=== PATIENT | female | born 1940 | race African-American/Black ===

== ENCOUNTER 2017-01-20 13:15 | Outpatient (CLI) | payer MEDICARE, OTHER, MEDICAID | END 2017-01-20 13:16 | disposition home or self-care (01) | DX: R63.0 Anorexia (principal); F03.91 Unspecified dementia, unspecified severity, with behavioral disturbance; F41.9 Anxiety disorder, unspecified; I25.10 Atherosclerotic heart disease of native coronary artery without angina pectoris; I73.9 Peripheral vascular disease, unspecified; Z89.512 Acquired absence of left leg below knee; Z89.511 Acquired absence of right leg below knee; F32.89 Other specified depressive episodes; D69.6 Thrombocytopenia, unspecified; Z99.3 Dependence on wheelchair; Z79.891 Long term (current) use of opiate analgesic; M40.209 Unspecified kyphosis, site unspecified; R32 Unspecified urinary incontinence; Z51.5 Encounter for palliative care; Z66 Do not resuscitate ==

== ENCOUNTER 2017-04-15 15:30 | Outpatient (CLI) | payer MEDICARE, OTHER, MEDICAID ==
[2017-04-15 17:51] LABS: BILIRUBIN,URINE NEGATIVE (NEGATIVE)
[2017-04-15 18:07] LABS: RAPID STREP SCREEN REAGENT QC YELLOW (YELLOW)
[2017-04-15 18:13] LABS: UA w/ MICROSCOPIC CHARGE YES
[2017-04-15 18:14] LABS: UR CULTURE IF IND NOT INDICATED; WBC,URINE 0-3 /HPF (0-5)
== END 2017-04-15 15:31 | disposition home or self-care (01) ==
LOC: LAB.R 15:30
DX: R30.9 Painful micturition, unspecified (principal); Z11.2 Encounter for screening for other bacterial diseases
CPT/HCPCS: 81001; 81003; 87070; 87086; 87430

== ENCOUNTER 2017-08-29 08:00 | Outpatient (CLI) | payer MEDICARE, OTHER, MEDICAID ==
[2017-08-29 20:16] LABS: ALBUMIN/GLOBULIN RATIO 0.6 (1.0-2.2); BILIRUBIN,TOTAL 0.5 mg/dL (0.2-1.0); BUN - BLOOD UREA NITROGEN 15 mg/dL (6-20); CALCIUM 9.4 mg/dL (8.5-10.3); CARBON DIOXIDE - CO2 22 mmol/L (21-32); CHLORIDE 109 mmol/L (101-111); CREATININE 0.9 mg/dL (0.4-1.0); GFR - MDRD 73 (>89); GLUCOSE 95 mg/dL (70-100); POTASSIUM 4.5 mmol/L (3.5-5.0); SODIUM 140 mmol/L (135-145); TOTAL PROTEIN 9.1 g/dL (6.7-8.2)
== END 2017-08-29 08:01 | disposition home or self-care (01) ==
LOC: LAB.R 08:00
DX: R79.89 Other specified abnormal findings of blood chemistry (principal); R94.6 Abnormal results of thyroid function studies; Z51.81 Encounter for therapeutic drug level monitoring
CPT/HCPCS: 80053; 80164; 84443

== ENCOUNTER 2017-09-01 16:15 | Outpatient (CLI) | payer MEDICARE, OTHER, MEDICAID ==
[2017-09-01 17:17] LABS: BASOPHILS # (AUTO) 0.1 10^3/uL (0.0-0.1); BASOPHILS % (AUTO) 1.2 %; EOSINOPHILS # (AUTO) 0.1 10^3/uL (0.0-0.7); EOSINOPHILS % (AUTO) 2.1 %; HCT - HEMATOCRIT 33.7 % (37.0-47.0); HGB - HEMOGLOBIN 10.2 g/dL (12.0-16.0); LYMPHOCYTES # (AUTO) 2.8 10^3/uL (1.5-3.5); LYMPHOCYTES % (AUTO) 48.1 %; MEAN CORPUSCULAR HEMOGLOBIN 23.6 pg (27.0-31.0); MEAN CORPUSCULAR HGB CONC 30.2 g/dL (32.0-36.0); MEAN CORPUSCULAR VOLUME 78.1 fL (81.0-99.0); MEAN PLATELET VOLUME 8.8 fL (7.9-10.8); MONOCYTES # (AUTO) 0.9 10^3/uL (0.0-1.0); MONOCYTES % (AUTO) 15.9 %; NEUTROPHILS # (AUTO) 1.9 10^3/uL (1.5-6.6); NEUTROPHILS % (AUTO) 32.7 %; NUCLEATED RED BLOOD CELLS AUTO 0.6 /100WBC; RED BLOOD COUNT 4.31 10^6/uL (4.20-5.40); RED CELL DISTRIBUTION WIDTH 19.5 % (12.0-15.0); UNCORRECTED WHITE BLOOD COUNT 5.8 x10^3/uL; WHITE BLOOD COUNT 5.8 x10^3/uL (4.8-10.8)
[2017-09-01 18:24] LABS: PLATELET ESTIMATE, MANUAL INCREASED (>450,000) (NORMAL); PLATELET MORPHOLOGY 1+ GIANT PLATELETS (NORMAL)
== END 2017-09-01 16:16 | disposition home or self-care (01) ==
LOC: LAB.R 16:15
DX: R68.89 Other general symptoms and signs (principal); R79.9 Abnormal finding of blood chemistry, unspecified
CPT/HCPCS: 85025

== ENCOUNTER 2017-09-27 06:00 | Outpatient (CLI) | payer MEDICARE, OTHER, MEDICAID ==
[2017-09-27 06:59] LABS: BILIRUBIN,URINE NEGATIVE (NEGATIVE)
[2017-09-27 07:00] LABS: UA CHARGE (STRIP ONLY) YES; UR CULTURE IF IND NOT INDICATED
== END 2017-09-27 06:01 | disposition home or self-care (01) ==
LOC: LAB.R 06:00
DX: Z13.89 Encounter for screening for other disorder (principal)
CPT/HCPCS: 81001; 81003; 87086

== ENCOUNTER 2017-10-05 11:35 | Outpatient (CLI) | payer MEDICARE, OTHER, MEDICAID ==
[2017-10-05 11:53] LABS: BASOPHILS % (AUTO) 0.5 %; EOSINOPHILS # (AUTO) 0.1 10^3/uL (0.0-0.7); HCT - HEMATOCRIT 31.2 % (37.0-47.0); HGB - HEMOGLOBIN 9.9 g/dL (12.0-16.0); LYMPHOCYTES # (AUTO) 2.9 10^3/uL (1.5-3.5); MEAN CORPUSCULAR HEMOGLOBIN 24.2 pg (27.0-31.0); MEAN CORPUSCULAR HGB CONC 31.7 g/dL (32.0-36.0); MEAN CORPUSCULAR VOLUME 76.2 fL (81.0-99.0); MONOCYTES # (AUTO) 0.7 10^3/uL (0.0-1.0); MONOCYTES % (AUTO) 11.5 %; NEUTROPHILS # (AUTO) 2.2 10^3/uL (1.5-6.6); NUCLEATED RED BLOOD CELLS AUTO 0.5 /100WBC; RED BLOOD COUNT 4.09 10^6/uL (4.20-5.40); RED CELL DISTRIBUTION WIDTH 20.3 % (12.0-15.0); UNCORRECTED WHITE BLOOD COUNT 5.9 x10^3/uL; WHITE BLOOD COUNT 5.9 x10^3/uL (4.8-10.8)
[2017-10-05 12:37] LABS: PLATELET MORPHOLOGY RARE GIANT PLATELETS (NORMAL)
== END 2017-10-05 11:36 | disposition home or self-care (01) ==
LOC: LAB.R 11:35
DX: Z79.899 Other long term (current) drug therapy (principal)
CPT/HCPCS: 85025

== ENCOUNTER 2017-10-15 14:33 | Outpatient (CLI) | payer MEDICARE, OTHER, MEDICAID ==
[2017-10-15 13:46] LABS: IRON 27 ug/dL (28-170); TOTAL IRON BINDING CAPACITY 396 ug/dL (250-450); TRANSFERRIN 283 mg/dL (192-382)
== END 2017-10-15 14:34 | disposition home or self-care (01) ==
LOC: LAB.R 14:33
DX: D50.0 Iron deficiency anemia secondary to blood loss (chronic) (principal)
CPT/HCPCS: 82728; 83540; 84466

== ENCOUNTER 2018-01-07 17:20 | Outpatient (CLI) | payer MEDICARE, OTHER, MEDICAID ==
[2018-01-08 00:06] LABS: ALBUMIN 3.1 g/dL (3.2-5.5); ALBUMIN/GLOBULIN RATIO 0.7 (1.0-2.2); ALKALINE PHOSPHATASE 100 IU/L (42-121); ALT ALANINE AMINOTRANSFERASE 17 IU/L (10-60); AST ASPARTATE AMINOTRANSFERASE 33 IU/L (10-42); BILIRUBIN,TOTAL 0.2 mg/dL (0.2-1.0); BUN - BLOOD UREA NITROGEN 14 mg/dL (6-20); CALCIUM 8.9 mg/dL (8.5-10.3); CARBON DIOXIDE - CO2 21 mmol/L (21-32); CHLORIDE 110 mmol/L (101-111); GFR - MDRD 65 (>89); GLUCOSE 93 mg/dL (70-100); SODIUM 138 mmol/L (135-145); TOTAL PROTEIN 7.7 g/dL (6.7-8.2); VALPROIC ACID (DEPAKOTE) 18.9 ug/mL
[2018-01-08 00:10] LABS: BASOPHILS # (AUTO) 0.1 10^3/uL (0.0-0.1); EOSINOPHILS # (AUTO) 0.1 10^3/uL (0.0-0.7); EOSINOPHILS % (AUTO) 1.3 %; HGB - HEMOGLOBIN 11.6 g/dL (12.0-16.0); LYMPHOCYTES % (AUTO) 58.1 %; MEAN CORPUSCULAR HEMOGLOBIN 26.8 pg (27.0-31.0); MEAN CORPUSCULAR VOLUME 83.7 fL (81.0-99.0); MEAN PLATELET VOLUME 9.5 fL (7.9-10.8); MONOCYTES # (AUTO) 0.7 10^3/uL (0.0-1.0); MONOCYTES % (AUTO) 14.2 %; NEUTROPHILS # (AUTO) 1.3 10^3/uL (1.5-6.6); NEUTROPHILS % (AUTO) 25.4 %; PLT - PLATELET COUNT 534 10^3/uL (130-450); RED BLOOD COUNT 4.31 10^6/uL (4.20-5.40); RED CELL DISTRIBUTION WIDTH 19.9 % (12.0-15.0); WHITE BLOOD COUNT 5.1 x10^3/uL (4.8-10.8)
== END 2018-01-07 17:21 | disposition home or self-care (01) ==
LOC: LAB.R 17:20
DX: I10 Essential (primary) hypertension (principal); R25.1 Tremor, unspecified; D64.9 Anemia, unspecified
CPT/HCPCS: 80053; 80164; 85025

== ENCOUNTER 2018-04-20 20:30 | Outpatient (CLI) | payer MEDICARE, OTHER, MEDICAID ==
[2018-04-20 22:11] LABS: BASOPHILS # (AUTO) 0.1 10^3/uL (0.0-0.1); BASOPHILS % (AUTO) 1.9 %; EOSINOPHILS % (AUTO) 0.7 %; HGB - HEMOGLOBIN 12.5 g/dL (12.0-16.0); LYMPHOCYTES # (AUTO) 1.7 10^3/uL (1.5-3.5); LYMPHOCYTES % (AUTO) 34.5 %; MEAN CORPUSCULAR HEMOGLOBIN 27.9 pg (27.0-31.0); MEAN PLATELET VOLUME 9.7 fL (7.9-10.8); MONOCYTES # (AUTO) 0.4 10^3/uL (0.0-1.0); MONOCYTES % (AUTO) 7.9 %; NEUTROPHILS # (AUTO) 2.7 10^3/uL (1.5-6.6); PLT - PLATELET COUNT 579 10^3/uL (130-450); RED CELL DISTRIBUTION WIDTH 17.5 % (12.0-15.0)
[2018-04-20 22:32] LABS: PLATELET ESTIMATE, MANUAL INCREASED (>450,000) (NORMAL)
== END 2018-04-20 20:31 | disposition home or self-care (01) ==
LOC: LAB.R 20:30
DX: D64.9 Anemia, unspecified (principal)
CPT/HCPCS: 82728; 85025

== ENCOUNTER 2018-05-06 16:30 | Outpatient (CLI) | payer MEDICARE, OTHER, MEDICAID ==
[2018-05-07 00:26] LABS: BILIRUBIN,URINE NEGATIVE (NEGATIVE); GLUCOSE, URINE (UA) NEGATIVE (NEGATIVE); KETONES,URINE (UA) NEGATIVE (NEGATIVE); LEUKOCYTE ESTERASE, URINE NEGATIVE (NEGATIVE); NITRITE,URINE NEGATIVE (NEGATIVE); OCCULT BLOOD,URINE NEGATIVE (NEGATIVE); PROTEIN,URINE NEGATIVE (NEGATIVE); UROBILINOGEN,URINE 0.2 (NORMAL) E.U./dL (NORMAL)
[2018-05-07 00:32] LABS: CLARITY,URINE CLEAR (CLEAR)
== END 2018-05-06 16:31 | disposition home or self-care (01) ==
LOC: LAB.R 16:30
DX: R30.0 Dysuria (principal)
CPT/HCPCS: 81001; 81003; 87086

== ENCOUNTER 2018-11-11 12:28 | Outpatient (CLI) | payer MEDICARE, OTHER, MEDICAID ==
[2018-11-11 19:33] LABS: BASOPHILS % (AUTO) 0.5 %; EOSINOPHILS # (AUTO) 0.1 10^3/uL (0.0-0.7); EOSINOPHILS % (AUTO) 0.9 %; HGB - HEMOGLOBIN 14.3 g/dL (12.0-16.0); LYMPHOCYTES # (AUTO) 3.8 10^3/uL (1.5-3.5); LYMPHOCYTES % (AUTO) 58.5 %; MEAN CORPUSCULAR HEMOGLOBIN 28.1 pg (27.0-31.0); MEAN CORPUSCULAR VOLUME 90.5 fL (81.0-99.0); MEAN PLATELET VOLUME 10.7 fL (7.9-10.8); MONOCYTES # (AUTO) 0.7 10^3/uL (0.0-1.0); MONOCYTES % (AUTO) 11.3 %; NEUTROPHILS # (AUTO) 1.8 10^3/uL (1.5-6.6); NEUTROPHILS % (AUTO) 28.8 %; PLT - PLATELET COUNT 503 10^3/uL (130-450); RED CELL DISTRIBUTION WIDTH 17.3 % (12.0-15.0); WHITE BLOOD COUNT 6.4 x10^3/uL (4.8-10.8)
[2018-11-11 19:58] LABS: ALKALINE PHOSPHATASE 110 IU/L (42-121); ALT ALANINE AMINOTRANSFERASE 11 IU/L (10-60); AST ASPARTATE AMINOTRANSFERASE 27 IU/L (10-42); BILIRUBIN,TOTAL 0.7 mg/dL (0.2-1.0); BUN - BLOOD UREA NITROGEN 9 mg/dL (6-20); CALCIUM 9.7 mg/dL (8.5-10.3); CARBON DIOXIDE - CO2 24 mmol/L (21-32); CHLORIDE 105 mmol/L (101-111); CHOL/HDL RATIO 4.1 (<4.4); CHOLESTEROL 144 mg/dL; CREATININE 0.9 mg/dL (0.4-1.0); GFR - MDRD 73 (>89); GLUCOSE 78 mg/dL (70-100); HDL CHOLESTEROL 35 mg/dL; LDL CHOLESTEROL,CALCULATED 90 mg/dL; LDL/HDL RATIO 2.6 (<4.4); PLATELET ESTIMATE, MANUAL INCREASED (>450,000) (NORMAL); PLATELET MORPHOLOGY 2+ GIANT PLATELETS (NORMAL); RBC MORPHOLOGY (MULTIPLE) 1+ ANISOCYTOSIS (NORMAL); SODIUM 138 mmol/L (135-145); TOTAL PROTEIN 8.8 g/dL (6.7-8.2); VLDL CHOLESTEROL 19 mg/dL
[2018-11-11 20:22] LABS: ALBUMIN 3.5 g/dL (3.2-5.5); ALBUMIN/GLOBULIN RATIO 0.7 (1.0-2.2)
== END 2018-11-11 23:59 | disposition home or self-care (01) ==
LOC: LAB.WCP 12:28
PROVIDERS: ATTEND Family Medicine
DX: G47.00 Insomnia, unspecified (principal); G89.4 Chronic pain syndrome; I73.9 Peripheral vascular disease, unspecified; I25.10 Atherosclerotic heart disease of native coronary artery without angina pectoris; Z79.899 Other long term (current) drug therapy
CPT/HCPCS: 36415; 80053; 80061; 83721; 84134; 84443; 85025; 87086

== ENCOUNTER 2019-04-15 08:00 | Outpatient (CLI) | payer MEDICARE, OTHER, MEDICAID ==
[2019-04-15 13:44] LABS: ALBUMIN 3.6 g/dL (3.2-5.5); ALBUMIN/GLOBULIN RATIO 0.7 (1.0-2.2); ALKALINE PHOSPHATASE 116 IU/L (42-121); ALT ALANINE AMINOTRANSFERASE 12 IU/L (10-60); AMYLASE 123 U/L (28-100); AST ASPARTATE AMINOTRANSFERASE 25 IU/L (10-42); BILIRUBIN,TOTAL 0.4 mg/dL (0.2-1.0); BUN - BLOOD UREA NITROGEN 15 mg/dL (6-20); CALCIUM 9.9 mg/dL (8.5-10.3); CARBON DIOXIDE - CO2 23 mmol/L (21-32); CHLORIDE 109 mmol/L (101-111); CHOL/HDL RATIO 4.1 (<4.4); CHOLESTEROL 135 mg/dL; CREATININE 0.9 mg/dL (0.4-1.0); GFR - MDRD 73 (>89); GLUCOSE 87 mg/dL (70-100); HDL CHOLESTEROL 33 mg/dL; LDL CHOLESTEROL,CALCULATED 68 mg/dL; LDL/HDL RATIO 2.1 (<4.4); LIPASE 31 U/L (22-51); SODIUM 141 mmol/L (135-145); TOTAL PROTEIN 8.9 g/dL (6.7-8.2); VLDL CHOLESTEROL 34 mg/dL
[2019-04-15 13:59] LABS: BASOPHILS % (AUTO) 2.3 %; HGB - HEMOGLOBIN 13.2 g/dL (12.0-16.0); LYMPHOCYTES % (AUTO) 45.5 %; MEAN CORPUSCULAR HEMOGLOBIN 27.3 pg (27.0-31.0); MEAN CORPUSCULAR HGB CONC 31.7 g/dL (32.0-36.0); MEAN CORPUSCULAR VOLUME 86.2 fL (81.0-99.0); MEAN PLATELET VOLUME 9.7 fL (7.9-10.8); MONOCYTES % (AUTO) 11.8 %; NEUTROPHILS % (AUTO) 39.4 %; PLT - PLATELET COUNT 574 10^3/uL (130-450); RED BLOOD COUNT 4.84 10^6/uL (4.20-5.40); RED CELL DISTRIBUTION WIDTH 16.8 % (12.0-15.0); WHITE BLOOD COUNT 8.1 x10^3/uL (4.8-10.8)
[2019-04-15 14:17] LABS: ABNORMAL LYMPHS % (MANUAL) 0 %; BAND NEUTROPHILS % (MANUAL) 0 %
[2019-04-15 14:45] LABS: EOSINOPHILS # (MANUAL) 0.2 10^3/uL (0-0.7); LYMPHOCYTES # (MANUAL) 3.7 10^3/uL (1.5-3.5); LYMPHOCYTES % (MANUAL) 46 %; MONOCYTES # (MANUAL) 0.2 10^3/uL (0.0-1.0); NEUTROPHILS % (MANUAL) 49 %
[2019-04-15 14:56] LABS: DIFFERENTIAL COMMENT MANUAL DIFFERENTIAL; PLATELET ESTIMATE, MANUAL INCREASED (>450,000) (NORMAL); PLATELET MORPHOLOGY NORMAL APPEARANCE (NORMAL)
== END 2019-04-15 23:59 | disposition home or self-care (01) ==
LOC: LAB 08:00
PROVIDERS: ATTEND Family Medicine
DX: R10.13 Epigastric pain (principal); I25.10 Atherosclerotic heart disease of native coronary artery without angina pectoris; R63.0 Anorexia; G89.4 Chronic pain syndrome; F32.9 Major depressive disorder, single episode, unspecified
CPT/HCPCS: 36415; 80053; 80061; 82150; 83690; 83721; 84443; 85025

== ENCOUNTER 2019-04-15 12:10 | Outpatient (CLI) | payer MEDICARE, OTHER, MEDICAID ==
--- NOTE | 2019-04-15 13:29 | XRAY Report ---
Reason: EPIGASTRIC PAIN Procedure Date: 04/15/2019 Accession Number: [id number] / [id number] Procedure: XR - Abdomen Acute CPT Code: FULL RESULT: EXAM: ABDOMINAL SERIES AND PA CHEST EXAM DATE: 04/15/2019 12:53 PM. CLINICAL HISTORY: EPIGASTRIC PAIN. COMPARISON: 12/17/2015 10:42 PM CHEST 1 VIEW 07/02/2015 2:37 AM. TECHNIQUE: 2 views abdomen and 1 view chest. FINDINGS: CHEST: Lungs/Pleura: No focal opacities. No effusion or pneumothorax. Mediastinum: Within exam limitations, cardiomediastinal contour is normal. ABDOMEN: Bowel Gas Pattern: Within normal limits. No dilated loops or abnormal fluid levels. Free Air: None. Other: Left iliac vascular stent. S-shaped thoracolumbar scoliosis IMPRESSION: Unremarkable abdominal series (including 1-view chest). [facility]
== END 2019-04-15 12:11 | disposition home or self-care (01) ==
LOC: DI 12:10
PROVIDERS: ATTEND Family Medicine
DX: R10.13 Epigastric pain (principal); I25.10 Atherosclerotic heart disease of native coronary artery without angina pectoris; R63.0 Anorexia; G89.4 Chronic pain syndrome; F32.9 Major depressive disorder, single episode, unspecified
CPT/HCPCS: 36415; 74022; 80053; 80061; 82150; 83690; 83721; 84443; 85025

== ENCOUNTER 2019-04-16 12:15 | Outpatient (CLI) | payer MEDICARE, OTHER, MEDICAID | END 2019-04-16 12:16 | disposition critical access hospital (66) | LOC: EMS 12:15 | PROVIDERS: ATTEND Surgery | DX: R10.9 Unspecified abdominal pain (principal) | CPT/HCPCS: A0425; A0429 ==

== ENCOUNTER 2019-04-16 12:35 | Emergency (ER) | payer MEDICARE, OTHER, MEDICAID ==
[2019-04-16 13:35] LABS: BASOPHILS # (AUTO) 0.2 10^3/uL (0.0-0.1); BASOPHILS % (AUTO) 2.6 %; EOSINOPHILS % (AUTO) 0.7 %; HGB - HEMOGLOBIN 13.2 g/dL (12.0-16.0); LYMPHOCYTES # (AUTO) 2.8 10^3/uL (1.5-3.5); LYMPHOCYTES % (AUTO) 46.2 %; MEAN CORPUSCULAR HEMOGLOBIN 27.4 pg (27.0-31.0); MEAN CORPUSCULAR HGB CONC 31.9 g/dL (32.0-36.0); MEAN CORPUSCULAR VOLUME 85.9 fL (81.0-99.0); MEAN PLATELET VOLUME 10.2 fL (7.9-10.8); MONOCYTES # (AUTO) 0.9 10^3/uL (0.0-1.0); MONOCYTES % (AUTO) 15.6 %; NEUTROPHILS # (AUTO) 2.1 10^3/uL (1.5-6.6); NEUTROPHILS % (AUTO) 34.9 %; PLT - PLATELET COUNT 608 10^3/uL (130-450); RED BLOOD COUNT 4.83 10^6/uL (4.20-5.40); RED CELL DISTRIBUTION WIDTH 16.4 % (12.0-15.0)
[2019-04-16] MEDS ORDERED: PANTOPRAZOLE 40 MG VIAL IVP STA (13:48)
[2019-04-16] MEDS ORDERED: MAG HYDROX/AL HYDROX/SIMETH 30 ML UDC PO STA (13:48)
[2019-04-16] MEDS ORDERED: LIDOCAINE VISCOUS 2% 15 ML UDC MM STA (13:48)
[2019-04-16] MEDS ORDERED: SODIUM CHLORIDE 0.9% 1,000 ML IV ONE ×2 (13:48)
[2019-04-16] MEDS ORDERED: SUCRALFATE 1 GM/10 ML UDC PO STA (13:48)
--- NOTE | 2019-04-16 13:51 | ED Physician Documentation ---
PD HPI ABD PAIN - Stated complaint Stated Complaint: ABD PX - Chief complaint Chief Complaint: Abd Pain - History obtained from History obtained from: Patient, Family - History of Present Illness Timing - onset: How many days ago (several) Timing - duration: Days (several) Timing - details: Abrupt onset Pain level max: 7 Pain level now: 6 Quality: Aching, Dull, Pain Location: Epigastric Radiation: No: Chest, , Lower back, Left flank, Left shoulder, Right flank, Right shoulder, Upper back Improved by: Other (nothing) Worsened by: Other (nothing) Associated symptoms: No: Fever, Nausea, Vomiting, Hematemesis, Diarrhea, Constipation, Melena, Hematochezia, Dysuria, Hematuria, Chest pain, Dizzy, Near syncope / syncope, Loss of appetite, Weight loss, Vaginal bleeding, Vaginal dc Recently seen: Clinic (seen in clinic yesterday for same, normal acute abdominal series) Review of Systems Unable to obtain: Dementia Constitutional: denies: Fever, Chills Throat: denies: Sore throat Cardiac: denies: Chest pain / pressure Respiratory: denies: Cough, Wheezing GI: denies: Vomiting, Diarrhea, Hematemesis, Bloody / black stool : denies: Dysuria Skin: denies: Rash Musculoskeletal: denies: Neck pain, Back pain Neurologic: denies: Headache PD PAST MEDICAL HISTORY - Past Medical History Cardiovascular: High cholesterol, Coronary artery disease, Peripheral Vascular Disease Respiratory: Asthma Endocrine/Autoimmune: None GI: GERD, Hiatal hernia 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 HEENT: Glaucoma Psych: Anxiety Musculoskeletal: Osteoporosis Derm: None - Past Surgical History Past Surgical History: Yes General: Appendectomy Ortho: Amputation, 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 TEACHER: Hysterectomy - Present Medications Home Medications: Ambulatory Orders Medication Instructions Recorded Confirmed Potassium Chloride 20 meq PO DAILY 07/02/15 03/18/16 Cholecalciferol (Vitamin D3) 1,000 unit PO DAILY 07/03/15 03/18/16 [Vitamin D3] Aspirin [Adult Low Dose Aspirin EC] 80 mg PO DAILY 12/18/15 03/18/16 Polyethylene Glycol 3350 [Miralax] 8.5 - 17 gm PO DAILY 12/18/15 03/18/16 ALPRAZolam [Alprazolam] 0.125 mg PO BID 03/18/16 03/18/16 Acetaminophen [Tylenol] 650 mg PO Q6H PRN 03/18/16 03/18/16 Alprazolam [Alprazolam Odt] 0.125 mg PO TID 03/18/16 03/18/16 Famotidine [Pepcid] 20 mg PO BID 03/18/16 03/18/16 Gabapentin 300 mg BID 03/18/16 03/18/16 Risperidone 1 mg BID 03/18/16 03/18/16 Simethicone [Anti-Gas] 60 mg PO PRN 03/18/16 Travoprost (Benzalkonium) 2.5 ml OP 03/18/16 [Travoprost 0.004% Eye Drop] oxyCODONE ER [OxyCONTIN] 10 mg PO Q12H 03/18/16 03/18/16 Azithromycin [Zithromax] 250 mg PO DAILY #6 tablet 08/10/16 dexAMETHasone [Decadron] 4 mg PO DAILY #5 tablet 08/10/16 Esomeprazole Magnesium [Nexium] 40 mg PO DAILY #30 capsule. 04/16/19 Sucralfate [Carafate] 1 gm PO ACHS #60 tablet 04/16/19 fentaNYL [Fentanyl 12mcg patch] 1 each TD 04/16/19 - Allergies Allergies/Adverse Reactions: Allergies Allergy/AdvReac Type Severity Reaction Status Date / Time gentamicin [Gentamicin] Allergy Unknown Verified 03/17/16 22:22 lisinopril Allergy Unknown Verified 03/17/16 22:22 - Social History Does the pt smoke?: No Smoking Status: Former smoker Does the pt drink ETOH?: No Does the pt have substance abuse?: No - Immunizations Immunizations are current?: Yes - POLST Patient has POLST: Yes PD ED PE NORMAL - Vitals Vital signs reviewed: Yes - General General: No acute distress, Well developed/nourished, Other (alert, oriented to ) - HEENT HEENT: Moist mucous membranes - Neck Neck: Supple, no meningeal sign - Cardiac Cardiac: RRR, Strong equal pulses - Respiratory Respiratory: No respiratory distress, Clear bilaterally - Abdomen Abdomen: Normal bowel sounds, Soft, Non tender, Non distended - Derm Derm: Warm and dry - Extremities Extremities: Other (B AKA, no infection on skin) - Neuro Neuro: Other (alert) - Psych Psych: Normal mood, Normal affect Results - Vitals Vitals: Vital Signs - 24 hr 04/16/19 04/16/19 04/16/19 12:40 13:00 14:30 Temperature 36.8 C Heart Rate 72 Respiratory 18 Rate Blood Pressure 121/93 H O2 Saturation 88 L 96 93 04/16/19 15:02 Temperature Heart Rate 66 Respiratory 18 Rate Blood Pressure 132/75 H O2 Saturation 93 Oxygen O2 Source [Without Activity] Room air O2 Source Room air - Labs Labs: Laboratory Tests 04/16/19 04/16/19 04/16/19 13:20 13:43 14:09 WBC 6.0 RBC 4.83 Hgb 13.2 Hct 41.5 MCV 85.9 MCH 27.4 MCHC 31.9 L RDW 16.4 H Plt Count 608 H MPV 10.2 Neut # (Auto) 2.1 Lymph # (Auto) 2.8 [place] # (Auto) 0.9 Eos # (Auto) 0.0 Baso # (Auto) 0.2 H Absolute Nucleated RBC 0.02 Nucleated RBC % 0.3 Manual Slide Review Indicated Platelet Morphology RARE GIANT PLATELETS Sodium 141 Potassium 4.0 Chloride 109 Carbon Dioxide 23 Anion Gap 9.0 BUN 14 Creatinine 1.0 Estimated GFR (MDRD) 65 L Glucose 103 H Calcium 9.5 Total Bilirubin 0.6 AST 28 ALT 11 Alkaline Phosphatase 109 Total Protein 8.6 H Albumin 3.4 Globulin 5.2 H Albumin/Globulin Ratio 0.7 L Lipase 32 Urine Color YELLOW Urine Clarity CLEAR Urine pH 5.5 Ur Specific [place] 1.020 Urine Protein NEGATIVE Urine Glucose (UA) NEGATIVE Urine Ketones NEGATIVE Urine Occult Blood NEGATIVE Urine Nitrite NEGATIVE Urine Bilirubin NEGATIVE Urine Urobilinogen 0.2 (NORMAL) Ur Leukocyte Esterase NEGATIVE Ur Microscopic Review NOT INDICATED Urine Culture Comments NOT INDICATED PD MEDICAL DECISION MAKING - ED course Complexity details: reviewed old records, reviewed results, re-evaluated patient, considered differential, d/w patient, d/w family ED course: Symptoms resolved with GI cocktail and IV Protonix. Likely that she has gastritis from her iron pills. Tolerating p.o. without difficulty here. Hypoxia resolved in the emergency department as well. She is very well- appearing, nontoxic. Afebrile. No evidence of bowel obstruction. No peritoneal signs. Patient and family counseled regarding signs and symptoms for which I believe and urgent re-evaluation would be necessary. Patient with good understanding of and agreement to plan and is comfortable going home at this time This document was made in part using voice recognition software. While efforts are made to proofread this document, sound alike and grammatical errors may occur. Departure - Departure Disposition: Home, Self Care Clinical Impression: Gastritis Qualifiers: Gastritis type: unspecified gastritis Chronicity: acute Gastritis bleeding: without bleeding Qualified Code(s): K29.00 - Acute gastritis without bleeding Condition: Good Instructions: ED PUD Vs Gastritis Follow-Up: Gurmeet Garduno MD [Primary Care Provider] - Within 1 week Prescriptions: Esomeprazole Magnesium [Nexium] 40 mg PO DAILY #30 capsule. Sucralfate [Carafate] 1 gm PO ACHS #60 tablet Comments: Use the medications as prescribed. Return if she worsens. Follow-up with your doctor for further care. Discharge Date/Time: 04/16/19 15:33
[2019-04-16 14:04] LABS: ALBUMIN 3.4 g/dL (3.2-5.5); ALBUMIN/GLOBULIN RATIO 0.7 (1.0-2.2); BILIRUBIN,TOTAL 0.6 mg/dL (0.2-1.0); CALCIUM 9.5 mg/dL (8.5-10.3); TOTAL PROTEIN 8.6 g/dL (6.7-8.2)
[2019-04-16 14:06] LABS: PLATELET MORPHOLOGY RARE GIANT PLATELETS (NORMAL)
[2019-04-16 14:28] LABS: BILIRUBIN,URINE NEGATIVE (NEGATIVE); GLUCOSE, URINE (UA) NEGATIVE (NEGATIVE); KETONES,URINE (UA) NEGATIVE (NEGATIVE); LEUKOCYTE ESTERASE, URINE NEGATIVE (NEGATIVE); NITRITE,URINE NEGATIVE (NEGATIVE); OCCULT BLOOD,URINE NEGATIVE (NEGATIVE); PH,URINE 5.5 PH (5.0-7.5); PROTEIN,URINE NEGATIVE (NEGATIVE); UROBILINOGEN,URINE 0.2 (NORMAL) E.U./dL (NORMAL)
[2019-04-16 14:31] LABS: CLARITY,URINE CLEAR (CLEAR)
[2019-04-16 15:03] VITALS: BP 132/75
== END 2019-04-16 15:33 | disposition home or self-care (01) ==
LOC: EDUNIT# → ED 12:35
DX: K29.00 Acute gastritis without bleeding (principal); F03.90 Unspecified dementia, unspecified severity, without behavioral disturbance, psychotic disturbance, mood disturbance, and anxiety; Z89.612 Acquired absence of left leg above knee; Z89.611 Acquired absence of right leg above knee; Z79.82 Long term (current) use of aspirin; Z87.891 Personal history of nicotine dependence
CPT/HCPCS: 36415; 80053; 81003; 83690; 85025; 96374; 99283; A9270; 81001; 87086

== ENCOUNTER 2019-06-23 15:47 | Outpatient (CLI) | payer MEDICARE, OTHER, MEDICAID | END 2019-06-23 23:59 | disposition home or self-care (01) | LOC: LAB.R 15:47 | PROVIDERS: ATTEND Family Medicine | DX: R31.9 Hematuria, unspecified (principal) | CPT/HCPCS: 87077; 87086; 87181 ==

== ENCOUNTER 2019-07-12 08:00 | Outpatient (CLI) | payer MEDICARE, OTHER, MEDICAID ==
[2019-07-12 18:42] LABS: BASOPHILS % (AUTO) 0.3 %; EOSINOPHILS # (AUTO) 0.1 10^3/uL (0.0-0.7); EOSINOPHILS % (AUTO) 1.5 %; HGB - HEMOGLOBIN 13.7 g/dL (12.0-16.0); LYMPHOCYTES # (AUTO) 3.7 10^3/uL (1.5-3.5); LYMPHOCYTES % (AUTO) 62.2 %; MEAN CORPUSCULAR HEMOGLOBIN 27.3 pg (27.0-31.0); MEAN CORPUSCULAR HGB CONC 29.6 g/dL (32.0-36.0); MEAN CORPUSCULAR VOLUME 92.4 fL (81.0-99.0); MONOCYTES # (AUTO) 0.7 10^3/uL (0.0-1.0); NEUTROPHILS # (AUTO) 1.5 10^3/uL (1.5-6.6); NEUTROPHILS % (AUTO) 24.7 %; PLT - PLATELET COUNT 443 10^3/uL (130-450); RED BLOOD COUNT 5.01 10^6/uL (4.20-5.40); RED CELL DISTRIBUTION WIDTH 20.5 % (12.0-15.0); WHITE BLOOD COUNT 5.9 x10^3/uL (4.8-10.8)
[2019-07-12 19:09] LABS: ALBUMIN 3.3 g/dL (3.2-5.5); ALBUMIN/GLOBULIN RATIO 0.6 (1.0-2.2); BILIRUBIN,TOTAL 0.4 mg/dL (0.2-1.0); CALCIUM 9.4 mg/dL (8.5-10.3); CREATININE 0.9 mg/dL (0.4-1.0); TOTAL PROTEIN 8.9 g/dL (6.7-8.2)
[2019-07-12 19:38] LABS: PLATELET ESTIMATE, MANUAL INCREASED (>450,000) (NORMAL)
== END 2019-07-12 23:59 | disposition home or self-care (01) ==
LOC: LAB.WCP 08:00
PROVIDERS: ATTEND Family Medicine
DX: R10.9 Unspecified abdominal pain (principal)
CPT/HCPCS: 36415; 80053; 82150; 83690; 85025

== ENCOUNTER 2019-07-20 13:38 | Outpatient (CLI) | payer MEDICARE, OTHER, MEDICAID ==
[2019-07-20] MEDS ORDERED: IOVERSOL 320 50 ML VIAL ONE (13:58)
[2019-07-20] MEDS ORDERED: IOVERSOL 320 100 ML VIAL IVP ONE ×2 (13:58→15:23)
--- NOTE | 2019-07-21 18:46 | CT Report ---
Reason: ABDOMINAL PAIN Procedure Date: 07/20/2019 Accession Number: [id number] / [id number] Procedure: CT - Abdomen/Pelvis W CPT Code: FULL RESULT: EXAM: CT ABDOMEN AND PELVIS EXAM DATE: 07/20/2019 03:15 PM. CLINICAL HISTORY: ABDOMINAL PAIN. COMPARISONS: ABDOMEN ACUTE 04/15/2019 12:39 PM CHEST 2 VIEW 04/15/2019 12:21 PM CHEST 2 VIEW PA/LAT 08/10/2016 6:59 PM. TECHNIQUE: Routine helical CT imaging was performed through the abdomen and pelvis. IV contrast: OPTI 320 80ML. Enteric contrast: No. Reconstructions: Coronal and sagittal. In accordance with CT protocol optimization, one or more of the following dose reduction techniques were utilized for this exam: automated exposure control, adjustment of mA and/or KV based on patient size, or use of iterative reconstructive technique. FINDINGS: Lung Bases: No pleural effusion Liver: Calcified granulomata. No masses. Gallbladder/Bile Ducts: Unremarkable. Spleen: Post splenectomy. 1.6 cm residual splenule 01/11. Pancreas: Atrophic appearance. Pancreatic duct 2.8 mm Adrenal Glands: Normal. Kidneys: Bilateral renal cysts, the largest 3.3 cm left kidney. 1.2 cm round calcification left renal hilus 01/19 , question relationship to left renal artery Peritoneal Cavity/Bowel: No free fluid, free air or adenopathy. No masses or acute inflammatory process. Pelvic Organs: Bladder is unremarkable. Uterus not seen. Vasculature: The distal descending thoracic aorta is dilated measuring 3.8 cm at the diaphragm with moderate mural thrombus. 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 Superior mesenteric artery patent. Distal 4.4 x 4.1 cm abdominal aortic aneurysm extending to the level of the bifurcation where bilateral common iliac artery grafts are in place. No evidence of periaortic stranding. Bones: Degenerative change in the spine Other: None. IMPRESSION: 1. 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 Celiac axis origin appears occluded. Suggest dedicated imaging of the thoracic and abdominal aorta for further assessment. 2. Bilateral common iliac artery stent/grafts. 3. Status post splenectomy. 4. Bilateral renal cysts. 5. 1.2 cm round calcification left renal hilus, question relationship to left renal artery. 6. Other incidental findings as above. [facility]
== END 2019-07-20 13:39 | disposition home or self-care (01) ==
LOC: DI 13:38
PROVIDERS: ATTEND Family Medicine
DX: I71.4 Abdominal aortic aneurysm, without rupture (principal); N28.1 Cyst of kidney, acquired
CPT/HCPCS: 74177; Q9967

== ENCOUNTER 2019-07-31 10:37 | Outpatient (CLI) | payer MEDICARE, OTHER, MEDICAID ==
[2019-07-31] MEDS ORDERED: IOVERSOL 320 100 ML VIAL IVP ONE ×2 (11:02→11:37)
--- NOTE | 2019-08-01 09:02 | CT Report ---
Reason: ABDOMINAL AORTIC ANEURYSM, THORACIC AORTIC ANEURYS Procedure Date: 07/31/2019 Accession Number: [id number] / [id number] Procedure: CT - ANGIO ABDOMEN W/WO CPT Code: FULL RESULT: EXAM: CTA ABDOMEN AND PELVIS INDICATION: Thoracic and abdominal aortic aneurysm. TECHNIQUE: Following intravenous administration of Optiray 320, 90 mL, axial sections were obtained through the abdomen and pelvis. Multiplanar 3D reconstructions are available for interpretation. In accordance with CT protocol optimization, one or more of the following dose reduction techniques were utilized for this exam: automated exposure control, adjustment of mA and/or KV based on patient size, or use of iterative reconstructive technique. COMPARISON: CHEST ANGIO 07/31/2019 11:19 AM. ABDOMEN ANGIO 07/31/2019 11:19 AM. ABDOMEN/PELVIS W/ 07/20/2019 2:55 PM. FINDINGS: MEASUREMENTS: At the level of the diaphragm, the aorta measures 32 x 35 mm. Previous 30 x 34 mm. Above the renal arteries, the aorta measures 25 x 28 mm. Previous 22 x 27 mm. Below the renal arteries, the aorta measures 39 x 43 mm. Previous 40 x 44 mm. Above the iliac bifurcation, the aorta measures 25 x 30 mm. Previous 24 x 27 mm. Lower thoracic aorta: 40 mm, stable. ABDOMINAL AORTA: Moderately heavy mural calcification without dissection, similar to previous. 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 More distal aspect filled by collaterals. The SMA appears patent. The renal arteries appear patent. The NA is not seen. CT ABDOMEN AND PELVIS: Visualized lung bases appear clear. No focal lesions detected in the visualized liver, pancreas, or adrenal glands. 1.6 cm splenule indicated left upper abdomen. The spleen is not otherwise seen. Stable appearance of bilateral renal cysts. The kidneys enhance symmetrically. No pathologically enlarged lymph nodes. IMPRESSION: Overall stable appearance of lower thoracic and abdominal aortic aneurysm. Heavy atheromatous changes. No dissection identified. 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 The NA takeoff is also not seen. [facility]
--- NOTE | 2019-08-01 09:13 | CT Report ---
Reason: ABDOMINAL AORTIC ANEURYSM, THORACIC AORTIC ANEURYS Procedure Date: 07/31/2019 Accession Number: [id number] / [id number] Procedure: CT - ANGIO PELVIS W/WO CPT Code: FULL RESULT: EXAM: CT PELVIS EXAM DATE: 07/31/2019 11:36 AM. CLINICAL HISTORY: Abdominal aortic aneurysm, thoracic aortic aneurysm. COMPARISONS: None. TECHNIQUE: Routine helical CT imaging was performed through the pelvis. IV contrast: OPTI 320 90 mL. Enteric contrast: No. Reconstructions: Coronal and sagittal. In accordance with CT protocol optimization, one or more of the following dose reduction techniques were utilized for this exam: automated exposure control, adjustment of mA and/or KV based on patient size, or use of iterative reconstructive technique. FINDINGS: Visualized Abdominal Organs: Normal. Peritoneal Cavity/Bowel: No bowel obstruction identified. [place] radiopaque densities at the cecum, possibly pills. The appendix is not well seen. Pelvic Organs: Uterus absent. No cystic or mass lesions in either adnexa. Normal-appearing urinary bladder.. Vasculature: Abdominal aorta findings reported separately. No aneurysm identified of the right common iliac artery. The left common iliac artery appears occluded. A vascular stent is seen. No aneurysm of the left common iliac artery identified. Bones: No significant abnormality. Other: None. IMPRESSION: The left common iliac artery appears occluded. [facility]
--- NOTE | 2019-08-01 09:13 | CT Report ---
Reason: ABDOMINAL AORTIC ANEURYSM, THORACIC AORTIC ANEURYS Procedure Date: 07/31/2019 Accession Number: [id number] / [id number] Procedure: CT - ANGIO CHEST W/WO CPT Code: FULL RESULT: EXAM: CT ANGIOGRAM CHEST EXAM DATE: 07/31/2019 11:36 AM. CLINICAL HISTORY: Abdominal aortic aneurysm, thoracic aortic aneurysm. COMPARISON: None. TECHNIQUE: Routine helical imaging was performed through the chest in the pulmonary arterial phase. IV Contrast: Optiray 320, 90 mL. Reconstructions: Coronal 3-D MIP reconstructions. Sagittal and coronal. In accordance with CT protocol optimization, one or more of the following dose reduction techniques were utilized for this exam: automated exposure control, adjustment of mA and/or KV based on patient size, or use of iterative reconstructive technique. FINDINGS: Pulmonary Arteries: Diagnostic quality: Adequate through the segmental arteries. No evidence for acute or chronic pulmonary emboli. RV/LV is within normal limits. There is no interventricular septal bowing. There is no reflux of contrast material in the IVC. Lungs/Pleura: Mild emphysematous changes with paraseptal and centrilobular cystic changes toward the lung apices. No lung consolidations identified. No bronchiectasis or pleural fluid collections. Mediastinum: No cardiac enlargement or adenopathy. Thoracic Aorta: Proximal abdominal aorta measured 35 x 33 mm, the aortic arch measured 31 x 32 mm, the mid descending thoracic aorta 28 x 29 mm, and the distal abdominal aorta 34 x 35 mm. Calcified mural plaques most conspicuous of the ascending aorta, aortic arch, and proximal descending aorta. Mural thickening most conspicuous of the mid to distal descending thoracic aorta. No aortic dissection identified. Upper Abdomen: Reported separately. Other: None. IMPRESSION: Thoracic aortic prominence, with significant mural thickening distally, as above. No dissection identified. [facility]
== END 2019-07-31 10:38 | disposition home or self-care (01) ==
LOC: DI 10:37
PROVIDERS: ATTEND Family Medicine
DX: I71.4 Abdominal aortic aneurysm, without rupture (principal); I71.2 Thoracic aortic aneurysm, without rupture
CPT/HCPCS: 71275; 72191; 74175; Q9967

== ENCOUNTER 2019-08-13 22:44 | Outpatient (CLI) | payer MEDICARE, OTHER, MEDICAID | END 2019-08-13 22:45 | disposition critical access hospital (66) | LOC: EMS 22:44 | PROVIDERS: ATTEND Surgery | DX: R53.1 Weakness (principal); R53.83 Other fatigue | CPT/HCPCS: A0425; A0429 ==

== ENCOUNTER 2019-08-13 23:04 | Inpatient (IN) | payer MEDICARE, OTHER, MEDICAID ==
[2019-08-13] MEDS ORDERED: SODIUM CHLORIDE 0.9% 1,000 ML IV ONE (23:35)
--- NOTE | 2019-08-14 00:11 | XRAY Report ---
Reason: weakness Procedure Date: 08/14/2019 Accession Number: [id number] / [id number] Procedure: XR - Chest 1 View X-Ray CPT Code: 63896 FULL RESULT: EXAM: CHEST RADIOGRAPHY EXAM DATE: 08/13/2019 11:45 PM. CLINICAL HISTORY: Weakness. COMPARISON: CHEST 2 VIEW 04/15/2019 12:21 PM CHEST 2 VIEW PA/LAT 08/10/2016 6:59 PM 12/17/2015 6:18 PM CHEST 1 VIEW 07/02/2015 2:37 AM CHEST ANGIO 07/31/2019 11:21 AM. TECHNIQUE: 1 view. FINDINGS: Lungs/Pleura: No significant consolidation, effusion, or definite pneumothorax. Mediastinum: Small calcified left hilar lymph node. Cardiac silhouette is within normal limits when accounting for lung volumes and technique. Other: None. IMPRESSION: Stable appearance of the chest without acute cardiopulmonary abnormality. [facility]
--- NOTE | 2019-08-14 00:30 | ED Physician Documentation ---
History of Present Illness - Stated complaint Stated Complaint: WEAKNESS - Chief complaint Chief Complaint: Neuro - History obtained from History obtained from: Patient, Family, EMS - History of Present Illness Timing: How many days ago (2) - Additonal information Additional information: 79-year-old female with history of severe peripheral vascular disease who is status post bilateral BKA and has a history of vascular dementia is being cared for by her at home. Over the past 2 weeks the patient has been placed on Diamox for elevated pressure in the right eye. She has become profoundly weak and the patient's is unable to care for her at home. She is normally able to sit up, put her prostheses on and transfer to the bedside commode. She is not able to sit up in bed today. Review of Systems Constitutional: denies: Fever Eyes: reports: Decreased vision Ears: denies: Ear pain Nose: denies: Congestion Throat: denies: Sore throat Cardiac: denies: Chest pain / pressure, Palpitations Respiratory: denies: Dyspnea, Cough GI: reports: Abdominal Pain. denies: Nausea, Vomiting : denies: Dysuria, Frequency Skin: denies: Rash Musculoskeletal: reports: Back pain. denies: Neck pain Neurologic: reports: Generalized weakness. denies: Focal weakness, Numbness PD PAST MEDICAL HISTORY - Past Medical History Past Medical History: Yes Cardiovascular: High cholesterol, Coronary artery disease, Peripheral Vascular Disease Respiratory: Asthma Endocrine/Autoimmune: None GI: GERD, Hiatal hernia LAW LIBRARIAN: None : None HEENT: Glaucoma Psych: Anxiety Musculoskeletal: Osteoporosis Derm: None - Past Surgical History Past Surgical History: Yes General: Appendectomy Ortho: Amputation, Other /LAW LIBRARIAN: Hysterectomy - Present Medications Home Medications: Ambulatory Orders Medication Instructions Recorded Confirmed Potassium Chloride 20 meq PO DAILY 07/02/15 03/18/16 Cholecalciferol (Vitamin D3) 1,000 unit PO DAILY 07/03/15 03/18/16 [Vitamin D3] Aspirin [Adult Low Dose Aspirin EC] 80 mg PO DAILY 12/18/15 03/18/16 Polyethylene Glycol 3350 [Miralax] 8.5 - 17 gm PO DAILY 12/18/15 03/18/16 ALPRAZolam [Alprazolam] 0.25 mg PO BID 03/18/16 03/18/16 Acetaminophen [Tylenol] 650 mg PO Q6H PRN 03/18/16 03/18/16 Alprazolam [Alprazolam Odt] 0.25 mg PO RTQ4H 03/18/16 03/18/16 Famotidine [Pepcid] 20 mg PO BID 03/18/16 03/18/16 Gabapentin 300 mg BID 03/18/16 03/18/16 Risperidone 1 mg BID 03/18/16 03/18/16 Simethicone [Anti-Gas] 60 mg PO PRN 03/18/16 Travoprost (Benzalkonium) 2.5 ml OP 03/18/16 [Travoprost 0.004% Eye Drop] oxyCODONE ER [OxyCONTIN] 10 mg PO Q12H 03/18/16 03/18/16 Esomeprazole Magnesium [Nexium] 40 mg PO DAILY #30 capsule. 04/16/19 Sucralfate [Carafate] 1 gm PO ACHS #60 tablet 04/16/19 Baclofen 10 mg PO TID PRN 08/13/19 Divalproex Sodium 125 mg PO BID 08/13/19 Esomeprazole Magnesium 40 mg PO DAILY 08/13/19 Lovastatin 80 mg PO DAILY 08/13/19 Mirtazapine 0.5 tab PO DAILY 08/13/19 Potassium Chloride 20 meq PO DAILY 08/13/19 - Allergies Allergies/Adverse Reactions: Allergies Allergy/AdvReac Type Severity Reaction Status Date / Time gentamicin [Gentamicin] Allergy Unknown Verified 03/17/16 22:22 lisinopril Allergy Unknown Verified 03/17/16 22:22 - Social History Does the pt smoke?: No Smoking Status: Never smoker Does the pt drink ETOH?: No Does the pt have substance abuse?: No - Immunizations Immunizations are current?: Yes - POLST Patient has POLST: Yes PD ED PE NORMAL - Vitals Vital signs reviewed: Yes (hypertensive mild ) - General General: No acute distress, Well developed/nourished, Other (oriented to person only ) - HEENT HEENT: Atraumatic - Neck Neck: Supple, no meningeal sign, No bony TTP - Cardiac Cardiac: RRR, No murmur - Respiratory Respiratory: No respiratory distress, Clear bilaterally - Abdomen Abdomen: Soft, Non tender - Back Back: No CVA TTP, No spinal TTP - Derm Derm: Normal color, Warm and dry, No rash - Extremities Extremities: Other (bilat BKA) - Neuro Neuro: groundwater monitoring technician 2-12 intact, No motor deficit, No sensory deficit, Normal speech Eye Opening: Spontaneous Motor: Obeys Commands Verbal: Confused GCS Score: 14 - Psych Psych: Other (mood is withdrawn and affect is flat) Results - Vitals Vitals: Vital Signs - 24 hr 08/13/19 08/14/19 08/14/19 23:05 01:12 02:33 Temperature 36.8 C Heart Rate 78 82 75 Respiratory 16 15 16 Rate Blood Pressure 124/81 H 108/62 127/72 O2 Saturation 99 94 97 08/14/19 08/14/19 08/14/19 04:00 05:12 06:45 Temperature 37.1 C Heart Rate 70 69 Respiratory 16 18 Rate Blood Pressure 148/82 H 143/83 H O2 Saturation 99 99 08/14/19 07:22 Temperature 37.2 C Heart Rate 66 Respiratory 14 Rate Blood Pressure 137/75 H O2 Saturation 99 Oxygen O2 Source [] Room air O2 Source Room air - Labs Labs: Laboratory Tests 08/14/19 08/14/19 08/14/19 00:55 01:13 02:20 WBC 7.0 RBC 4.35 Hgb 12.1 Hct 39.8 MCV 91.5 MCH 27.8 MCHC 30.4 L RDW 20.6 H Plt Count 240 MPV 12.0 H Neut # (Auto) 3.3 Lymph # (Auto) 3.0 [place] # (Auto) 0.7 Eos # (Auto) 0.0 Baso # (Auto) 0.0 Absolute Nucleated RBC 0.05 Nucleated RBC % 0.7 Manual Slide Review Indicated WBC Morphology NORMAL APPEARANCE Platelet Estimate NORMAL (130-450,000) Platelet Morphology PLATELET CLUMPING RBC Morph Micro Appear 2+ ANISOCYTOSIS Sodium 146 H Potassium 3.5 Chloride 122 H* Carbon Dioxide 16 L Anion Gap 8.0 BUN 13 Creatinine 1.0 Estimated GFR (MDRD) 65 L Glucose 82 Calcium 8.7 Total Bilirubin 0.7 AST 18 ALT < 10 L Alkaline Phosphatase 95 Total Protein 8.1 Albumin 2.8 L Globulin 5.3 H Albumin/Globulin Ratio 0.5 L Lipase 30 Urine Color YELLOW Urine Clarity CLEAR Urine pH 5.5 Ur Specific [place] 1.020 Urine Protein NEGATIVE Urine Glucose (UA) NEGATIVE Urine Ketones NEGATIVE Urine Occult Blood NEGATIVE Urine Nitrite NEGATIVE Urine Bilirubin NEGATIVE Urine Urobilinogen 1 (NORMAL) Ur Leukocyte Esterase SMALL H Urine RBC None Seen Urine WBC 4-5 Ur Squamous Epith Cells FEW Squamous Urine Bacteria Few Ur Microscopic Review INDICATED Urine Culture Comments INDICATED 08/14/19 06:20 WBC RBC Hgb Hct MCV MCH MCHC RDW Plt Count MPV Neut # (Auto) Lymph # (Auto) [place] # (Auto) Eos # (Auto) Baso # (Auto) Absolute Nucleated RBC Nucleated RBC % Manual Slide Review WBC Morphology Platelet Estimate Platelet Morphology RBC Morph Micro Appear Sodium 147 H Potassium 3.2 L Chloride 124 H* Carbon Dioxide 17 L Anion Gap 6.0 BUN 11 Creatinine 0.9 Estimated GFR (MDRD) 73 L Glucose 89 Calcium 8.4 L Total Bilirubin AST ALT Alkaline Phosphatase Total Protein Albumin Globulin Albumin/Globulin Ratio Lipase Urine Color Urine Clarity Urine pH Ur Specific [place] Urine Protein Urine Glucose (UA) Urine Ketones Urine Occult Blood Urine Nitrite Urine Bilirubin Urine Urobilinogen Ur Leukocyte Esterase Urine RBC Urine WBC Ur Squamous Epith Cells Urine Bacteria Ur Microscopic Review Urine Culture Comments - Rads (name of study) chest Radiology: Prelim report reviewed (Impression:Stable appearance of the chest without acute cardiopulmonary ), EMP read indepedently, See rad report Procedures - IVC sono (time) 2320 Bedside IVC sono: IVC measures (cm) (0.71), IVC collapsed c insp (cm) (complete), Profound dehydration (est 3 liter deficit) PD MEDICAL DECISION MAKING - ED course Complexity details: reviewed old records, reviewed results, re-evaluated patient, considered differential, d/w patient, d/w family ED course: 79-year-old female with severe peripheral vascular disease and vascular dementia has had a problem with pressure in her right eye and has been placed on some Diamox and she has become profoundly dehydrated. She has become weak enough that her is unable to care for her at home she is able to sit up in bed by herself and she is brought to the hospital for further evaluation. Here in the emergency department the patient is administered intravenous saline and she is given 2 L and despite this her strength does not return immediately. She is still too weak to sit up in bed. She will require more fluid over a longer period of time to compensate. She has advanced peripheral vascular disease and her recovery may be prolonged or worse. I did discuss with her the possibility that she would not recover and he indicates that there are advance directives indicating DNR. We attempted to admit this patient to the hospital and she will need further care in the ED. Her initial electrolytes were obtained after 2 liters of saline were administered and showed hypernatremia. Her fluid is changed to D5W at 200ml/hr and the social science research assistant is consulted. At shift change care is turned over to Dr. Pulido. Departure - Departure Clinical Impression: Dehydration, Altered mental status, Weakness Condition: Poor
[2019-08-14] MEDS ORDERED: SODIUM CHLORIDE 0.9% 1,000 ML IV ONE ×2 (00:59→05:09)
[2019-08-14 01:17] LABS: BILIRUBIN,URINE NEGATIVE (NEGATIVE); GLUCOSE, URINE (UA) NEGATIVE (NEGATIVE); KETONES,URINE (UA) NEGATIVE (NEGATIVE); LEUKOCYTE ESTERASE, URINE SMALL (NEGATIVE); NITRITE,URINE NEGATIVE (NEGATIVE); OCCULT BLOOD,URINE NEGATIVE (NEGATIVE); PH,URINE 5.5 PH (5.0-7.5); PROTEIN,URINE NEGATIVE (NEGATIVE); UROBILINOGEN,URINE 1 (NORMAL) E.U./dL (NORMAL)
[2019-08-14 01:19] LABS: CLARITY,URINE CLEAR (CLEAR)
[2019-08-14 01:24] LABS: RBC,URINE None Seen /HPF (0-5)
[2019-08-14 01:33] LABS: BACTERIA,URINE Few /HPF (None Seen); SQUAMOUS EPITHELIAL CELL,UR FEW Squamous (<= Few)
[2019-08-14 04:05] LABS: BASOPHILS % (AUTO) 0.4 %; EOSINOPHILS % (AUTO) 0.6 %; HGB - HEMOGLOBIN 12.1 g/dL (12.0-16.0); LYMPHOCYTES % (AUTO) 42.8 %; MEAN CORPUSCULAR HEMOGLOBIN 27.8 pg (27.0-31.0); MEAN CORPUSCULAR HGB CONC 30.4 g/dL (32.0-36.0); MEAN CORPUSCULAR VOLUME 91.5 fL (81.0-99.0); MONOCYTES # (AUTO) 0.7 10^3/uL (0.0-1.0); MONOCYTES % (AUTO) 9.2 %; NEUTROPHILS # (AUTO) 3.3 10^3/uL (1.5-6.6); NEUTROPHILS % (AUTO) 46.3 %; RED BLOOD COUNT 4.35 10^6/uL (4.20-5.40); RED CELL DISTRIBUTION WIDTH 20.6 % (12.0-15.0)
[2019-08-14 04:12] LABS: ALBUMIN 2.8 g/dL (3.2-5.5); ALBUMIN/GLOBULIN RATIO 0.5 (1.0-2.2); ALKALINE PHOSPHATASE 95 IU/L (42-121); ALT ALANINE AMINOTRANSFERASE < 10 IU/L (10-60); AST ASPARTATE AMINOTRANSFERASE 18 IU/L (10-42); BILIRUBIN,TOTAL 0.7 mg/dL (0.2-1.0); BUN - BLOOD UREA NITROGEN 13 mg/dL (6-20); CALCIUM 8.7 mg/dL (8.5-10.3); CARBON DIOXIDE - CO2 16 mmol/L (21-32); GFR - MDRD 65 (>89); GLUCOSE 82 mg/dL (70-100); LIPASE 30 U/L (22-51); SODIUM 146 mmol/L (135-145); TOTAL PROTEIN 8.1 g/dL (6.7-8.2)
[2019-08-14 04:17] LABS: CHLORIDE 122 mmol/L (101-111)
[2019-08-14 04:22] LABS: PLT - PLATELET COUNT 240 10^3/uL (130-450)
[2019-08-14 04:48] LABS: RBC MORPHOLOGY (MULTIPLE) 2+ ANISOCYTOSIS (NORMAL)
[2019-08-14 04:49] LABS: PLATELET MORPHOLOGY PLATELET CLUMPING (NORMAL)
[2019-08-14 04:51] LABS: PLATELET ESTIMATE, MANUAL NORMAL (130-450,000) (NORMAL)
[2019-08-14] MEDS ORDERED: ACETAMINOPHEN 325 MG TABLET PO STA (06:03)
[2019-08-14 06:44] LABS: CALCIUM 8.4 mg/dL (8.5-10.3); CREATININE 0.9 mg/dL (0.4-1.0)
[2019-08-14] MEDS ORDERED: KETOROLAC 30 MG/ML VIAL IVP STA (06:44)
[2019-08-14] MEDS ORDERED: SODIUM CHLORIDE FLUSH 0.9% 10 ML SYRINGE IVP PRN (07:17)
--- NOTE | 2019-08-14 07:43 | HISTORY & PHYSICAL EXAMINATION ---
Chief Complaint - Chief Complaint Chief Complaint: generalized weakness <Susan Porter - Last Filed: 08/14/19 19:52> History of Present Illness - Admitted From Admitted From:: [facility] ED - History Obtained From Records Reviewed: yes History obtained from: patient's <Susan Porter - Last Filed: 08/14/19 19:52> - History of Present Illness HPI Comment/Other: Patient seen on 08/14/19 at 07:00am Patient is an 79 y/o female with medical history significant PVD s/p bilateral BKA, Hyperlipidemia, asthma, mild dementia, GERD with hiatal hernia, glaucoma, anxiety, osteoporosis and iron deficiency anemia who presents to the ED with worsening weakness over the past couple days. Normally she is able to put on her prostheses and get to the bathroom using a walker. She has not been able to do so lately. Yesterday she was not able to transfer to a bedside commode even with the aid of her . She was too weak to turn. She was prescribed diamox for glaucoma 2 weeks ago. She has also been having a very poor appetite. As a result she presented to the ED. Preliminary labs drawn showed a sodium of 146 and a chloride of 122. She was given 2L of fluid and repeat labs showed slightly more elevated sodium and chloride and decreased potassium. As a result she was presented for admission for further correction of her electrolyte imbalance. At bedside, the patient appears very sleepy. Her points out that she has been sleeping longer. She was readily arousable to verbal stimuli and answered my questions. She denied chest pain, NARESH, abd pain, fever or chills. She was instructed to discontinue her fentanyl patch last week by her PCP. She is also on lyrica and xanax. (Ssuan Porter) History - Past Medical History Cardiovascular: reports: High cholesterol, Coronary artery disease, Peripheral Vascular Disease Respiratory: reports: Asthma Endocrine/Autoimmune: reports: None GI: reports: GERD, Hiatal hernia NUCLEAR POWERPLANT MECHANIC: reports: None : reports: None HEENT: reports: Glaucoma Psych: reports: Anxiety Musculoskeletal: reports: Osteoporosis Derm: reports: None MRSA Hx?: No - Past Surgical History General: reports: Appendectomy Ortho: reports: Amputation, Other /NUCLEAR POWERPLANT MECHANIC: reports: Hysterectomy - Family & Social History Family History: Father: CAD Social History Notes: She lives with her in [place]. They have been for 58 years. She had a 1ppd X 15 yrs now down to 1 or 2 cigarettes daily. The patient denies any alcohol or illicit drug use - POLST Patient has POLST: Yes <Susan Porter F - Last Filed: 08/14/19 19:52> Meds/Allgy <Jesika Pulido - Last Filed: 08/14/19 10:21> <Susan Porter F - Last Filed: 08/14/19 19:52> - Home Medications Home Medications: Ambulatory Orders Medication Instructions Recorded Confirmed ALPRAZolam [Alprazolam] 0.25 mg PO BID 03/18/16 08/14/19 Baclofen 10 mg PO TID PRN 08/13/19 08/14/19 Divalproex Sodium 125 mg PO BID 08/13/19 08/14/19 Esomeprazole Magnesium 40 mg PO QDAC 08/13/19 08/14/19 Lovastatin 80 mg PO QPM 08/13/19 08/14/19 Mirtazapine 7.5 mg PO QPM 08/13/19 08/14/19 Potassium Chloride 20 meq PO DAILY 08/13/19 08/14/19 ALPRAZolam [Alprazolam] 0.25 mg PO BID 08/14/19 08/14/19 Aspirin [Aspirin EC] 81 mg PO DAILY 08/14/19 08/14/19 Brimonidine 0.2% Ophth Drops 1 drops RIGHTEYE BID 08/14/19 08/14/19 [Alphagan P 0.2% Ophth Drops] Dorzolamide HCl/Timolol Maleat 1 drops RIGHTEYE BID 08/14/19 08/14/19 [Dorzolamide-Timolol Eye Drops] Latanoprost/Pf [Latanoprost 0.005% 1 drops EACHEYE QPM 08/14/19 08/14/19 Eye Drop] Lidocaine Patch 5% [Lidoderm Patch] 2 patch TOP QPM 08/14/19 08/14/19 Megestrol Acetate 10 ml PO DAILY 08/14/19 08/14/19 Pregabalin 50 mg PO BID PRN 10/13/19 10/13/19 - Allergies Allergies/Adverse Reactions: Allergies Allergy/AdvReac Type Severity Reaction Status Date / Time gentamicin [Gentamicin] Allergy Unknown Verified 03/17/16 22:22 lisinopril Allergy Unknown Verified 03/17/16 22:22 Review of Systems - Constitutional Constitutional: reports: Weakness, Poor appetite. denies: Fatigue, Fever - Eyes Eyes: reports: Other (glaucoma in the right eye). denies: Blurred vision, Dipolpia - Ears, Nose & Throat Ears, Nose & Throat: denies: Nasal pain, Sore throat, Hoarseness - Cardiovascular Cariovascular: denies: Chest pain, Edema, Exertional dyspnea, Decr. exercise tolerance - Respiratory Respiratory: denies: Cough, Wheezing, SOB at rest, SOB with exertion - Gastrointestinal Gastrointestinal: denies: Abdominal pain, Abdominal distention, Constipation, Nausea, Vomiting - Musculoskeletal Musculoskeletal: denies: Muscle pain, Stiffness - Integumentary Integumentary: denies: Rash, Dryness, Pigment changes, Nail changes - Neurological Neurological: reports: General weakness. denies: Focal weakness - Psychiatric Psychiatric: reports: Depression, Anxiety - Endocrine Endocrine: denies: Polyuria, Polydypsia - Hematologic/Lymphatic Hematologic/Lymphatic: denies: Anemia, Bruising <Susan Porter F - Last Filed: 08/14/19 19:52> <Susan Porter F - Last Filed: 08/14/19 19:52> Prior Level of Functionality: Patient lives with in their house. She is a double amputee. Usually she is able to ambulate using her prostheses and a walker. However she has been very weak lately. She also has poor appetite for which she was prescribed megestrol. She normally has a caregiver who comes in for 4-5 hours 5days a week. (ZekeGale mcghee F) Exam - Physical Exam General Appearance: positive: No acute distress, Other (Somnolent) Eyes Bilateral: positive: Normal inspection, PERRL, EOMI ENT: positive: ENT inspection nml, Pharynx nml Neck: positive: Nml inspection, No JVD, Trachea midline Respiratory: positive: Chest non-tender, No respiratory distress, Breath sounds nml. negative: Wheezes, Rales, Rhonchi Cardiovascular: positive: Regular rate & rhythm Abdomen: positive: Non-tender, No organomegaly, Nml bowel sounds, No distention. negative: Guarding, Rebound, Hepatomegaly Back: positive: Nml inspection Skin: positive: Color nml, No rash, Warm, Dry Extremities: positive: Other (bilateral BKA) Neurologic/Psychiatric: positive: Oriented x3 (but lethargic), Weakness <Nchotu,Niba F - Last Filed: 08/14/19 19:52> - Vital Signs Vital Signs: Vital Signs x48h Temp Pulse Resp BP Pulse Ox 08/14/19 09:20 130/103 H 95 08/14/19 09:06 64 18 118/65 96 08/14/19 08:30 64 18 123/73 98 08/14/19 07:34 66 14 128/73 99 08/14/19 07:22 37.2 C 66 14 137/75 H 99 08/14/19 06:45 69 18 143/83 H 99 08/14/19 05:12 37.1 C 08/14/19 04:00 70 16 148/82 H 99 08/14/19 02:33 75 16 127/72 97 Conclusion/Plan - Lab Results Fish Bones: 08/14/19 00:55 08/14/19 06:20 <Jesika Pulido - Last Filed: 08/14/19 10:21> - Problem List (1) Electrolyte imbalance Conclusion/Plan: Hypernatremia: Diamox discontinued D5+half NS ordered at 125ml/hr. Will recheck BMP Hyperchloremia D5+half NS ordered at 125ml/hr. Will recheck BMP Hypokalemia Will replace with 60mEq of potassium citrate (2) Weakness Conclusion/Plan: Possibly multifactorial ?2/2 Electrolyte imbalance, Medication, Poor oral intake Hydrating patient and replacing potassium Patient on megestrol for appetite. Will continue Will hold lyrica, baclofen and alprazolam Patient had fentanyl patch discontinued 4 days ago. Social work to see patient and assist with an appropriate disposition. The patient normally has caregivers for 4-5hr during weak days (3) Glaucoma Conclusion/Plan: On latanoprost, dorzolamide/ timolol. Will continue when verified (4) Hyperlipidemia Conclusion/Plan: On lovastatin (5) GERD (gastroesophageal reflux disease) Conclusion/Plan: Protonix ordered (6) Depression Conclusion/Plan: On remeron - Lab Results Fish Bones: 08/14/19 00:55 08/14/19 06:20 <Susan Porter F - Last Filed: 08/14/19 19:52> Core Measures - Anticipated LOS I expect patient to be DC'd or transferred within 96 hours.: Yes - DVT/VTE - Prophylaxis VTE/DVT Device ordered at admit?: Yes <Susan Porter F - Last Filed: 08/14/19 19:52>
[2019-08-14 07:44] LABS: MAGNESIUM 1.8 mg/dL (1.7-2.8); PHOSPHORUS 2.8 mg/dL (2.5-4.6)
[2019-08-14] MEDS ORDERED: DEXTROSE 5% 1,000 ML IV ONE (07:50)
[2019-08-14] MEDS ORDERED: D5.45NS W/20 MEQ KCL 1,000 ML IV SCH (08:00)
[2019-08-14] MEDS ORDERED: POTASS CIT/CITRIC ACID ORAL 1 EACH PACKET PO SCH (08:37)
[2019-08-14] MEDS: DEXTROSE 5%-0.45% NACL 1,000 ML IV SCH ×2 (08:52→16:44)
[2019-08-14] MEDS ORDERED: POTASSIUM CITRATE 5 MEQ TABLET PO SCH (09:00)
[2019-08-14] MEDS ORDERED: IPRATROPIUM/ALBUTEROL 3 ML NEB INH STA (09:55)
--- NOTE | 2019-08-14 11:07 | XRAY Report ---
Reason: chest pain Procedure Date: 08/14/2019 Accession Number: [id number] / [id number] Procedure: XR - Chest 1 View X-Ray CPT Code: 82965 FULL RESULT: EXAM: CHEST RADIOGRAPHY EXAM DATE: 08/14/2019 10:23 AM. CLINICAL HISTORY: Chest pain. COMPARISON: CHEST 1 VIEW 08/13/2019 11:45 PM CHEST ANGIO 07/31/2019 11:21 AM. TECHNIQUE: 1 view. FINDINGS: Lungs/Pleura: No focal opacities evident. No pleural effusion. No pneumothorax. Mediastinum: Tortuous partially calcified aorta is seen. 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 Other: None. IMPRESSION: No acute findings. RADIA
[2019-08-14] MEDS: SODIUM CHLORIDE FLUSH 0.9% 10 ML SYRINGE IVP SCH ×2 (14:28→16:45)
[2019-08-14] MEDS: POLYETHYLENE GLYCOL 3350 17 GM PACKET PO SCH (14:28)
[2019-08-14] MEDS: PANTOPRAZOLE 40 MG TABLET PO SCH (14:50)
[2019-08-14] MEDS: LATANOPROST 0.005% EACHEYE SCH (21:19)
[2019-08-14] MEDS: TIMOLOL 0.5% RIGHTEYE SCH (21:19)
[2019-08-14] MEDS: DORZOLAMIDE RIGHTEYE SCH (21:19)
[2019-08-14] MEDS: BRIMONIDINE 0.2% RIGHTEYE SCH (21:19)
[2019-08-14 21:43] LABS: CALCIUM 8.4 mg/dL (8.5-10.3); CREATININE 0.8 mg/dL (0.4-1.0)
[2019-08-15] MEDS: DEXTROSE 5%-0.45% NACL 1,000 ML IV SCH ×2 (00:35→09:03)
[2019-08-15] MEDS: SODIUM CHLORIDE FLUSH 0.9% 10 ML SYRINGE IVP SCH ×3 (05:11→16:26)
[2019-08-15 05:58] LABS: BASOPHILS % (AUTO) 0.4 %; EOSINOPHILS # (AUTO) 0.2 10^3/uL (0.0-0.7); EOSINOPHILS % (AUTO) 2.7 %; HGB - HEMOGLOBIN 13.4 g/dL (12.0-16.0); LYMPHOCYTES # (AUTO) 2.7 10^3/uL (1.5-3.5); LYMPHOCYTES % (AUTO) 36.9 %; MEAN CORPUSCULAR HEMOGLOBIN 27.3 pg (27.0-31.0); MEAN CORPUSCULAR HGB CONC 30.9 g/dL (32.0-36.0); MEAN CORPUSCULAR VOLUME 88.2 fL (81.0-99.0); MEAN PLATELET VOLUME 11.8 fL (7.9-10.8); MONOCYTES # (AUTO) 0.6 10^3/uL (0.0-1.0); MONOCYTES % (AUTO) 8.7 %; NEUTROPHILS # (AUTO) 3.7 10^3/uL (1.5-6.6); NEUTROPHILS % (AUTO) 50.4 %; PLT - PLATELET COUNT 316 10^3/uL (130-450); RED BLOOD COUNT 4.91 10^6/uL (4.20-5.40); RED CELL DISTRIBUTION WIDTH 20.6 % (12.0-15.0); WHITE BLOOD COUNT 7.4 x10^3/uL (4.8-10.8)
[2019-08-15 06:01] LABS: CALCIUM 9.2 mg/dL (8.5-10.3); CREATININE 0.8 mg/dL (0.4-1.0)
[2019-08-15] MEDS: PANTOPRAZOLE 40 MG TABLET PO SCH (06:09)
[2019-08-15] MEDS: POLYETHYLENE GLYCOL 3350 17 GM PACKET PO SCH (08:13)
[2019-08-15] MEDS: TIMOLOL 0.5% RIGHTEYE SCH ×2 (08:26→21:15)
[2019-08-15] MEDS: DORZOLAMIDE RIGHTEYE SCH ×2 (08:26→21:15)
[2019-08-15] MEDS: BRIMONIDINE 0.2% RIGHTEYE SCH ×2 (08:26→21:08)
[2019-08-15] MEDS ORDERED: LATANOPROST 0.005% EACHEYE SCH (09:00)
[2019-08-15] MEDS ORDERED: BACLOFEN 10 MG TABLET PO PRN (11:09)
[2019-08-15] MEDS ORDERED: IPRATROPIUM/ALBUTEROL 3 ML NEB INH PRN (11:22)
[2019-08-15] MEDS ORDERED: DIVALPROEX DR 125 MG TABLET PO SCH (12:00)
[2019-08-15] MEDS: ASPIRIN EC 81 MG TABLET PO SCH (13:45)
[2019-08-15] MEDS: MEGESTROL 400 MG/10 ML UDC PO SCH (13:45)
[2019-08-15] MEDS: DIVALPROEX DR 125 MG TABLET PO SCH ×2 (16:26→21:12)
[2019-08-15] MEDS ORDERED: LIDOCAINE PATCH 5% TOP SCH (21:00)
[2019-08-15] MEDS: LATANOPROST 0.005% EACHEYE SCH (21:20)
--- NOTE | 2019-08-15 21:55 | PROVIDER PROGRESS NOTE ---
Assessment/Plan - Problem List (1) UTI (urinary tract infection) Qualifiers: Urinary tract infection type: acute cystitis Hematuria presence: without hematuria Qualified Code(s): N30.00 - Acute cystitis without hematuria Assessment/Plan: The admission urinalysis was abnormal and culture was indicated. The preliminary urine culture is already growing gram-negative bacteria. A UTI may have been the reason for the progressive weakness over the past several days. Will change her from Observation to full Inpatient admission, she will need at least 2 days of IV antibiotics. (2) Wheezing Assessment/Plan: The patient's chart indicates that she has asthma, and the patient nods her head Yes when I asked her; the however did not know this diagnosis. We will start nebulizers. We will order BNP and stop her IV fluids (3) Dehydration Assessment/Plan: Improved, her oral mucosa is moist, labs have normalized (4) Weakness Assessment/Plan: The reports that she is still not at her baseline of being able to put on her prostheses herself, get out of bed herself and ambulate Start PT today SW to see regarding more hours of home assistance possibly (5) S/P BKA (below knee amputation) bilateral Assessment/Plan: Chronic and well tolerated (6) Dementia Assessment/Plan: The reports that her Dx is "Vascular Dementia" but that normally she is very functional, plays along with TV game shows even. (7) Hypokalemia Assessment/Plan: Related to saline and free water hydration without K. Replace K Follow BMP daily (8) Hypernatremia Assessment/Plan: Resolved - Current Meds Current Meds: Current Medications Generic Name Dose Route Start Last Admin Trade Name Freq PRN Reason Stop Dose Admin Albuterol/Ipratropium 3 ml 08/15/19 11:22 08/15/19 11:43 Duoneb INH 3 ml Q4HR PRN Administration Wheezing Aspirin 81 mg 08/15/19 12:00 08/15/19 13:45 Ecotrin PO 81 mg DAILY CURTIS Administration Megestrol Acetate 400 mg 08/15/19 12:00 08/15/19 13:45 Megace PO 400 mg DAILY CURTIS Administration Pantoprazole Sodium 40 mg 08/14/19 08:00 08/15/19 06:09 Protonix PO 40 mg QDAC CURTIS Administration Brimonidine 0.2% 1 each 08/14/19 21:00 08/15/19 21:08 Ophthalmic Drops RIGHTEYE 1 each BID CURTIS Administration Dorzolamide 2%/ 1 each 08/14/19 21:00 08/15/19 21:15 Timolol 0.5% RIGHTEYE 1 each Ophthalmic Drops BID CURTIS Administration Latanoprost 0.005% 1 each 08/14/19 21:00 08/15/19 21:20 Ophthalmic Drops EACHEYE 1 each QPM CURTIS Administration Divalproex Dr 125 Mg 1 each 08/15/19 13:00 08/15/19 21:12 Tablet PO 1 each BID CURTIS Administration Polyethylene Glycol 17 gm 08/14/19 09:00 08/15/19 08:13 Miralax PO Not Given DAILY CURTIS Sodium Chloride 10 ml 08/14/19 09:00 08/15/19 16:26 Normal Saline Flush 0.9% IVP 10 ml 0100,0900,1700 CURTIS Administration - Lab Result Fish Bone Diagrams: 08/16/19 07:26 08/16/19 07:26 - Additional Planning My Orders: My Active Orders 08/14/19 21:00 Patient Own Med [Patient Own Medication] 1 each EACHEYE QPM Patient Own Med [Patient Own Medication] 1 each RIGHTEYE BID Patient Own Med [Patient Own Medication] 1 each RIGHTEYE BID 08/15/19 Evaluate and Treat OT [OT] Routine Evaluate and Treat PT [PT] Routine 08/15/19 11:09 Baclofen [Lioresal] 10 mg PO TID PRN 08/15/19 11:22 Nebulizer/MDI Tx. [RC] .Q4 PRN Ipratropium/Albuterol [Duoneb] 3 ml INH Q4HR PRN 08/15/19 12:00 Aspirin EC [Ecotrin] 81 mg PO DAILY Megestrol [Megace] 400 mg PO DAILY 08/15/19 13:00 Patient Own Med [Patient Own Medication] 1 each PO BID Subjective - Subjective Patient Reports: Resting Comfortably Nursing Reports: Confused Objective Vital Signs: Vital Signs - 24 hr 08/14/19 08/15/19 08/15/19 23:30 03:20 07:28 Temperature 36.7 C 36.9 C 38.0 C H Heart Rate Heart Rate [ 66 68 107 H Brachial] Heart Rate [ Supine] Respiratory 16 16 20 Rate Respiratory Rate [Without Activity] Blood Pressure [Left Brachial artery] Blood Pressure 137/76 H 155/78 H [Right Brachial artery] Blood Pressure 174/144 H [Right Radial artery] O2 Saturation 93 98 84 L O2 Saturation [ Without Activity] 08/15/19 08/15/19 08/15/19 08:51 11:43 15:00 Temperature 37.4 C Heart Rate 89 Heart Rate [ 81 Brachial] Heart Rate [ Supine] Respiratory 20 11 L Rate Respiratory Rate [Without Activity] Blood Pressure 153/71 H [Left Brachial artery] Blood Pressure 144/103 H [Right Brachial artery] Blood Pressure [Right Radial artery] O2 Saturation 96 O2 Saturation [ Without Activity] 08/15/19 08/15/19 08/15/19 15:35 16:37 20:01 Temperature 37.4 C 37.3 C Heart Rate Heart Rate [ 79 79 Brachial] Heart Rate [ 76 Supine] Respiratory 16 16 Rate Respiratory 16 Rate [Without Activity] Blood Pressure [Left Brachial artery] Blood Pressure [Right Brachial artery] Blood Pressure 146/107 H 133/83 H [Right Radial artery] O2 Saturation 97 96 O2 Saturation [ 86 L Without Activity] Oxygen O2 Source [Without Activity] Room air O2 Source Room air I&O (Last 24 Hrs): Intake and Output Totals x24h 08/13/19 08/14/19 08/15/19 23:59 23:59 23:59 Intake Total 4280 3000 Output Total 750 3100 Balance 3530 -100 General: Alert HEENT: Mucous membr. moist/pink Neck: Supple, No JVD Neuro: Disoriented Cardiovascular: Regular rate, No murmurs Respiratory: No respiratory distress, Breath sounds nml Abdomen: Soft Extremities: Other (Bilat BKAs) - Results Results: Laboratory Results WBC 7.4 x10^3/uL (4.8-10.8) 08/15/19 05:29 RBC 4.91 10^6/uL (4.20-5.40) 08/15/19 05:29 Hgb 13.4 g/dL (12.0-16.0) 08/15/19 05:29 Hct 43.3 % (37.0-47.0) 08/15/19 05:29 MCV 88.2 fL (81.0-99.0) 08/15/19 05:29 MCH 27.3 pg (27.0-31.0) 08/15/19 05:29 MCHC 30.9 g/dL (32.0-36.0) L 08/15/19 05:29 RDW 20.6 % (12.0-15.0) H 08/15/19 05:29 Plt Count 316 10^3/uL (130-450) 08/15/19 05:29 MPV 11.8 fL (7.9-10.8) H 08/15/19 05:29 Neut # (Auto) 3.7 10^3/uL (1.5-6.6) 08/15/19 05:29 Lymph # (Auto) 2.7 10^3/uL (1.5-3.5) 08/15/19 05:29 [place] # (Auto) 0.6 10^3/uL (0.0-1.0) 08/15/19 05:29 Eos # (Auto) 0.2 10^3/uL (0.0-0.7) 08/15/19 05:29 Baso # (Auto) 0.0 10^3/uL (0.0-0.1) 08/15/19 05:29 Absolute Nucleated RBC 0.05 x10^3/uL 08/15/19 05:29 Nucleated RBC % 0.7 /100WBC 08/15/19 05:29 Manual Slide Review Indicated 08/14/19 00:55 WBC Morphology NORMAL APPEARANCE (NORMAL) 08/14/19 00:55 Platelet Estimate NORMAL (130-450,000) (NORMAL) 08/14/19 00:55 Platelet Morphology PLATELET CLUMPING (NORMAL) 08/14/19 00:55 RBC Morph Micro Appear 2+ ANISOCYTOSIS (NORMAL) 08/14/19 00:55 Sodium 143 mmol/L (135-145) 08/15/19 05:29 Potassium 4.0 mmol/L (3.5-5.0) 08/15/19 05:29 Chloride 116 mmol/L (101-111) H 08/15/19 05:29 Carbon Dioxide 18 mmol/L (21-32) L 08/15/19 05:29 Anion Gap 9.0 (6-13) 08/15/19 05:29 BUN 5 mg/dL (6-20) L 08/15/19 05:29 Creatinine 0.8 mg/dL (0.4-1.0) 08/15/19 05:29 Estimated GFR (MDRD) 84 (>89) L 08/15/19 05:29 Glucose 115 mg/dL (70-100) H 08/15/19 05:29 Calcium 9.2 mg/dL (8.5-10.3) 08/15/19 05:29 Phosphorus 2.8 mg/dL (2.5-4.6) 08/14/19 06:25 Magnesium 1.8 mg/dL (1.7-2.8) 08/14/19 06:25 Total Bilirubin 0.7 mg/dL (0.2-1.0) 08/14/19 02:20 AST 18 IU/L (10-42) 08/14/19 02:20 ALT < 10 IU/L (10-60) L 08/14/19 02:20 Alkaline Phosphatase 95 IU/L (42-121) 08/14/19 02:20 B-Natriuretic Peptide 258 pg/mL (5-100) H 08/15/19 06:00 Total Protein 8.1 g/dL (6.7-8.2) 08/14/19 02:20 Albumin 2.8 g/dL (3.2-5.5) L 08/14/19 02:20 Globulin 5.3 g/dL (2.1-4.2) H 08/14/19 02:20 Albumin/Globulin Ratio 0.5 (1.0-2.2) L 08/14/19 02:20 Lipase 30 U/L (22-51) 08/14/19 02:20 Urine Color YELLOW 08/14/19 01:13 Urine Clarity CLEAR (CLEAR) 08/14/19 01:13 Urine pH 5.5 PH (5.0-7.5) 08/14/19 01:13 Ur Specific [place] 1.020 (1.002-1.030) 08/14/19 01:13 Urine Protein NEGATIVE mg/dL (NEGATIVE) 08/14/19 01:13 Urine Glucose (UA) NEGATIVE mg/dL (NEGATIVE) 08/14/19 01:13 Urine Ketones NEGATIVE mg/dL (NEGATIVE) 08/14/19 01:13 Urine Occult Blood NEGATIVE (NEGATIVE) 08/14/19 01:13 Urine Nitrite NEGATIVE (NEGATIVE) 08/14/19 01:13 Urine Bilirubin NEGATIVE (NEGATIVE) 08/14/19 01:13 Urine Urobilinogen 1 (NORMAL) E.U./dL (NORMAL) 08/14/19 01:13 Ur Leukocyte Esterase SMALL (NEGATIVE) H 08/14/19 01:13 Urine RBC None Seen /HPF (0-5) 08/14/19 01:13 Urine WBC 4-5 /HPF (0-5) 08/14/19 01:13 Ur Squamous Epith Cells FEW Squamous (<= Few) 08/14/19 01:13 Urine Bacteria Few /HPF (None Seen) 08/14/19 01:13 Ur Microscopic Review INDICATED 08/14/19 01:13 Urine Culture Comments INDICATED 08/14/19 01:13 - Procedures Procedures: Procedures CENTRAL VENOUS CATHETER PLACEMENT WITH GUIDANCE (07/02/15) SPINAL TAP (07/02/15)
[2019-08-16] MEDS: SODIUM CHLORIDE FLUSH 0.9% 10 ML SYRINGE IVP SCH ×2 (00:08→10:05)
[2019-08-16] MEDS ORDERED: ACETAMINOPHEN 325 MG TABLET PO PRN (05:44)
[2019-08-16] MEDS: PANTOPRAZOLE 40 MG TABLET PO SCH (06:19)
[2019-08-16 07:37] LABS: BASOPHILS % (AUTO) 0.3 %; HGB - HEMOGLOBIN 12.6 g/dL (12.0-16.0); MEAN CORPUSCULAR HEMOGLOBIN 27.3 pg (27.0-31.0); MEAN CORPUSCULAR HGB CONC 32.2 g/dL (32.0-36.0); MEAN CORPUSCULAR VOLUME 84.8 fL (81.0-99.0); MEAN PLATELET VOLUME 12.1 fL (7.9-10.8); NEUTROPHILS % (AUTO) 48.1 %; PLT - PLATELET COUNT 446 10^3/uL (130-450); RED BLOOD COUNT 4.61 10^6/uL (4.20-5.40); RED CELL DISTRIBUTION WIDTH 19.8 % (12.0-15.0); WHITE BLOOD COUNT 7.1 x10^3/uL (4.8-10.8)
[2019-08-16 07:49] LABS: ABNORMAL LYMPHS % (MANUAL) 0 %; CALCIUM 9.3 mg/dL (8.5-10.3); CREATININE 0.8 mg/dL (0.4-1.0)
[2019-08-16 08:07] LABS: BAND NEUTROPHILS % (MANUAL) 1 %; EOSINOPHILS # (MANUAL) 0.1 10^3/uL (0-0.7); LYMPHOCYTES # (MANUAL) 2.8 10^3/uL (1.5-3.5); LYMPHOCYTES % (MANUAL) 39 %; MONOCYTES # (MANUAL) 0.8 10^3/uL (0.0-1.0)
[2019-08-16 08:09] LABS: DIFFERENTIAL COMMENT MANUAL DIFFERENTIAL; PLATELET ESTIMATE, MANUAL NORMAL (130-450,000) (NORMAL); PLATELET MORPHOLOGY 1+ LARGE PLATELETS (NORMAL)
[2019-08-16] MEDS ORDERED: POTASSIUM CHLORIDE 20 MEQ TABLET PO ONE ×2 (08:46→13:11)
[2019-08-16] MEDS ORDERED: cefTRIAXone 1 GM in SODIUM CHLORIDE 0.9% MINIBAG 100 ML IV SCH (09:00)
[2019-08-16] MEDS: ASPIRIN EC 81 MG TABLET PO SCH (09:57)
[2019-08-16] MEDS: DORZOLAMIDE RIGHTEYE SCH (09:58)
[2019-08-16] MEDS: BRIMONIDINE 0.2% RIGHTEYE SCH (09:58)
[2019-08-16] MEDS: MEGESTROL 400 MG/10 ML UDC PO SCH (09:58)
[2019-08-16] MEDS: TIMOLOL 0.5% RIGHTEYE SCH (09:58)
[2019-08-16] MEDS: DIVALPROEX DR 125 MG TABLET PO SCH (09:59)
[2019-08-16] MEDS: POLYETHYLENE GLYCOL 3350 17 GM PACKET PO SCH (09:59)
[2019-08-16] MEDS ORDERED: CIPROFLOXACIN 400 MG/200 ML 200 ML IV SCH (11:00)
[2019-08-16 12:02] VITALS: BP 134/81
--- NOTE | 2019-08-16 13:21 | Discharge Plan ---
Discharge Plan Problem Reviewed?: Yes Disposition: Home Health Service Condition: Stable Prescriptions: Ciprofloxacin HCl [Cipro] 500 mg PO BID #14 tablet Diet: Regular Activity Restrictions: Activity as Tolerated Shower Restrictions: No (fall precaution, caregiver closely monitor) Instruction Topics: Ciprofloxacin tablets, UTI Health Concerns: UTI, weakness Plan of Treatment: You were found to have UTI, antibiotics Cipro is prescribed for you to finish the treatment course. Home health PT and home theater specialist are arranged for you, social media marketer help you arrange for terminal computer operator nurse facility care. Care Goals: stabilization and improvement of your medical conditions Assessment: assessment as the above Additional Instructions or Follow Up instructions: you may followup your PCP in one week. Should your symptoms return or worsen, you may present ER or call 911 for help Follow-Up Care: Home Health - PT No Smoking: If you smoke, Please STOP! Call for help. Follow-up with: Fracisco Chavez MD [Primary Care Provider] -
--- NOTE | 2019-08-16 13:51 | DISCHARGE SUMMARY ---
Discharge Summary Admit Date: 08/14/19 Discharge Date: 08/16/19 Discharging Provider: SHEA Primary Care Provider: Dr. Chavez Condition at Discharge: Stable Discharge Disposition: Home Health Service Discharge Facility Name: home - DIAGNOSES Admission Diagnoses: (1) Electrolyte imbalance (2) Weakness (3) Glaucoma (4) Hyperlipidemia (5) GERD (gastroesophageal reflux disease) (6) Depression Discharge Diagnoses with Status of Each Condition: (1) UTI (urinary tract infection) UA culture reveal three bacterial pseudomonas aeruglnosa, (after d/c culture reveals)Ecoli, and staphylococcus Ssp. urealy. All bacterial are sensitive to Cipro, pt was prescribed Cipro (2) Wheezing resolved. lung sound clear, pt had 97% sats on room air (3) Dehydration resolved (4) Weakness pt was evaluated and treated by PT/OT, pt was arranged home health PT for continuing training. (5) S/P BKA (below knee amputation) bilateral stable. pt was arranged for home AIDS (6) Dementia stable (7) Hypokalemia placed (8) Hypernatremia resolved - HPI History of Present Illness: refer from Dr. Porter's HPI on 08/14/19 Patient seen on 08/14/19 at 07:00am Patient is an 79 y/o female with medical history significant PVD s/p bilateral BKA, Hyperlipidemia, asthma, mild dementia, GERD with hiatal hernia, glaucoma, anxiety, osteoporosis and iron deficiency anemia who presents to the ED with worsening weakness over the past couple days. Normally she is able to put on her prostheses and get to the bathroom using a walker. She has not been able to do so lately. Yesterday she was not able to transfer to a bedside commode even with the aid of her . She was too weak to turn. She was prescribed diamox for glaucoma 2 weeks ago. She has also been having a very poor appetite. As a result she presented to the ED. Preliminary labs drawn showed a sodium of 146 and a chloride of 122. She was given 2L of fluid and repeat labs showed slightly more elevated sodium and chloride and decreased potassium. As a result she was presented for admission for further correction of her electrolyte imbalance. At bedside, the patient appears very sleepy. Her points out that she has been sleeping longer. She was readily arousable to verbal stimuli and answered my questions. She denied chest pain, NARESH, abd pain, fever or chills. She was instructed to discontinue her fentanyl patch last week by her PCP. She is also on lyrica and xanax. - HOSPITAL COURSE Hospital Course: pt was admitted for generalized weakness. pt was found to have UTI. pt was treated with antibiotics. pt was evaluated and treated with PT/OT. after treatment, pt state she felt much better. pt was arranged for home health PT and director of operations home health. pt was prescribed antibiotics Cipro for d/c. pt was also arranged by social services assistant for nurse home lobsterman care. pt and her was happy to be d/c home. The detail hospital course is as the below 1) UTI (urinary tract infection) UA culture reveal three bacterial pseudomonas aeruglnosa, (after d/c culture reveals)Ecoli, and staphylococcus Ssp. urealy. All bacterial are sensitive to Cipro, pt was prescribed Cipro (2) Wheezing resolved. lung sound clear, pt had 97% sats on room air (3) Dehydration resolved (4) Weakness pt was evaluated and treated by PT/OT, pt was arranged home health PT for continuing training. (5) S/P BKA (below knee amputation) bilateral stable. pt was arranged for home AIDS (6) Dementia stable (7) Hypokalemia placed (8) Hypernatremia resolved - ALLERGIES Allergies/Adverse Reactions: Allergies Allergy/AdvReac Type Severity Reaction Status Date / Time gentamicin [Gentamicin] Allergy Unknown Verified 03/17/16 22:22 lisinopril Allergy Unknown Verified 03/17/16 22:22 - MEDICATIONS Home Medications: Ambulatory Orders Medication Instructions Recorded Confirmed ALPRAZolam [Alprazolam] 0.25 mg PO BID 03/18/16 08/14/19 Baclofen 10 mg PO TID PRN 08/13/19 08/14/19 Divalproex Sodium 125 mg PO BID 08/13/19 08/14/19 Esomeprazole Magnesium 40 mg PO QDAC 08/13/19 08/14/19 Lovastatin 80 mg PO QPM 08/13/19 08/14/19 Mirtazapine 7.5 mg PO QPM 08/13/19 08/14/19 Potassium Chloride 20 meq PO DAILY 08/13/19 08/14/19 ALPRAZolam [Alprazolam] 0.25 mg PO BID 08/14/19 08/14/19 Aspirin [Aspirin EC] 81 mg PO DAILY 08/14/19 08/14/19 Brimonidine 0.2% Ophth Drops 1 drops RIGHTEYE BID 08/14/19 08/14/19 [Alphagan P 0.2% Ophth Drops] Dorzolamide HCl/Timolol Maleat 1 drops RIGHTEYE BID 08/14/19 08/14/19 [Dorzolamide-Timolol Eye Drops] Latanoprost/Pf [Latanoprost 0.005% 1 drops EACHEYE QPM 08/14/19 08/14/19 Eye Drop] Lidocaine Patch 5% [Lidoderm Patch] 2 patch TOP QPM 08/14/19 08/14/19 Megestrol Acetate 400 mg PO DAILY 08/14/19 08/15/19 Pregabalin 50 mg PO BID PRN 08/14/19 08/14/19 Ciprofloxacin HCl [Cipro] 500 mg PO BID #14 tablet 08/16/19 - PHYSICAL EXAM AT DISCHARGE General Appearance: positive: No acute distress, Alert. negative: Lethargic Eyes Bilateral: positive: Normal inspection, PERRL, No lid inflammation, Conjunctivae nml ENT: positive: ENT inspection nml, Pharynx nml, No signs of dehydration. negative: Purulent nasal drainage, Pharyngeal erythema, Oral lesions Neck: positive: Nml inspection, Thyroid nml, No JVD, Trachea midline. negative: Thyromegaly, Lymphadenopathy (R), Lymphadenopathy (L), Stiff neck, Swelling /bruising, Tracheal deviation Respiratory: positive: Chest non-tender, No respiratory distress, Breath sounds nml. negative: Wheezes, Rales, Rhonchi Cardiovascular: positive: Regular rate & rhythm, No murmur, No gallop. negative: Irregularly irregular, Extrasystoles, Tachycardia, Bradycardia, PMI displaced laterally Peripheral Pulses: positive: 2+ Abdomen: positive: Non-tender, No organomegaly, Nml bowel sounds, No distention. negative: Tenderness, Guarding, Rebound Back: positive: Nml inspection Skin: positive: Color nml, No rash, Warm, Dry. negative: Cyanosis, Diaphoresis, Pallor Extremities: positive: Non-tender Neurologic/Psychiatric: positive: Oriented x3, Sensation nml. negative: Weakness, Sensory loss, Facial droop, Slurred/abnml speech, Depressed mood/affect - LABS Result Diagrams: 08/16/19 07:26 08/16/19 07:26 - FOLLOW UP Follow Up: You were found to have UTI, antibiotics Cipro is prescribed for you to finish the treatment course. Home health PT and director of operations home health are arranged for you, social services assistant help you arrange for senior living nurse facility care. you may followup your PCP in one week. Should your symptoms return or worsen, you may present ER or call 911 for help - TIME SPENT Time Spent in Discharge (Minutes): 55
[2019-08-16] MEDS ORDERED: MULTIVITAMIN W/MINERALS TABLET PO SCH (14:00)
[2019-08-16] MEDS ORDERED: LACTOBACILLUS RHAMNOSUS GG CAPSULE PO SCH (16:00)
== END 2019-08-16 15:20 | disposition home health service (06) | DRG 690 ==
LOC: EDUNIT# → ED 23:04 → MS2 08-14 07:17 → OBSVTOIN 08-15 11:31
PROVIDERS: ADMIT Internal Medicine; ATTEND Nurse Practitioner Gerontology
DX: N30.00 Acute cystitis without hematuria (principal); E87.0 Hyperosmolality and hypernatremia; E87.8 Other disorders of electrolyte and fluid balance, not elsewhere classified; E87.6 Hypokalemia; E86.0 Dehydration; T50.2X5A Adverse effect of carbonic-anhydrase inhibitors, benzothiadiazides and other diuretics, initial encounter; Y92.239 Unspecified place in hospital as the place of occurrence of the external cause; J45.909 Unspecified asthma, uncomplicated; H40.9 Unspecified glaucoma; K21.9 Gastro-esophageal reflux disease without esophagitis; F32.9 Major depressive disorder, single episode, unspecified; B96.20 Unspecified Escherichia coli [E. coli] as the cause of diseases classified elsewhere; B96.5 Pseudomonas (aeruginosa) (mallei) (pseudomallei) as the cause of diseases classified elsewhere; B95.7 Other staphylococcus as the cause of diseases classified elsewhere; E78.5 Hyperlipidemia, unspecified; F01.50 Vascular dementia, unspecified severity, without behavioral disturbance, psychotic disturbance, mood disturbance, and anxiety; I73.9 Peripheral vascular disease, unspecified; F41.9 Anxiety disorder, unspecified; I25.10 Atherosclerotic heart disease of native coronary artery without angina pectoris; R63.0 Anorexia; Z89.512 Acquired absence of left leg below knee; Z89.511 Acquired absence of right leg below knee; Z66 Do not resuscitate; Z86.2 Personal history of diseases of the blood and blood-forming organs and certain disorders involving the immune mechanism; Z79.899 Other long term (current) drug therapy; Z79.82 Long term (current) use of aspirin; Z72.0 Tobacco use
CPT/HCPCS: 36415; 71045; 80048; 80053; 81001; 81003; 83690; 83735; 83880; 84100; 85025; 87077; 87086; 87181; 93005; 94640; 96361; 96374; 99285

== ENCOUNTER 2019-08-16 15:33 | Outpatient (CLI) | payer MEDICARE, OTHER, MEDICAID | END 2019-08-16 15:34 | disposition home or self-care (01) | LOC: EMS 15:33 | PROVIDERS: ATTEND Surgery | DX: F03.90 Unspecified dementia, unspecified severity, without behavioral disturbance, psychotic disturbance, mood disturbance, and anxiety (principal); Z89.512 Acquired absence of left leg below knee; Z89.511 Acquired absence of right leg below knee; R53.1 Weakness; Z74.01 Bed confinement status | CPT/HCPCS: A0425; A0428 ==

== ENCOUNTER 2019-08-24 08:00 | Outpatient (CLI) | payer MEDICARE, OTHER, MEDICAID | END 2019-08-24 23:59 | disposition home or self-care (01) | LOC: LAB.R 08:00 | PROVIDERS: ATTEND Physician Assistant Medical | DX: N39.0 Urinary tract infection, site not specified (principal) | CPT/HCPCS: 87086 ==

== ENCOUNTER 2019-10-14 12:24 | Outpatient (CLI) | payer MEDICARE, OTHER, MEDICAID | END 2019-10-14 12:25 | disposition home or self-care (01) | LOC: EMS 12:24 | PROVIDERS: ATTEND Surgery | DX: R41.82 Altered mental status, unspecified (principal); R10.30 Lower abdominal pain, unspecified; Z89.612 Acquired absence of left leg above knee; Z89.611 Acquired absence of right leg above knee | CPT/HCPCS: A0425; A0429 ==

== ENCOUNTER 2019-10-14 12:44 | Emergency (ER) | payer MEDICARE, OTHER, MEDICAID ==
--- NOTE | 2019-10-14 13:05 | ED Physician Documentation ---
History of Present Illness - Stated complaint Stated Complaint: WEAKNESS - Chief complaint Chief Complaint: Neuro - History obtained from History obtained from: Patient, Family, EMS - History of Present Illness Timing: Today Pain level max: 0 Pain level now: 0 - Additonal information Additional information: EMS states that the patient was altered earlier today and more weak at home. She lives at home with her . She was found to have a blood sugar of 55 upon EMS arrival. This is now improved to the 70s. She is now more awake and alert. No focal neurological deficits. No abdominal pain. No vomiting. Review of Systems Ten Systems: 10 systems reviewed and negative Constitutional: denies: Fever, Chills Nose: denies: Rhinorrhea / runny nose, Congestion Throat: denies: Sore throat Cardiac: denies: Chest pain / pressure, Palpitations Respiratory: denies: Dyspnea, Cough GI: denies: Abdominal Pain, Nausea, Vomiting, Diarrhea Skin: denies: Rash Musculoskeletal: denies: Neck pain, Back pain Neurologic: reports: Generalized weakness. denies: Focal weakness, Numbness, Seizure, Headache PD PAST MEDICAL HISTORY - Past Medical History Past Medical History: Yes Cardiovascular: High cholesterol, Coronary artery disease, Peripheral Vascular Disease Respiratory: Asthma Neuro: Dementia Endocrine/Autoimmune: None GI: GERD, Hiatal hernia BOLOGNA LACER: None : None HEENT: Glaucoma Psych: Anxiety Musculoskeletal: Osteoporosis Derm: None - Past Surgical History Past Surgical History: Yes General: Appendectomy Ortho: Amputation, Other /BOLOGNA LACER: Hysterectomy - Present Medications Home Medications: Ambulatory Orders Medication Instructions Recorded Confirmed ALPRAZolam [Alprazolam] 0.25 mg PO BID 03/18/16 08/14/19 Baclofen 10 mg PO TID PRN 08/13/19 08/14/19 Divalproex Sodium 125 mg PO BID 08/13/19 08/14/19 Esomeprazole Magnesium 40 mg PO QDAC 08/13/19 08/14/19 Lovastatin 80 mg PO QPM 08/13/19 08/14/19 Mirtazapine 7.5 mg PO QPM 08/13/19 08/14/19 Potassium Chloride 20 meq PO DAILY 08/13/19 08/14/19 ALPRAZolam [Alprazolam] 0.25 mg PO BID 08/14/19 08/14/19 Aspirin [Aspirin EC] 81 mg PO DAILY 08/14/19 08/14/19 Brimonidine 0.2% Ophth Drops 1 drops RIGHTEYE BID 08/14/19 08/14/19 [Alphagan P 0.2% Ophth Drops] Dorzolamide HCl/Timolol Maleat 1 drops RIGHTEYE BID 08/14/19 08/14/19 [Dorzolamide-Timolol Eye Drops] Latanoprost/Pf [Latanoprost 0.005% 1 drops EACHEYE QPM 08/14/19 08/14/19 Eye Drop] Lidocaine Patch 5% [Lidoderm Patch] 2 patch TOP QPM 08/14/19 08/14/19 Megestrol Acetate 400 mg PO DAILY 08/14/19 08/15/19 Pregabalin 50 mg PO BID PRN 08/14/19 08/14/19 Ciprofloxacin HCl [Cipro] 500 mg PO BID #14 tablet 08/16/19 - Allergies Allergies/Adverse Reactions: Allergies Allergy/AdvReac Type Severity Reaction Status Date / Time gentamicin [Gentamicin] Allergy Unknown Verified 10/14/19 12:48 lisinopril Allergy Unknown Verified 10/14/19 12:48 - Social History Does the pt smoke?: No Smoking Status: Never smoker Does the pt drink ETOH?: No Does the pt have substance abuse?: No - Immunizations Immunizations are current?: Yes - POLST Patient has POLST: Yes PD ED PE NORMAL - Vitals Vital signs reviewed: Yes - General General: Alert and oriented X 3, No acute distress, Well developed/nourished - HEENT HEENT: Atraumatic, PERRL, Other (Dry lips) - Neck Neck: Supple, no meningeal sign, No bony TTP - Cardiac Cardiac: RRR, Strong equal pulses - Respiratory Respiratory: No respiratory distress, Clear bilaterally - Abdomen Abdomen: Soft, Non tender, Non distended - Derm Derm: Warm and dry, No rash - Extremities Extremities: Other (Bilateral AKA) - Neuro Neuro: Alert and oriented X 3, automatic car wash attendant 2-12 intact, No motor deficit, No sensory deficit, Normal speech - Psych Psych: Normal mood, Normal affect Results - Vitals Vitals: Vital Signs - 24 hr 10/14/19 10/14/19 10/14/19 12:48 14:19 14:56 Temperature 36.4 C L Heart Rate 74 68 64 Respiratory 12 16 16 Rate Blood Pressure 160/90 H 136/96 H 94/54 L O2 Saturation 94 91 L 98 10/14/19 10/14/19 15:05 16:14 Temperature 36.5 C Heart Rate 65 65 Respiratory 16 15 Rate Blood Pressure 131/85 H 147/89 H O2 Saturation 93 96 Oxygen O2 Source [] Room air O2 Source Room air - EKG (time done) 1304 Rate: Rate (enter#) (74) Rhythm: NSR [place]: Normal Intervals: Normal NV QRS: Normal Ischemia: Normal ST segments - Labs Labs: Laboratory Tests 10/14/19 10/14/19 10/14/19 13:35 15:22 15:22 WBC 6.3 RBC 3.99 L Hgb 11.1 L Hct 37.3 MCV 93.5 MCH 27.8 MCHC 29.8 L RDW 18.6 H Plt Count 476 H MPV 11.7 H Neut # (Auto) Not Reportable Lymph # (Auto) Not Reportable [place] # (Auto) Not Reportable Eos # (Auto) Not Reportable Baso # (Auto) Not Reportable Absolute Nucleated RBC Not Reportable Total Counted 100 Band Neuts % (Manual) 1 Abnorm Lymph % (Manual) 0 Nucleated RBC % Not Reportable Neutrophils # (Manual) 2.6 Lymphocytes # (Manual) 3.4 Monocytes # (Manual) 0.2 Eosinophils # (Manual) 0.1 Basophils # (Manual) 0.0 Differential Comment MANUAL DIFFERENTIAL Manual Slide Review Indicated WBC Morphology NORMAL APPEARANCE Platelet Estimate INCREASED (>450,000) Platelet Morphology RARE GIANT PLATELETS RBC Morph Micro Appear 1+ ANISOCYTOSIS Sodium 141 Potassium 3.1 L Chloride 109 Carbon Dioxide 26 Anion Gap 6.0 BUN 8 Creatinine 0.8 Estimated GFR (MDRD) 84 L Glucose 113 H Calcium 9.1 Total Bilirubin 0.4 AST 18 ALT < 10 L Alkaline Phosphatase 83 Total Protein 8.0 Albumin 2.8 L Globulin 5.2 H Albumin/Globulin Ratio 0.5 L Lipase 30 Urine Color YELLOW Urine Clarity CLEAR Urine pH 6.5 Ur Specific [place] 1.010 Urine Protein NEGATIVE Urine Glucose (UA) NEGATIVE Urine Ketones NEGATIVE Urine Occult Blood NEGATIVE Urine Nitrite NEGATIVE Urine Bilirubin NEGATIVE Urine Urobilinogen 0.2 (NORMAL) Ur Leukocyte Esterase NEGATIVE Ur Microscopic Review NOT INDICATED Urine Culture Comments NOT INDICATED Salicylates < 6.0 Acetaminophen < 10 L Ethyl Alcohol < 5.0 PD MEDICAL DECISION MAKING - ED course Complexity details: reviewed results, re-evaluated patient, considered differential, d/w patient, d/w family ED course: Patient's mental status and weakness improved with correction of her hypoglycemia. Also given IV fluids. No significant lab abnormalities. She has not been ill. No coughing. No vomiting. No head injury. No focal neurological deficits. No evidence of stroke. Patient would like to go home at this time. Patient and family counseled regarding signs and symptoms for which I believe and urgent re-evaluation would be necessary. Patient with good understanding of and agreement to plan and is comfortable going home at this time This document was made in part using voice recognition software. While efforts are made to proofread this document, sound alike and grammatical errors may occur. Departure - Departure Disposition: 01 Home, Self Care Clinical Impression: Hypoglycemia Condition: Good Instructions: ED Blood Sugar Low Non Diabetic Follow-Up: Fracisco Chavez MD [Primary Care Provider] - Within 1 week Comments: Make sure that she is eating and drinking regularly at home. Her testing does not reveal any acute abnormalities today other than a low blood sugar. Discharge Date/Time: 10/14/19 16:34
[2019-10-14] MEDS ORDERED: DEXTROSE 10% 250 ML IV STA (13:21)
[2019-10-14 13:46] LABS: BILIRUBIN,URINE NEGATIVE (NEGATIVE); GLUCOSE, URINE (UA) NEGATIVE (NEGATIVE); KETONES,URINE (UA) NEGATIVE (NEGATIVE); LEUKOCYTE ESTERASE, URINE NEGATIVE (NEGATIVE); NITRITE,URINE NEGATIVE (NEGATIVE); OCCULT BLOOD,URINE NEGATIVE (NEGATIVE); PH,URINE 6.5 PH (5.0-7.5); PROTEIN,URINE NEGATIVE (NEGATIVE); UROBILINOGEN,URINE 0.2 (NORMAL) E.U./dL (NORMAL)
[2019-10-14 13:59] LABS: CLARITY,URINE CLEAR (CLEAR)
[2019-10-14] MEDS ORDERED: SODIUM CHLORIDE 0.9% 1,000 ML IV ONE (14:57)
[2019-10-14 15:36] LABS: BASOPHILS % (AUTO) 0.5 %; EOSINOPHILS % (AUTO) 0.3 %; HGB - HEMOGLOBIN 11.1 g/dL (12.0-16.0); LYMPHOCYTES % (AUTO) 51.8 %; MEAN CORPUSCULAR HEMOGLOBIN 27.8 pg (27.0-31.0); MEAN CORPUSCULAR HGB CONC 29.8 g/dL (32.0-36.0); MEAN CORPUSCULAR VOLUME 93.5 fL (81.0-99.0); MEAN PLATELET VOLUME 11.7 fL (7.9-10.8); MONOCYTES % (AUTO) 5.1 %; PLT - PLATELET COUNT 476 10^3/uL (130-450); RED BLOOD COUNT 3.99 10^6/uL (4.20-5.40); RED CELL DISTRIBUTION WIDTH 18.6 % (12.0-15.0); WHITE BLOOD COUNT 6.3 x10^3/uL (4.8-10.8)
[2019-10-14 15:40] LABS: ABNORMAL LYMPHS % (MANUAL) 0 %
[2019-10-14 15:45] LABS: ACETAMINOPHEN < 10 ug/mL (10-30); ALBUMIN 2.8 g/dL (3.2-5.5); ALBUMIN/GLOBULIN RATIO 0.5 (1.0-2.2); ALKALINE PHOSPHATASE 83 IU/L (42-121); ALT ALANINE AMINOTRANSFERASE < 10 IU/L (10-60); AST ASPARTATE AMINOTRANSFERASE 18 IU/L (10-42); BILIRUBIN,TOTAL 0.4 mg/dL (0.2-1.0); BUN - BLOOD UREA NITROGEN 8 mg/dL (6-20); CALCIUM 9.1 mg/dL (8.5-10.3); CARBON DIOXIDE - CO2 26 mmol/L (21-32); CHLORIDE 109 mmol/L (101-111); CREATININE 0.8 mg/dL (0.4-1.0); GFR - MDRD 84 (>89); GLUCOSE 113 mg/dL (70-100); LIPASE 30 U/L (22-51); SALICYLATE < 6.0 mg/dL; SODIUM 141 mmol/L (135-145)
[2019-10-14 16:10] LABS: BAND NEUTROPHILS % (MANUAL) 1 %; DIFFERENTIAL COMMENT MANUAL DIFFERENTIAL; EOSINOPHILS # (MANUAL) 0.1 10^3/uL (0-0.7); LYMPHOCYTES # (MANUAL) 3.4 10^3/uL (1.5-3.5); LYMPHOCYTES % (MANUAL) 54 %; MONOCYTES # (MANUAL) 0.2 10^3/uL (0.0-1.0); PLATELET ESTIMATE, MANUAL INCREASED (>450,000) (NORMAL); PLATELET MORPHOLOGY RARE GIANT PLATELETS (NORMAL); RBC MORPHOLOGY (MULTIPLE) 1+ ANISOCYTOSIS (NORMAL)
[2019-10-14 16:15] VITALS: BP 147/89
== END 2019-10-14 16:34 | disposition home or self-care (01) ==
LOC: EDUNIT# → ED 12:44
DX: E16.2 Hypoglycemia, unspecified (principal); F03.90 Unspecified dementia, unspecified severity, without behavioral disturbance, psychotic disturbance, mood disturbance, and anxiety
CPT/HCPCS: 36415; 51701; 80053; 80307; 80320; 80329; 81001; 81003; 83690; 85025; 87086; 93005; 96360; 99284

== ENCOUNTER 2020-01-10 14:20 | Outpatient (CLI) | payer MEDICARE, OTHER, MEDICAID ==
[2020-01-10 18:56] LABS: BASOPHILS % (AUTO) 0.3 %; EOSINOPHILS % (AUTO) 0.7 %; HGB - HEMOGLOBIN 11.9 g/dL (12.0-16.0); LYMPHOCYTES # (AUTO) 3.2 10^3/uL (1.5-3.5); LYMPHOCYTES % (AUTO) 54.8 %; MEAN CORPUSCULAR HEMOGLOBIN 28.3 pg (27.0-31.0); MEAN CORPUSCULAR HGB CONC 29.8 g/dL (32.0-36.0); MEAN CORPUSCULAR VOLUME 94.8 fL (81.0-99.0); MEAN PLATELET VOLUME 12.6 fL (7.9-10.8); MONOCYTES # (AUTO) 0.6 10^3/uL (0.0-1.0); MONOCYTES % (AUTO) 10.1 %; NEUTROPHILS % (AUTO) 33.9 %; PLT - PLATELET COUNT 475 10^3/uL (130-450); RED BLOOD COUNT 4.21 10^6/uL (4.20-5.40); RED CELL DISTRIBUTION WIDTH 18.7 % (12.0-15.0); WHITE BLOOD COUNT 5.8 x10^3/uL (4.8-10.8)
[2020-01-10 19:30] LABS: ALBUMIN 3.3 g/dL (3.2-5.5); ALBUMIN/GLOBULIN RATIO 0.6 (1.0-2.2); BILIRUBIN,TOTAL 0.4 mg/dL (0.2-1.0); CALCIUM 9.2 mg/dL (8.5-10.3); CREATININE 0.8 mg/dL (0.4-1.0); TOTAL PROTEIN 8.5 g/dL (6.7-8.2)
[2020-01-10 19:38] LABS: CHOL/HDL RATIO 4.3 (<4.4); CHOLESTEROL 138 mg/dL; HDL CHOLESTEROL 32 mg/dL; LDL CHOLESTEROL,CALCULATED 76 mg/dL; LDL/HDL RATIO 2.4 (<4.4); VLDL CHOLESTEROL 30 mg/dL
== END 2020-01-10 23:59 | disposition home or self-care (01) ==
LOC: LAB.WCP 14:20
PROVIDERS: ATTEND Family Medicine
DX: H53.8 Other visual disturbances (principal); I25.10 Atherosclerotic heart disease of native coronary artery without angina pectoris; G89.4 Chronic pain syndrome; I73.9 Peripheral vascular disease, unspecified; R94.6 Abnormal results of thyroid function studies
CPT/HCPCS: 36415; 80053; 80061; 83721; 84443; 85025

== ENCOUNTER 2020-01-20 08:00 | Outpatient (CLI) | payer MEDICARE, OTHER, MEDICAID | END 2020-01-20 23:59 | disposition home or self-care (01) | LOC: LAB.R 08:00 | PROVIDERS: ATTEND Family Medicine | DX: N39.0 Urinary tract infection, site not specified (principal) | CPT/HCPCS: 81002; 87086; 87181 ==

== ENCOUNTER 2020-01-23 14:05 | Outpatient (CLI) | payer MEDICARE, OTHER, MEDICAID ==
--- NOTE | 2020-01-23 17:33 | CONSULTATION NOTE ---
Palliative Care Consultation - Referral Referring Provider: Dr. Fracisco Chavez Time of Visit: [id number] Referral setting: Home Referral Reason: Chronic Pain Syndrome/PVD/Vascular Dementia - Information Sources Records reviewed: Previous records reviewed History/Review of Systems obtained from: Patient, Family (spouse/cargihunter/JORDY Yost) Exam limitations: Clinical condition (short term memory impairment due to dementia) - History of Present Illness Brief History of Present Illness: This is an 80-year-old -[place] female who is seen in evaluation today in her home with her /D RUSSELL Yost presents at the bedside. The patient has a significant peripheral vascular disease history and is status post bilateral below the knee amputations as well as vascular dementia and major depressive disorder. The patient was previously seen by this palliative care service while she was residing at [facility]. She was admitted to [facility] in December 2015 due to increased difficulty with function and overall cognitive decline. It was her 's goal to have the patient return home and approximately 2 years ago he achieved that goal. The patient's reports that he did not feel that the patient received the care that she required within the facility and she lost a lot of weight while there. He visited her on a daily basis. He reports that he reported his concerns to upper management. The patient went down to 96 pounds and her usual weight for most of her adult life has ranged between 120 to 125 pounds. The patient's last recorded weight on 01/10/2020 was 121pounds. Presently, the patient has been doing well overall per her and her 's report since her return home. She has regained her weight that she lost during her stay at [facility]. She is cared for by her and 2 private paid caregivers. Her appetite is stable and she consumes approximately 75% of her meals. A request for palliative care services was initiated due to the difficulty of having the patient leave the home for medical appointments as well as concern for the 's vulnerability given that he is presently undergoing chemotherapy treatment. Both he and his expressed concern regarding the current potential implications that the santos virus could have for the. The patient has a longstanding history of phantom limb pain. She was previously on long-term opioid therapy but her primary care provider was able to taper her off of these medications much to the pleasure of both the patient and her spouse. She had been on MS Contin, OxyContin, and fentanyl. The patient's reports that typically about once a month she will have "excruciating pain" in her bilateral stumps where the below the knee amputations were performed and her spouse will administer Tylenol and baclofen with resolution of the pain. She is also maintained presently on Lyrica 50 mg twice daily and this appears to be effective. If needed she also has lidocaine patches to apply to both stumps. The patient is presently being treated for a urinary tract infection that was diagnosed on 01/20/2020 and is completing a course of Cipro. She is feeling much improved and no longer having dysuria. Her does have concerns as she appears to have been having more frequent urinary tract infections. He had to obtain a kit from his primary care office in order to collect a specimen for evaluation and treatment. 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 Fairchild 2000; right below knee amputation by Dr. Fairchild 2009.) /CONCRETE PUMP OPERATOR HELPER: reports: Hysterectomy Cardiovascular: reports: Angioplasty (LLE angioplasty and stenting 1997; [place] angioplasty right above knee popliteal artery 12/2008), Other (Right femral to dorsalis pedis artery bypass with spliced reversed vein graft and harvest of right cephalic and basilic veins 01/2003.) - Substance History Use: Uses substance without health or social issues: NONE (Former smoker until she was admitted to [facility] in 2016.) Social History - Living Situation Living arrangement: At home Living Situation: With spouse/s.o. Support System: The patient grew up in [place], [place]. She was a [employer]. The patient's spouse went to [employer] and managed different operations within the [employer]. Prior to relocating to [facility] they were in [place]. The patient and her spouse have been for 59 years. They have 2 children, 1 daughter and 1 son. They are estranged from their daughter who lives locally. Their son, Stephen resides in [place]. The patient's healthcare power of title attorney is her followed by her son Stephen. 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 She continues to offer suggestions to her regarding preparation of meals with flavor. Her also reports that she makes the best gumbo. The patient has 2 private caregivers through rest care that comes 5 days a week. The caregivers are there 4 to 5 hours/day. The patient's spouse is extremely appreciative of the experience caregiver who comes 3 days during the week. During the other times on weekends the patient sole caregiver is her . Family History - Family History Family History: Mother: , Father: Family History Comment/Other: Obtained from medical records: Father age 46 from alochol related complications and had a history of CAD. other from old age. Daughter has a history of bipolar disorder. Medications/Allergies - Medications Home Medications: Ambulatory Orders Medication Instructions Recorded Confirmed ALPRAZolam [Alprazolam] 0.25 mg PO Q4HR PRN MDD every4-6h 03/18/16 01/23/20 PRN Baclofen 10 mg PO TID PRN 08/13/19 01/23/20 Divalproex Sodium 125 mg PO BID 08/13/19 01/23/20 Esomeprazole Magnesium 40 mg PO QDAC 08/13/19 01/23/20 Lovastatin 80 mg PO QPM 08/13/19 01/23/20 Mirtazapine 7.5 mg PO QPM 08/13/19 01/23/20 Potassium Chloride 20 meq PO DAILY 08/13/19 01/23/20 ALPRAZolam [Alprazolam] 0.25 mg PO BID 08/14/19 01/23/20 Aspirin [Aspirin EC] 81 mg PO DAILY 08/14/19 01/23/20 Dorzolamide HCl/Timolol Maleat 1 drops EACHEYE BID 08/14/19 01/23/20 [Dorzolamide-Timolol Eye Drops] Latanoprost/Pf [Latanoprost 0.005% 1 drops EACHEYE QPM 08/14/19 01/23/20 Eye Drop] Pregabalin 50 mg PO BID 08/14/19 01/23/20 Brimonidine 0.2% Ophth Drops 1 drops RIGHTEYE BID 01/23/20 01/23/20 [Alphagan P 0.2% Ophth Drops] Cholecalciferol (Vitamin D3) 1,000 unit PO DAILY 01/23/20 01/23/20 [Vitamin D3] Famotidine [Pepcid] 20 mg PO DAILY 01/23/20 01/23/20 Ferrous Sulfate 325 mg PO DAILY 01/23/20 01/23/20 Lidocaine [Aspercreme Lidocaine] 2 patch TP DAILY PRN MDD to b/l BKA 01/23/20 01/23/20 Senna [Senokot] 8.6 mg PO QPM MDD Hold loose stools 01/23/20 01/23/20 polyethylene glycoL 3350 [Miralax] 17 gm PO DAILY PRN 01/23/20 01/23/20 - Allergies Allergies/Adverse Reactions: Allergies Allergy/AdvReac Type Severity Reaction Status Date / Time gentamicin [Gentamicin] Allergy Unknown Verified 10/14/19 12:48 lisinopril Allergy Unknown Verified 10/14/19 12:48 paroxetine [From Paxil] Allergy Unknown Verified 10/18/19 07:33 Review of Systems - Constitutional Constitutional: reports: Fatigue, Weight stable (weight 121lb 01/10/2020). denies: Fever, Chills - Eyes Eyes: reports: Vision loss (left eye blindness) - Ears, Nose & Throat Ears, Nose & Throat: denies: Hearing loss, Dry mouth - Cardiovascular Cardiovascular: denies: Palpitations, Chest pain, Edema - Respiratory Respiratory: denies: Cough, Wheezing - Gastrointestinal Gastrointestinal: reports: Constipation (intermittent with recent reports of discomfort when defecating), Reflux/heartburn (controlled), Good appetite. denies: Abdominal pain, Diarrhea, Vomiting - Genitourinary Genitourinary: reports: Incontinence (occasional incontience). denies: Dysuria, Urgency, Hematuria - Musculoskeletal Musculoskeletal: reports: Muscle weakness, Assistive devices (rollator with bilateral lower leg prosthesis) - Integumentary Integumentary: denies: Rash - Neurological Neurological: reports: General weakness, Memory problems - Psychiatric Psychiatric: reports: Depression, Anxiety - Endocrine Endocrine: denies: Diabetes type 2, Hypothyroidism - Hematologic/Lymphatic Hematologic/Lymphatic: reports: Recurrent infections (UTI January 2020 and October 2019), Other (Essential thrombocytosis with JAK2 mutation) - All Other Systems All Other Systems: reports: Reviewed and negative Physical Exam - Vital Signs Temperature: 36.5 C Pulse Rate: 88 O2 Saturation: 94 (on RA at rest) Blood Pressure: 112/63 (left wrist cuff) - Physical Exam General Appearance: positive: No acute distress, Alert, Other (resting in bed, well groomed with nightgown on) Eyes Bilateral: positive: Normal inspection ENT: positive: No signs of dehydration Neck: positive: No JVD, Trachea midline Cardiovascular: positive: Regular rate & rhythm, No murmur Respiratory: positive: No respiratory distress, Breath sounds nml. negative: Wheezes, Rales Abdomen: positive: Non-tender, Soft, Nml bowel sounds, Other (Bladder nondistended). negative: Distended Skin: positive: No symptoms, Other (Skin to sacrum intact) Extremities: positive: Other (Bilateral below the knee amputations with skin to stumps intact without evidence of breakdown) Neurologic/Psychiatric: positive: Mood/affect nml, Disoriented to time, Other (Able to recall life events but evidence of short term memory impairment. She was calm and relaxed during the entire visit and would brighten on certain memories. On certain specific questions such as consumption of meals or c/o dysuria she would differ the answer to her stating "I don't know.") Palliative Care - POLST Patient has POLST: Yes POLST Status: DNR, Selective Treatment Pain: Pain unchanged (located to bilateral stumps 2/2 below the knee amputation due to phantom pain syndrome that comes and goes. Is managed when acute pain occurs with baclofen and tylenol. Is on lyrica routinely.) Drowsiness/Sedation: Mild (1-3) Nausea: None Anorexia: None Dyspnea: None Depression: Mild (1-3) (history of depression, controlled) Anxiety: Mild (1-3) (history of anxiety, controlled with alprazolam) Feelings of wellbeing/Perceived Quality of Life: Fair Sleep: Sleeps well Constipation: Managed, Intermittent constipation (Spouse will administered miralax or senna as needed) Performance Status: Patient is essentially homebound. She has only gone out twice out of her home in recent months. She is dependent on her and private caregivers for her care.Patient has a Rollator, wheelchair, transport wheelchair and bedside commode available for her use. Her assist her with getting her bilateral lower leg prosthetics on. She requires assistance from transferring from the bed to the bedside commode. Her caregivers provide hygiene care. Overall she is dependent on her ADLs. No recent history of falls. PPS 40% - Palliative Care Discussion: The patient herself has remained quite stable since her discharge from [facility] and return home with her spouse is her primary caregiver. She was quite pleased to be able to leave [facility] and return home as that was both her and her spouse's wish. Her considers her to be a strong fighter. And despite her stability she does remain quite fragile. Her gains his strength from the patient. The patient herself when asked what her underlying fear is answered losing her in light of his present diagnosis of cancer and chemotherapy treatments. When exploring this fear further, her reports that if something were to happen to him the there is a plan in place that the couples son, Stephen, who resides in [place] would assume care of the patient. When discussing this topic of loss both became subdued. The spouse reports that he does not want the patient to suffer or "be a vegetable." Explored the POLST that was completed in 2014 with no changes to the previously selected selections. Patient to remain DN AR with limited interventions, antibiotic therapy with comfort as goal and no artifical nutrition by tube. Impression and Recommendations - Palliative Care Impression: This is an 80-year-old -[place] female who though is presently stable remains quite fragile with a past medical history significant for peripheral vascular disease status post bilateral below the knee amputations, vascular dementia, chronic pain and major depressive disorder. She presently is experiencing some symptoms of constipation and her is administering as needed laxatives. Palliative care to continue to provide support with symptom management, anticipatory guidance, and exploration of goals of care. Recommendations/Counseling Done: 1. Chronic pain. Multifactorial in origin with a history of long-term opioid therapy That is no longer in use. History of phantom pain due to bilateral below the knee amputation secondary to peripheral vascular disease. Symptoms of chronic pain and phantom pain are controlled with Lyrica as prescribed. In an acute episode symptoms are controlled with Tylenol and as needed baclofen. 2. constipation. Intermittent and multifactorial secondary to decreased mobility. Recommended initiation of senna 8.6 mg to begin as started in the evening for stimulation and to hold if loose stools. May continue to use MiraLAX 17 g daily as needed. 3. Urinary tract infection. No longer with complaints of dysuria and remains afebrile. Complete Cipro antibiotic course as prescribed by PCP. Due to history of recent urinary tract infections provided patient's spouse with sterile specimen cup and cleansing wipe with instructions to notify provider if develop signs and symptoms of urinary tract infections and may collect urine specimen within the home for evaluation at the lab. Spouse verbalized understanding to contact SOLE ROUNDING MACHINE OPERATOR prior to collection of sample. 4. major depressive disorder. Presently controlled. Continue Remeron 7.5 mg as needed in the evening. Weight remains stable. If needed may consider up titration if patient displays breakthrough depressive symptoms. 5. Vascular dementia with a history of peripheral vascular disease. Chronic. Progressive. Fall precautions. Continue secondary preventative measures with statin and ASA therapy as prescribed. Continue supportive care. Continue Depakote as ordered due to history of agitation and may consider trial dose reduction in the future. 6. Advance care planning. POLST from 2014 reviewed with patient and spouse. At this time, spouse and patient declined any changes. To continue DNA R status with limited interventions. Spouse wishes for patient to remain comfortable. SOLE ROUNDING MACHINE OPERATOR will continue to build rapport and explore goals of care moving forward. Time Spent: Total time spent 85 minutes with greater than 50% of this spent in counseling and coordination of care with patient and spouse/JORDY Yost; examination of patient; review of palliative philosophy; review of pain and symptom management and anticipatory guidance. Disclaimer: The chart note was formulated using voice recognition technology and unfortunately sound alike errors may occur.
== END 2020-01-23 14:06 | disposition home or self-care (01) ==
LOC: PC 14:05
PROVIDERS: ATTEND Nurse Practitioner Family
DX: Z51.5 Encounter for palliative care (principal); G89.4 Chronic pain syndrome; G54.6 Phantom limb syndrome with pain; I73.9 Peripheral vascular disease, unspecified; F01.50 Vascular dementia, unspecified severity, without behavioral disturbance, psychotic disturbance, mood disturbance, and anxiety; K59.00 Constipation, unspecified; F32.9 Major depressive disorder, single episode, unspecified; N39.0 Urinary tract infection, site not specified; Z79.899 Other long term (current) drug therapy; Z79.82 Long term (current) use of aspirin; Z89.512 Acquired absence of left leg below knee; Z89.511 Acquired absence of right leg below knee; Z87.891 Personal history of nicotine dependence; Z87.440 Personal history of urinary (tract) infections; Z66 Do not resuscitate
CPT/HCPCS: 99345

== ENCOUNTER 2020-03-12 21:46 | Outpatient (CLI) | payer MEDICARE, OTHER, MEDICAID | END 2020-03-12 21:47 | disposition critical access hospital (66) | LOC: EMS 21:46 | PROVIDERS: ATTEND Surgery | DX: R41.82 Altered mental status, unspecified (principal) | CPT/HCPCS: A0425; A0429 ==

== ENCOUNTER 2020-03-12 22:03 | Inpatient (IN) | payer MEDICARE, OTHER, MEDICAID ==
--- NOTE | 2020-03-12 22:14 | ED Physician Documentation ---
History of Present Illness - Stated complaint Stated Complaint: LETHARGIC, LOC - History obtained from History obtained from: EMS (EMS reports that this 80-year-old female who presents via ambulance was brought in from home after has been reports she is lethargic he reports that she is typically awake, alert and oriented but today all she is doing as answering yes or now said the symptoms started about 1 day ago denies any facial droop or unilateral weakness EMS reports she is a vasculopath and she is a bilateral below the knee amputee patient.The remainder the history is unknown as the patient is minimally responsive.) Review of Systems Unable to obtain: AMS PD PAST MEDICAL HISTORY - Past Medical History Cardiovascular: High cholesterol, Coronary artery disease, Peripheral Vascular Disease Respiratory: Asthma Neuro: Dementia (Vascular Dementia) Endocrine/Autoimmune: None GI: GERD, Hiatal hernia MAGAZINE REPAIRER: Fibroids : None HEENT: Chronic vision loss (Left eye blindness 2/ glaucoma), Glaucoma Psych: Depression, Anxiety Musculoskeletal: Osteoporosis Derm: None - Past Surgical History Past Surgical History: Yes General: Appendectomy, 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 Fairchild 2000; right below knee amputation by Dr. Fairchild 2009.) /MAGAZINE REPAIRER: Hysterectomy Cardiovascular: Angioplasty (LLE angioplasty and stenting 1997; [place] angioplasty right above knee popliteal artery 12/2008), Other (Right femral to dorsalis pedis artery bypass with spliced reversed vein graft and harvest of right cephalic and basilic veins 01/2003.) - Present Medications Home Medications: Ambulatory Orders Medication Instructions Recorded Confirmed ALPRAZolam [Alprazolam] 0.25 mg PO Q4HR PRN MDD every4-6h 03/18/16 01/23/20 PRN Baclofen 10 mg PO TID PRN 08/13/19 01/23/20 Divalproex Sodium 125 mg PO BID 08/13/19 01/23/20 Esomeprazole Magnesium 40 mg PO QDAC 08/13/19 01/23/20 Lovastatin 80 mg PO QPM 08/13/19 01/23/20 Mirtazapine 7.5 mg PO QPM 08/13/19 01/23/20 Potassium Chloride 20 meq PO DAILY 08/13/19 01/23/20 ALPRAZolam [Alprazolam] 0.25 mg PO BID 08/14/19 01/23/20 Aspirin [Aspirin EC] 81 mg PO DAILY 08/14/19 01/23/20 Dorzolamide HCl/Timolol Maleat 1 drops EACHEYE BID 08/14/19 01/23/20 [Dorzolamide-Timolol Eye Drops] Latanoprost/Pf [Latanoprost 0.005% 1 drops EACHEYE QPM 08/14/19 01/23/20 Eye Drop] Pregabalin 50 mg PO BID 08/14/19 01/23/20 Brimonidine 0.2% Ophth Drops 1 drops RIGHTEYE BID 01/23/20 01/23/20 [Alphagan P 0.2% Ophth Drops] Cholecalciferol (Vitamin D3) 1,000 unit PO DAILY 01/23/20 01/23/20 [Vitamin D3] Famotidine [Pepcid] 20 mg PO DAILY 01/23/20 01/23/20 Ferrous Sulfate 325 mg PO DAILY 01/23/20 01/23/20 Lidocaine [Aspercreme Lidocaine] 2 patch TP DAILY PRN MDD to b/l BKA 01/23/20 01/23/20 Senna [Senokot] 8.6 mg PO QPM MDD Hold loose stools 01/23/20 01/23/20 polyethylene glycoL 3350 [Miralax] 17 gm PO DAILY PRN 01/23/20 01/23/20 - Allergies Allergies/Adverse Reactions: Allergies Allergy/AdvReac Type Severity Reaction Status Date / Time gentamicin [Gentamicin] Allergy Unknown Verified 10/14/19 12:48 lisinopril Allergy Unknown Verified 10/14/19 12:48 paroxetine [From Paxil] Allergy Unknown Verified 10/18/19 07:33 - Social History Does the pt smoke?: No Smoking Status: Never smoker Does the pt drink ETOH?: No Does the pt have substance abuse?: No - Immunizations Immunizations are current?: Yes - POLST Patient has POLST: Yes PD ED PE NORMAL - Vitals Vital signs reviewed: Yes - General General: No acute distress, Other (Lethargic, obvious bilateral below the knee amputations) - HEENT HEENT: PERRL, Moist mucous membranes - Neck Neck: Supple, no meningeal sign, No adenopathy - Cardiac Cardiac: RRR, No murmur, Strong equal pulses - Respiratory Respiratory: No respiratory distress, Clear bilaterally - Abdomen Abdomen: Normal bowel sounds, Soft, Non tender, Non distended - Derm Derm: Warm and dry - Extremities Extremities: Other (bilateral below the knee amputations. stumps with no signs of infection. ) - Neuro Neuro: Other (patient will answer yes and no and moan otherwise she does not follow any commands. she deos respond to pain but does not follow commands. ) Results - Vitals Vitals: Vital Signs - 24 hr 03/12/20 03/12/20 03/13/20 22:10 23:48 00:00 Temperature 37.7 C H 37.1 C Heart Rate 74 82 84 Respiratory 16 16 14 Rate Blood Pressure 154/91 H 164/82 H 122/74 O2 Saturation 93 95 93 Oxygen O2 Source [Without Activity] Room air O2 Source Room air - EKG (time done) 22:16 Rate: Other (No STEMI) - Labs Labs: Laboratory Tests 03/12/20 03/12/20 03/12/20 22:00 22:00 22:26 WBC 8.2 RBC 4.06 L Hgb 11.3 L Hct 37.5 MCV 92.4 MCH 27.8 MCHC 30.1 L RDW 18.2 H Plt Count 556 H MPV 11.7 H Neut # (Auto) Not Reportable Lymph # (Auto) Not Reportable Baldwin # (Auto) Not Reportable Eos # (Auto) Not Reportable Baso # (Auto) Not Reportable Absolute Nucleated RBC Not Reportable Total Counted 100 Band Neuts % (Manual) 0 Abnorm Lymph % (Manual) 0 Nucleated RBC % Not Reportable Neutrophils # (Manual) 4.3 Lymphocytes # (Manual) 3.3 Monocytes # (Manual) 0.7 Eosinophils # (Manual) 0.0 Basophils # (Manual) 0.0 Differential Comment MANUAL DIFFERENTIAL WBC Morphology NORMAL APPEARANCE Platelet Estimate INCREASED (>450,000) Platelet Morphology 2+ LARGE PLATELETS RBC Morph Micro Appear 1+ POLYCHROMASIA PT INR APTT Sodium Potassium Chloride Carbon Dioxide Anion Gap BUN Creatinine Estimated GFR (MDRD) Glucose Lactic Acid Calcium Total Bilirubin AST ALT Alkaline Phosphatase Total Creatine Kinase Troponin I High Sens B-Natriuretic Peptide Total Protein Albumin Globulin Albumin/Globulin Ratio Lipase Urine Color YELLOW Urine Clarity CLEAR Urine pH 7.0 Ur Specific Magnolia 1.015 Urine Protein NEGATIVE Urine Glucose (UA) NEGATIVE Urine Ketones NEGATIVE Urine Occult Blood NEGATIVE Urine Nitrite NEGATIVE Urine Bilirubin NEGATIVE Urine Urobilinogen 0.2 (NORMAL) Ur Leukocyte Esterase NEGATIVE Ur Microscopic Review NOT INDICATED Urine Culture Comments NOT INDICATED Urine Opiates Screen NEGATIVE Ur Oxycodone Screen NEGATIVE Urine Methadone Screen NEGATIVE Ur Propoxyphene Screen NEGATIVE Ur Barbiturates Screen NEGATIVE Ur Tricyclics Screen NEGATIVE Ur Phencyclidine Scrn NEGATIVE Ur Amphetamine Screen NEGATIVE U Methamphetamines Scrn NEGATIVE U Benzodiazepines Scrn POSITIVE H Urine Cocaine Screen NEGATIVE U Cannabinoids Screen NEGATIVE Ethyl Alcohol Influenza A (Rapid) Influenza B (Rapid) 03/12/20 03/12/20 03/12/20 22:26 22:26 22:26 WBC RBC Hgb Hct MCV MCH MCHC RDW Plt Count MPV Neut # (Auto) Lymph # (Auto) Baldwin # (Auto) Eos # (Auto) Baso # (Auto) Absolute Nucleated RBC Total Counted Band Neuts % (Manual) Abnorm Lymph % (Manual) Nucleated RBC % Neutrophils # (Manual) Lymphocytes # (Manual) Monocytes # (Manual) Eosinophils # (Manual) Basophils # (Manual) Differential Comment WBC Morphology Platelet Estimate Platelet Morphology RBC Morph Micro Appear PT 13.2 H INR 1.2 APTT 32.8 Sodium 139 Potassium 4.2 Chloride 109 Carbon Dioxide 22 Anion Gap 8.0 BUN 10 Creatinine 0.9 Estimated GFR (MDRD) 73 L Glucose 83 Lactic Acid Calcium 9.3 Total Bilirubin 0.5 AST 16 ALT < 10 L Alkaline Phosphatase 90 Total Creatine Kinase 25 Troponin I High Sens B-Natriuretic Peptide 48 Total Protein 8.4 H Albumin 3.3 Globulin 5.1 H Albumin/Globulin Ratio 0.6 L Lipase 31 Urine Color Urine Clarity Urine pH Ur Specific Magnolia Urine Protein Urine Glucose (UA) Urine Ketones Urine Occult Blood Urine Nitrite Urine Bilirubin Urine Urobilinogen Ur Leukocyte Esterase Ur Microscopic Review Urine Culture Comments Urine Opiates Screen Ur Oxycodone Screen Urine Methadone Screen Ur Propoxyphene Screen Ur Barbiturates Screen Ur Tricyclics Screen Ur Phencyclidine Scrn Ur Amphetamine Screen U Methamphetamines Scrn U Benzodiazepines Scrn Urine Cocaine Screen U Cannabinoids Screen Ethyl Alcohol < 5.0 Influenza A (Rapid) Influenza B (Rapid) 03/12/20 03/12/20 03/12/20 22:26 22:26 23:09 WBC RBC Hgb Hct MCV MCH MCHC RDW Plt Count MPV Neut # (Auto) Lymph # (Auto) Baldwin # (Auto) Eos # (Auto) Baso # (Auto) Absolute Nucleated RBC Total Counted Band Neuts % (Manual) Abnorm Lymph % (Manual) Nucleated RBC % Neutrophils # (Manual) Lymphocytes # (Manual) Monocytes # (Manual) Eosinophils # (Manual) Basophils # (Manual) Differential Comment WBC Morphology Platelet Estimate Platelet Morphology RBC Morph Micro Appear PT INR APTT Sodium Potassium Chloride Carbon Dioxide Anion Gap BUN Creatinine Estimated GFR (MDRD) Glucose Lactic Acid 1.1 Calcium Total Bilirubin AST ALT Alkaline Phosphatase Total Creatine Kinase Troponin I High Sens 4.1 B-Natriuretic Peptide Total Protein Albumin Globulin Albumin/Globulin Ratio Lipase Urine Color Urine Clarity Urine pH Ur Specific Magnolia Urine Protein Urine Glucose (UA) Urine Ketones Urine Occult Blood Urine Nitrite Urine Bilirubin Urine Urobilinogen Ur Leukocyte Esterase Ur Microscopic Review Urine Culture Comments Urine Opiates Screen Ur Oxycodone Screen Urine Methadone Screen Ur Propoxyphene Screen Ur Barbiturates Screen Ur Tricyclics Screen Ur Phencyclidine Scrn Ur Amphetamine Screen U Methamphetamines Scrn U Benzodiazepines Scrn Urine Cocaine Screen U Cannabinoids Screen Ethyl Alcohol Influenza A (Rapid) Negative Influenza B (Rapid) Negative PD MEDICAL DECISION MAKING - ED course Complexity details: reviewed old records, reviewed results, re-evaluated patient, considered differential (Patient presented initially with a blood sugar of 70 she was given an amp of D50 her symptoms have not improved she also was given 1 mg of Narcan her symptoms have not improved she continues to answer yes or no and moans in response to pain but does not follow any commands there is no obvious unilateral weakness or facial droop her symptoms have been going on for approximately 36 hours according to EMS. The patient is unable to provide her history. CT scan of the head is unremarkable EKG is unremarkable urinalysis shows no signs of infection there is no leukocytosis urine drug screens negative alcohol is negative CT of the head is negative chest x-ray shows no obvious infiltrate. I am unsure of the etiology of this patient's sudden decline in mental status at this point the patient will be admitted for observation and fur ther monitoring.Given the fact that the patient had recently been diagnosed with a urinary tract infection I initially thought that she would have a urinary tract infection she was empirically given 1 g of IV Rocephin. She also was empirically given Narcan as well as glucose.However given the patient continues to have worsening mental status and I am Unsure of the etiology of this patient will benefit from being hospitalized and monitoring for further evaluation COVID testing was ordered as well and is pending.), d/w business systems consultant - Consults Consults: Discussed case with (00:16 dr. carrasco. will admit for observation.) Departure - Departure Disposition: ED Place in Observation Clinical Impression: Altered mental status Qualifiers: Altered mental status type: unspecified Qualified Code(s): R41.82 - Altered mental status, unspecified Condition: Stable
[2020-03-12 22:34] LABS: BASOPHILS % (AUTO) 0.2 %; EOSINOPHILS % (AUTO) 0.4 %; HGB - HEMOGLOBIN 11.3 g/dL (12.0-16.0); LYMPHOCYTES % (AUTO) 43.1 %; MEAN CORPUSCULAR HEMOGLOBIN 27.8 pg (27.0-31.0); MEAN CORPUSCULAR HGB CONC 30.1 g/dL (32.0-36.0); MEAN CORPUSCULAR VOLUME 92.4 fL (81.0-99.0); MEAN PLATELET VOLUME 11.7 fL (7.9-10.8); MONOCYTES % (AUTO) 9.7 %; NEUTROPHILS % (AUTO) 46.2 %; PLT - PLATELET COUNT 556 10^3/uL (130-450); RED BLOOD COUNT 4.06 10^6/uL (4.20-5.40); RED CELL DISTRIBUTION WIDTH 18.2 % (12.0-15.0); WHITE BLOOD COUNT 8.2 x10^3/uL (4.8-10.8)
[2020-03-12] MEDS ORDERED: cefTRIAXone 1 GM in SODIUM CHLORIDE 0.9% MINIBAG 100 ML IV STA (22:36)
[2020-03-12] MEDS ORDERED: DEXTROSE 50% ABBOJECT 25 GM/50 ML SYRINGE IVP STA (22:38)
[2020-03-12 22:39] LABS: INR 1.2 (0.8-1.2); PT - PROTHROMBIN TIME 13.2 secs (9.9-12.6)
[2020-03-12 22:40] LABS: ABNORMAL LYMPHS % (MANUAL) 0 %; BAND NEUTROPHILS % (MANUAL) 0 %
[2020-03-12 22:47] LABS: PARTIAL THROMBOPLASTIN TIME 32.8 secs (24.9-33.3)
[2020-03-12 22:54] LABS: ALBUMIN 3.3 g/dL (3.2-5.5); ALBUMIN/GLOBULIN RATIO 0.6 (1.0-2.2); ALKALINE PHOSPHATASE 90 IU/L (42-121); ALT ALANINE AMINOTRANSFERASE < 10 IU/L (10-60); AST ASPARTATE AMINOTRANSFERASE 16 IU/L (10-42); BILIRUBIN,TOTAL 0.5 mg/dL (0.2-1.0); BUN - BLOOD UREA NITROGEN 10 mg/dL (6-20); CALCIUM 9.3 mg/dL (8.5-10.3); CARBON DIOXIDE - CO2 22 mmol/L (21-32); CHLORIDE 109 mmol/L (101-111); CK- CREATINE KINASE 25 IU/L (22-269); CREATININE 0.9 mg/dL (0.4-1.0); GLUCOSE 83 mg/dL (70-100); LIPASE 31 U/L (22-51); SODIUM 139 mmol/L (135-145); TOTAL PROTEIN 8.4 g/dL (6.7-8.2)
[2020-03-12 22:55] LABS: DIFFERENTIAL COMMENT MANUAL DIFFERENTIAL; LYMPHOCYTES # (MANUAL) 3.3 10^3/uL (1.5-3.5); LYMPHOCYTES % (MANUAL) 40 %; MONOCYTES # (MANUAL) 0.7 10^3/uL (0.0-1.0); PLATELET ESTIMATE, MANUAL INCREASED (>450,000) (NORMAL); PLATELET MORPHOLOGY 2+ LARGE PLATELETS (NORMAL); RBC MORPHOLOGY (MULTIPLE) 1+ POLYCHROMASIA (NORMAL)
[2020-03-12 23:03] LABS: BILIRUBIN,URINE NEGATIVE (NEGATIVE); GLUCOSE, URINE (UA) NEGATIVE (NEGATIVE); KETONES,URINE (UA) NEGATIVE (NEGATIVE); LEUKOCYTE ESTERASE, URINE NEGATIVE (NEGATIVE); NITRITE,URINE NEGATIVE (NEGATIVE); OCCULT BLOOD,URINE NEGATIVE (NEGATIVE); PROTEIN,URINE NEGATIVE (NEGATIVE); UROBILINOGEN,URINE 0.2 (NORMAL) E.U./dL (NORMAL)
[2020-03-12 23:05] LABS: CLARITY,URINE CLEAR (CLEAR)
--- NOTE | 2020-03-12 23:19 | XRAY Report ---
Reason: ams Procedure Date: 03/12/2020 Accession Number: [id number] / [id number] Procedure: XR - Chest 1 View X-Ray CPT Code: 38640 Final Report FULL RESULT: EXAM: CHEST RADIOGRAPHY EXAM DATE: 03/12/2020 10:45 PM. CLINICAL HISTORY: Decreased mental status. COMPARISON: CHEST 1 VIEW 08/14/2019 10:06 AM. TECHNIQUE: 1 view. FINDINGS: Lungs/Pleura: No alveolar consolidation or pleural effusion seen. No pneumothorax. Mediastinum: Within exam limitations, heart size appears normal. Ectatic aorta, unchanged. Other: Surgical clips in the left upper quadrant. IMPRESSION: 1. No acute abnormality seen in the chest. RADIA
--- NOTE | 2020-03-12 23:22 | CT Report ---
Reason: ams Procedure Date: 03/12/2020 Accession Number: [id number] / [id number] Procedure: CT - HEAD WO CPT Code: Final Report FULL RESULT: EXAM: CT HEAD EXAM DATE: 03/12/2020 10:46 PM. CLINICAL HISTORY: Decreased mental status. COMPARISON: BRAIN 07/03/2015 7:04 PM. TECHNIQUE: Multiaxial CT images were obtained from the foramen magnum to the vertex. Reformats: Sagittal and coronal. IV contrast: None. In accordance with CT protocol optimization, one or more of the following dose reduction techniques were utilized for this exam: automated exposure control, adjustment of mA and/or KV based on patient size, or use of iterative reconstructive technique. FINDINGS: Parenchyma: No intraparenchymal hemorrhage. No evidence of mass, midline shift, or CT findings of acute infarction. Adler-white differentiation is distinct. Diffuse chronic microangiopathic white matter changes are evident. Extraaxial Spaces: Normal for age. No subdural or epidural collections identified. Ventricles: The ventricles and cortical sulci are enlarged, consistent with age-related tissue loss. Sinuses and orbits: Imaged paranasal sinuses, orbits, and mastoids show no significant abnormality. Bones: No evidence of fracture or calvarial defect. Other: None. IMPRESSION: Generalized age-related cortical atrophic changes without evidence of acute intracranial abnormality. RADIA
[2020-03-12 23:45] LABS: MUDS CUTOFF CONCENTRATIONS CUTOFF CONC BELOW:
[2020-03-12] MEDS ORDERED: NALOXONE 0.4 MG/ML VIAL IVP STA (23:49)
[2020-03-13 00:03] LABS: AMPHETAMINE SCREEN,URINE NEGATIVE (NEGATIVE); BENZODIAZEPINES SCREEN, URINE POSITIVE (NEGATIVE); COCAINE SCREEN URINE NEGATIVE (NEGATIVE); METHADONE SCREEN, URINE NEGATIVE (NEGATIVE); METHAMPHETAMINES SCREEN, URINE NEGATIVE (NEGATIVE); OPIATE SCREEN, URINE NEGATIVE (NEGATIVE); OXYCODONE SCREEN, URINE NEGATIVE (NEGATIVE); PROPOXYPHENE SCREEN, URINE NEGATIVE (NEGATIVE); TRICYCLIC ANTIDEPRESSANT,URINE NEGATIVE (NEGATIVE)
[2020-03-13] MEDS ORDERED: ONDANSETRON 4 MG/2 ML VIAL IVP STA (00:21)
[2020-03-13] MEDS ORDERED: ONDANSETRON 4 MG/2 ML VIAL ONE (00:27)
[2020-03-13] MEDS ORDERED: SODIUM CHLORIDE FLUSH 0.9% 10 ML SYRINGE IVP PRN (00:49)
[2020-03-13] MEDS ORDERED: ONDANSETRON 4 MG/2 ML VIAL IVP PRN (00:49)
--- NOTE | 2020-03-13 01:12 | HISTORY & PHYSICAL EXAMINATION ---
Chief Complaint - Chief Complaint Chief Complaint: Altered mental status History of Present Illness - Admitted From Admitted From:: [facility] - History Obtained From Records Reviewed: yes History obtained from: Exam Limitations: altered mental status - History of Present Illness HPI Comment/Other: Patient is an 80-year-old female who has had bilateral amputee due to peripheral vascular disease. Her other medical history to include hyperlipidemia, asthma, mild dementia, GERD, anxiety, glaucoma, iron deficiency anemia.She presented to the ED via EMS with altered mental status. As a result of her presentation this history is limited. The history was provided by her over the phone who explains that around midday the patient appeared to be drifting away and was incoherent. She went to the bathroom but then seemed to have forgotten what to do once she was done using the restroom. Prior to this she was functioning at her baseline. Normally she is able to feed herself. Yesterday she was conversing on the phone with the children in [place] and in [place] who had called to wish her happy Mother's Day. She has caregivers who come to the house on Mondays through Fridays for 4 hours daily from 8 AM to noon. They help her with showering. This was done today morning. After that the patient had toast and coffee. Work-up in the ED has been unremarkable. This included a CT of the brain without contrast, CBC, BMP and UA. The patient's toxicology wasPositive for benzodiazepine. The patient is on alprazolam, baclofen,Mirtazapine, Lyrica and Divalproex.She only takes the baclofen a few times a month. She took it yesterday. Currently the patient only cries out to a painful stimuli. She does not follow any commands. However her vitals are stable. As a result of her presentation she is being admitted for observation overnight. 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 Fairchild 2000; right below knee amputation by Dr. Fairchild 2009.) /SOLAR SALES ASSESSOR: reports: Hysterectomy Cardiovascular: reports: Angioplasty (LLE angioplasty and stenting 1997; [place] angioplasty right above knee popliteal artery 12/2008), Other (Right femral to dorsalis pedis artery bypass with spliced reversed vein graft and harvest of right cephalic and basilic veins 01/2003.) - Family & Social History Family History: Mother: , Father: , CAD Social History Notes: She lives with her in [place]. They have been for 58 years. She had a 1ppd X 15 yrs now down to 1 or 2 cigarettes daily. The patient denies any alcohol or illicit drug use - Substance History Use: Uses substance without health or social issues: NONE (Former smoker until she was admitted to [facility] in 2015.) - POLST Patient has POLST: Yes POLST Status: DNR Meds/Allgy - Home Medications Home Medications: Ambulatory Orders Medication Instructions Recorded Confirmed ALPRAZolam [Alprazolam] 0.25 mg PO Q4HR PRN MDD every4-6h 03/18/16 01/23/20 PRN Baclofen 10 mg PO TID PRN 08/13/19 01/23/20 Divalproex Sodium 125 mg PO BID 08/13/19 01/23/20 Esomeprazole Magnesium 40 mg PO QDAC 08/13/19 01/23/20 Lovastatin 80 mg PO QPM 08/13/19 01/23/20 Mirtazapine 7.5 mg PO QPM 08/13/19 01/23/20 Potassium Chloride 20 meq PO DAILY 08/13/19 01/23/20 ALPRAZolam [Alprazolam] 0.25 mg PO BID 08/14/19 01/23/20 Aspirin [Aspirin EC] 81 mg PO DAILY 08/14/19 01/23/20 Dorzolamide HCl/Timolol Maleat 1 drops EACHEYE BID 08/14/19 01/23/20 [Dorzolamide-Timolol Eye Drops] Latanoprost/Pf [Latanoprost 0.005% 1 drops EACHEYE QPM 08/14/19 01/23/20 Eye Drop] Pregabalin 50 mg PO BID 08/14/19 01/23/20 Brimonidine 0.2% Ophth Drops 1 drops RIGHTEYE BID 01/23/20 01/23/20 [Alphagan P 0.2% Ophth Drops] Cholecalciferol (Vitamin D3) 1,000 unit PO DAILY 01/23/20 01/23/20 [Vitamin D3] Famotidine [Pepcid] 20 mg PO DAILY 01/23/20 01/23/20 Ferrous Sulfate 325 mg PO DAILY 01/23/20 01/23/20 Lidocaine [Aspercreme Lidocaine] 2 patch TP DAILY PRN MDD to b/l BKA 01/23/20 01/23/20 Senna [Senokot] 8.6 mg PO QPM MDD Hold loose stools 01/23/20 01/23/20 polyethylene glycoL 3350 [Miralax] 17 gm PO DAILY PRN 01/23/20 01/23/20 - Allergies Allergies/Adverse Reactions: Allergies Allergy/AdvReac Type Severity Reaction Status Date / Time gentamicin [Gentamicin] Allergy Unknown Verified 10/14/19 12:48 lisinopril Allergy Unknown Verified 10/14/19 12:48 paroxetine [From Paxil] Allergy Unknown Verified 10/18/19 07:33 Review of Systems - Other Findings Other Findings: Review of system is limited due to patient's altered mental status Prior Level of Functionality: Patient is bilateral below the knee amputee due to peripheral vascular disease. She has prosthesis which she is usually able to put on during the day with some assistance and get around. She has home health care aides who come and Mondays through Fridays for 4 hours daily to assist with personal cares. Patient lives at home with her Exam - Vital Signs Vital Signs: Vital Signs x48h Temp Pulse Resp BP Pulse Ox 03/13/20 00:00 84 14 122/74 93 03/12/20 23:48 37.1 C 82 16 164/82 H 95 03/12/20 22:10 37.7 C H 74 16 154/91 H 93 - Physical Exam General Appearance: positive: No acute distress, Other (Patient not following commands) Eyes Bilateral: positive: Other (left pupil reactive to light appropriately Right pupil appears slightly cloudy and not very reactive) ENT: positive: ENT inspection nml Neck: positive: No JVD, Trachea midline Respiratory: positive: Chest non-tender, No respiratory distress, Breath sounds nml Cardiovascular: positive: Regular rate & rhythm Abdomen: positive: Non-tender, No organomegaly, Nml bowel sounds, No distention. negative: Guarding, Rebound Skin: positive: Color nml, No rash, Warm, Dry Extremities: positive: Other (bilateral BKA) Neurologic/Psychiatric: positive: Disoriented to person, Disoriented to place, Disoriented to time Conclusion/Plan - Problem List (1) Altered mental status Conclusion/Plan: Etiology undetermined. However patient has mild dementia Patient's toxicology was positive for benzodiazepine. Patient is also on Lyrica, baclofen, alprazolam, mirtazapine and divalproex. We will hold patient's medications and monitor the patient through the night anticipating a change in her mental status Work-up at this point had included a CT of the brain without contrast, BMP, CBC, UA and ABG which have been all unremarkable Qualifiers: Altered mental status type: unspecified Qualified Code(s): R41.82 - Altered mental status, unspecified (2) Hyperlipidemia Conclusion/Plan: On lovastatin (3) Glaucoma Conclusion/Plan: On latanoprost and dorzolamide/timolol (4) GERD (gastroesophageal reflux disease) Conclusion/Plan: Will order Protonix (5) Depression Conclusion/Plan: Patient is normally on mirtazapine. Currently held. Will resume when patient's mental status is improved - Lab Results Fish Bones: 03/12/20 22:26 03/12/20 22:26 Core Measures - Anticipated LOS I expect patient to be DC'd or transferred within 96 hours.: Yes - DVT/VTE - Prophylaxis VTE/DVT Device ordered at admit?: No VTE/DVT Prophylaxis med ordered at admit?: Yes
[2020-03-13] MEDS: SODIUM CHLORIDE FLUSH 0.9% 10 ML SYRINGE IVP SCH ×3 (02:06→17:29)
[2020-03-13] MEDS: SODIUM CHLORIDE 0.9% 1,000 ML IV SCH ×2 (02:06→11:36)
[2020-03-13 07:09] LABS: BASOPHILS % (AUTO) 0.3 %; EOSINOPHILS % (AUTO) 0.4 %; HGB - HEMOGLOBIN 11.5 g/dL (12.0-16.0); LYMPHOCYTES # (AUTO) 2.7 10^3/uL (1.5-3.5); LYMPHOCYTES % (AUTO) 36.3 %; MEAN CORPUSCULAR HEMOGLOBIN 28.5 pg (27.0-31.0); MEAN CORPUSCULAR HGB CONC 29.9 g/dL (32.0-36.0); MEAN CORPUSCULAR VOLUME 95.3 fL (81.0-99.0); MEAN PLATELET VOLUME 11.8 fL (7.9-10.8); MONOCYTES # (AUTO) 0.8 10^3/uL (0.0-1.0); MONOCYTES % (AUTO) 10.9 %; NEUTROPHILS # (AUTO) 3.8 10^3/uL (1.5-6.6); NEUTROPHILS % (AUTO) 51.4 %; PLT - PLATELET COUNT 499 10^3/uL (130-450); RED BLOOD COUNT 4.04 10^6/uL (4.20-5.40); RED CELL DISTRIBUTION WIDTH 18.5 % (12.0-15.0); WHITE BLOOD COUNT 7.4 x10^3/uL (4.8-10.8)
[2020-03-13 07:24] LABS: CALCIUM 9.1 mg/dL (8.5-10.3)
[2020-03-13 07:42] LABS: PLATELET MORPHOLOGY RARE GIANT PLATELETS (NORMAL)
[2020-03-13] MEDS: HEPARIN 5,000 UNIT/ML VIAL SUBQ SCH ×2 (09:49→20:38)
--- NOTE | 2020-03-13 11:42 | PHARMACY PROGRESS NOTE ---
- Best Possible Medication History Admit Date and Time: 03/13/20 0049 Processed by: Pharmacy Medication History completed: Yes Patient Interview: Pt unable to participate Secondary Source(s): Physician records, Pharmacy records, Insurance records As the person ultimately responsible for medication therapy, providers are able to order a medication from an existing home medication list in [facility] via the "Reconcile Routine" prior to Confirmation of that medication by it support specialist. Such practice is discouraged except when the physician, in their clinical judgment, deems that a medical need exists for a medication without regard to previous use.
[2020-03-13] MEDS ORDERED: SODIUM CHLORIDE 0.9% 1,000 ML IV SCH (15:58)
[2020-03-13] MEDS: D5.45NS W/20 MEQ KCL 1,000 ML IV SCH (17:29)
[2020-03-13] MEDS: DORZOLAMIDE/TIMOLOL OPHTH DROPS EACHEYE SCH (20:38)
[2020-03-13] MEDS: DIVALPROEX DR 125 MG TABLET PO SCH (20:38)
[2020-03-13] MEDS ORDERED: TIMOLOL 0.5% OPHTH DROPS EACHEYE SCH (21:00)
[2020-03-14] MEDS: SODIUM CHLORIDE FLUSH 0.9% 10 ML SYRINGE IVP SCH ×3 (01:06→16:43)
[2020-03-14] MEDS: D5.45NS W/20 MEQ KCL 1,000 ML IV SCH (05:06)
[2020-03-14 06:02] LABS: BASOPHILS % (AUTO) 0.5 %; EOSINOPHILS % (AUTO) 0.5 %; HGB - HEMOGLOBIN 11.2 g/dL (12.0-16.0); LYMPHOCYTES # (AUTO) 3.1 10^3/uL (1.5-3.5); LYMPHOCYTES % (AUTO) 46.5 %; MEAN CORPUSCULAR HEMOGLOBIN 26.2 pg (27.0-31.0); MEAN CORPUSCULAR HGB CONC 28.9 g/dL (32.0-36.0); MEAN CORPUSCULAR VOLUME 90.9 fL (81.0-99.0); MEAN PLATELET VOLUME 12.1 fL (7.9-10.8); MONOCYTES % (AUTO) 14.3 %; NEUTROPHILS # (AUTO) 2.5 10^3/uL (1.5-6.6); NEUTROPHILS % (AUTO) 37.9 %; PLT - PLATELET COUNT 577 10^3/uL (130-450); RED BLOOD COUNT 4.27 10^6/uL (4.20-5.40); RED CELL DISTRIBUTION WIDTH 18.2 % (12.0-15.0); WHITE BLOOD COUNT 6.7 x10^3/uL (4.8-10.8)
[2020-03-14 06:12] LABS: ALBUMIN 3.4 g/dL (3.2-5.5); ALBUMIN/GLOBULIN RATIO 0.7 (1.0-2.2); ALKALINE PHOSPHATASE 95 IU/L (42-121); ALT ALANINE AMINOTRANSFERASE < 10 IU/L (10-60); AST ASPARTATE AMINOTRANSFERASE 18 IU/L (10-42); BILIRUBIN,TOTAL 0.8 mg/dL (0.2-1.0); BUN - BLOOD UREA NITROGEN 7 mg/dL (6-20); CALCIUM 9.5 mg/dL (8.5-10.3); CARBON DIOXIDE - CO2 21 mmol/L (21-32); CHLORIDE 111 mmol/L (101-111); CREATININE 0.9 mg/dL (0.4-1.0); GLUCOSE 91 mg/dL (70-100); MAGNESIUM 1.7 mg/dL (1.7-2.8); PHOSPHORUS 2.8 mg/dL (2.5-4.6); SODIUM 142 mmol/L (135-145); TOTAL PROTEIN 8.5 g/dL (6.7-8.2)
[2020-03-14 06:14] LABS: VALPROIC ACID (DEPAKOTE) 13.9 ug/mL
[2020-03-14 06:26] LABS: THYROID STIMULATING HORMONE 2.35 uIU/mL (0.34-5.60)
[2020-03-14] MEDS: DIVALPROEX DR 125 MG TABLET PO SCH ×3 (11:39→21:39)
[2020-03-14] MEDS: FERROUS SULFATE 325 MG TABLET PO SCH (11:39)
[2020-03-14] MEDS: DORZOLAMIDE/TIMOLOL OPHTH DROPS EACHEYE SCH ×2 (11:39→21:39)
[2020-03-14] MEDS: HEPARIN 5,000 UNIT/ML VIAL SUBQ SCH ×2 (11:39→22:02)
[2020-03-14] MEDS: ASPIRIN EC 81 MG TABLET PO SCH (11:39)
[2020-03-14] MEDS ORDERED: HALOPERIDOL 10 MG/5 ML UDC PO PRN (14:44)
--- NOTE | 2020-03-14 16:31 | PROVIDER PROGRESS NOTE ---
Subjective - Prog Note Date Prog Note Date: 03/14/20 - Subjective Pt reports feeling: No change Subjective: pt refused to eat anything and take meds. pt pulled her own IV line and tele monitor. when tried to assess pt, she refused. when ask questions to her, all her answer were "no". I reported and update pt's medical conditions to pt's Priyank Elam at [phone], and pt's Covid 19 test was negative. He hope his can be d/c to home not nurse home on today. but When I discussed the care plan with Mr. Elam, pt's , he hope pt be d/c to nurse home on yesterday. He changed his mind. palliative care Nancy will discuss with pt's in detail Current Medications - Current Medications Current Medications: Active Medications Aspirin (Ecotrin) 81 mg PO DAILY [facility] Last Admin: 03/14/20 11:39 Dose: Not Given Divalproex Sodium (Depakote Dr) 125 mg PO BID [facility] Last Admin: 03/14/20 11:39 Dose: Not Given Dorzolamide/Timolol (Cosopt) 1 drops EACHEYE BID [facility] Last Admin: 03/14/20 11:39 Dose: Not Given Ferrous Sulfate (Feosol) 325 mg PO DAILY [facility] Last Admin: 03/14/20 11:39 Dose: Not Given Haloperidol (Haldol Oral Soln) 5 mg PO Q4HR PRN PRN Reason: Agitation Heparin Sodium (Porcine) () 5,000 unit SUBQ BID [facility] Last Admin: 03/14/20 11:39 Dose: Not Given Ondansetron HCl (Zofran Inj) 4 mg IVP Q6HR PRN PRN Reason: Nausea / Vomiting Sodium Chloride (Normal Saline Flush 0.9%) 10 ml IVP PRN PRN PRN Reason: NEEDED PER PROVIDER ORDERS Sodium Chloride (Normal Saline Flush 0.9%) 10 ml IVP 0100,0900,1700 [facility] Last Admin: 03/14/20 11:39 Dose: Not Given ALPRAZolam [Alprazolam] 0.25 mg PO Q4HR PRN MDD 4 DOSES OF 0.25MG 03/18/16 Divalproex Sodium 125 mg PO BID 08/13/19 Esomeprazole Magnesium 40 mg PO QDAC 08/13/19 Lovastatin 80 mg PO QPM 08/13/19 Mirtazapine 7.5 mg PO QPM 08/13/19 Aspirin [Aspirin EC] 81 mg PO DAILY 08/14/19 Pregabalin 50 mg PO BID 08/14/19 Cholecalciferol (Vitamin D3) [Vitamin D3] 1,000 unit PO DAILY 01/23/20 Ferrous Sulfate 325 mg PO DAILY 01/23/20 Dorzolamide HCl/Timolol Maleat [Dorzolamide-Timolol Eye Drops] 1 drops EACHEYE BID 03/13/20 Objective - Vital Signs/Intake & Output Vital Signs: Vital Signs x48h Temp Pulse Resp BP Pulse Ox 03/14/20 16:06 37.5 C 89 18 151/59 H 95 03/14/20 14:51 37.6 C H 89 16 172/93 H 99 Intake & Output: Intake & Output 03/11/20 03/12/20 03/13/20 03/14/20 23:59 23:59 23:59 23:59 Intake Total 100 1540 1026.389 Balance 100 1540 1026.389 - Objective General Appearance: positive: Alert, Mild distress. negative: Lethargic Eyes Bilateral: positive: Normal inspection, No lid inflammation ENT: positive: ENT inspection nml, No signs of dehydration. negative: Purulent nasal drainage Neck: positive: Nml inspection, Trachea midline. negative: Thyromegaly, Tracheal deviation Respiratory: positive: Other (pt refused to have assessment) Cardiovascular: positive: Other (pt refused to have assessment) Abdomen: positive: Other (pt refused to have assessment) Neurologic/Psychiatric: positive: Other (pt refused to have assessment) - Lab Results Fish Bones: 03/15/20 05:30 03/15/20 05:30 Other Labs: Lab Results x24hrs 03/14/20 03/14/20 03/14/20 Range/Units 05:15 05:15 05:15 WBC (4.8-10.8) x10^3/uL RBC (4.20-5.40) 10^6/uL Hgb (12.0-16.0) g/dL Hct (37.0-47.0) % MCV (81.0-99.0) fL MCH (27.0-31.0) pg MCHC (32.0-36.0) g/dL RDW (12.0-15.0) % Plt Count (130-450) 10^3/uL MPV (7.9-10.8) fL Neut # (Auto) (1.5-6.6) 10^3/uL Lymph # (Auto) (1.5-3.5) 10^3/uL [place] # (Auto) (0.0-1.0) 10^3/uL Eos # (Auto) (0.0-0.7) 10^3/uL Baso # (Auto) (0.0-0.1) 10^3/uL Absolute Nucleated RBC x10^3/uL Nucleated RBC % /100WBC Sodium 142 (135-145) mmol/L Potassium 3.7 (3.5-5.0) mmol/L Chloride 111 (101-111) mmol/L Carbon Dioxide 21 (21-32) mmol/L Anion Gap 10.0 (6-13) BUN 7 (6-20) mg/dL Creatinine 0.9 (0.4-1.0) mg/dL Estimated GFR (MDRD) 73 L (>89) Glucose 91 (70-100) mg/dL Calcium 9.5 (8.5-10.3) mg/dL Phosphorus 2.8 (2.5-4.6) mg/dL Magnesium 1.7 (1.7-2.8) mg/dL Total Bilirubin 0.8 (0.2-1.0) mg/dL AST 18 (10-42) IU/L ALT < 10 L (10-60) IU/L Alkaline Phosphatase 95 (42-121) IU/L Ammonia (7-35) umol/L Total Protein 8.5 H (6.7-8.2) g/dL Albumin 3.4 (3.2-5.5) g/dL Globulin 5.1 H (2.1-4.2) g/dL Albumin/Globulin Ratio 0.7 L (1.0-2.2) Vitamin B12 779 (180-914) pg/mL TSH 2.35 (0.34-5.60) uIU/mL Last Dose Date UNK Last Dose Time UNK Valproic Acid 13.9 ug/mL Coronavirus (PCR) 03/14/20 03/14/20 03/12/20 Range/Units 05:15 05:15 23:09 WBC 6.7 (4.8-10.8) x10^3/uL RBC 4.27 (4.20-5.40) 10^6/uL Hgb 11.2 L (12.0-16.0) g/dL Hct 38.8 (37.0-47.0) % MCV 90.9 (81.0-99.0) fL MCH 26.2 L (27.0-31.0) pg MCHC 28.9 L (32.0-36.0) g/dL RDW 18.2 H (12.0-15.0) % Plt Count 577 H (130-450) 10^3/uL MPV 12.1 H (7.9-10.8) fL Neut # (Auto) 2.5 (1.5-6.6) 10^3/uL Lymph # (Auto) 3.1 (1.5-3.5) 10^3/uL [place] # (Auto) 1.0 (0.0-1.0) 10^3/uL Eos # (Auto) 0.0 (0.0-0.7) 10^3/uL Baso # (Auto) 0.0 (0.0-0.1) 10^3/uL Absolute Nucleated RBC 0.05 x10^3/uL Nucleated RBC % 0.8 /100WBC Sodium (135-145) mmol/L Potassium (3.5-5.0) mmol/L Chloride (101-111) mmol/L Carbon Dioxide (21-32) mmol/L Anion Gap (6-13) BUN (6-20) mg/dL Creatinine (0.4-1.0) mg/dL Estimated GFR (MDRD) (>89) Glucose (70-100) mg/dL Calcium (8.5-10.3) mg/dL Phosphorus (2.5-4.6) mg/dL Magnesium (1.7-2.8) mg/dL Total Bilirubin (0.2-1.0) mg/dL AST (10-42) IU/L ALT (10-60) IU/L Alkaline Phosphatase (42-121) IU/L Ammonia 21.8 (7-35) umol/L Total Protein (6.7-8.2) g/dL Albumin (3.2-5.5) g/dL Globulin (2.1-4.2) g/dL Albumin/Globulin Ratio (1.0-2.2) Vitamin B12 (180-914) pg/mL TSH (0.34-5.60) uIU/mL Last Dose Date Last Dose Time Valproic Acid ug/mL Coronavirus (PCR) NEGATIVE ABX Reporting Has patient been on IV antibiotics over the past 48 hours?: No Assessment/Plan - Problem List (1) Agitated Impression: pt is very agitated. she pulled IV line and tele line, she refuse to eat, take meds. pt has hx of advanced dementia. discussed with pt's , and consult with palliative, likely pt will be d/c home with hospice care. will followup palliative care and continue to discuss with pt's family. continue nurse care and support. add Haldol PO solution PRN (2) Advanced dementia Impression: pt present advance dementia, refused to take any her meds, refused to eat, pulled out IV line and tele monitor. add Haldol oral solution PRN, resume home meds (3) Anorexia Impression: pt decline to eat and drink. discuss with pt and consult with palliative care, Plan is likely:will be DC on tomorrow with hospice care in the patient's home (4) Chronic anemia Impression: pt's HGB is 11.32, stable now, continue home ferrous (5) HLD (hyperlipidemia) Impression: stable, continue home meds (6) Glaucoma Impression: stable, continue home meds (7) GERD (gastroesophageal reflux disease) Impression: continue home PPI, pt has no complain of heart burning, and stable.
--- NOTE | 2020-03-14 16:42 | CONSULTATION NOTE ---
Palliative Care Follow Up - Referral Referring Provider: Demetrius KERNS Time of Visit: 11:30-12:05:12:45-13:00; [id number] Referral setting: Hospitalized patient Referral Reason: AMS/Peripheral Vascular Disease/Vascular dementia - Information Sources Records reviewed: RN notes reviewed, Previous records reviewed History/Review of Systems obtained from: Family ( Priyank), Nursing Exam limitations: Clinical condition (patient not engaging in conversation other than strident "no's") - History of Present Illness Update Brief HPI Update: This is a 80-year-old -Mal[place]ian woman who is Creole background, who has a history of coronary artery disease, peripheral vascular disease status post bilateral below-knee amputation, vascular dementia, major cognitive disorder as well as essential thrombocytopenia. Patient was previously seen by palliative care service when she was a resident at [facility], eventually was able to return home, and has been cared for by her for the last two years with caregiv ing assistance. They have been doing actually fairly well. She had regained some weight, her symptoms are well managed, her care needs were being met. She has had recurrent UTIs, and patient was admitted acutely to [facility] for altered mental status, and significant concern for change from her baseline. Patient on Mother's Day, had actually had a good day, had called family, they went for a ride, she did receive a dose of baclofen that night for her phantom pain. He reports this is not unusual for several times a month. Thursday morning, she was more difficult to rise, and continued to deteriorate through the day. He did call 911. She has been worked up with a CT of the brain without any acute findings, her labs were normal, and your UA was negative. Patient currently not cooperative with care. Laying in the bed, yelling no to any kind of suggestions. Will not let staff care for her. Refusing to eat and medications. Unfortunately she is on medications of concern for withdrawal, including her Lyrica and mirtazapine, and currently has not been taking her divalproex. On exam, patient is quite awake and alert, is looking at me quite suspiciously. When I asked if there was anything I could do to make things better, she said "I do not want to make things better". She denies any pain, trouble with breathing, will not let me physically examine or approach her. She does not present with any respiratory distress, she has difficulty focusing, but currently is moving all extremities. Palliative care is been asked to consult regarding goals of care, such received her is quite distressed, original conversations had focused on possible transition to SNF, patient to be evaluated for transition to hospice. Week past medical history includes high cholesterol, coronary artery disease, peripheral artery disease, asthma, vascular dementia, GERD, hiatal hernia, chronic vision loss left eye, glaucoma, osteoporosis, history of osteomyelitis right foot, history of angioplasty in 89, Social History - Living Situation Living arrangement: At home Living Situation: With spouse/s.o. Support System: Patient and have been for 59 years, he reports that they are very close, he is quite happy to have her home currently. He is quite frightened that if she were to continue to decline, that she not be in the hospital or in a [place] [facility] [place] facility. He continues to hope for the best, but recognizes and accepts if this is patient's time, he would want it to be part of this. He reports he is going to need more help, has call out to his [place] [employer] worker Britany Zelaya, he already has caregivers in place it, 5 days a week, he is hoping for more hours. Most likely would qualify if transition to hospice. They do have 2 children, 1 daughter and 1 son, estranged from the daughter who lives locally. He does feel he has other resources he can and is trying to put together a care plan. He himself is the middle of prostate cancer treatment, f eels like they have been managing fine. Medications/Allergies - Medications Active Medication List: Active Medications Aspirin (Ecotrin) 81 mg PO DAILY [facility] Last Admin: 03/14/20 11:39 Dose: Not Given Divalproex Sodium (Depakote Dr) 125 mg PO BID [facility] Last Admin: 03/14/20 11:39 Dose: Not Given Dorzolamide/Timolol (Cosopt) 1 drops EACHEYE BID [facility] Last Admin: 03/14/20 11:39 Dose: Not Given Ferrous Sulfate (Feosol) 325 mg PO DAILY [facility] Last Admin: 03/14/20 11:39 Dose: Not Given Haloperidol (Haldol Oral Soln) 5 mg PO Q4HR PRN PRN Reason: Agitation Heparin Sodium (Porcine) () 5,000 unit SUBQ BID [facility] Last Admin: 03/14/20 11:39 Dose: Not Given Ondansetron HCl (Zofran Inj) 4 mg IVP Q6HR PRN PRN Reason: Nausea / Vomiting Sodium Chloride (Normal Saline Flush 0.9%) 10 ml IVP PRN PRN PRN Reason: NEEDED PER PROVIDER ORDERS Sodium Chloride (Normal Saline Flush 0.9%) 10 ml IVP 0100,0900,1700 [facility] Last Admin: 03/14/20 11:39 Dose: Not Given ALPRAZolam [Alprazolam] 0.25 mg PO Q4HR PRN MDD 4 DOSES OF 0.25MG 03/18/16 Divalproex Sodium 125 mg PO BID 08/13/19 Esomeprazole Magnesium 40 mg PO QDAC 08/13/19 Lovastatin 80 mg PO QPM 08/13/19 Mirtazapine 7.5 mg PO QPM 08/13/19 Aspirin [Aspirin EC] 81 mg PO DAILY 08/14/19 Pregabalin 50 mg PO BID 08/14/19 Cholecalciferol (Vitamin D3) [Vitamin D3] 1,000 unit PO DAILY 01/23/20 Ferrous Sulfate 325 mg PO DAILY 01/23/20 Dorzolamide HCl/Timolol Maleat [Dorzolamide-Timolol Eye Drops] 1 drops EACHEYE BID 03/13/20 - Allergies Allergies/Adverse Reactions: Allergies Allergy/AdvReac Type Severity Reaction Status Date / Time gentamicin [Gentamicin] Allergy Unknown Verified 10/14/19 12:48 lisinopril Allergy Unknown Verified 10/14/19 12:48 paroxetine [From Paxil] Allergy Unknown Verified 10/18/19 07:33 Review of Systems - Constitutional Constitutional: reports: Fatigue, Other (refuring to eat;). denies: Fever, Chills - Eyes Eyes: reports: Vision loss - Ears, Nose & Throat Ears, Nose & Throat: reports: Dry mouth - Respiratory Respiratory: denies: SOB at rest - Gastrointestinal Gastrointestinal: reports: Other (refusing to eat) - Genitourinary Genitourinary: reports: Incontinence (usually continent) - Musculoskeletal Musculoskeletal: reports: Other (currently bedbound; ambulatory at home with legs/walker;) - Integumentary Integumentary: reports: Dryness - Neurological Neurological: reports: Memory problems - Psychiatric Psychiatric: reports: Aggitation - Hematologic/Lymphatic Hematologic/Lymphatic: reports: Recurrent infections (UTIs) - All Other Systems All Other Systems: reports: Other (limited ROS) Physical Exam - Vital Signs Vital Signs: Vital Signs x48h Temp Pulse Resp BP Pulse Ox 03/14/20 16:06 37.5 C 89 18 151/59 H 95 03/14/20 14:51 37.6 C H 89 16 172/93 H 99 - Physical Exam General Appearance: positive: Severe distress, Anxious Eyes Bilateral: positive: No scleral icterus ENT: positive: Dry mucous membranes Neck: positive: Trachea midline Respiratory: positive: No respiratory distress Abdomen: positive: Other (refused exam) Skin: positive: Dryness Neurologic/Psychiatric: positive: Disoriented to person, Disoriented to place, Disoriented to time, Weakness, Depressed mood/affect, Flat affect, Other (agitated) Palliative Care - POLST Patient has POLST: Yes POLST Status: DNR, Selective Treatment Pain: No pain (patient denies; off lyrica; will need to restart as soon as able) Performance Status: patient currently in bed; not allowing care. previous level of functioning able to get up/ambulate with walker / legs with standby and contact assist - Palliative Care Discussion: 1345 Discussed with unable to identify any underlying etiology for her altered mental status. Had ruled out all obvious things that were correctable, UTI, no change in her usual routine. But now presents as combative, unable to participate in care, only saying no no no, and laying in bed with eyes open staring at ceiling. Denies any pain or distress. Has been very much wants to bring her home, is excepting this may be her decline, he does understand he would need some more help, is working on trying to find some increased support. He worries about her, he is quite emotional and thinking about losing her is "more than I can take". But he does absolutely want to bring her home at this point in time. We discussed his goals for her, he is hoping for the best that if she comes home will stabilize out and participate in eating and taking medications. If she were to continue decline, he would want to be with her, he would not be able to be with her in a SNF or in the hospital for an end-of-life event. We discussed the role of hospice and providing support and direction, he would be accepting of this. He does understand she is quite fragile, and may continue to decline. We did agree to help with their communication, I would bring the phone to her. Did recommend he consider coming in, he is quite anxious to do this, given his own health, and not wanting to expose himself for her to COVID-19. My understanding that this point time she is COVID negative. 1430 Did facilitate communication with patient and . Light up, did recognize patient, was able to have conversation, they did talk [id number] about living each other, he begged her to eat, and to go along with medications. She was telling him yes, but when hung up said no. He very much wants to bring her home, and gave her this messaging. Did speak with him regarding continue to follow-up and try and get some increased help, hospice does not have an opening until Thursday afternoon, but would recommend discharge tomorrow. Results - Lab Results Lab results reviewed: Yes Fish Bones: 03/14/20 05:15 03/14/20 05:15 Lab and Imaging Results: Lab Results x24hrs 03/14/20 03/14/20 03/14/20 Range/Units 05:15 05:15 05:15 WBC (4.8-10.8) x10^3/uL RBC (4.20-5.40) 10^6/uL Hgb (12.0-16.0) g/dL Hct (37.0-47.0) % MCV (81.0-99.0) fL MCH (27.0-31.0) pg MCHC (32.0-36.0) g/dL RDW (12.0-15.0) % Plt Count (130-450) 10^3/uL MPV (7.9-10.8) fL Neut # (Auto) (1.5-6.6) 10^3/uL Lymph # (Auto) (1.5-3.5) 10^3/uL [place] # (Auto) (0.0-1.0) 10^3/uL Eos # (Auto) (0.0-0.7) 10^3/uL Baso # (Auto) (0.0-0.1) 10^3/uL Absolute Nucleated RBC x10^3/uL Nucleated RBC % /100WBC Sodium 142 (135-145) mmol/L Potassium 3.7 (3.5-5.0) mmol/L Chloride 111 (101-111) mmol/L Carbon Dioxide 21 (21-32) mmol/L Anion Gap 10.0 (6-13) BUN 7 (6-20) mg/dL Creatinine 0.9 (0.4-1.0) mg/dL Estimated GFR (MDRD) 73 L (>89) Glucose 91 (70-100) mg/dL Calcium 9.5 (8.5-10.3) mg/dL Phosphorus 2.8 (2.5-4.6) mg/dL Magnesium 1.7 (1.7-2.8) mg/dL Total Bilirubin 0.8 (0.2-1.0) mg/dL AST 18 (10-42) IU/L ALT < 10 L (10-60) IU/L Alkaline Phosphatase 95 (42-121) IU/L Ammonia (7-35) umol/L Total Protein 8.5 H (6.7-8.2) g/dL Albumin 3.4 (3.2-5.5) g/dL Globulin 5.1 H (2.1-4.2) g/dL Albumin/Globulin Ratio 0.7 L (1.0-2.2) Vitamin B12 779 (180-914) pg/mL TSH 2.35 (0.34-5.60) uIU/mL Last Dose Date UNK Last Dose Time UNK Valproic Acid 13.9 ug/mL Coronavirus (PCR) 03/14/20 03/14/20 03/12/20 Range/Units 05:15 05:15 23:09 WBC 6.7 (4.8-10.8) x10^3/uL RBC 4.27 (4.20-5.40) 10^6/uL Hgb 11.2 L (12.0-16.0) g/dL Hct 38.8 (37.0-47.0) % MCV 90.9 (81.0-99.0) fL MCH 26.2 L (27.0-31.0) pg MCHC 28.9 L (32.0-36.0) g/dL RDW 18.2 H (12.0-15.0) % Plt Count 577 H (130-450) 10^3/uL MPV 12.1 H (7.9-10.8) fL Neut # (Auto) 2.5 (1.5-6.6) 10^3/uL Lymph # (Auto) 3.1 (1.5-3.5) 10^3/uL [place] # (Auto) 1.0 (0.0-1.0) 10^3/uL Eos # (Auto) 0.0 (0.0-0.7) 10^3/uL Baso # (Auto) 0.0 (0.0-0.1) 10^3/uL Absolute Nucleated RBC 0.05 x10^3/uL Nucleated RBC % 0.8 /100WBC Sodium (135-145) mmol/L Potassium (3.5-5.0) mmol/L Chloride (101-111) mmol/L Carbon Dioxide (21-32) mmol/L Anion Gap (6-13) BUN (6-20) mg/dL Creatinine (0.4-1.0) mg/dL Estimated GFR (MDRD) (>89) Glucose (70-100) mg/dL Calcium (8.5-10.3) mg/dL Phosphorus (2.5-4.6) mg/dL Magnesium (1.7-2.8) mg/dL Total Bilirubin (0.2-1.0) mg/dL AST (10-42) IU/L ALT (10-60) IU/L Alkaline Phosphatase (42-121) IU/L Ammonia 21.8 (7-35) umol/L Total Protein (6.7-8.2) g/dL Albumin (3.2-5.5) g/dL Globulin (2.1-4.2) g/dL Albumin/Globulin Ratio (1.0-2.2) Vitamin B12 (180-914) pg/mL TSH (0.34-5.60) uIU/mL Last Dose Date Last Dose Time Valproic Acid ug/mL Coronavirus (PCR) NEGATIVE Impression and Recommendations - Palliative Care Impression: This is an 80-year-old -Maldivian female, who has presented acutely to [facility] with sudden change in status, now presenting with neuropsychiatric behaviors of agitation, anxiety, and not cooperating with care. She is at high risk for further decline, and refusing any intake, as well as wi thdrawal from her baseline medications. Family conference with regarding goals of care, would like to bring her home, recognizes her risk for imminent decline, will transition home with hospice. Recommendations/Counseling Done: 1. Dementia with behavioral disturbances. Patient is currently not receiving her Depakote, no her baseline Remeron, Lyrica, concern regarding patient experiencing eventual withdrawal symptoms. Recommend to at least initiate Haldol 5 mg every 2 until effect, Patient will need to be able to be transported home, may require BLS. 2. Altered mental status. Patient is significantly different from baseline, no identifiable underlying etiology. Patient most likely would benefit from being at home in her own routine, with familiar caregivers, and support. Recommending discharge as soon as patient able. Patient does respond to , report with nursing staff to consider calling has been and put on speaker phone to help her cooperate with caregiving tasks, medications, and eating. 3. Advanced care planning. Patient does have POLST, with DNA R. Reviewed with concern regarding patient's decline, he is hoping for the best that she will recover some, but would like to be prepared for the worst with patient at home for her end-of-life event. Discussed hospice support, he will be contacting for further increase caregiving support, is quite clear no SNF placement at this time given COVID-19 restrictions[address] Staff[address] Pulido medical director of collections, will accept patient. No opening though until Thursday, more important patient gets home and in familiar environment. Time Spent: 80 minutes with greater than 50% of this done in counseling, family conferencing regarding goals of care/anticipatory guidance, coordination of care with hospice and hospital team.
[2020-03-14] MEDS ORDERED: ALPRAZolam 0.25 MG TABLET PO PRN (16:50)
[2020-03-14] MEDS: PANTOPRAZOLE 40 MG TABLET PO SCH ×2 (17:53→21:20)
[2020-03-14] MEDS: MIRTAZAPINE 15 MG TABLET PO SCH ×2 (21:05→21:39)
[2020-03-14] MEDS: ATORVASTATIN 40 MG TABLET PO SCH ×2 (21:05→21:44)
[2020-03-14] MEDS: PREGABALIN 25 MG CAPSULE PO SCH ×2 (21:05→21:39)
[2020-03-15] MEDS: SODIUM CHLORIDE FLUSH 0.9% 10 ML SYRINGE IVP SCH ×2 (03:31→08:54)
[2020-03-15 05:55] LABS: BASOPHILS % (AUTO) 0.4 %; EOSINOPHILS % (AUTO) 0.4 %; HGB - HEMOGLOBIN 11.6 g/dL (12.0-16.0); LYMPHOCYTES # (AUTO) 3.5 10^3/uL (1.5-3.5); LYMPHOCYTES % (AUTO) 40.6 %; MEAN CORPUSCULAR HEMOGLOBIN 26.6 pg (27.0-31.0); MEAN CORPUSCULAR HGB CONC 29.4 g/dL (32.0-36.0); MEAN CORPUSCULAR VOLUME 90.6 fL (81.0-99.0); MEAN PLATELET VOLUME 12.5 fL (7.9-10.8); MONOCYTES % (AUTO) 11.4 %; NEUTROPHILS % (AUTO) 46.7 %; PLT - PLATELET COUNT 475 10^3/uL (130-450); RED BLOOD COUNT 4.36 10^6/uL (4.20-5.40); WHITE BLOOD COUNT 8.5 x10^3/uL (4.8-10.8)
[2020-03-15 06:04] LABS: ALBUMIN 3.7 g/dL (3.2-5.5); ALBUMIN/GLOBULIN RATIO 0.6 (1.0-2.2); ALKALINE PHOSPHATASE 100 IU/L (42-121); ALT ALANINE AMINOTRANSFERASE < 10 IU/L (10-60); AST ASPARTATE AMINOTRANSFERASE 21 IU/L (10-42); BILIRUBIN,TOTAL 0.8 mg/dL (0.2-1.0); BUN - BLOOD UREA NITROGEN 8 mg/dL (6-20); CALCIUM 9.7 mg/dL (8.5-10.3); CARBON DIOXIDE - CO2 21 mmol/L (21-32); CHLORIDE 103 mmol/L (101-111); GLUCOSE 85 mg/dL (70-100); SODIUM 139 mmol/L (135-145); TOTAL PROTEIN 9.4 g/dL (6.7-8.2)
[2020-03-15] MEDS: PANTOPRAZOLE 40 MG TABLET PO SCH (06:47)
[2020-03-15] MEDS ORDERED: PANTOPRAZOLE 40 MG TABLET PO SCH (07:00)
[2020-03-15] MEDS ORDERED: POTASSIUM CHLORIDE 20 MEQ TABLET PO ONE (08:03)
[2020-03-15] MEDS: FERROUS SULFATE 325 MG TABLET PO SCH (08:53)
[2020-03-15] MEDS: PREGABALIN 25 MG CAPSULE PO SCH (08:53)
[2020-03-15] MEDS: DIVALPROEX DR 125 MG TABLET PO SCH (08:53)
[2020-03-15] MEDS: ASPIRIN EC 81 MG TABLET PO SCH (08:53)
[2020-03-15] MEDS: HEPARIN 5,000 UNIT/ML VIAL SUBQ SCH (08:54)
[2020-03-15] MEDS ORDERED: CHOLECALCIFEROL 1,000 UNIT TABLET PO SCH (09:00)
[2020-03-15] MEDS: DORZOLAMIDE/TIMOLOL OPHTH DROPS EACHEYE SCH (09:16)
[2020-03-15 09:24] VITALS: BP 145/94
--- NOTE | 2020-03-15 11:07 | Discharge Plan ---
Discharge Plan Problem Reviewed?: Yes Disposition: 50 Hospice/Home DC/Xfer Condition: Serious Prescriptions: LORazepam [Ativan] 0.5 mg PO Q6H PRN #15 tablet PRN Reason: Anxiety Morphine Sulfate [Morphine Sulf Oral (Roxanol)] 5 mg PO Q4H PRN #30 ml PRN Reason: Pain/Dyspnea Diet: Soft Instruction Topics: Lorazepam tablets, Morphine oral solution Health Concerns: hospice care Plan of Treatment: pt may followup hospice care on Thursday03/16/2020. Care Goals: quality of life and advance care Assessment: discussed the care plan with pt's family, palliative care, referral to hospice care. Additional Instructions or Follow Up instructions: Pt may followup hospice care on 03/16/2020. No Smoking: If you smoke, Please STOP! Call for help. Follow-up with: Fracisco Chavez MD [Primary Care Provider] -
--- NOTE | 2020-03-15 11:15 | DISCHARGE SUMMARY ---
Discharge Summary Admit Date: 03/13/20 Discharge Date: 03/15/20 Discharging Provider: Demetrius Bhat Primary Care Provider: Dr. Chavez Condition at Discharge: Serious Discharge Disposition: 50 Hospice/Home DC/Xfer Discharge Facility Name: home - DIAGNOSES Admission Diagnoses: (1) Altered mental status (2) Hyperlipidemia (3) Glaucoma (4) GERD (gastroesophageal reflux disease) (5) Depression Discharge Diagnoses with Status of Each Condition: (1) Agitated when pt's was on the phone, she seems response and not agitated. But when her was not the phone, she refused anything, she said everything to "no, no." she pulled IV line, refuse to eat, take meds. pt has hx of advanced dementia. discussed with pt's for the care plan, and consult with palliative. Her chose hospice care for pt (2) Advanced dementia hx of advance dementia. followup hospice care (3) Anorexia pt refused to eat and drink. followup hospice care (4) Chronic anemia chronic (5) HLD (hyperlipidemia) Impression: chronic (6) Glaucoma Impression: chronic (7) GERD (gastroesophageal reflux disease) chronic (8)hospice care pt pulled IV line, refuse to eat, take meds, and refused care from hospital. pt has hx of advanced dementia. discussed with pt's for the care plan, and consult with palliative. Her chose hospice care for pt - HPI History of Present Illness: refer from Dr. Porter's HPI on 03.13.2020 Patient is an 80-year-old female who has had bilateral amputee due to peripheral vascular disease. Her other medical history to include hyperlipidemia, asthma, mild dementia, GERD, anxiety, glaucoma, iron deficiency anemia.She presented to the ED via EMS with altered mental status. As a result of her presentation this history is limited. The history was provided by her over the phone who explains that around midday the patient appeared to be drifting away and was incoherent. She went to the bathroom but then seemed to have forgotten what to do once she was done using the restroom. Prior to this she was functioning at her baseline. Normally she is able to feed herself. Yesterday she was conversing on the phone with the children in [place] and in [place] who had called to wish her happy Mother's Day. She has caregivers who come to the house on Mondays through Fridays for 4 hours daily from 8 AM to noon. They help her with showering. This was done today morning. After that the patient had toast and coffee. Work-up in the ED has been unremarkable. This included a CT of the brain without contrast, CBC, BMP and UA. The patient's toxicology wasPositive for benzodiazepine. The patient is on alprazolam, baclofen,Mirtazapine, Lyrica and Divalproex.She only takes the baclofen a few times a month. She took it yesterday. Currently the patient only cries out to a painful stimuli. She does not follow any commands. However her vitals are stable. As a result of her presentation she is being admitted for observation overnight. - CONSULTS | PROCEDURES Consultations: palliative and hospice care Procedures: d/c with hospice care in pt's home - HOSPITAL COURSE Hospital Course: pt was admitted for AMS altered mental status. In the hospital, pt pulled IV line, refuse to eat, take meds, and refused care from hospital.when pt's was on the phone, she seems response and not agitated. But when her was not the phone, she refused anything. palliative care was consulted. pt's chose hospice care for pt. detail hospital course is as the below (1) Agitated when pt's was on the phone, she seems response and not agitated. But when her was not the phone, she refused anything, she said everything to "no, no." she pulled IV line, refuse to eat, take meds. pt has hx of advanced dementia. discussed with pt's for the care plan, and consult with palliative. Her chose hospice care for pt (2) Advanced dementia hx of advance dementia. followup hospice care (3) Anorexia pt declined to eat and drink. followup hospice care (4) Chronic anemia chronic (5) HLD (hyperlipidemia) Impression: chronic (6) Glaucoma Impression: chronic (7) GERD (gastroesophageal reflux disease) chronic (8)hospice care pt pulled IV line, refuse to eat, take meds, and refused care from hospital. pt has hx of advanced dementia. discussed with pt's for the care plan, and consult with palliative. Her chose hospice care for pt - ALLERGIES Allergies/Adverse Reactions: Allergies Allergy/AdvReac Type Severity Reaction Status Date / Time gentamicin [Gentamicin] Allergy Unknown Verified 10/14/19 12:48 lisinopril Allergy Unknown Verified 10/14/19 12:48 paroxetine [From Paxil] Allergy Unknown Verified 10/18/19 07:33 - MEDICATIONS Home Medications: Ambulatory Orders Medication Instructions Recorded Confirmed ALPRAZolam [Alprazolam] 0.25 mg PO Q4HR PRN MDD 4 DOSES OF 03/18/16 03/13/20 0.25MG Divalproex Sodium 125 mg PO BID 08/13/19 03/13/20 Esomeprazole Magnesium 40 mg PO QDAC 08/13/19 03/13/20 Lovastatin 80 mg PO QPM 08/13/19 03/13/20 Mirtazapine 7.5 mg PO QPM 08/13/19 03/13/20 Aspirin [Aspirin EC] 81 mg PO DAILY 08/14/19 03/13/20 Pregabalin 50 mg PO BID 08/14/19 03/13/20 Cholecalciferol (Vitamin D3) 1,000 unit PO DAILY 01/23/20 03/13/20 [Vitamin D3] Ferrous Sulfate 325 mg PO DAILY 01/23/20 03/13/20 Dorzolamide HCl/Timolol Maleat 1 drops EACHEYE BID 03/13/20 03/13/20 [Dorzolamide-Timolol Eye Drops] LORazepam [Ativan] 0.5 mg PO Q6H PRN #15 tablet 03/15/20 Morphine Sulfate [Morphine Sulf 5 mg PO Q4H PRN #30 ml 03/15/20 Oral (Roxanol)] - PHYSICAL EXAM AT DISCHARGE General Appearance: positive: No acute distress, Alert. negative: Lethargic Eyes Bilateral: positive: Normal inspection, No lid inflammation ENT: positive: ENT inspection nml, No signs of dehydration. negative: Purulent nasal drainage Neck: positive: Nml inspection, Thyroid nml, Trachea midline. negative: Thyromegaly, Stiff neck, Tracheal deviation Respiratory: positive: No respiratory distress, Other (pt refused to have assessment) Cardiovascular: positive: Other (pt refused to have assessment) Abdomen: positive: Other (pt refused to have assessment) Back: positive: Other (pt refused to have assessment) Skin: positive: Color nml, Dry, Other (pt refused to have assessment) Extremities: positive: Other (BKA below knee amputation bilateral ) Neurologic/Psychiatric: negative: Weakness, Facial droop, Slurred/abnml speech - LABS Result Diagrams: 03/15/20 05:30 03/15/20 05:30 - FOLLOW UP Follow Up: followup hospice care in Thursday at her home - TIME SPENT Time Spent in Discharge (Minutes): 30
== END 2020-03-15 11:46 | disposition hospice, home (50) | DRG 884 ==
LOC: EDUNIT# → ED 22:03 → MS2 03-13 00:49 → OBSVTOIN 03-14 16:26
PROVIDERS: ADMIT Internal Medicine; ATTEND Nurse Practitioner Gerontology
DX: R41.82 Altered mental status, unspecified (principal); F01.51 Vascular dementia, unspecified severity, with behavioral disturbance; Z68.1 Body mass index [BMI] 19.9 or less, adult; J45.909 Unspecified asthma, uncomplicated; F01.50 Vascular dementia, unspecified severity, without behavioral disturbance, psychotic disturbance, mood disturbance, and anxiety; R45.1 Restlessness and agitation; F41.9 Anxiety disorder, unspecified; R63.0 Anorexia; Z53.20 Procedure and treatment not carried out because of patient's decision for unspecified reasons; E78.5 Hyperlipidemia, unspecified; D50.9 Iron deficiency anemia, unspecified; F32.9 Major depressive disorder, single episode, unspecified; I25.10 Atherosclerotic heart disease of native coronary artery without angina pectoris; I73.9 Peripheral vascular disease, unspecified; K44.9 Diaphragmatic hernia without obstruction or gangrene; K21.9 Gastro-esophageal reflux disease without esophagitis; Z11.59 Encounter for screening for other viral diseases; F17.210 Nicotine dependence, cigarettes, uncomplicated; H40.9 Unspecified glaucoma; M81.0 Age-related osteoporosis without current pathological fracture; Z66 Do not resuscitate; Z51.5 Encounter for palliative care; Z89.512 Acquired absence of left leg below knee; Z89.511 Acquired absence of right leg below knee; Z79.82 Long term (current) use of aspirin; Z79.899 Other long term (current) drug therapy; Z87.09 Personal history of other diseases of the respiratory system
CPT/HCPCS: 36415; 70450; 71045; 80048; 80053; 80164; 81003; 82140; 82550; 82607; 83605; 83690; 83735; 83880; 84100; 84443; 84484; 85025; 85610; 85730; 87040; 87275; 87276; 93005; 96361; 96365; 96366; 96367; 96372; 96375; 99285; A9270; G0378; U0004; 80306; 80320; 81001; 81599; 87086; 99233

== ENCOUNTER 2020-03-15 11:37 | Outpatient (CLI) | payer MEDICARE, OTHER, MEDICAID | END 2020-03-15 11:38 | disposition home or self-care (01) | LOC: EMS 11:37 | PROVIDERS: ATTEND Surgery | DX: F03.90 Unspecified dementia, unspecified severity, without behavioral disturbance, psychotic disturbance, mood disturbance, and anxiety (principal); Z89.512 Acquired absence of left leg below knee; Z89.511 Acquired absence of right leg below knee | CPT/HCPCS: A0425; A0428 ==

== ENCOUNTER 2020-03-19 07:00 | Outpatient (CLI) | payer MEDICARE, OTHER, MEDICAID ==
[2020-03-19 17:07] LABS: BILIRUBIN,URINE NEGATIVE (NEGATIVE); CLARITY,URINE HAZY (CLEAR); GLUCOSE, URINE (UA) NEGATIVE (NEGATIVE); KETONES,URINE (UA) NEGATIVE (NEGATIVE); LEUKOCYTE ESTERASE, URINE TRACE (NEGATIVE); NITRITE,URINE NEGATIVE (NEGATIVE); OCCULT BLOOD,URINE NEGATIVE (NEGATIVE); PH,URINE 5.5 PH (5.0-7.5); PROTEIN,URINE NEGATIVE (NEGATIVE); UROBILINOGEN,URINE 0.2 (NORMAL) E.U./dL (NORMAL)
[2020-03-19 17:17] LABS: BACTERIA,URINE Few /HPF (None Seen); RBC,URINE 0-5 /HPF (0-5); SQUAMOUS EPITHELIAL CELL,UR FEW Squamous (<= Few); YEAST,URINE PRESENT
== END 2020-03-19 23:59 | disposition home or self-care (01) ==
LOC: LAB.R 07:00
PROVIDERS: ATTEND Physician Assistant Medical
DX: N39.0 Urinary tract infection, site not specified (principal)
CPT/HCPCS: 81001

== ENCOUNTER 2020-03-22 13:27 | Outpatient (CLI) | payer MEDICARE, OTHER, MEDICAID ==
--- NOTE | 2020-03-22 15:31 | CONSULTATION NOTE ---
Palliative Care Follow Up - Referral Referring Provider: Dr. Fracisco Chavez Time of Visit: [id number] Referral setting: Home Referral Reason: Vascular Dementia/Advanced Care Planning - Information Sources Records reviewed: Previous records reviewed History/Review of Systems obtained from: Patient, Family (spouse, Priyank) Exam limitations: Clinical condition - History of Present Illness Update Brief HPI Update: This is an 80-year-old -[place] female who was seen and evaluated in her home today with her /D RUSSELL Yost present at the bedside. She has a significant history for peripheral vascular disease and is status post bilateral below the knee amputations as well as vascular dementia and major depressive disorder. The patient was recently hospitalized for altered mental status from March 12 to March 15. Her reports that the day prior on Mother's Day she had been doing quite well and they had called multiple family members and even went for a car ride. The following day he reports that she was more lethargic which persisted throughout the day causing him to ultimately contact 911. She had a work-up that included a CT scan of the brain without any acute findings, her labs were essentially normal, and her UA was negative for urinary tract infection. While hospitalized she was also tested for COVID-19 and influenza, both of which were negative. Her blood cultures after 5 days did not have any growth. Given the patient's decline it was recommended that the patient be di scharged back into the care of her spouse/D POA given she would likely benefit from her home environment and was discharged on hospice services. When hospice came to admit the patient she relayed that she did not want end of life care and therefore was not admitted on to hospice services and she wished to continue on palliative care services. Since the patient's discharge from the hospital she has been more fatigued during the day and it has been difficult for the /D BALDOMEROA to motivate the patient on doing tasks. She used to watch family feud and ruvalcaba is right but is now opting to sleep. She is consuming most of her meals at about 75% in consumption. Her last weight when she saw her PCP yesterday was 120 pounds. There has been no additional changes to the patient's baseline medications and her /D RUSSELL Yost has set aside her comfort medications of lorazepam and morphine sulfate that were ordered upon discharge from the hospital as they wish to avoid opioids. The patient has a longstanding history of phantom limb pain. She was previously on long-term opioid therapy but her primary care provider was able to taper her off of these medications much to the pleasure of both the patient and her spouse. She had been on MS Contin, OxyContin, and fentanyl. Her is leary of opiods given the patient's past history. She typically will have baclofen once or twice amonth for spams. She is also maintained presently on Lyrica 50 mg twice daily. She has developed some skin breakdown to her coccyx and her PCP has ordered home health nursing for management. The patient's spouse/D POA has been trying to encourage the patient to reposition in bed. 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 Social History - Living Situation Living arrangement: At home Living Situation: With spouse/s.o. Support System: The patient grew up in [place], [place]. Prior to relocating to [facility] they lived in [place]. The patient and her spouse have been for 59 years. They have 2 children, 1 daughter and 1 son. They are estranged from their daughter who lives locally. Their son, Stephen resides in [place]. The patient's healthcare power of attorney lawyer is her , Priyank [phone]. The patient has 2 private caregivers through [facility] that come 5 days a week. The remaining times of the day and week, the spouse is the patient's sole caregiver. Medications/Allergies - Medications Home Medications: Ambulatory Orders Medication Instructions Recorded Confirmed ALPRAZolam [Alprazolam] 0.25 mg PO Q4HR PRN MDD 4 DOSES OF 03/18/16 03/13/20 0.25MG Divalproex Sodium 125 mg PO BID 08/13/19 03/13/20 Esomeprazole Magnesium 40 mg PO QDAC 08/13/19 03/13/20 Lovastatin 80 mg PO QPM 08/13/19 03/13/20 Mirtazapine 7.5 mg PO QPM 08/13/19 03/13/20 Aspirin [Aspirin EC] 81 mg PO DAILY 08/14/19 03/13/20 Pregabalin 50 mg PO BID 08/14/19 03/13/20 Cholecalciferol (Vitamin D3) 1,000 unit PO DAILY 01/23/20 03/13/20 [Vitamin D3] Ferrous Sulfate 325 mg PO DAILY 01/23/20 03/13/20 Dorzolamide HCl/Timolol Maleat 1 drops EACHEYE BID 03/13/20 03/13/20 [Dorzolamide-Timolol Eye Drops] LORazepam [Ativan] 0.5 mg PO Q6H PRN #15 tablet 03/15/20 Morphine Sulfate [Morphine Sulf 5 mg PO Q4H PRN #30 ml 03/15/20 Oral (Roxanol)] - Allergies Allergies/Adverse Reactions: Allergies Allergy/AdvReac Type Severity Reaction Status Date / Time gentamicin [Gentamicin] Allergy Unknown Verified 10/14/19 12:48 lisinopril Allergy Unknown Verified 10/14/19 12:48 paroxetine [From Paxil] Allergy Unknown Verified 10/18/19 07:33 Review of Systems - Constitutional Constitutional: reports: Fatigue, Weight stable (weight 120lb). denies: Fever - Eyes Eyes: reports: Vision loss - Ears, Nose & Throat Ears, Nose & Throat: reports: Dental pain (left lower tooth pain--scheduled to see dentist 04/11/2020--has pain with mastication). denies: Hearing loss - Cardiovascular Cardiovascular: denies: Chest pain - Respiratory Respiratory: denies: Cough - Gastrointestinal Gastrointestinal: denies: Abdominal pain, Constipation, Diarrhea, Vomiting - Genitourinary Genitourinary: reports: Incontinence (intermittent incontinence). denies: Dysuria, Frequency - Musculoskeletal Musculoskeletal: reports: Muscle weakness, Assistive devices. denies: Joint pain - Integumentary Integumentary: reports: Other (skin breakdown to coccyx) - Neurological Neurological: reports: General weakness, Memory problems - Psychiatric Psychiatric: reports: Depression, Behavior disturbances - Endocrine Endocrine: reports: Diabetes type 2, Hypothyroidism - Hematologic/Lymphatic Hematologic/Lymphatic: reports: Recurrent infections (UTI last treated January 2020) - All Other Systems All Other Systems: reports: Reviewed and negative Physical Exam - Vital Signs Temperature: 36.5 C Pulse Rate: 80 O2 Saturation: 93 (on RA at rest) Blood Pressure: 101/80 (left wrist cuff) - Physical Exam General Appearance: positive: No acute distress, Alert, Other (resting in bed with nightgown on--dozing while MANAGER PIPELINE spoke to spouse and would awaken when questioned. Was more alert after toileting and partipated more thoroughly in conversation. Thin, elderly woman) Eyes Bilateral: positive: Normal inspection ENT: positive: No signs of dehydration, Other (+endentulous; broken teeth; tender to palpation along jaw line at bottom of tooth on mid-left jaw without erythema to left lower gum or evidence of abscess) Neck: positive: No JVD Cardiovascular: positive: Regular rate & rhythm, No murmur Respiratory: positive: No respiratory distress, Breath sounds nml. negative: Rales Abdomen: positive: Non-tender, Soft, Nml bowel sounds. negative: Distended Skin: positive: Pressure wound (dime size barely stage 2 pressure ulcer to coccyx without surrounding erythema or discharge (spouse had bandaid covering site that was removed)) Extremities: positive: Other (bilateral below the knee amputation with skin to stumps intact without breakdown) Neurologic/Psychiatric: positive: Mood/affect nml (calm and relaxed during visit), Disoriented to place, Disoriented to time, Other (Required assistance to have her leg prosthesis put on to stand and pivot to bedside commode) Palliative Care - POLST Patient has POLST: Yes POLST Status: DNR, Selective Treatment Pain: No pain Drowsiness/Sedation: Moderate (4-6) Depression: None Sleep: Sleeps well Constipation: No, Managed Performance Status: Patient is essentially homebound and leaves the home for car rides or doctor visits. She is dependent on her and private caregivers for her care.Patient has a Rollator, wheelchair, transport wheelchair and bedside commode available for her use. Her assists her with getting her bilateral lower leg prosthetics on. No recent history of falls. - Palliative Care Discussion: Discussed with the patient and spouse/Nikky WELLS that there was no underlying etiology for her altered mental status. Things that would be correctable such as a urinary tract infection was ruled out. Her is happy to have the patient back home but wishes that she was sleeping less during the day and would like to get up and participate more. During hospitalization the patient was not cooperative with care until she spoke to her over the phone and would refuse medications. It was also stressful for her spouse during hospitalization as he found it difficult to be updated regarding the patient's care over the phone as he could not be present due to coranvirus restrictions as well as understanding the information he was relayed. The patient herself denies any feelings of depressive symptoms. When asking the patient today what she believes is the cause for her daytime fatigue she replied "I do not know." Her feels that the patient is opting to stay more in bed due to a lack of confidence for fear of falling. However, the patient has never experienced a significant fall. The patient's /D POA is extremely attentive and supportive. Since she has returned home despite sleeping more during the day she is almost quite back to her baseline. When reviewing goals of care today moving forward, her became emotional and expressed that he is scared. He wishes to have the patient remain at home with him and does not want her to ever return to [facility]. The patient herself was quite vocal today in expressing that she would not wish to return to the hospital if her health were to decline. At the present time exploring this thread, if there were to be another acute status change in the patient's medical condition her spouse would opt to attempt correction of the underlying etiology at home and if no improvement then would consider a transition to hospice services. This approach would be done on a earo-li-pher basis. The patient herself wishes to "get better" but due to her cognitive impairment due to her vascular dementia is unable to have insight into the chronic nature her multiple medical conditions. Results - Lab Results Lab results reviewed: Yes Impression and Recommendations - Palliative Care Impression: This is an 80-year-old -[place] female who though is presently is quite fragile with a past medical history significant for peripheral vascular disease status post bilateral below the knee amputations, vascular dementia, chronic pain and major depressive disorder. She was recently hospitalized for altered mental status with unknown etiology but has essentially returned almost to her baseline since returning home. The patient and her spouse/DPOA wish to manage symptoms as they arise within the home with the avoidance of hospitalization so that they may remain together. Palliative care to continue to provide support with symptom management, anticipatory guidance, and exploration of goals of c are. Recommendations/Counseling Done: 1. Altered mental status. Resolved and patient is almost at her baseline since returning home outside of her being chronically fatigued. Work-up during hospitalization 03/12-03/15/2020 found no underlying etiology such as infection (blood cultures neg, UA neg, CT of head neg). Potentially patient has had a progression of her vascular dementia and the changes that the spouse has been atuned to could be that the patient has experienced another slight decline in her vascular dementia journey. Due to her history of chronic pain and her 's concerns regarding Opioid would avoid use. 2. Dental pain to left lower tooth. No evidence of abscess and patient is afrebile. Continue to cut up patient's food to decrease mastication due to discomfort and her endentulous state. Use of acetaminophen PRN for pain. Follow- up with dentist for further evaluation and management as scheduled. 3. Stage II Pressure Ulcer, coccyx. Encouraged patient to turn and reposition in bed every 2 hours. Recommended use of zinc oxide barrier cream to be applied BID until healed. Home Health nursing initiation pending and was referred by PCP. 4. Chronic pain. Multifactorial in origin with a history of long-term opioid therapy that is no longer in use. History of phantom pain due to bilateral below the knee amputation secondary to peripheral vascular disease. Symptoms of chronic pain and phantom pain are controlled with Lyrica as prescribed. In an acute episode symptoms are controlled with Tylenol and as needed baclofen. 5. Vascular dementia with a history of peripheral vascular disease. Chronic. Progressive. Fall precautions. Continue secondary preventative measures with statin and ASA therapy as prescribed. Continue supportive care. Continue Depakote as ordered due to history of agitation. Comfort medications MSIR and lorazepam in the home that may be available to for use in a future event when a transition to hospice services occurs reviewed with spouse and to refrain from use at this time with understanding verbalized. 6. Advance care planning. POLST in place DNAR with limited interventions. The patient and her spouse/DPOA are connected to each other and her spouse is fearful of losing her. At this present time, the patient and her would not wish for her to return to the hospital if an event occurs . Her is hoping for the best, but plans if a change were to occur in the patient's health he wishes for her to remain within the home with him with additional support from hospice to be explored at that time if interventions within the home were not effective in reversal of any underlying health state. Spouse wishes for patient to remain comfortable. Supportive listening provided to spouse. Time Spent: Total time spent 60 minutes with greater than 50% of this spent in counseling and coordination of care with patient and spouse, review of hospitalization, supportive listening, disease progression of dementia, review of symptom management and anticipatory guidance. Disclaimer: The chart note was formulated using voice recognition technology and unfortunately sound alike errors may occur.
== END 2020-03-22 13:28 | disposition home or self-care (01) ==
LOC: PC 13:27
PROVIDERS: ATTEND Nurse Practitioner Family
DX: Z51.5 Encounter for palliative care (principal); R41.82 Altered mental status, unspecified; G89.29 Other chronic pain; K08.89 Other specified disorders of teeth and supporting structures; L89.152 Pressure ulcer of sacral region, stage 2; F03.90 Unspecified dementia, unspecified severity, without behavioral disturbance, psychotic disturbance, mood disturbance, and anxiety; I25.10 Atherosclerotic heart disease of native coronary artery without angina pectoris; I73.9 Peripheral vascular disease, unspecified; Z79.899 Other long term (current) drug therapy; Z79.82 Long term (current) use of aspirin; Z89.512 Acquired absence of left leg below knee; Z89.511 Acquired absence of right leg below knee; Z99.3 Dependence on wheelchair; Z66 Do not resuscitate
CPT/HCPCS: 99350

== ENCOUNTER 2020-04-26 14:25 | Outpatient (CLI) | payer MEDICARE, OTHER, MEDICAID ==
--- NOTE | 2020-04-26 19:01 | CONSULTATION NOTE ---
Palliative Care Follow Up - Referral Referring Provider: Dr. Fracisco Chavez Time of Visit: 1126-7075 Referral setting: Home Referral Reason: Vascular Dementia/Skin breakdown - Information Sources Records reviewed: Previous records reviewed History/Review of Systems obtained from: Patient, Family (, Anthony present) Exam limitations: Clinical condition (Advanced dementia) - History of Present Illness Update Brief HPI Update: This is an 80-year-old -Y[place]i female who was seen and evaluated in her room today with her /D RUSSELL Yost present at the bedside. She has a significant history for peripheral vascular disease and is status post bilateral below the knee amputations as well as vascular dementia and major depressive disorder. Since last evaluation due to her development of skin breakdown to her coccyx her PCP had ordered home health nursing for management. The patient is being followed by home health nursing. The reports improvement. Presently receiving A&D ointment to the site and leaving open to air. There is no open area to the coccyx and sacral region. Last week the patient was seen by her oral surgeon and had 2 teeth pulled due to development of an abscess. She is presently on a course of amoxicillin with 1 pill remaining. Her has been providing soft foods. No reports of diarrhea or abdominal pain.The patient reports improvement to her dental discomfort. The dentist had made recommendations for follow-up in regards to potential partial bridges to be made but it is unclear given the patient's underlying jaw formation if this can be possible per the 's report. The patient was hospitalized March 12 to March 15 for altered mental status with no underlying cause found. Since returning home the patient is starting to make some improvements per the 's report. She is consuming most of her meals. At the present time the is providing soft foods due to her recent dental procedure. No coughing noted during meals. She is also doing a bit more for herself by sitting on the edge of the bed and even putting on her orthotics. Prior to more recently she was requiring increased assistance. She has not been outside recently and continues to remain in her bedroom. The patient has a longstanding history of phantom limb pain. She was previously on long-term opioid therapy but her primary care provider was able to taper off these medications which was to the pleasure both the patient and her spouse. She has been on MS Contin, OxyContin, and fentanyl. Her is leery of opioids given the patient's past history. She does have PRN baclofen to use for spasms but this is very sporadic. She is maintained with Lyrica 50 mg twice daily. The patient presently denies any joint or limb discomfort. 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 Support System: The patient grew up in [place], [place]. Prior to relocating to [facility] she and her lived in [place]. The patient and her spouse have been for 59 years. They have 2 children, 1 daughter and 1 son. They are estranged from their daughter who lives locally. Their son Stephen resides in [place]. The patient's healthcare power of admitted attorneys is her , Priyank [phone]. The patient has 2 private caregivers through [facility] that comes 5 days a week. On the weekends the patient's sole caregiver is her . 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 Medications/Allergies - Medications Home Medications: Ambulatory Orders Medication Instructions Recorded Confirmed ALPRAZolam [Alprazolam] 0.25 mg PO Q4HR PRN MDD 4 DOSES OF 03/18/16 03/13/20 0.25MG Divalproex Sodium 125 mg PO BID 08/13/19 03/13/20 Esomeprazole Magnesium 40 mg PO QDAC 08/13/19 03/13/20 Lovastatin 80 mg PO QPM 08/13/19 03/13/20 Mirtazapine 7.5 mg PO QPM 08/13/19 03/13/20 Aspirin [Aspirin EC] 81 mg PO DAILY 08/14/19 03/13/20 Pregabalin 50 mg PO BID 08/14/19 03/13/20 Cholecalciferol (Vitamin D3) 1,000 unit PO DAILY 01/23/20 03/13/20 [Vitamin D3] Ferrous Sulfate 325 mg PO DAILY 01/23/20 03/13/20 Dorzolamide HCl/Timolol Maleat 1 drops EACHEYE BID 03/13/20 03/13/20 [Dorzolamide-Timolol Eye Drops] LORazepam [Ativan] 0.5 mg PO Q6H PRN #15 tablet 03/15/20 Morphine Sulfate [Morphine Sulf 5 mg PO Q4H PRN #30 ml 03/15/20 Oral (Roxanol)] - Allergies Allergies/Adverse Reactions: Allergies Allergy/AdvReac Type Severity Reaction Status Date / Time gentamicin [Gentamicin] Allergy Unknown Verified 10/14/19 12:48 lisinopril Allergy Unknown Verified 10/14/19 12:48 paroxetine [From Paxil] Allergy Unknown Verified 10/18/19 07:33 Review of Systems - Constitutional Constitutional: reports: Fatigue, Weight stable. denies: Fever - Eyes Eyes: reports: Vision loss - Ears, Nose & Throat Ears, Nose & Throat: denies: Dental pain (see HPI), Dry mouth - Cardiovascular Cardiovascular: denies: Chest pain - Respiratory Respiratory: denies: Cough - Gastrointestinal Gastrointestinal: reports: Good appetite. denies: Abdominal pain, Constipation, Diarrhea, Vomiting - Genitourinary Genitourinary: denies: Dysuria - Musculoskeletal Musculoskeletal: reports: Muscle weakness, Assistive devices. denies: Joint pain - Integumentary Integumentary: reports: Other (resolving skin breakdown to coccyx see HPI) - Neurological Neurological: reports: General weakness, Memory problems - Psychiatric Psychiatric: reports: Depression - Hematologic/Lymphatic Hematologic/Lymphatic: reports: Recurrent infections (UTI last treated January 2020), Other - All Other Systems All Other Systems: reports: Reviewed and negative Physical Exam - Vital Signs Temperature: 36.3 C Pulse Rate: 70 O2 Saturation: 94 (on RA at rest) Blood Pressure: 100/69 (left wrist cuff lying down) - Physical Exam General Appearance: positive: No acute distress, Alert, Other (resting in bed with nightgown; more alert during evaluation today and did not intermittently doze as has on past evaluations; well groomed) Eyes Bilateral: positive: Normal inspection ENT: positive: No signs of dehydration Neck: positive: Trachea midline Cardiovascular: positive: Regular rate & rhythm, No murmur Respiratory: positive: No respiratory distress, Breath sounds nml Abdomen: positive: Non-tender, Soft, Nml bowel sounds Skin: positive: Other (Healed skin to coccyx without erythema or evidence of skin breakdown) Extremities: positive: No pedal edema, Other (bilateral below the knee amputation with skin to stumps intact without breakdown) Neurologic/Psychiatric: positive: Mood/affect nml (calm without behavioral disturbances noted), Disoriented to place, Disoriented to time Palliative Care - POLST Patient has POLST: Yes POLST Status: DNR, Selective Treatment Pain: No pain Sleep: Sleeps well Constipation: No, Managed Performance Status: Patient is essentially homebound and leaves her home for her doctors visits. She is dependent on her in private caregivers for her care for ADLs. She has a Rollator, wheelchair, transport wheelchair and bedside commode available for her use. No recent history of falls. Able to self feed. - Palliative Care Discussion: Per the 's report the patient has had steady improvement in her strength and engagement since returning home from the hospital and March 2020. She has had resolution of her dental pain after 2 teeth were removed due to a dental abscess and is almost done completing her antibiotic course. The skin breakdown noted to her C OCC YX has resolved and the patient's sees again steady improvement. The 's greatest fear at the present time is concerning himself. He has just completed chemotherapy and is scheduled to have a biopsy at [facility] in the next week. He expresses concern that if something were to happen to himself he is worried what will be available for the patient. He is quite adamant that he would never want the patient to return to [facility]. He would want her to return to a nursing facility in the area such as [facility] or [facility]. Or there is the availability of their son in [place] overseeing her care. The patient's son has previously reported that he would "take care of mom." The patient's spouse is optimistic regarding his response to his treatment and is quite dedicated to his . Impression and Recommendations - Palliative Care Impression: This is an 80-year-old -Y[place]i female who is quite fragile and at risk for Future complications due to her fragile state and multiple comorbidities more specifically peripheral vascular disease with status post bilateral below the knee amputations, vascular dementia, and chronic pain. The skin breakdown to her C8 OCC YX has resolved. She is returning to her baseline functional status. The patient and her spouse wish to remain together. Palliative care to continue provide support for symptom management, anticipatory guidance and exploration of goals of care. Recommendations/Counseling Done: 1. Dental abscess with pain. Resolved status post dental visit with 2 teeth extraction. Almost completed antibiotic course without reported GI side effects. Follow-up with dentist as needed. 2. Pressure ulcer, Coccyx. Followed by home health nursing. Resolved. Continue to encourage repositioning while in bed. 3. Vascular dementia with a history of peripheral vascular disease. Chronic. Progressive. Fall precautions. No reports of coughing with meals. Continue secondary preventive measures with statin and aspirin therapy as prescribed. Continue Depakote as ordered due to history of agitation. Patient does have comfort medications MSIR and lorazepam in the home that may be available for future symptom management as a situation arises. Given the patient's advanced age a chronic decline is expected. 4. Chronic pain. 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 Phantom leg pain due to bilateral below the knee amputation secondary to peripheral vascular disease. Presently symptoms are controlled with Lyrica. In an acute episode of symptoms her symptoms are managed with Tylenol and baclofen if needed. Time Spent: F/u phone call in 6-8 weeks for status update or evaluate sooner if new/worsening symptoms and spouse aware to contact Palliative Care for concerns. CPT 00595 POC reviewed with patient and spouse with understanding veberalized, questions addressed and agreement with POC. Disclaimer: The chart note was formulated using voice recognition technology and unfortunately sound alike errors may occur.
== END 2020-04-26 14:26 | disposition home or self-care (01) ==
LOC: PC 14:25
PROVIDERS: ATTEND Nurse Practitioner Family
DX: Z51.5 Encounter for palliative care (principal); L89.159 Pressure ulcer of sacral region, unspecified stage; K04.7 Periapical abscess without sinus; G54.6 Phantom limb syndrome with pain; R53.1 Weakness; F03.90 Unspecified dementia, unspecified severity, without behavioral disturbance, psychotic disturbance, mood disturbance, and anxiety; I73.9 Peripheral vascular disease, unspecified; Z79.899 Other long term (current) drug therapy; Z79.82 Long term (current) use of aspirin; Z89.512 Acquired absence of left leg below knee; Z89.511 Acquired absence of right leg below knee; Z87.440 Personal history of urinary (tract) infections; Z66 Do not resuscitate
CPT/HCPCS: 99349

== ENCOUNTER 2020-06-29 10:41 | Outpatient (CLI) | payer MEDICARE, OTHER, MEDICAID | END 2020-06-29 10:42 | disposition critical access hospital (66) | LOC: EMS 10:41 | PROVIDERS: ATTEND Surgery | DX: R53.83 Other fatigue (principal); R41.82 Altered mental status, unspecified | CPT/HCPCS: A0425; A0429 ==

== ENCOUNTER 2020-06-29 11:03 | Emergency (ER) | payer MEDICARE, OTHER, MEDICAID ==
[2020-06-29] MEDS ORDERED: SODIUM CHLORIDE 0.9% 1,000 ML IV STA (11:25)
[2020-06-29 11:46] LABS: BASOPHILS % (AUTO) 0.3 %
[2020-06-29 11:49] LABS: EOSINOPHILS % (AUTO) 0.6 %; HGB - HEMOGLOBIN 11.4 g/dL (12.0-16.0); MEAN CORPUSCULAR HEMOGLOBIN 28.1 pg (27.0-31.0); MEAN CORPUSCULAR HGB CONC 30.6 g/dL (32.0-36.0); MEAN CORPUSCULAR VOLUME 91.6 fL (81.0-99.0); MEAN PLATELET VOLUME 11.8 fL (7.9-10.8); NEUTROPHILS % (AUTO) 48.7 %; PLT - PLATELET COUNT 653 10^3/uL (130-450); RED BLOOD COUNT 4.06 10^6/uL (4.20-5.40); RED CELL DISTRIBUTION WIDTH 19.9 % (12.0-15.0)
[2020-06-29 11:53] LABS: INR 1.2 (0.8-1.2); PT - PROTHROMBIN TIME 13.2 secs (9.9-12.6)
--- NOTE | 2020-06-29 12:01 | CT Report ---
PROCEDURE: HEAD WO INDICATIONS: altered level of consciousness TECHNIQUE: Noncontrast 4.5 mm thick angled axial sections acquired from the foramen magnum to the vertex. For r adiation dose reduction, the following was used: automated exposure control, adjustment of mA and/or kV according to patient size. COMPARISON: FINDINGS: Image quality: Excellent. CSF spaces: Basal cisterns are patent. No extra-axial fluid collections. The ventricles are symmet michell in size and shape. Brain: No intracranial bleeds or masses. There is cerebral volume loss for age, with resultant vent ricular and sulcal prominence. There are periventricular and deep white matter chronic small vessel ischemic changes. There is intracranial internal carotid artery and vertebral artery 07/02/2015 ather osclerosis. Skull and face: Calvarium and visualized facial bones appear intact, without suspicious lesions. Sinuses: Visualized sinuses and mastoids are clear. IMPRESSION: No acute intracranial disease process. Reviewed by: Iveth Russo MD, PhD on 06/29/2020 12:00 PM PDT Approved by: Iveth Russo MD, PhD on 06/29/2020 12:00 PM PDT Station ID: [id number]
[2020-06-29 12:07] LABS: ALBUMIN 3.4 g/dL (3.2-5.5); ALBUMIN/GLOBULIN RATIO 0.7 (1.0-2.2); ALKALINE PHOSPHATASE 91 IU/L (42-121); ALT ALANINE AMINOTRANSFERASE < 10 IU/L (10-60); AST ASPARTATE AMINOTRANSFERASE 20 IU/L (10-42); BILIRUBIN,TOTAL 0.4 mg/dL (0.2-1.0); BUN - BLOOD UREA NITROGEN 10 mg/dL (6-20); CALCIUM 9.5 mg/dL (8.5-10.3); CARBON DIOXIDE - CO2 23 mmol/L (21-32); CHLORIDE 107 mmol/L (101-111); CREATININE 0.9 mg/dL (0.4-1.0); GLUCOSE 77 mg/dL (70-100); LIPASE 38 U/L (22-51); SODIUM 139 mmol/L (135-145); TOTAL PROTEIN 8.6 g/dL (6.7-8.2)
[2020-06-29 12:09] LABS: ABNORMAL LYMPHS % (MANUAL) 0 %; BAND NEUTROPHILS % (MANUAL) 0 %
[2020-06-29 12:15] LABS: EOSINOPHILS # (MANUAL) 0.1 10^3/uL (0-0.7); LYMPHOCYTES # (MANUAL) 2.7 10^3/uL (1.5-3.5); LYMPHOCYTES % (MANUAL) 38 %; MONOCYTES # (MANUAL) 0.5 10^3/uL (0.0-1.0)
[2020-06-29 12:18] LABS: PLATELET ESTIMATE, MANUAL INCREASED (>450,000) (NORMAL); PLATELET MORPHOLOGY 1+ GIANT PLATELETS (NORMAL)
[2020-06-29 12:19] LABS: DIFFERENTIAL COMMENT MANUAL DIFFERENTIAL
[2020-06-29 13:14] LABS: BILIRUBIN,URINE NEGATIVE (NEGATIVE); CLARITY,URINE CLEAR (CLEAR); GLUCOSE, URINE (UA) NEGATIVE (NEGATIVE); KETONES,URINE (UA) NEGATIVE (NEGATIVE); LEUKOCYTE ESTERASE, URINE NEGATIVE (NEGATIVE); NITRITE,URINE NEGATIVE (NEGATIVE); OCCULT BLOOD,URINE NEGATIVE (NEGATIVE); PROTEIN,URINE NEGATIVE (NEGATIVE); UROBILINOGEN,URINE 0.2 (NORMAL) E.U./dL (NORMAL)
--- NOTE | 2020-06-29 13:36 | ED Physician Documentation ---
History of Present Illness - Stated complaint Stated Complaint: WEAKNESS - Chief complaint Chief Complaint: General - History obtained from History obtained from: Patient, Family, EMS - Additonal information Additional information: Patient sent to the emergency department via EMS by and caregiver after being found to be more confused than usual at home. states that the patient does not know his name today and that she refused food, fluid, or medications. The patient states that nothing is bothering her right now. She denies any pain. No nausea. No dysuria. The patient is cared for at home by her and a counter sales person on weekdays, and by just her on the weekends. The has not noticed any signs of illness recently and states the patient seemed normal when she woke up this morning. He states his symptoms started around lunchtime, though the patient did refuse her medications in the morning. The patient is currently on palliative care and has a nurse practitioner who makes home visits on an as-needed basis; however, the nurse practitioner was not available to be reached today. No other complaints at this time. 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 : None HEENT: Chronic vision loss (Left eye blindness 2/2 glaucoma), Glaucoma Psych: Depression, Anxiety Musculoskeletal: Osteoporosis Derm: None - Past Surgical History Past Surgical History: Yes General: Appendectomy, Splenectomy Ortho: Amputation /TECHNICAL EDUCATION TEACHER: Hysterectomy Cardiovascular: Angioplasty, Other - Present Medications Home Medications: Ambulatory Orders Medication Instructions Recorded Confirmed ALPRAZolam [Alprazolam] 0.25 mg PO Q4HR PRN MDD 4 DOSES OF 03/18/16 03/13/20 0.25MG Divalproex Sodium 125 mg PO BID 08/13/19 03/13/20 Esomeprazole Magnesium 40 mg PO QDAC 08/13/19 03/13/20 Lovastatin 80 mg PO QPM 08/13/19 03/13/20 Mirtazapine 7.5 mg PO QPM 08/13/19 03/13/20 Aspirin [Aspirin EC] 81 mg PO DAILY 08/14/19 03/13/20 Pregabalin 50 mg PO BID 08/14/19 03/13/20 Cholecalciferol (Vitamin D3) 1,000 unit PO DAILY 01/23/20 03/13/20 [Vitamin D3] Ferrous Sulfate 325 mg PO DAILY 01/23/20 03/13/20 Dorzolamide HCl/Timolol Maleat 1 drops EACHEYE BID 03/13/20 03/13/20 [Dorzolamide-Timolol Eye Drops] LORazepam [Ativan] 0.5 mg PO Q6H PRN #15 tablet 03/15/20 Morphine Sulfate [Morphine Sulf 5 mg PO Q4H PRN #30 ml 03/15/20 Oral (Roxanol)] - Allergies Allergies/Adverse Reactions: Allergies Allergy/AdvReac Type Severity Reaction Status Date / Time gentamicin [Gentamicin] Allergy Unknown Verified 10/14/19 12:48 lisinopril Allergy Unknown Verified 10/14/19 12:48 paroxetine [From Paxil] Allergy Unknown Verified 10/18/19 07:33 - Social History Does the pt smoke?: No Smoking Status: Unknown if ever smoked Does the pt drink ETOH?: No Does the pt have substance abuse?: No - Immunizations Immunizations are current?: Yes - POLST Patient has POLST: Yes POLST Status: DNR PD ED PE NORMAL - Vitals Vital signs reviewed: Yes - General General: No acute distress, Well developed/nourished, Other (She is alert, and oriented to self. No distress) - HEENT HEENT: Atraumatic, PERRL, EOMI, Moist mucous membranes - Neck Neck: Supple, no meningeal sign - Cardiac Cardiac: RRR, No murmur, Strong equal pulses - Respiratory Respiratory: No respiratory distress, Clear bilaterally - Abdomen Abdomen: Soft, Non tender, Non distended - Back Back: No CVA TTP - Derm Derm: Normal color, Warm and dry, No rash - Extremities Extremities: No edema, No calf tenderness / cord, Other (Bilateral BKA's.) - Neuro Neuro: Other (Patient is alert and answers questions with slight delay. Oriented to self. Calls "servando", but does not know his name.No gross deficits otherwise.) - Psych Psych: Normal mood, Normal affect Results - Vitals Vitals: Oxygen O2 Source [Without Activity] Room air O2 Source Room air - EKG (time done) 1115 Rate: Rate (enter#) (74) Rhythm: NSR [place]: Normal Intervals: Normal IL QRS: Normal Ischemia: Normal ST segments, Non specific changes (borderline T abnormalities, inferior leads) Other comments: Other comments (No acute ischemia; Some baseline wander.) Compare to prior EKG: Old EKG unavailable Computer interpretation: Agree with computer - Labs Labs: Laboratory Tests 06/29/20 06/29/20 06/29/20 11:40 11:40 11:40 WBC 7.0 RBC 4.06 L Hgb 11.4 L Hct 37.2 MCV 91.6 MCH 28.1 MCHC 30.6 L RDW 19.9 H Plt Count 653 H MPV 11.8 H Neut # (Auto) Not Reportable Lymph # (Auto) Not Reportable [place] # (Auto) Not Reportable Eos # (Auto) Not Reportable Baso # (Auto) Not Reportable Absolute Nucleated RBC Not Reportable Total Counted 100 Band Neuts % (Manual) 0 Abnorm Lymph % (Manual) 0 Nucleated RBC % Not Reportable Neutrophils # (Manual) 3.8 Lymphocytes # (Manual) 2.7 Monocytes # (Manual) 0.5 Eosinophils # (Manual) 0.1 Basophils # (Manual) 0.0 Nucleated RBCs 1 Differential Comment MANUAL DIFFERENTIAL WBC Morphology 1+ TOXIC GRANULATION Platelet Estimate INCREASED (>450,000) Platelet Morphology 1+ GIANT PLATELETS RBC Morph Micro Appear 1+ HORN JOLLY BODY PT 13.2 H INR 1.2 Sodium 139 Potassium 3.6 Chloride 107 Carbon Dioxide 23 Anion Gap 9.0 BUN 10 Creatinine 0.9 Estimated GFR (MDRD) 73 L Glucose 77 Calcium 9.5 Total Bilirubin 0.4 AST 20 ALT < 10 L Alkaline Phosphatase 91 Total Protein 8.6 H Albumin 3.4 Globulin 5.2 H Albumin/Globulin Ratio 0.7 L Lipase 38 TSH Urine Color Urine Clarity Urine pH Ur Specific [place] Urine Protein Urine Glucose (UA) Urine Ketones Urine Occult Blood Urine Nitrite Urine Bilirubin Urine Urobilinogen Ur Leukocyte Esterase Ur Microscopic Review Urine Culture Comments 06/29/20 06/29/20 11:40 13:00 WBC RBC Hgb Hct MCV MCH MCHC RDW Plt Count MPV Neut # (Auto) Lymph # (Auto) [place] # (Auto) Eos # (Auto) Baso # (Auto) Absolute Nucleated RBC Total Counted Band Neuts % (Manual) Abnorm Lymph % (Manual) Nucleated RBC % Neutrophils # (Manual) Lymphocytes # (Manual) Monocytes # (Manual) Eosinophils # (Manual) Basophils # (Manual) Nucleated RBCs Differential Comment WBC Morphology Platelet Estimate Platelet Morphology RBC Morph Micro Appear PT INR Sodium Potassium Chloride Carbon Dioxide Anion Gap BUN Creatinine Estimated GFR (MDRD) Glucose Calcium Total Bilirubin AST ALT Alkaline Phosphatase Total Protein Albumin Globulin Albumin/Globulin Ratio Lipase TSH 0.93 Urine Color YELLOW Urine Clarity CLEAR Urine pH 6.0 Ur Specific [place] <=1.005 Urine Protein NEGATIVE Urine Glucose (UA) NEGATIVE Urine Ketones NEGATIVE Urine Occult Blood NEGATIVE Urine Nitrite NEGATIVE Urine Bilirubin NEGATIVE Urine Urobilinogen 0.2 (NORMAL) Ur Leukocyte Esterase NEGATIVE Ur Microscopic Review NOT INDICATED Urine Culture Comments NOT INDICATED - Rads (name of study) CT head Radiology: Final report received, EMP read indepedently, See rad report (NAD) PD MEDICAL DECISION MAKING - ED course Complexity details: reviewed old records, reviewed results, re-evaluated patient, considered differential, d/w patient, d/w family ED course: The patient was worked up extensively for her increased confusion as reported by the . Work-up, including labs, UA, and CT scan of the head were all unremarkable for acute findings. The patient initially was sent in via EMS and no family came to the emergency department for some hours, until it was decided that the patient would be discharged home. When came, he expressed that he was concerned because patient does not know his name and that is unusual for her. I had a long discussion with him regarding the patient's dementia and that some degree of fluctuation is to be expected, with an overall downward trajectory. I did explain to him that we had not found any emergent cause for the patient's confusion. Patient's was concerned that he would not be able to get the patient to take her medications at home and that he did not have a caregiver to assist him in the evening. I did have the patient drink in the emergency department and she was willing to take a sip of liquid here there, in the form of juice. I spoke with Dr. Barron, who is on-call for hospitalist service, and after reviewing patient's records, she stated that the patient has been through this a number of times and already admitted for the same thing back in March. The patient has had this kind of fluctuation in her course before, and Dr. Barron stated that she felt that this is simply a normal part of the patient's course and that there is no benefit to inpatient admission. I discussed this with the . We have hydrated the patient, after ultimately getting an IV, as the patient has very difficult peripheral access. The patient's mental status did not change one way or the other with hydration. She has remained stable here in the emergency department. I have discussed with the that he may need to talk to the patient's traffic rate computer about having increased coverage from Home Health and Palliative Care Services. We have also discussed respite care. At this point, the like to take the patient home, and she is stable for this. We have discussed the usual indications for return. Departure - Departure Disposition: 01 Home, Self Care Clinical Impression: Altered mental status Qualifiers: Altered mental status type: unspecified Qualified Code(s): R41.82 - Altered mental status, unspecified Condition: Stable Instructions: ED Weakness UKO Comments: The labs and urinalysis look good. There is no evidence of an emergent condition at this time. There is no evidence of a stroke on examination. Please be sure that Nathalia is getting plenty of water to drink and be sure she is staying hydrated, as dehydration is a common cause of weakness in elderly patients, especially those with dementia. Please have her follow-up with her primary care physician if she does not seem to be improving over the next week. Discharge Date/Time: 06/29/20 18:56
[2020-06-29 18:18] VITALS: BP 147/83
== END 2020-06-29 18:56 | disposition home or self-care (01) ==
LOC: EDUNIT# → ED 11:03
DX: R41.0 Disorientation, unspecified (principal); F03.90 Unspecified dementia, unspecified severity, without behavioral disturbance, psychotic disturbance, mood disturbance, and anxiety; Z89.512 Acquired absence of left leg below knee; Z89.511 Acquired absence of right leg below knee; Z79.82 Long term (current) use of aspirin
CPT/HCPCS: 36415; 70450; 80053; 81001; 81003; 83690; 84443; 85025; 85610; 87086; 93005; 99284

== ENCOUNTER 2020-06-29 19:03 | Outpatient (CLI) | payer MEDICARE, OTHER, MEDICAID | END 2020-06-29 19:04 | disposition home or self-care (01) | LOC: EMS 19:03 | PROVIDERS: ATTEND Surgery | DX: R53.1 Weakness (principal); R41.0 Disorientation, unspecified; Z74.01 Bed confinement status | CPT/HCPCS: A0425; A0428 ==

== ENCOUNTER 2020-09-11 15:20 | Outpatient (CLI) | payer MEDICARE, OTHER, MEDICAID ==
--- NOTE | 2020-09-11 17:22 | CONSULTATION NOTE ---
Palliative Care Follow Up - Referral Referring Provider: Dr. Fracisco Chavez Time of Visit: Initated 1520 Referral setting: Home Referral Reason: Vascular Dementia - Information Sources Records reviewed: Previous records reviewed History/Review of Systems obtained from: Patient, Family (, Priyank) Exam limitations: Clinical condition (Advanced Dementia) - History of Present Illness Update Brief HPI Update: This is an 80-year-old -Tajik female who was seen and evaluated within her home with her /JORDY, Priyank present for routine follow-up due to her history of vascular dementia, major depressive disorder, and peripheral vascular disease status post bilateral below the knee amputations. The patient continues to report some discomfort with her mouth and previously had teeth pulled. Per the 's report the dentist relayed that due to the patient's present state of her mouth she is not able to have partial bridges made. The patient's continues to provide soft foods for ease of mass dictation and the patient denies discomfort during meals. She consumes breakfast, lunch, and dinner. No visible weight loss reported by the patient's spouse. She does have some local dryness to her lower extremities and is not want to request application of lotion by her private caregivers. The patient is presently perseverating in regards to her right eye feeling like "sandpaper." She is presently being followed by ophthalmology and has been prescribed and topical antibiotic drops as well as Refresh Tears that are being administered 4 times daily. The patient's reports that her complaints regarding her right eye haveImproved. She has a repeat follow-up to have her right eye evaluated next week. The patient will have complaints of intermittent headaches and for this, the patient's will provide Tylenol administration with resolution of her complaints. The patient has not had any recent falls. The patient is seen sitting up in bed dressed in her own night robe with a hair covering. Well-groomed no evidence of acute distress. She will at times to for answers regarding questions to her . 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 Social History - Living Situation Living arrangement: At home Living Situation: With spouse/s.o. Support System: The patient and her have been for 59 years. Prior to relocating to [facility] she and her lived in [place], [place]. She grew up in [place], [place]. The patient and her have 2 children, 1 daughter and 1 son. The patient's healthcare power of insurance defense attorney is her , Priyank at [phone]. The patient has 2 private caregivers through [facility] that come 5 days/week. Her continues to be her primary caregiver. Medications/Allergies - Medications Home Medications: Ambulatory Orders Medication Instructions Recorded Confirmed ALPRAZolam [Alprazolam] 0.25 mg PO Q4HR PRN MDD 4 DOSES OF 03/18/16 03/13/20 0.25MG Divalproex Sodium 125 mg PO BID 08/13/19 03/13/20 Esomeprazole Magnesium 40 mg PO QDAC 08/13/19 03/13/20 Lovastatin 80 mg PO QPM 08/13/19 03/13/20 Mirtazapine 7.5 mg PO QPM 08/13/19 03/13/20 Aspirin [Aspirin EC] 81 mg PO DAILY 08/14/19 03/13/20 Pregabalin 50 mg PO BID 08/14/19 03/13/20 Cholecalciferol (Vitamin D3) 1,000 unit PO DAILY 01/23/20 03/13/20 [Vitamin D3] Ferrous Sulfate 325 mg PO DAILY 01/23/20 03/13/20 Dorzolamide HCl/Timolol Maleat 1 drops EACHEYE BID 03/13/20 03/13/20 [Dorzolamide-Timolol Eye Drops] LORazepam [Ativan] 0.5 mg PO Q6H PRN #15 tablet 03/15/20 Morphine Sulfate [Morphine Sulf 5 mg PO Q4H PRN #30 ml 03/15/20 Oral (Roxanol)] Neomycin/Poly/Dex Ophth Drops 1 RIGHTEYE MDD for 7 days 09/11/20 [Maxitrol Ophth Drops] prednisoLONE 1% OPHTH DROPS [Pred 1 drops RIGHTEYE BID 09/11/20 09/11/20 Forte 1% Ophth Drops] - Allergies Allergies/Adverse Reactions: Allergies Allergy/AdvReac Type Severity Reaction Status Date / Time gentamicin [Gentamicin] Allergy Unknown Verified 10/14/19 12:48 lisinopril Allergy Unknown Verified 10/14/19 12:48 paroxetine [From Paxil] Allergy Unknown Verified 10/18/19 07:33 Review of Systems - Constitutional Constitutional: denies: Fever, Weight loss - Eyes Eyes: reports: Irritation (right eye), Vision loss - Ears, Nose & Throat Ears, Nose & Throat: denies: Dry mouth - Cardiovascular Cardiovascular: denies: Chest pain - Respiratory Respiratory: denies: Cough - Gastrointestinal Gastrointestinal: reports: Good appetite. denies: Constipation, Vomiting - Genitourinary Genitourinary: denies: Dysuria - Musculoskeletal Musculoskeletal: reports: Muscle weakness, Assistive devices. denies: Joint pain - Integumentary Integumentary: reports: Dryness (LE) - Neurological Neurological: reports: General weakness, Memory problems - Psychiatric Psychiatric: reports: Depression (controlled) - Endocrine Endocrine: denies: Diabetes type 2 - Hematologic/Lymphatic Hematologic/Lymph: Other (history of frequent UTIs) - All Other Systems All Other Systems: reports: Reviewed and negative (Patient is a poor historian due to dementia and review of systems supplemented by the patient's /Priyank SPENCE.) Physical Exam - Vital Signs Temperature: 36.6 C Pulse Rate: 64 O2 Saturation: 95 (on RA) Blood Pressure: 115/65 (left wrist cuff) - Physical Exam General Appearance: positive: No acute distress, Alert, Other (resting in bed in robe with hair covering in place) Eyes Bilateral: positive: Normal inspection (no evidence of discharge to either eye). 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 negative: Guarding Skin: positive: Dryness (BLE) Extremities: positive: No pedal edema, Other (bilateral below the knee amputations with localized dry skin) Neurologic/Psychiatric: positive: Disoriented to place, Disoriented to time, Other (calm and engaged with baseline affect. No behavioral disturbances noted.) Palliative Care - POLST Patient has POLST: Yes POLST Status: DNR, Selective Treatment Pain: No pain (history of phantom limb pain and previous on opioids for management and was subsequently tappered off.) Depression: None Sleep: Sleeps well Constipation: No Performance Status: Patient is homebound only and released her home for doctor visits. She is dependent on her private caregivers and her husbandAble to self feed. Remains continent of bowel and bladder. For ADLs. She has a Rollator, wheelchair, transport wheelchair and bedside commode available for her use. - Palliative Care Discussion: The patient recently has been stable in regards to her cognitive and functional decline. The only recent concern has been with her right eye and her complaints of a feeling like "sandpaper." Her discomfort with her right eye has gradually improved with ophthalmic drops applications and evaluations by ophthalmology. The patient and her offer no acute concerns in regards to her health further for today. The patient's son, Stephen, was conferenced in on the phone in offers no additional concerns. Results - Lab Results Lab results reviewed: Yes Impression and Recommendations - Palliative Care Impression: This is an 80-year-old female who was quite fragile and at risk of future fracture locations due to her multiple comorbidities more specifically, peripheral vascular disease. Her chronic pain and phantom leg pain are presently well controlled. Palliative care to continue provide support for symptom management, anticipatory guidance, and advanced care planning. Recommendations/Counseling Done: 1. Chronic pain. Multifactorial in origin with long-term opioid therapy history which is no longer in use. Presently controlled phantom leg pain due to bilateral below the knee amputation secondary to peripheral vascular disease. Symptoms are presently controlled with Lyrica and local heating pad. And an acute episode of symptoms she is typically managed with Tylenol and baclofen if needed. Fall precautions. 2.Generalized dryness to bilateral lower extremities. Encouraged the patient and her spouse to apply lotion to affected areas on a daily basis and after bathing to lock in moisture. No evidence of skin breakdown. 3. Vascular dementia with a history of peripheral vascular disease. Chronic. Progressive. Fall precautions. No reports of dysphagia. Continue secondary preventative measures with statin and aspirin therapy as prescribed. Continue Depakote as ordered due to previous history of agitation. Last valporic acid level 13.9 on 03/14/2020. Behaviors appear to be presently controlled. The patient has comfort medications MSIR and lorazepam in the home that is available for future symptom management if the situation arises. Given the patient's advanced age and chronic comorbidities a gradual decline is expected. 4. Advanced care planning. LAST in ST in place as DN AR with limited interventions. The patient spouse is presently undergoing treatment for his MDS and has minimal symptom burden but her is her primary caregiver. The patient's has been expressing his desire is to his son that both the patient and himself desire to remain on [facility]. Continue to provide support for the patient's spouse and their family member guarding advance care planning in preparation for avoidance of a crisis. Supportive listening provided. Time Spent: CPT 67771 Plan of care reviewed with patient and spouse with understanding verbalized, questions answered and addressed and in agreement with plan of care. Request last office visit note from manager clinical research, Dr. Mk Black. Disclaimer: The chart note was formulated using voice recognition technology and unfortunately sound alike errors may occur.
== END 2020-09-11 15:21 | disposition home or self-care (01) ==
LOC: PC 15:20
PROVIDERS: ATTEND Nurse Practitioner Family
DX: Z51.5 Encounter for palliative care (principal); G89.29 Other chronic pain; L85.3 Xerosis cutis; F01.50 Vascular dementia, unspecified severity, without behavioral disturbance, psychotic disturbance, mood disturbance, and anxiety; I73.9 Peripheral vascular disease, unspecified; Z89.512 Acquired absence of left leg below knee; Z89.511 Acquired absence of right leg below knee; Z66 Do not resuscitate
CPT/HCPCS: 99348

== ENCOUNTER 2020-10-27 08:36 | Outpatient (CLI) | payer MEDICARE, OTHER, MEDICAID | END 2020-10-27 08:37 | disposition critical access hospital (66) | LOC: EMS 08:36 | PROVIDERS: ATTEND Surgery | DX: R46.4 Slowness and poor responsiveness (principal) | CPT/HCPCS: A0425; A0427 ==

== ENCOUNTER 2020-10-27 08:57 | Inpatient (IN) | payer MEDICARE, OTHER, MEDICAID ==
--- NOTE | 2020-10-27 09:09 | ED Physician Documentation ---
History of Present Illness - Stated complaint Stated Complaint: AMS - History obtained from History obtained from: Family (), EMS - Additonal information Additional information: 80-year-old woman with past medical history of dementia, DNR/DNI with limited interventions, bilateral below-knee amputation presents with altered mental status, first noted by at 3 AM this morning. She was acting normal yesterday, talking on the phone with family and friends. Upon his full awakening at 8 AM he noted that she was not speaking with her eyes closed and not moving her extremities. On arrival to the ED she would say ouch when te mperature was taken or she was moved but otherwise did not speak, eye-opening to verbal, and moving her upper extremities and lower extremities. She was hypoglycemic initially and dextrose was given. Further history limited by patient altered mental status. 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 : None HEENT: Chronic vision loss (Left eye blindness 2/2 glaucoma), Glaucoma Psych: Depression, Anxiety Musculoskeletal: Osteoporosis Derm: None - Past Surgical History Past Surgical History: Yes General: Appendectomy, Splenectomy Ortho: Amputation /DROPHAMMER OPERATOR: Hysterectomy Cardiovascular: Angioplasty, Other - Present Medications Home Medications: Ambulatory Orders Medication Instructions Recorded Confirmed ALPRAZolam [Alprazolam] 0.25 mg PO Q4HR PRN MDD 4 DOSES OF 03/18/16 03/13/20 0.25MG Divalproex Sodium 125 mg PO BID 08/13/19 03/13/20 Esomeprazole Magnesium 40 mg PO QDAC 08/13/19 03/13/20 Lovastatin 80 mg PO QPM 08/13/19 03/13/20 Mirtazapine 7.5 mg PO QPM 08/13/19 03/13/20 Aspirin [Aspirin EC] 81 mg PO DAILY 08/14/19 03/13/20 Cholecalciferol (Vitamin D3) 1,000 unit PO DAILY 01/23/20 03/13/20 [Vitamin D3] Ferrous Sulfate 325 mg PO DAILY 01/23/20 03/13/20 Dorzolamide HCl/Timolol Maleat 1 drops EACHEYE BID 05/12/20 05/12/20 [Dorzolamide-Timolol Eye Drops] prednisoLONE 1% OPHTH DROPS [Pred 1 drops RIGHTEYE BID 09/11/20 09/11/20 Forte 1% Ophth Drops] Pregabalin [Lyrica] 50 mg PO TID 10/27/20 - Allergies Allergies/Adverse Reactions: Allergies Allergy/AdvReac Type Severity Reaction Status Date / Time gentamicin [Gentamicin] Allergy Unknown Verified 10/27/20 09:07 lisinopril Allergy Unknown Verified 10/27/20 09:07 paroxetine [From Paxil] Allergy Unknown Verified 10/27/20 09:07 - Social History Does the pt smoke?: No Smoking Status: Unknown if ever smoked Does the pt drink ETOH?: No Does the pt have substance abuse?: No - Immunizations Immunizations are current?: Yes - POLST Patient has POLST: Yes POLST Status: DNR PD ED PE NORMAL - Vitals Vital signs reviewed: Yes - General General: Other (Altered, confused) - HEENT HEENT: Atraumatic, Other (Right eye cataract with unequal pupil. Left eye PE RR L) - Neck Neck: Supple, no meningeal sign - Cardiac Cardiac: RRR - Respiratory Respiratory: No respiratory distress, Clear bilaterally - Abdomen Abdomen: Non tender, Non distended - Female Female : Deferred - Rectal Rectal: Other (Wound stool) - Back Back: No spinal TTP - Derm Derm: Normal color, Warm and dry - Extremities Extremities: Other (Bilateral below-knee amputation. Bilateral upper extremity contractured) - Neuro Neuro: Other (Unresponsive) Eye Opening: To Voice Motor: Withdraws to Pain Verbal: Incomprehensible GCS Score: 9 - Psych Psych: Other (Altered mental status) Results - Vitals Vitals: Vital Signs - 24 hr 10/27/20 10/27/20 10/27/20 09:00 09:42 10:12 Temperature 36.5 C Heart Rate 79 78 74 Respiratory 12 18 19 Rate Blood Pressure 157/100 H 124/105 H 143/102 H O2 Saturation 92 99 98 10/27/20 10/27/20 10/27/20 10:14 10:30 11:00 Temperature 36.6 C Heart Rate 80 78 79 Respiratory 13 22 21 Rate Blood Pressure 143/102 H 132/108 H 130/99 H O2 Saturation 100 99 98 10/27/20 10/27/20 10/27/20 11:30 12:00 12:30 Temperature 37.2 C Heart Rate 80 79 87 Respiratory 20 18 19 Rate Blood Pressure 142/100 H 161/119 H 155/99 H O2 Saturation 99 94 96 10/27/20 10/27/20 13:00 13:30 Temperature Heart Rate 72 70 Respiratory 20 18 Rate Blood Pressure 156/92 H 151/79 H O2 Saturation 98 96 Oxygen O2 Source [Without Activity] Room air O2 Source Room air - Labs Labs: Laboratory Tests 10/27/20 10/27/20 10/27/20 12:22 12:22 12:47 WBC 8.5 RBC 4.61 Hgb 12.5 Hct 41.7 MCV 90.5 MCH 27.1 MCHC 30.0 L RDW 18.6 H Plt Count 543 H MPV 12.9 H Neut # (Auto) 4.6 Lymph # (Auto) 3.0 [place] # (Auto) 0.8 Eos # (Auto) 0.0 Baso # (Auto) 0.0 Absolute Nucleated RBC 0.09 Nucleated RBC % 1.1 Sodium 144 Potassium 3.6 Chloride 106 Carbon Dioxide 22 Anion Gap 16.0 H BUN 9 Creatinine 1.1 H Estimated GFR (MDRD) 58 L Glucose 86 Lactic Acid 1.8 Calcium 9.9 Total Bilirubin 0.6 AST 22 ALT < 10 L Alkaline Phosphatase 101 Total Protein 9.7 H Albumin 3.4 Globulin 6.3 H Albumin/Globulin Ratio 0.5 L Lipase 37 PD MEDICAL DECISION MAKING - ED course ED course: 9am- ems report That patient was last seen normal with GCS 15 a and O x3 last night prior to going to bed. Has been noticed at 2 AM that she was not speaking when he woke up to go to the restroom. Then at 8 AM she did not have improvement so he called 911. On arrival EMS found that her fingerstick was 70s so they gave D5 with some improvement in her mental status. On arrival to the ED she is opening her eyes to her name but not speaking. Moving extremities but not on command. Per EMS report she said ouch when her IV was started. Code stroke not called given she is outside the window however we will obtain a CT and CTA. I do note that she had similar ams a/w hypoglycemic episode in June of this year with return to baseline after sugar improved. On review of records and after d/w nursing who spoke with the en route it was noted she is dnr/dni with limited interventions and not a thrombectomy candidate. with this in mind we will cancel her cta for now pending discussion with . hypoglycemia most likely culprit of her ams. Departure - Departure Disposition: 66 [facility] DC/Xfer Clinical Impression: Altered mental status Qualifiers: Altered mental status type: unspecified Qualified Code(s): R41.82 - Altered mental status, unspecified Condition: Stable
[2020-10-27] MEDS ORDERED: DEXTROSE 50% ABBOJECT 25 GM/50 ML SYRINGE IVP STA (09:10)
--- NOTE | 2020-10-27 09:35 | XRAY Report ---
PROCEDURE: Chest 1 View X-Ray INDICATIONS: Chest Pain TECHNIQUE: One view of the chest was acquired. COMPARISON: 03/12/2020, 08/14/2019, 08/13/2019 FINDINGS: Surgical changes and devices: Left upper quadrant postoperative clips are seen. Left proximal arm sof t tissue clips are seen. Lungs and pleura: No pleural effusions or pneumothorax. Lungs are clear. Mediastinum: The aorta is prominent and tortuous. The cardiac contours are within normal limits. Bones and chest wall: Age-appropriate degenerative changes are seen. No suspicious bony lesions. O verlying soft tissues appear unremarkable. IMPRESSION: Clear lungs. Prominent, tortuous aorta. Postoperative and degenerative changes are seen. Reviewed by: Patrick Lynn MD on 10/27/2020 8:34 AM [facility] Approved by: Patrick Lynn MD on 10/27/2020 8:34 AM [facility] Station ID: [id number]
--- NOTE | 2020-10-27 11:19 | CT Report ---
PROCEDURE: HEAD WO INDICATIONS: ams TECHNIQUE: Noncontrast 4.5 mm thick angled axial sections acquired from the foramen magnum to the vertex. For r adiation dose reduction, the following was used: automated exposure control, adjustment of mA and/or kV according to patient size. COMPARISON: 06/29/2020, 03/13/2020, 07/02/2015. Correlation is also made with brain MRI, 07/03/2015 FINDINGS: Image quality: Excellent. CSF spaces: Basal cisterns are patent. No extra-axial fluid collections. Ventricles demonstrate st able prominence. Brain: No midline shift. No intracranial masses or hemorrhage. Brain parenchymal volume loss is see n. Chronic small vessel ischemic change can be seen. Adler-white matter interface is normal. Skull and face: Calvarium and visualized facial bones are intact, without suspicious lesions. 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 Sinuses: Visualized sinuses and mastoids are clear. IMPRESSION: Stable intracranial study demonstrating age-appropriate brain parenchymal volume loss and chronic sma ll vessel ischemic change. Reviewed by: Patrick Lynn MD on 10/27/2020 10:18 AM [facility] Approved by: Patrick Lynn MD on 10/27/2020 10:18 AM [facility] Station ID: [id number]
[2020-10-27 12:33] LABS: BASOPHILS % (AUTO) 0.2 %; EOSINOPHILS % (AUTO) 0.5 %; HGB - HEMOGLOBIN 12.5 g/dL (12.0-16.0); LYMPHOCYTES % (AUTO) 34.9 %; MEAN CORPUSCULAR HEMOGLOBIN 27.1 pg (27.0-31.0); MEAN CORPUSCULAR VOLUME 90.5 fL (81.0-99.0); MEAN PLATELET VOLUME 12.9 fL (7.9-10.8); MONOCYTES # (AUTO) 0.8 10^3/uL (0.0-1.0); MONOCYTES % (AUTO) 9.3 %; NEUTROPHILS # (AUTO) 4.6 10^3/uL (1.5-6.6); NEUTROPHILS % (AUTO) 54.6 %; PLT - PLATELET COUNT 543 10^3/uL (130-450); RED BLOOD COUNT 4.61 10^6/uL (4.20-5.40); RED CELL DISTRIBUTION WIDTH 18.6 % (12.0-15.0); WHITE BLOOD COUNT 8.5 x10^3/uL (4.8-10.8)
[2020-10-27 12:48] LABS: ALBUMIN 3.4 g/dL (3.2-5.5); ALBUMIN/GLOBULIN RATIO 0.5 (1.0-2.2); ALKALINE PHOSPHATASE 101 IU/L (42-121); ALT ALANINE AMINOTRANSFERASE < 10 IU/L (10-60); AST ASPARTATE AMINOTRANSFERASE 22 IU/L (10-42); BILIRUBIN,TOTAL 0.6 mg/dL (0.2-1.0); BUN - BLOOD UREA NITROGEN 9 mg/dL (6-20); CALCIUM 9.9 mg/dL (8.5-10.3); CARBON DIOXIDE - CO2 22 mmol/L (21-32); CHLORIDE 106 mmol/L (101-111); CREATININE 1.1 mg/dL (0.4-1.0); GLUCOSE 86 mg/dL (70-100); LIPASE 37 U/L (22-51); TOTAL PROTEIN 9.7 g/dL (6.7-8.2)
[2020-10-27] MEDS ORDERED: LACTATED RINGERS 1,000 ML IV STA (12:48)
[2020-10-27] MEDS ORDERED: SODIUM CHLORIDE FLUSH 0.9% 10 ML SYRINGE IVP PRN (13:32)
[2020-10-27] MEDS ORDERED: ACETAMINOPHEN 325 MG TABLET PO PRN (13:32)
[2020-10-27] MEDS ORDERED: ONDANSETRON ODT 4 MG TABLET TL PRN (13:32)
[2020-10-27] MEDS ORDERED: LACTATED RINGERS 1,000 ML IV SCH (14:00)
[2020-10-27 14:42] LABS: C. PNEUMONIAE- RESP PCR PANEL NOT DETECTED
--- NOTE | 2020-10-27 14:50 | HISTORY & PHYSICAL EXAMINATION ---
Chief Complaint - Chief Complaint Chief Complaint: Altered mental status History of Present Illness - Admitted From Admitted From:: Home - History Obtained From Records Reviewed: Yes History obtained from: ER Physician, Spouse, EMR Exam Limitations: Patient is altered and unable to provide a history. - History of Present Illness HPI Comment/Other: This is a 80-year-old female with a past medical history significant for dem entia, GERD, peripheral vascular disease, neuropathy who presents today after being found altered this morning by her . The history is obtained from the patient's spouse as she is altered and unable to provide a history. He states that she was in her usual state of health yesterday evening and went to sleep feeling fine. He states that at baseline she is oriented to self, location. She will occasionally know the year and month. She knew that yesterday was Cj. She recognizes all of her family members. He states that she is normally relatively independent and will use her prosthesis and a walker to get around. He administers all of her medications to her. He states that yesterday evening he gave her baclofen which she takes as needed for neuropathy given her history of bilateral below the knee amputations. He states that this morning he woke up and found her to be minimally responsive. He attempted to get her to the bedside commode but realized that would require more than 1 person and that she was not talking or verbalizing. He was concerned that she was having a stroke and so he called EMS. He states she has not been sick recently she is not been complaining of any fevers or chills or abdominal pain. He states she has vascular dementia. He reports no prior history of strokes. He states she never had seizures. She has not had a similar presentation in the past. In the emergency department, she was found to be minimally responsive but able to protect her airway. She was found to have contractures of her bilateral upper extremities. She underwent a CT of the head which did not show any acute abnormalities. Her labs were also unremarkable. Given her ongoing altered status, medicine was consulted for admission. I did discuss goals of care with the patient spouse and he confirms that she is a DNR. 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 Social History Notes: She lives with her in [place]. They have been for 58 years. She had a 1ppd X 15 yrs now down to 1 or 2 cigarettes daily. The patient denies any alcohol or illicit drug use - Substance History Use: Uses substance without health or social issues: NONE (Former smoker until she was admitted to [facility] in 2015.) - POLST Patient has POLST: Yes POLST Status: DNR Meds/Allgy - Home Medications Home Medications: Ambulatory Orders Medication Instructions Recorded Confirmed ALPRAZolam [Alprazolam] 0.25 mg PO Q4HR PRN MDD 4 DOSES OF 03/18/16 03/13/20 0.25MG Divalproex Sodium 125 mg PO BID 08/13/19 03/13/20 Esomeprazole Magnesium 40 mg PO QDAC 08/13/19 03/13/20 Lovastatin 80 mg PO QPM 08/13/19 03/13/20 Mirtazapine 7.5 mg PO QPM 08/13/19 03/13/20 Aspirin [Aspirin EC] 81 mg PO DAILY 08/14/19 03/13/20 Cholecalciferol (Vitamin D3) 1,000 unit PO DAILY 01/23/20 03/13/20 [Vitamin D3] Ferrous Sulfate 325 mg PO DAILY 01/23/20 03/13/20 Dorzolamide HCl/Timolol Maleat 1 drops EACHEYE BID 03/13/20 03/13/20 [Dorzolamide-Timolol Eye Drops] prednisoLONE 1% OPHTH DROPS [Pred 1 drops RIGHTEYE BID 09/11/20 09/11/20 Forte 1% Ophth Drops] Pregabalin [Lyrica] 50 mg PO TID 10/27/20 - Allergies Allergies/Adverse Reactions: Allergies Allergy/AdvReac Type Severity Reaction Status Date / Time gentamicin [Gentamicin] Allergy Unknown Verified 10/27/20 09:07 lisinopril Allergy Unknown Verified 10/27/20 09:07 paroxetine [From Paxil] Allergy Unknown Verified 10/27/20 09:07 Review of Systems - All Other Systems All Other Systems: reports: Other (Unable to obtain due to altered mental status.) Prior Level of Functionality: She lives at home with her . She has 2 prosthesis for her bilateral below-knee amputation. She ambulates with a walker at baseline. Her administers her medications. Exam - Vital Signs Reviewed Vital Signs: Yes Vital Signs: Vital Signs x48h Temp Pulse Resp BP Pulse Ox 10/27/20 14:00 88 19 127/103 H 98 10/27/20 13:30 70 18 151/79 H 96 10/27/20 13:00 72 20 156/92 H 98 10/27/20 12:30 37.2 C 87 19 155/99 H 96 10/27/20 12:00 79 18 161/119 H 94 10/27/20 11:30 80 20 142/100 H 99 10/27/20 11:00 79 21 130/99 H 98 10/27/20 10:30 78 22 132/108 H 99 10/27/20 10:14 36.6 C 80 13 143/102 H 100 10/27/20 10:12 74 19 143/102 H 98 10/27/20 09:42 78 18 124/105 H 99 10/27/20 09:00 36.5 C 79 12 157/100 H 92 - Physical Exam General Appearance: positive: Other (She is lying in bed and appears comfortable. She will respond to painful stimuli with grunting. Will not open her eyes to command.) Eyes Bilateral: positive: Other (Pupils are reactive to light. Dilated at 5 mm.) ENT: positive: ENT inspection nml Neck: positive: Nml inspection Respiratory: positive: No respiratory distress. negative: Wheezes, Rales Cardiovascular: positive: Regular rate & rhythm. negative: Tachycardia, Systolic murmur Abdomen: positive: Non-tender, No distention. negative: Tenderness Extremities: positive: Other (Bilateral below the knee amputations.) Neurologic/Psychiatric: positive: Other (She is quite rigid in her bilateral upper extremities. I can passively extend her right upper extremity at the elbow but she will not let me extend her left elbow. Unable to assess for reflexes.) Conclusion/Plan - Problem List (1) Encephalopathy Conclusion/Plan: The etiology of her encephalopathy is not clear. CT of the head did not reveal any acute abnormalities. She has no fever and her labs are unremarkable. Low suspicion for meningitis at this time. This could potentially be catatonia. Other differentials include stroke versus seizure. At this time, we will give her a one-time dose of lorazepam IV for possible catatonia. Will obtain MRI of the brain. Check ammonia. Will check CK level as well. Neurochecks. If no improvement then we will proceed with lumbar puncture. (2) Dementia Conclusion/Plan: She has a history of vascular dementia but at baseline, she is relatively independent. We will treat her acute encephalopathy as mentioned above. (3) History of below-knee amputation of both lower extremities Conclusion/Plan: Stable. We will resume her home neuropathy medications when she is able to take p.o. (4) Essential thrombocythemia Conclusion/Plan: Stable. Her platelet counts are at her baseline. - Lab Results Lab results reviewed: Yes Fish Bones: 10/27/20 12:22 10/27/20 12:22 - Diagnostic Imaging Results Diagnostic Imaging Results: positive: Final report reviewed Core Measures - Anticipated LOS I expect patient to be DC'd or transferred within 96 hours.: Yes - Issues Hospital Issues and Management Plan: 80-year-old female presents with acute onset of altered mental status. Concern is for possible stroke, catatonia, seizure. Will obtain MRI. Continue further work-up of altered mental status. - DVT/VTE - Prophylaxis VTE/DVT Device ordered at admit?: Yes VTE/DVT Prophylaxis med ordered at admit?: Yes
[2020-10-27] MEDS ORDERED: LORazepam 2 MG/ML VIAL IVP STA (15:35)
--- NOTE | 2020-10-27 16:18 | PHARMACY PROGRESS NOTE ---
- Best Possible Medication History Admit Date and Time: 10/27/20 1333 Processed by: Pharmacy Medication History completed: Yes Patient Interview: Completed Secondary Source(s): Physician records, Insurance records As the person ultimately responsible for medication therapy, providers are able to order a medication from an existing home medication list in [facility] via the "Reconcile Routine" prior to Confirmation of that medication by client support analyst. Such practice is discouraged except when the physician, in their clinical judgment, deems that a medical need exists for a medication without regard to previous use.
[2020-10-27] MEDS: DEXTROSE 5%-0.45% NACL 1,000 ML IV SCH (16:32)
[2020-10-27] MEDS: SODIUM CHLORIDE FLUSH 0.9% 10 ML SYRINGE IVP SCH (16:52)
[2020-10-27 20:00] LABS: VBG BASE EXCESS -4.6 mmol/L (-2 - +2); VBG PCO2 38.6 mmHg (41-51); VBG PH 7.346 (7.31-7.41); VBG PO2 22.3 mmHg (25-47); VBG TOTAL CO2 21.8 mmol/L (24-29)
[2020-10-27 22:01] LABS: MUDS CUTOFF CONCENTRATIONS CUTOFF CONC BELOW:
[2020-10-27 22:19] LABS: AMPHETAMINE SCREEN,URINE NEGATIVE (NEGATIVE); BENZODIAZEPINES SCREEN, URINE POSITIVE (NEGATIVE); COCAINE SCREEN URINE NEGATIVE (NEGATIVE); METHADONE SCREEN, URINE NEGATIVE (NEGATIVE); METHAMPHETAMINES SCREEN, URINE NEGATIVE (NEGATIVE); OPIATE SCREEN, URINE NEGATIVE (NEGATIVE); OXYCODONE SCREEN, URINE NEGATIVE (NEGATIVE); PROPOXYPHENE SCREEN, URINE NEGATIVE (NEGATIVE); TRICYCLIC ANTIDEPRESSANT,URINE NEGATIVE (NEGATIVE)
[2020-10-28] MEDS: DEXTROSE 5%-0.45% NACL 1,000 ML IV SCH ×2 (04:34→16:49)
[2020-10-28 05:33] LABS: BASOPHILS % (AUTO) 0.3 %; EOSINOPHILS # (AUTO) 0.2 10^3/uL (0.0-0.7); EOSINOPHILS % (AUTO) 2.4 %; HGB - HEMOGLOBIN 11.4 g/dL (12.0-16.0); LYMPHOCYTES # (AUTO) 2.6 10^3/uL (1.5-3.5); MEAN CORPUSCULAR HGB CONC 28.9 g/dL (32.0-36.0); MEAN CORPUSCULAR VOLUME 93.4 fL (81.0-99.0); MEAN PLATELET VOLUME 12.9 fL (7.9-10.8); MONOCYTES # (AUTO) 0.8 10^3/uL (0.0-1.0); MONOCYTES % (AUTO) 12.2 %; NEUTROPHILS # (AUTO) 2.7 10^3/uL (1.5-6.6); NEUTROPHILS % (AUTO) 43.5 %; PLT - PLATELET COUNT 558 10^3/uL (130-450); RED BLOOD COUNT 4.23 10^6/uL (4.20-5.40); RED CELL DISTRIBUTION WIDTH 17.9 % (12.0-15.0); WHITE BLOOD COUNT 6.2 x10^3/uL (4.8-10.8)
[2020-10-28 05:39] LABS: CALCIUM 9.5 mg/dL (8.5-10.3); CREATININE 0.8 mg/dL (0.4-1.0); MAGNESIUM 1.9 mg/dL (1.7-2.8)
[2020-10-28] MEDS ORDERED: POTASSIUM CHLORIDE 20 MEQ TABLET PO ONE (07:04)
[2020-10-28 07:34] LABS: BILIRUBIN,URINE NEGATIVE (NEGATIVE); GLUCOSE, URINE (UA) NEGATIVE (NEGATIVE); KETONES,URINE (UA) NEGATIVE (NEGATIVE); LEUKOCYTE ESTERASE, URINE NEGATIVE (NEGATIVE); NITRITE,URINE POSITIVE (NEGATIVE); OCCULT BLOOD,URINE NEGATIVE (NEGATIVE); PH,URINE 7.5 PH (5.0-7.5); PROTEIN,URINE NEGATIVE (NEGATIVE); UROBILINOGEN,URINE 0.2 (NORMAL) E.U./dL (NORMAL)
[2020-10-28 07:36] LABS: CLARITY,URINE CLEAR (CLEAR)
[2020-10-28 07:47] LABS: BACTERIA,URINE Many /HPF (None Seen); RBC,URINE None Seen /HPF (0-5); SQUAMOUS EPITHELIAL CELL,UR RARE Squamous (<= Few)
[2020-10-28] MEDS: SODIUM CHLORIDE FLUSH 0.9% 10 ML SYRINGE IVP SCH ×4 (08:56→23:42)
[2020-10-28] MEDS ORDERED: ENOXAPARIN 40 MG/0.4 ML SYRINGE SUBQ SCH (09:00)
--- NOTE | 2020-10-28 10:03 | PROVIDER PROGRESS NOTE ---
Subjective - Prog Note Date Prog Note Date: 10/28/20 - Subjective Subjective: He is more awake. Her eyes are open. She moving both of her upper extremities. She will only say yes or no to questions. Current Medications - Current Medications Current Medications: Active Medications Acetaminophen (Acetaminophen 325 Mg Tablet) 650 mg PO Q4HR PRN PRN Reason: Pain 1 to 4 Enoxaparin Sodium (Enoxaparin 30 Mg/0.3 Ml Syringe) 30 mg SUBQ DAILY [facility] Dextrose/Sodium Chloride (D5.45ns) 1,000 mls @ 83.333 mls/hr IV .Q12H [facility] Last Admin: 10/28/20 04:34 Dose: 83.333 mls/hr Documented by: Ondansetron HCl (Ondansetron Odt 4 Mg Tablet) 4 mg TL Q6HR PRN PRN Reason: Nausea / Vomiting Sodium Chloride (Sodium Chloride Flush 0.9% 10 Ml Syringe) 10 ml IVP PRN PRN PRN Reason: NEEDED PER PROVIDER ORDERS Sodium Chloride (Sodium Chloride Flush 0.9% 10 Ml Syringe) 10 ml IVP 0100,0900,1700 [facility] Last Admin: 10/28/20 08:56 Dose: 10 ml Documented by: ALPRAZolam [Alprazolam] 0.25 mg PO Q4HR PRN MDD 4 DOSES OF 0.25MG 03/18/16 Esomeprazole Magnesium 40 mg PO QDAC 08/13/19 Lovastatin 80 mg PO QPM 08/13/19 Mirtazapine 7.5 mg PO QPM 08/13/19 Aspirin [Aspirin EC] 81 mg PO DAILY 08/14/19 Cholecalciferol (Vitamin D3) [Vitamin D3] 1,000 unit PO DAILY 01/23/20 Ferrous Sulfate 325 mg PO DAILY 01/23/20 Dorzolamide HCl/Timolol Maleat [Dorzolamide-Timolol Eye Drops] 1 drops EACHEYE BID 03/13/20 prednisoLONE 1% OPHTH DROPS [Pred Forte 1% Ophth Drops] 1 drops RIGHTEYE BID 09/11/[address] [Depakote Dr] 125 mg PO BID 10/27/20 Pregabalin [Lyrica] 50 mg PO TID 10/27/20 Objective - Vital Signs/Intake & Output Reviewed Vital Signs: Yes Vital Signs: Vital Signs x48h Temp Pulse Resp BP Pulse Ox 10/28/20 04:23 36.4 C L 76 16 148/74 H 100 Intake & Output: Intake & Output 10/25/20 10/26/20 10/27/20 10/28/20 23:59 23:59 23:59 23:59 Intake Total 1000 2000 Output Total 1010 125 Balance -10 1875 - Objective General Appearance: positive: Alert Eyes Bilateral: positive: Normal inspection ENT: positive: ENT inspection nml Neck: positive: Nml inspection Respiratory: positive: No respiratory distress. negative: Wheezes, Rales Cardiovascular: positive: Regular rate & rhythm. negative: Tachycardia Skin: positive: Warm, Dry Extremities: positive: Other (Bilateral below the knee amputation.) Neurologic/Psychiatric: positive: Other (She moving both of her upper extremities. She will answer yes or no when spoken to. She does follow some commands when I asked her to move her arms.) - Lab Results Fish Bones: 10/28/20 05:02 10/28/20 05:02 Other Labs: Lab Results x24hrs 10/28/20 10/28/20 10/28/20 Range/Units 07:30 05:02 05:02 WBC 6.2 (4.8-10.8) x10^3/uL RBC 4.23 (4.20-5.40) 10^6/uL Hgb 11.4 L (12.0-16.0) g/dL Hct 39.5 (37.0-47.0) % MCV 93.4 (81.0-99.0) fL MCH 27.0 (27.0-31.0) pg MCHC 28.9 L (32.0-36.0) g/dL RDW 17.9 H (12.0-15.0) % Plt Count 558 H (130-450) 10^3/uL MPV 12.9 H (7.9-10.8) fL Neut # (Auto) 2.7 (1.5-6.6) 10^3/uL Lymph # (Auto) 2.6 (1.5-3.5) 10^3/uL [place] # (Auto) 0.8 (0.0-1.0) 10^3/uL Eos # (Auto) 0.2 (0.0-0.7) 10^3/uL Baso # (Auto) 0.0 (0.0-0.1) 10^3/uL Absolute Nucleated RBC 0.07 x10^3/uL Nucleated RBC % 1.1 /100WBC VBG pH (7.31-7.41) VBG pCO2 (41-51) mmHg VBG pO2 (25-47) mmHg VBG HCO3 (23-28) mmol/L VBG Total CO2 (24-29) mmol/L VBG O2 Saturation (60-80) % VBG Base Excess (-2 - +2) mmol/L Sodium 140 (135-145) mmol/L Potassium 3.2 L (3.5-5.0) mmol/L Chloride 109 (101-111) mmol/L Carbon Dioxide 23 (21-32) mmol/L Anion Gap 8.0 (6-13) BUN 6 (6-20) mg/dL Creatinine 0.8 (0.4-1.0) mg/dL Estimated GFR (MDRD) 83 L (>89) Glucose 116 H (70-100) mg/dL Lactic Acid (0.5-2.2) mmol/L Calcium 9.5 (8.5-10.3) mg/dL Magnesium 1.9 (1.7-2.8) mg/dL Total Bilirubin (0.2-1.0) mg/dL AST (10-42) IU/L ALT (10-60) IU/L Alkaline Phosphatase (42-121) IU/L Ammonia (7-35) umol/L Total Creatine Kinase (22-269) IU/L Total Protein (6.7-8.2) g/dL Albumin (3.2-5.5) g/dL Globulin (2.1-4.2) g/dL Albumin/Globulin Ratio (1.0-2.2) Lipase (22-51) U/L Urine Color YELLOW Urine Clarity CLEAR (CLEAR) Urine pH 7.5 (5.0-7.5) PH Ur Specific [place] 1.015 (1.002-1.030) Urine Protein NEGATIVE (NEGATIVE) mg/dL Urine Glucose (UA) NEGATIVE (NEGATIVE) mg/dL Urine Ketones NEGATIVE (NEGATIVE) mg/dL Urine Occult Blood NEGATIVE (NEGATIVE) Urine Nitrite POSITIVE H (NEGATIVE) Urine Bilirubin NEGATIVE (NEGATIVE) Urine Urobilinogen 0.2 (NORMAL) (NORMAL) E.U./dL Ur Leukocyte Esterase NEGATIVE (NEGATIVE) Urine RBC None Seen (0-5) /HPF Urine WBC 0-3 (0-5) /HPF Ur Squamous Epith Cells RARE Squamous (<= Few) Urine Bacteria Many H (None Seen) /HPF Ur Microscopic Review INDICATED Nasal Adenovirus (PCR) Nasal B. parapertussis DNA (PCR) Nasal Coronavir 229E PCR Nasal Coronavir HKU1 PCR Nasal Coronavir NL63 PCR Nasal Coronavir OC43 PCR Nasal Enterovir/Rhinovir PCR Nasal Influenza B PCR Nasal Influenza A PCR Nasal Parainfluen 1 PCR Nasal Parainfluen 2 PCR Nasal Parainfluen 3 PCR Nasal Parainfluen 4 PCR Nasal RSV (PCR) Nasal B.pertussis DNA PCR Nasal C.pneumoniae (PCR) Keagan Human Metapneumo PCR Nasal M.pneumoniae (PCR) Nasal SARS-CoV-2 (PCR) Urine Opiates Screen (NEGATIVE) Ur Oxycodone Screen (NEGATIVE) Urine Methadone Screen (NEGATIVE) Ur Propoxyphene Screen (NEGATIVE) Ur Barbiturates Screen (NEGATIVE) Ur Tricyclics Screen (NEGATIVE) Ur Phencyclidine Scrn (NEGATIVE) Ur Amphetamine Screen (NEGATIVE) U Methamphetamines Scrn (NEGATIVE) U Benzodiazepines Scrn (NEGATIVE) Urine Cocaine Screen (NEGATIVE) U Cannabinoids Screen (NEGATIVE) 10/27/20 10/27/20 10/27/20 Range/Units 22:00 19:46 15:20 WBC (4.8-10.8) x10^3/uL RBC (4.20-5.40) 10^6/uL Hgb (12.0-16.0) g/dL Hct (37.0-47.0) % MCV (81.0-99.0) fL MCH (27.0-31.0) pg MCHC (32.0-36.0) g/dL RDW (12.0-15.0) % Plt Count (130-450) 10^3/uL MPV (7.9-10.8) fL Neut # (Auto) (1.5-6.6) 10^3/uL Lymph # (Auto) (1.5-3.5) 10^3/uL [place] # (Auto) (0.0-1.0) 10^3/uL Eos # (Auto) (0.0-0.7) 10^3/uL Baso # (Auto) (0.0-0.1) 10^3/uL Absolute Nucleated RBC x10^3/uL Nucleated RBC % /100WBC VBG pH 7.346 (7.31-7.41) VBG pCO2 38.6 L (41-51) mmHg VBG pO2 22.3 L (25-47) mmHg VBG HCO3 20.6 L (23-28) mmol/L VBG Total CO2 21.8 L (24-29) mmol/L VBG O2 Saturation 33.8 L (60-80) % VBG Base Excess -4.6 L (-2 - +2) mmol/L Sodium (135-145) mmol/L Potassium (3.5-5.0) mmol/L Chloride (101-111) mmol/L Carbon Dioxide (21-32) mmol/L Anion Gap (6-13) BUN (6-20) mg/dL Creatinine (0.4-1.0) mg/dL Estimated GFR (MDRD) (>89) Glucose (70-100) mg/dL Lactic Acid (0.5-2.2) mmol/L Calcium (8.5-10.3) mg/dL Magnesium (1.7-2.8) mg/dL Total Bilirubin (0.2-1.0) mg/dL AST (10-42) IU/L ALT (10-60) IU/L Alkaline Phosphatase (42-121) IU/L Ammonia (7-35) umol/L Total Creatine Kinase 91 (22-269) IU/L Total Protein (6.7-8.2) g/dL Albumin (3.2-5.5) g/dL Globulin (2.1-4.2) g/dL Albumin/Globulin Ratio (1.0-2.2) Lipase (22-51) U/L Urine Color Urine Clarity (CLEAR) Urine pH (5.0-7.5) PH Ur Specific [place] (1.002-1.030) Urine Protein (NEGATIVE) mg/dL Urine Glucose (UA) (NEGATIVE) mg/dL Urine Ketones (NEGATIVE) mg/dL Urine Occult Blood (NEGATIVE) Urine Nitrite (NEGATIVE) Urine Bilirubin (NEGATIVE) Urine Urobilinogen (NORMAL) E.U./dL Ur Leukocyte Esterase (NEGATIVE) Urine RBC (0-5) /HPF Urine WBC (0-5) /HPF Ur Squamous Epith Cells (<= Few) Urine Bacteria (None Seen) /HPF Ur Microscopic Review Nasal Adenovirus (PCR) Nasal B. parapertussis DNA (PCR) Nasal Coronavir 229E PCR Nasal Coronavir HKU1 PCR Nasal Coronavir NL63 PCR Nasal Coronavir OC43 PCR Nasal Enterovir/Rhinovir PCR Nasal Influenza B PCR Nasal Influenza A PCR Nasal Parainfluen 1 PCR Nasal Parainfluen 2 PCR Nasal Parainfluen 3 PCR Nasal Parainfluen 4 PCR Nasal RSV (PCR) Nasal B.pertussis DNA PCR Nasal C.pneumoniae (PCR) Keagan Human Metapneumo PCR Nasal M.pneumoniae (PCR) Nasal SARS-CoV-2 (PCR) Urine Opiates Screen NEGATIVE (NEGATIVE) Ur Oxycodone Screen NEGATIVE (NEGATIVE) Urine Methadone Screen NEGATIVE (NEGATIVE) Ur Propoxyphene Screen NEGATIVE (NEGATIVE) Ur Barbiturates Screen NEGATIVE (NEGATIVE) Ur Tricyclics Screen NEGATIVE (NEGATIVE) Ur Phencyclidine Scrn NEGATIVE (NEGATIVE) Ur Amphetamine Screen NEGATIVE (NEGATIVE) U Methamphetamines Scrn NEGATIVE (NEGATIVE) U Benzodiazepines Scrn POSITIVE H (NEGATIVE) Urine Cocaine Screen NEGATIVE (NEGATIVE) U Cannabinoids Screen NEGATIVE (NEGATIVE) 10/27/20 10/27/20 10/27/20 Range/Units 15:19 13:42 12:47 WBC (4.8-10.8) x10^3/uL RBC (4.20-5.40) 10^6/uL Hgb (12.0-16.0) g/dL Hct (37.0-47.0) % MCV (81.0-99.0) fL MCH (27.0-31.0) pg MCHC (32.0-36.0) g/dL RDW (12.0-15.0) % Plt Count (130-450) 10^3/uL MPV (7.9-10.8) fL Neut # (Auto) (1.5-6.6) 10^3/uL Lymph # (Auto) (1.5-3.5) 10^3/uL [place] # (Auto) (0.0-1.0) 10^3/uL Eos # (Auto) (0.0-0.7) 10^3/uL Baso # (Auto) (0.0-0.1) 10^3/uL Absolute Nucleated RBC x10^3/uL Nucleated RBC % /100WBC VBG pH (7.31-7.41) VBG pCO2 (41-51) mmHg VBG pO2 (25-47) mmHg VBG HCO3 (23-28) mmol/L VBG Total CO2 (24-29) mmol/L VBG O2 Saturation (60-80) % VBG Base Excess (-2 - +2) mmol/L Sodium (135-145) mmol/L Potassium (3.5-5.0) mmol/L Chloride (101-111) mmol/L Carbon Dioxide (21-32) mmol/L Anion Gap (6-13) BUN (6-20) mg/dL Creatinine (0.4-1.0) mg/dL Estimated GFR (MDRD) (>89) Glucose (70-100) mg/dL Lactic Acid 1.8 (0.5-2.2) mmol/L Calcium (8.5-10.3) mg/dL Magnesium (1.7-2.8) mg/dL Total Bilirubin (0.2-1.0) mg/dL AST (10-42) IU/L ALT (10-60) IU/L Alkaline Phosphatase (42-121) IU/L Ammonia 23.1 (7-35) umol/L Total Creatine Kinase (22-269) IU/L Total Protein (6.7-8.2) g/dL Albumin (3.2-5.5) g/dL Globulin (2.1-4.2) g/dL Albumin/Globulin Ratio (1.0-2.2) Lipase (22-51) U/L Urine Color Urine Clarity (CLEAR) Urine pH (5.0-7.5) PH Ur Specific [place] (1.002-1.030) Urine Protein (NEGATIVE) mg/dL Urine Glucose (UA) (NEGATIVE) mg/dL Urine Ketones (NEGATIVE) mg/dL Urine Occult Blood (NEGATIVE) Urine Nitrite (NEGATIVE) Urine Bilirubin (NEGATIVE) Urine Urobilinogen (NORMAL) E.U./dL Ur Leukocyte Esterase (NEGATIVE) Urine RBC (0-5) /HPF Urine WBC (0-5) /HPF Ur Squamous Epith Cells (<= Few) Urine Bacteria (None Seen) /HPF Ur Microscopic Review Nasal Adenovirus (PCR) NOT DETECTED Nasal B. parapertussis DNA (PCR) NOT DETECTED Nasal Coronavir 229E PCR NOT DETECTED Nasal Coronavir HKU1 PCR NOT DETECTED Nasal Coronavir NL63 PCR NOT DETECTED Nasal Coronavir OC43 PCR NOT DETECTED Nasal Enterovir/Rhinovir PCR NOT DETECTED Nasal Influenza B PCR NOT DETECTED Nasal Influenza A PCR NOT DETECTED Nasal Parainfluen 1 PCR NOT DETECTED Nasal Parainfluen 2 PCR NOT DETECTED Nasal Parainfluen 3 PCR NOT DETECTED Nasal Parainfluen 4 PCR NOT DETECTED Nasal RSV (PCR) NOT DETECTED Nasal B.pertussis DNA PCR NOT DETECTED Nasal C.pneumoniae (PCR) NOT DETECTED [place] Human Metapneumo PCR NOT DETECTED Nasal M.pneumoniae (PCR) NOT DETECTED Nasal SARS-CoV-2 (PCR) NOT DETECTED Urine Opiates Screen (NEGATIVE) Ur Oxycodone Screen (NEGATIVE) Urine Methadone Screen (NEGATIVE) Ur Propoxyphene Screen (NEGATIVE) Ur Barbiturates Screen (NEGATIVE) Ur Tricyclics Screen (NEGATIVE) Ur Phencyclidine Scrn (NEGATIVE) Ur Amphetamine Screen (NEGATIVE) U Methamphetamines Scrn (NEGATIVE) U Benzodiazepines Scrn (NEGATIVE) Urine Cocaine Screen (NEGATIVE) U Cannabinoids Screen (NEGATIVE) 10/27/20 10/27/20 Range/Units 12:22 12:22 WBC 8.5 (4.8-10.8) x10^3/uL RBC 4.61 (4.20-5.40) 10^6/uL Hgb 12.5 (12.0-16.0) g/dL Hct 41.7 (37.0-47.0) % MCV 90.5 (81.0-99.0) fL MCH 27.1 (27.0-31.0) pg MCHC 30.0 L (32.0-36.0) g/dL RDW 18.6 H (12.0-15.0) % Plt Count 543 H (130-450) 10^3/uL MPV 12.9 H (7.9-10.8) fL Neut # (Auto) 4.6 (1.5-6.6) 10^3/uL Lymph # (Auto) 3.0 (1.5-3.5) 10^3/uL [place] # (Auto) 0.8 (0.0-1.0) 10^3/uL Eos # (Auto) 0.0 (0.0-0.7) 10^3/uL Baso # (Auto) 0.0 (0.0-0.1) 10^3/uL Absolute Nucleated RBC 0.09 x10^3/uL Nucleated RBC % 1.1 /100WBC VBG pH (7.31-7.41) VBG pCO2 (41-51) mmHg VBG pO2 (25-47) mmHg VBG HCO3 (23-28) mmol/L VBG Total CO2 (24-29) mmol/L VBG O2 Saturation (60-80) % VBG Base Excess (-2 - +2) mmol/L Sodium 144 (135-145) mmol/L Potassium 3.6 (3.5-5.0) mmol/L Chloride 106 (101-111) mmol/L Carbon Dioxide 22 (21-32) mmol/L Anion Gap 16.0 H (6-13) BUN 9 (6-20) mg/dL Creatinine 1.1 H (0.4-1.0) mg/dL Estimated GFR (MDRD) 58 L (>89) Glucose 86 (70-100) mg/dL Lactic Acid (0.5-2.2) mmol/L Calcium 9.9 (8.5-10.3) mg/dL Magnesium (1.7-2.8) mg/dL Total Bilirubin 0.6 (0.2-1.0) mg/dL AST 22 (10-42) IU/L ALT < 10 L (10-60) IU/L Alkaline Phosphatase 101 (42-121) IU/L Ammonia (7-35) umol/L Total Creatine Kinase (22-269) IU/L Total Protein 9.7 H (6.7-8.2) g/dL Albumin 3.4 (3.2-5.5) g/dL Globulin 6.3 H (2.1-4.2) g/dL Albumin/Globulin Ratio 0.5 L (1.0-2.2) Lipase 37 (22-51) U/L Urine Color Urine Clarity (CLEAR) Urine pH (5.0-7.5) PH Ur Specific [place] (1.002-1.030) Urine Protein (NEGATIVE) mg/dL Urine Glucose (UA) (NEGATIVE) mg/dL Urine Ketones (NEGATIVE) mg/dL Urine Occult Blood (NEGATIVE) Urine Nitrite (NEGATIVE) Urine Bilirubin (NEGATIVE) Urine Urobilinogen (NORMAL) E.U./dL Ur Leukocyte Esterase (NEGATIVE) Urine RBC (0-5) /HPF Urine WBC (0-5) /HPF Ur Squamous Epith Cells (<= Few) Urine Bacteria (None Seen) /HPF Ur Microscopic Review Nasal Adenovirus (PCR) Nasal B. parapertussis DNA (PCR) Nasal Coronavir 229E PCR Nasal Coronavir HKU1 PCR Nasal Coronavir NL63 PCR Nasal Coronavir OC43 PCR Nasal Enterovir/Rhinovir PCR Nasal Influenza B PCR Nasal Influenza A PCR Nasal Parainfluen 1 PCR Nasal Parainfluen 2 PCR Nasal Parainfluen 3 PCR Nasal Parainfluen 4 PCR Nasal RSV (PCR) Nasal B.pertussis DNA PCR Nasal C.pneumoniae (PCR) [place] Human Metapneumo PCR Nasal M.pneumoniae (PCR) Nasal SARS-CoV-2 (PCR) Urine Opiates Screen (NEGATIVE) Ur Oxycodone Screen (NEGATIVE) Urine Methadone Screen (NEGATIVE) Ur Propoxyphene Screen (NEGATIVE) Ur Barbiturates Screen (NEGATIVE) Ur Tricyclics Screen (NEGATIVE) Ur Phencyclidine Scrn (NEGATIVE) Ur Amphetamine Screen (NEGATIVE) U Methamphetamines Scrn (NEGATIVE) U Benzodiazepines Scrn (NEGATIVE) Urine Cocaine Screen (NEGATIVE) U Cannabinoids Screen (NEGATIVE) ABX Reporting Has patient been on IV antibiotics over the past 48 hours?: No Assessment/Plan - Problem List (1) Encephalopathy Impression: The etiology of this is not clear. She has shown improvement as she is now awake and less rigid. She is able to answer yes or no although this is all that she is saying. She does appear to follow some commands intermittently. MRI of the brain was negative for stroke and showed no acute abnormalities. Her labs are unremarkable. She was admitted earlier this year for similar presentation and appears she was discharged on hospice and it seems that since being home she has done quite well. I do wonder if there could be a component of medication reaction given she is on baclofen and Lyrica at home. We will continue to hold all sedatives at this time. We will continue with gentle IV hydration. We will hold off on lumbar puncture given her improvement. We will continue to monitor her neuro function overnight. I spoke with her and he is in agreement with this plan. (2) Dementia Impression: She has dementia but she is relatively functional at baseline. Her current ence phalopathy is an acute change. The plan is hopefully discharge back home to her prior living situation. Appreciate social work input. (3) Asymptomatic bacteriuria Impression: Her urinalysis does reveal nitrites and bacteria. Suspect this is likely asymptomatic bacteriuria. There is no pyuria. Her mentation is also improving without treatment. We will continue to hold off on antibiotics. (4) History of below-knee amputation of both lower extremities Impression: Stable. We will resume her aspirin if she is able to take p.o. We will hold off on Lyrica given her encephalopathy. (5) Essential thrombocythemia Impression: This is chronic and stable.
--- NOTE | 2020-10-28 12:12 | MRI Report ---
PROCEDURE: Brain W/O INDICATIONS: Altered mental status. Seizure suspected. TECHNIQUE: Noncontrast axial T1 spin echo, axial T2 fast spin echo, sagittal and axial FLAIR, coronal T2 fast sp in echo, axial gradient echo, axial diffusion and ADC through the brain. COMPARISON: None. FINDINGS: Image quality: Motion artifact limits evaluation. CSF Spaces: Basal cisterns are patent. No extra-axial fluid collections. Ventricles are normal in size and shape. Brain: No intracranial masses or hemorrhage. Adler/white matter interface is normal. Brainstem appe ars normal. No increased history to diffusion to suggest acute or subacute infarct. There is extensiv e volume loss, greater than expected for patient age and deep and periventricular white matter change s consistent with microvascular ischemia. Normal intravascular flow voids are present. Skull and face: Calvarium has normal marrow signal. Orbits appear normal. Sinuses: Sinuses and mastoids are clear. IMPRESSION: 1. Limited study given motion artifact. No acute intercranial findings. Specifically, no findings to suggest acute or subacute infarct. 2. Extensive volume loss and deep and periventricular white matter changes consistent with chronic mi crovascular ischemic changes. Reviewed by: Madelin Akers MD on 10/28/2020 11:11 AM [facility] Approved by: Madelin Akers MD on 10/28/2020 11:11 AM [facility] Station ID: [id number]
[2020-10-28] MEDS: ATORVASTATIN 10 MG TABLET PO SCH (20:38)
[2020-10-28] MEDS ORDERED: LOVASTATIN 40 MG PO SCH (21:00)
[2020-10-29] MEDS: DEXTROSE 5%-0.45% NACL 1,000 ML IV SCH ×2 (04:35→15:42)
[2020-10-29 05:00] LABS: BASOPHILS % (AUTO) 0.4 %; EOSINOPHILS % (AUTO) 0.4 %; HGB - HEMOGLOBIN 11.7 g/dL (12.0-16.0); LYMPHOCYTES % (AUTO) 26.1 %; MEAN CORPUSCULAR HEMOGLOBIN 27.3 pg (27.0-31.0); MEAN CORPUSCULAR HGB CONC 30.6 g/dL (32.0-36.0); MEAN PLATELET VOLUME 12.6 fL (7.9-10.8); MONOCYTES % (AUTO) 11.3 %; NEUTROPHILS % (AUTO) 61.1 %; PLT - PLATELET COUNT 560 10^3/uL (130-450); RED BLOOD COUNT 4.29 10^6/uL (4.20-5.40); RED CELL DISTRIBUTION WIDTH 17.6 % (12.0-15.0); WHITE BLOOD COUNT 8.5 x10^3/uL (4.8-10.8)
[2020-10-29 05:06] LABS: ABNORMAL LYMPHS % (MANUAL) 0 %; BAND NEUTROPHILS % (MANUAL) 0 %
[2020-10-29 05:15] LABS: BUN - BLOOD UREA NITROGEN < 5 mg/dL (6-20); CALCIUM 9.1 mg/dL (8.5-10.3); CARBON DIOXIDE - CO2 21 mmol/L (21-32); CHLORIDE 106 mmol/L (101-111); CREATININE 0.6 mg/dL (0.4-1.0); GLUCOSE 130 mg/dL (70-100); MAGNESIUM 1.7 mg/dL (1.7-2.8)
[2020-10-29 05:22] LABS: LYMPHOCYTES # (MANUAL) 2.7 10^3/uL (1.5-3.5); LYMPHOCYTES % (MANUAL) 32 %; MONOCYTES # (MANUAL) 1.3 10^3/uL (0.0-1.0); MYELOCYTES % (MANUAL) 1 %; PLATELET ESTIMATE, MANUAL INCREASED (>450,000) (NORMAL); PLATELET MORPHOLOGY 1+ LARGE PLATELETS (NORMAL); RBC MORPHOLOGY (MULTIPLE) NORMAL APPEARANCE (NORMAL)
[2020-10-29 05:23] LABS: DIFFERENTIAL COMMENT MANUAL DIFFERENTIAL
[2020-10-29] MEDS: POTASSIUM CHLOR 10 MEQ/100 ML 10 MEQ/100 ML BAG IV SCH ×4 (07:57→14:06)
[2020-10-29] MEDS: ASPIRIN EC 81 MG TABLET PO SCH (09:59)
[2020-10-29] MEDS: ENOXAPARIN 30 MG/0.3 ML SYRINGE SUBQ SCH (09:59)
[2020-10-29] MEDS: SODIUM CHLORIDE FLUSH 0.9% 10 ML SYRINGE IVP SCH ×2 (10:06→16:00)
--- NOTE | 2020-10-29 11:00 | XRAY Report ---
PROCEDURE: Abdomen 1 View X-Ray INDICATIONS: Vomiting. Constipation. TECHNIQUE: 2 AP views of the abdomen were acquired. COMPARISON: CT angiogram abdomen 07/31/2019 FINDINGS: Surgical changes and devices: There are bilateral common iliac artery stents. Bowel: The bowel gas pattern is within normal limits. There is a paucity of gas in the small and lar ge bowel. Bowel gas demonstrated in the region of the rectum. Soft tissues: There are scattered vascular calcifications. An ovoid calcification in the left upper q uadrant measuring up to 0.9 cm is demonstrated corresponding to a peripherally calcified splenic elvia ry aneurysm visualized on the prior CT. This appears similar in size given differences in technique. Bones: No suspicious bony abnormalities. IMPRESSION: 1. No definite evidence of bowel obstruction. 2. 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 Reviewed by: Bryant Prieto MD on 10/29/2020 10:59 AM PST Approved by: Bryant Prieto MD on 10/29/2020 10:59 AM PST Station ID: [id number]
--- NOTE | 2020-10-29 11:51 | PROVIDER PROGRESS NOTE ---
Subjective - Prog Note Date Prog Note Date: 10/29/20 - Subjective Subjective: She is more awake today and interactive. Still not back to her baseline. She is able to say yes or no to questions appropriately. She will occasionally say okay. She was able to tell me her 's name. She denies pain, difficulty breathing. Current Medications - Current Medications Current Medications: Active Medications Acetaminophen (Acetaminophen 325 Mg Tablet) 650 mg PO Q4HR PRN PRN Reason: Pain 1 to 4 Aspirin (Aspirin Ec 81 Mg Tablet) 81 mg PO DAILY [facility] Last Admin: 10/29/20 09:59 Dose: Not Given Documented by: Atorvastatin Calcium (Atorvastatin 10 Mg Tablet) 20 mg PO QPM [facility] Last Admin: 10/28/20 20:38 Dose: Not Given Documented by: Dorzolamide/Timolol (Dorzolamide/Timolol Ophth Drops) 1 drops EACHEYE BID [facility] Last Admin: 10/29/20 12:10 Dose: 1 drops Documented by: Enoxaparin Sodium (Enoxaparin 30 Mg/0.3 Ml Syringe) 30 mg SUBQ DAILY [facility] Last Admin: 10/29/20 09:59 Dose: Not Given Documented by: Dextrose/Sodium Chloride (D5.45ns) 1,000 mls @ 83.333 mls/hr IV .Q12H [facility] Last Admin: 10/29/20 04:35 Dose: 83.333 mls/hr Documented by: Mineral Oil (Min Oil/Dimethicon/Coconut Oil 92 Gm Tube) 1 applic TOP PRN PRN PRN Reason: Skin Care Ondansetron HCl (Ondansetron Odt 4 Mg Tablet) 4 mg TL Q6HR PRN PRN Reason: Nausea / Vomiting Polyethylene Glycol (Polyethylene Glycol 3350 17 Gm Packet) 17 gm PO DAILY [facility] Prednisolone (Prednisolone 1% Ophth Drops 75 Drops/5 Ml Bottle) 1 drops RIGHTEYE BID [facility] Last Admin: 10/29/20 12:11 Dose: 1 drops Documented by: Sodium Chloride (Sodium Chloride Flush 0.9% 10 Ml Syringe) 10 ml IVP PRN PRN PRN Reason: NEEDED PER PROVIDER ORDERS Sodium Chloride (Sodium Chloride Flush 0.9% 10 Ml Syringe) 10 ml IVP 0100,0900, 1700 [facility] Last Admin: 10/29/20 10:06 Dose: 10 ml Documented by: ALPRAZolam [Alprazolam] 0.25 mg PO Q4HR PRN MDD 4 DOSES OF 0.25MG 03/18/16 Esomeprazole Magnesium 40 mg PO QDAC 08/13/19 Lovastatin 80 mg PO QPM 08/13/19 Mirtazapine 7.5 mg PO QPM 08/13/19 Aspirin [Aspirin EC] 81 mg PO DAILY 08/14/19 Cholecalciferol (Vitamin D3) [Vitamin D3] 1,000 unit PO DAILY 01/23/20 Ferrous Sulfate 325 mg PO DAILY 01/23/20 Dorzolamide HCl/Timolol Maleat [Dorzolamide-Timolol Eye Drops] 1 drops EACHEYE BID 03/13/20 prednisoLONE 1% OPHTH DROPS [Pred Forte 1% Ophth Drops] 1 drops RIGHTEYE BID 09/11/[address] [Depakote Dr] 125 mg PO BID 10/27/20 Pregabalin [Lyrica] 50 mg PO TID 10/27/20 Objective - Vital Signs/Intake & Output Reviewed Vital Signs: Yes Vital Signs: Vital Signs x48h Temp Pulse Resp BP Pulse Ox 10/29/20 11:45 37.6 C 88 16 157/67 H 94 10/29/20 07:47 37.1 C 88 16 183/116 H 96 10/29/20 04:33 36.4 C L 85 17 164/71 H 96 Intake & Output: Intake & Output 10/26/20 10/27/20 10/28/20 10/29/20 23:59 23:59 23:59 23:59 Intake Total 1000 3000 1080.552 Output Total 1010 1275 225 Balance -10 1725 855.552 - Objective General Appearance: positive: No acute distress, Alert Eyes Bilateral: positive: Normal inspection ENT: positive: ENT inspection nml Neck: positive: Nml inspection Respiratory: positive: No respiratory distress. negative: Wheezes, Rales Cardiovascular: positive: Regular rate & rhythm. negative: Irregularly irregular, Tachycardia Abdomen: positive: Non-tender. negative: No distention, Tenderness Skin: positive: Warm, Dry Extremities: positive: Other (Bilateral below the knee amputations.) Neurologic/Psychiatric: positive: Other (She is able to follow commands and move her upper extremities when asked. She is oriented to self. She recognizes her is able to state his name.) - Lab Results Fish Bones: 10/29/20 04:39 10/29/20 04:39 Other Labs: Lab Results x24hrs 10/29/20 10/29/20 Range/Units 04:39 04:39 WBC 8.5 (4.8-10.8) x10^3/uL RBC 4.29 (4.20-5.40) 10^6/uL Hgb 11.7 L (12.0-16.0) g/dL Hct 38.2 (37.0-47.0) % MCV 89.0 (81.0-99.0) fL MCH 27.3 (27.0-31.0) pg MCHC 30.6 L (32.0-36.0) g/dL RDW 17.6 H (12.0-15.0) % Plt Count 560 H (130-450) 10^3/uL MPV 12.6 H (7.9-10.8) fL Neut # (Auto) Not Reportable Lymph # (Auto) Not Reportable [place] # (Auto) Not Reportable Eos # (Auto) Not Reportable Baso # (Auto) Not Reportable Absolute Nucleated RBC Not Reportable Total Counted 100 Band Neuts % (Manual) 0 (0 - 10) % Abnorm Lymph % (Manual) 0 % Myelocytes % 1 H ( - 0) % Nucleated RBC % Not Reportable Neutrophils # (Manual) 4.4 (1.5-6.6) 10^3/uL Lymphocytes # (Manual) 2.7 (1.5-3.5) 10^3/uL Monocytes # (Manual) 1.3 H (0.0-1.0) 10^3/uL Eosinophils # (Manual) 0.0 (0-0.7) 10^3/uL Basophils # (Manual) 0.0 (0-0.1) 10^3/uL Differential Comment MANUAL DIFFERENTIAL WBC Morphology NORMAL APPEARANCE (NORMAL) Platelet Estimate INCREASED (>450,000) (NORMAL) Platelet Morphology 1+ LARGE PLATELETS (NORMAL) RBC Morph Micro Appear NORMAL APPEARANCE (NORMAL) Sodium 136 (135-145) mmol/L Potassium 2.8 L (3.5-5.0) mmol/L Chloride 106 (101-111) mmol/L Carbon Dioxide 21 (21-32) mmol/L Anion Gap 9.0 (6-13) BUN < 5 L (6-20) mg/dL Creatinine 0.6 (0.4-1.0) mg/dL Estimated GFR (MDRD) 116 (>89) Glucose 130 H (70-100) mg/dL Calcium 9.1 (8.5-10.3) mg/dL Magnesium 1.7 (1.7-2.8) mg/dL ABX Reporting Has patient been on IV antibiotics over the past 48 hours?: No Assessment/Plan - Problem List (1) Encephalopathy Impression: Still did not have a clear explanation of what caused her presentation. She clearly has shown significant improvement although she still not back to her bas aftab. She is able to answer yes and no appropriately to questions. She was able to recognize her and say his name. MRI of the brain was negative for stroke. Ammonia and TSH were unremarkable. I doubt this was a medication reaction given she has been on baclofen and Lyrica for quite some time and I would have expected improvement quicker and she should be back to her baseline if this was just a medication reaction. I did speak with her regarding considering a lumbar puncture but given her improvement and lack of meningeal signs, I feel this would be low yield. We agreed to continue to observe her given her improvement. I am hopeful that she will continue to progress over the next 24 hours. (2) Dementia Impression: Does have dementia at baseline but she is relatively functional. She is normally oriented to self and people around her. She did recognize it was Cj the day of. states she normally does not know the year or month. We will continue to monitor her neurologic status as mentioned above. We are hopeful that she will be able to be discharged home when she returned to her neurologic status. I have asked PT to evaluate the patient today. (3) Asymptomatic bacteriuria Impression: Her urinalysis did reveal bacteria with nitrites. I suspect this is asymp tomatic bacteriuria. I do not believe this is contributing to her encephalopathy as she is improving without treatment. We will continue to hold antibiotics. (4) History of below-knee amputation of both lower extremities Impression: Stable. We will look to resume her home medications now that she is able to take p.o. (5) Essential thrombocythemia Impression: This is chronic and stable.
[2020-10-29] MEDS: DORZOLAMIDE/TIMOLOL OPHTH DROPS EACHEYE SCH ×2 (12:10→21:05)
[2020-10-29] MEDS: prednisoLONE 1% OPHTH DROPS 75 DROPS/5 ML BOTTLE RIGHTEYE SCH ×2 (12:11→21:05)
[2020-10-29] MEDS: MIN OIL/DIMETHICON/COCONUT OIL 92 GM TUBE TOP PRN (15:43)
[2020-10-29] MEDS: ATORVASTATIN 10 MG TABLET PO SCH (20:58)
[2020-10-30] MEDS: SODIUM CHLORIDE FLUSH 0.9% 10 ML SYRINGE IVP SCH ×4 (03:32→23:26)
[2020-10-30] MEDS: DEXTROSE 5%-0.45% NACL 1,000 ML IV SCH (03:32)
[2020-10-30] MEDS: DOCUSATE SODIUM 250 MG CAPSULE PO SCH (08:35)
[2020-10-30] MEDS: ENOXAPARIN 30 MG/0.3 ML SYRINGE SUBQ SCH (08:35)
[2020-10-30] MEDS: SENNA 8.6 MG TABLET PO SCH (08:35)
[2020-10-30] MEDS: FERROUS SULFATE 325 MG TABLET PO SCH (08:35)
[2020-10-30] MEDS: ASPIRIN EC 81 MG TABLET PO SCH (08:35)
[2020-10-30] MEDS: polyethylene glycoL 3350 17 GM PACKET PO SCH (08:36)
[2020-10-30] MEDS: DORZOLAMIDE/TIMOLOL OPHTH DROPS EACHEYE SCH ×2 (08:36→21:22)
[2020-10-30] MEDS: prednisoLONE 1% OPHTH DROPS 75 DROPS/5 ML BOTTLE RIGHTEYE SCH ×2 (08:36→21:23)
[2020-10-30] MEDS ORDERED: POTASSIUM CHLOR 10 MEQ/100 ML 10 MEQ/100 ML BAG IV SCH (09:00)
[2020-10-30] MEDS: D5NS W/20 MEQ KCL 1,000 ML IV SCH (09:13)
[2020-10-30 09:24] LABS: BASOPHILS % (AUTO) 0.2 %; EOSINOPHILS % (AUTO) 0.3 %; HGB - HEMOGLOBIN 12.4 g/dL (12.0-16.0); LYMPHOCYTES # (AUTO) 2.8 10^3/uL (1.5-3.5); LYMPHOCYTES % (AUTO) 22.9 %; MEAN CORPUSCULAR HEMOGLOBIN 26.6 pg (27.0-31.0); MEAN CORPUSCULAR HGB CONC 30.3 g/dL (32.0-36.0); MEAN CORPUSCULAR VOLUME 87.6 fL (81.0-99.0); MEAN PLATELET VOLUME 11.9 fL (7.9-10.8); MONOCYTES # (AUTO) 1.4 10^3/uL (0.0-1.0); PLT - PLATELET COUNT 369 10^3/uL (130-450); RED BLOOD COUNT 4.67 10^6/uL (4.20-5.40); RED CELL DISTRIBUTION WIDTH 17.7 % (12.0-15.0); WHITE BLOOD COUNT 12.3 x10^3/uL (4.8-10.8)
[2020-10-30 09:50] LABS: PLATELET MORPHOLOGY RARE GIANT PLATELETS (NORMAL)
[2020-10-30 09:57] LABS: BUN - BLOOD UREA NITROGEN < 5 mg/dL (6-20); CREATININE 0.7 mg/dL (0.4-1.0); MAGNESIUM 1.7 mg/dL (1.7-2.8)
[2020-10-30 09:58] LABS: CALCIUM 9.5 mg/dL (8.5-10.3); CARBON DIOXIDE - CO2 22 mmol/L (21-32); CHLORIDE 107 mmol/L (101-111); GLUCOSE 108 mg/dL (70-100)
--- NOTE | 2020-10-30 10:51 | PROVIDER PROGRESS NOTE ---
Assessment/Plan - Problem List (1) Encephalopathy Assessment/Plan: We still do not have a clear explanation of what caused her presentation. CT and MRI of the brain were negative for stroke. Ammonia and TSH were unremarkable. Doubt this was a medication reaction given she has been on baclofen and Lyrica for quite some time. This could have been a medication reaction, to unknown med however. The last Hospitalist did speak with her regarding considering a lumbar puncture but given her improvement and lack of meningeal signs, he feel this would be low yield. She clearly has shown improvement although she still not back to her baseline. She is able to answer yes and no appropriately to questions. She could sit at edge of bed and balance on her own, during physical therapy today. She was able to recognize her yesterday and say his name. Apparently, this similar presentation happened several months ago, and she improved with seeing her [id number]. Therefore, will request exception of the visitor policy during Covid restrictions and allow him to be at her bedside. (2) UTI (urinary tract infection) Assessment/Plan: Her admission urinalysis did reveal many bacteria with nitrites and was agood sample. Today the WBC went up from normal to 12.9. Her altered mental status may have been her symptom to a UTI. Therefore, I would not call this asymptomatic bacteriuria. Will obtain a U/A for culture. Will treat for UTI, starting empiric antibiotics. The last 2 time she had positive urine cultures here she grew E. coli which was pansensitive and a Pseudomonas which was nearly pansensitive. Will start IV Levaquin. (3) Dementia Assessment/Plan: She does have dementia at baseline but she is relatively functional. She is normally oriented to self and people around her. She did recognize it was Cj the day of. states she normally does not know the year or month. We will continue to monitor her neurologic status as mentioned above. We are hopeful that she will be able to be discharged home when she returned to her neurologic status. She is cooperating with PT. (4) History of below-knee amputation of both lower extremities Assessment/Plan: Stable. Her bilateral prosthetics were put on by [employer] and she could stand and pivot. (5) Hx of thrombocytosis Assessment/Plan: As per Hx and seen the past few days.. Today plts are high-normal. (6) Hypokalemia Assessment/Plan: Resolved with replacement. I will order potassium in her IV gentle hydration bag. - Current Meds Current Meds: Current Medications Generic Name Dose Route Start Last Admin Trade Name Evelina PRN Reason Stop Dose Admin Aspirin 81 mg 10/29/20 09:00 10/30/20 08:35 Aspirin Ec 81 Mg Tablet PO 81 mg DAILY [facility] Administration Atorvastatin Calcium 20 mg 10/28/20 21:00 10/29/20 20:58 Atorvastatin 10 Mg Tablet PO Not Given QPM [facility] Docusate Sodium 250 - 500 mg 10/30/20 09:00 10/30/20 08:35 Docusate Sodium 250 Mg Capsule PO Not Given DAILY [facility] Dorzolamide/Timolol 1 drops 10/29/20 12:00 10/30/20 08:36 Dorzolamide/Timolol Ophth Drops EACHEYE 1 drops BID [facility] Administration Enoxaparin Sodium 30 mg 10/29/20 09:00 10/30/20 08:35 Enoxaparin 30 Mg/0.3 Ml Syringe SUBQ 30 mg DAILY [facility] Administration Ferrous Sulfate 325 mg 10/30/20 09:00 10/30/20 08:35 Ferrous Sulfate 325 Mg Tablet PO 325 mg DAILY [facility] Administration Potassium Chloride/Dextrose/Sod Cl 1,000 mls @ 60 mls/hr 10/30/20 09:00 10/30/20 09:13 IV 60 mls/hr .[id number] [facility] Administration Mineral Oil 1 applic 10/29/20 07:22 10/29/20 15:43 Min Oil/Dimethicon/Coconut Oil 92 Gm Tube TOP 1 applic PRN PRN Administration Skin Care Polyethylene Glycol 17 gm 10/30/20 09:00 10/30/20 08:36 Polyethylene Glycol 3350 17 Gm Packet PO Not Given DAILY [facility] Prednisolone 1 drops 10/29/20 12:00 10/30/20 08:36 Prednisolone 1% Ophth Drops 75 Drops/5 Ml Bottle RIGHTEYE 1 drops BID [facility] Administration Senna 8.6 - 17.2 mg 10/30/20 09:00 10/30/20 08:35 Senna 8.6 Mg Tablet PO Not Given DAILY [facility] Sodium Chloride 10 ml 10/27/20 17:00 10/30/20 08:36 Sodium Chloride Flush 0.9% 10 Ml Syringe IVP Not Given 0100,0900,1700 [facility] - Lab Result Fish Bone Diagrams: 10/30/20 09:21 10/30/20 09:21 - Additional Planning My Orders: My Active Orders 10/30/20 08:39 Bowel Protocol [Bowel - Constipation Care] [RC] ONCE 10/30/20 09:00 D5ns W/20 Meq KCl 1,000 ml IV 60 mls/hr Potassium Chlor 10 Meq/100 ml [Potassium Chloride] 10 meq in 100 ml IV Q1H Subjective - Subjective Patient Reports: Resting Comfortably, No Complaints, Other (Speaks in 1 and 2 word sentences to me but is completely alert at midday) Objective Vital Signs: Vital Signs - 24 hr 10/29/20 10/29/20 10/29/20 11:45 12:30 14:21 Temperature 37.6 C Heart Rate [ 88 Activity] Heart Rate [ 88 88 Brachial] Respiratory 16 Rate Blood Pressure 181/88 H [Activity] Blood Pressure 157/67 H 171/88 H [Right Brachial artery] O2 Saturation 94 10/29/20 10/29/20 10/30/20 15:39 20:25 00:01 Temperature 36.8 C 36.9 C 37.3 C Heart Rate [ Activity] Heart Rate [ 86 80 74 Brachial] Respiratory 20 14 18 Rate Blood Pressure [Activity] Blood Pressure 158/93 H 155/93 H 137/76 H [Right Brachial artery] O2 Saturation 98 97 96 10/30/20 10/30/20 04:18 07:46 Temperature 37.2 C Heart Rate [ Activity] Heart Rate [ 83 Brachial] Respiratory 16 Rate Blood Pressure [Activity] Blood Pressure 155/93 H [Right Brachial artery] O2 Saturation 97 98 Oxygen O2 Source [Without Activity] Room air O2 Source Room air I&O (Last 24 Hrs): Intake and Output Totals x24h 10/28/20 10/29/20 10/30/20 23:59 23:59 23:59 Intake Total 3000 2996.935 859.11 Output Total 1275 1175 700 Balance 1725 1821.935 159.11 General: Alert HEENT: Mucous membr. moist/pink Neck: Supple, No JVD Neuro: Alert, Disoriented Cardiovascular: Regular rate, Other Respiratory: No respiratory distress, Breath sounds nml Abdomen: Soft Extremities: No edema, Other (Bilat BKAs) - Results Results: Laboratory Results WBC 12.3 x10^3/uL (4.8-10.8) H 10/30/20 09:21 RBC 4.67 10^6/uL (4.20-5.40) 10/30/20 09:21 Hgb 12.4 g/dL (12.0-16.0) 10/30/20 09:21 Hct 40.9 % (37.0-47.0) 10/30/20 09:21 MCV 87.6 fL (81.0-99.0) 10/30/20 09:21 MCH 26.6 pg (27.0-31.0) L 10/30/20 09:21 MCHC 30.3 g/dL (32.0-36.0) L 10/30/20 09:21 RDW 17.7 % (12.0-15.0) H 10/30/20 09:21 Plt Count 369 10^3/uL (130-450) 10/30/20 09:21 MPV 11.9 fL (7.9-10.8) H 10/30/20 09:21 Neut # (Auto) 8.0 10^3/uL (1.5-6.6) H 10/30/20 09:21 Lymph # (Auto) 2.8 10^3/uL (1.5-3.5) 10/30/20 09:21 [place] # (Auto) 1.4 10^3/uL (0.0-1.0) H 10/30/20 09:21 Eos # (Auto) 0.0 10^3/uL (0.0-0.7) 10/30/20 09:21 Baso # (Auto) 0.0 10^3/uL (0.0-0.1) 10/30/20 09:21 Absolute Nucleated RBC 0.08 x10^3/uL 10/30/20 09:21 Total Counted 100 10/29/20 04:39 Band Neuts % (Manual) 0 % (0-10) 10/29/20 04:39 Abnorm Lymph % (Manual) 0 % 10/29/20 04:39 Myelocytes % 1 % (-0) H 10/29/20 04:39 Nucleated RBC % 0.6 /100WBC 10/30/20 09:21 Neutrophils # (Manual) 4.4 10^3/uL (1.5-6.6) 10/29/20 04:39 Lymphocytes # (Manual) 2.7 10^3/uL (1.5-3.5) 10/29/20 04:39 Monocytes # (Manual) 1.3 10^3/uL (0.0-1.0) H 10/29/20 04:39 Eosinophils # (Manual) 0.0 10^3/uL (0-0.7) 10/29/20 04:39 Basophils # (Manual) 0.0 10^3/uL (0-0.1) 10/29/20 04:39 Differential Comment MANUAL DIFFERENTIAL 10/29/20 04:39 Manual Slide Review Indicated 10/30/20 09:21 WBC Morphology NORMAL APPEARANCE (NORMAL) 10/29/20 04:39 Platelet Estimate INCREASED (>450,000) (NORMAL) 10/29/20 04:39 Platelet Morphology RARE GIANT PLATELETS (NORMAL) 10/30/20 09:21 RBC Morph Micro Appear NORMAL APPEARANCE (NORMAL) 10/29/20 04:39 VBG pH 7.346 (7.31-7.41) 10/27/20 19:46 VBG pCO2 38.6 mmHg (41-51) L 10/27/20 19:46 VBG pO2 22.3 mmHg (25-47) L 10/27/20 19:46 VBG HCO3 20.6 mmol/L (23-28) L 10/27/20 19:46 VBG Total CO2 21.8 mmol/L (24-29) L 10/27/20 19:46 VBG O2 Saturation 33.8 % (60-80) L 10/27/20 19:46 VBG Base Excess -4.6 mmol/L (-2 - +2) L 10/27/20 19:46 Sodium 140 mmol/L (135-145) 10/30/20 09:21 Potassium 4.2 mmol/L (3.5-5.0) 10/30/20 09:21 Chloride 107 mmol/L (101-111) 10/30/20 09:21 Carbon Dioxide 22 mmol/L (21-32) 10/30/20 09:21 Anion Gap 11.0 (6-13) 10/30/20 09:21 BUN < 5 mg/dL (6-20) L 10/30/20 09:21 Creatinine 0.7 mg/dL (0.4-1.0) 10/30/20 09:21 Estimated GFR (MDRD) 97 (>89) 10/30/20 09:21 Glucose 108 mg/dL (70-100) H 10/30/20 09:21 Lactic Acid 1.8 mmol/L (0.5-2.2) 10/27/20 12:47 Calcium 9.5 mg/dL (8.5-10.3) 10/30/20 09:21 Magnesium 1.7 mg/dL (1.7-2.8) 10/30/20 09:21 Total Bilirubin 0.6 mg/dL (0.2-1.0) 10/27/20 12:22 AST 22 IU/L (10-42) 10/27/20 12:22 ALT < 10 IU/L (10-60) L 10/27/20 12:22 Alkaline Phosphatase 101 IU/L (42-121) 10/27/20 12:22 Ammonia 23.1 umol/L (7-35) 10/27/20 15:19 Total Creatine Kinase 91 IU/L (22-269) 10/27/20 15:20 Total Protein 9.7 g/dL (6.7-8.2) H 10/27/20 12:22 Albumin 3.4 g/dL (3.2-5.5) 10/27/20 12:22 Globulin 6.3 g/dL (2.1-4.2) H 10/27/20 12:22 Albumin/Globulin Ratio 0.5 (1.0-2.2) L 10/27/20 12:22 Lipase 37 U/L (22-51) 10/27/20 12:22 Urine Color YELLOW 10/28/20 07:30 Urine Clarity CLEAR (CLEAR) 10/28/20 07:30 Urine pH 7.5 PH (5.0-7.5) 10/28/20 07:30 Ur Specific [place] 1.015 (1.002-1.030) 10/28/20 07:30 Urine Protein NEGATIVE mg/dL (NEGATIVE) 10/28/20 07:30 Urine Glucose (UA) NEGATIVE mg/dL (NEGATIVE) 10/28/20 07:30 Urine Ketones NEGATIVE mg/dL (NEGATIVE) 10/28/20 07:30 Urine Occult Blood NEGATIVE (NEGATIVE) 10/28/20 07:30 Urine Nitrite POSITIVE (NEGATIVE) H 10/28/20 07:30 Urine Bilirubin NEGATIVE (NEGATIVE) 10/28/20 07:30 Urine Urobilinogen 0.2 (NORMAL) E.U./dL (NORMAL) 10/28/20 07:30 Ur Leukocyte Esterase NEGATIVE (NEGATIVE) 10/28/20 07:30 Urine RBC None Seen /HPF (0-5) 10/28/20 07:30 Urine WBC 0-3 /HPF (0-5) 10/28/20 07:30 Ur Squamous Epith Cells RARE Squamous (<= Few) 10/28/20 07:30 Urine Bacteria Many /HPF (None Seen) H 10/28/20 07:30 Ur Microscopic Review INDICATED 10/28/20 07:30 Nasal Adenovirus (PCR) NOT DETECTED 10/27/20 13:42 Nasal B. parapertussis DNA (PCR) NOT DETECTED 10/27/20 13:42 Nasal Coronavir 229E PCR NOT DETECTED 10/27/20 13:42 Nasal Coronavir HKU1 PCR NOT DETECTED 10/27/20 13:42 Nasal Coronavir NL63 PCR NOT DETECTED 10/27/20 13:42 Nasal Coronavir OC43 PCR NOT DETECTED 10/27/20 13:42 Nasal Enterovir/Rhinovir PCR NOT DETECTED 10/27/20 13:42 Nasal Influenza B PCR NOT DETECTED 10/27/20 13:42 Nasal Influenza A PCR NOT DETECTED 10/27/20 13:42 Nasal Parainfluen 1 PCR NOT DETECTED 10/27/20 13:42 Nasal Parainfluen 2 PCR NOT DETECTED 10/27/20 13:42 Nasal Parainfluen 3 PCR NOT DETECTED 10/27/20 13:42 Nasal Parainfluen 4 PCR NOT DETECTED 10/27/20 13:42 Nasal RSV (PCR) NOT DETECTED 10/27/20 13:42 Nasal B.pertussis DNA PCR NOT DETECTED 10/27/20 13:42 Nasal C.pneumoniae (PCR) NOT DETECTED 10/27/20 13:42 [place] Human Metapneumo PCR NOT DETECTED 10/27/20 13:42 Nasal M.pneumoniae (PCR) NOT DETECTED 10/27/20 13:42 Nasal SARS-CoV-2 (PCR) NOT DETECTED 10/27/20 13:42 Urine Opiates Screen NEGATIVE (NEGATIVE) 10/27/20 22:00 Ur Oxycodone Screen NEGATIVE (NEGATIVE) 10/27/20 22:00 Urine Methadone Screen NEGATIVE (NEGATIVE) 10/27/20 22:00 Ur Propoxyphene Screen NEGATIVE (NEGATIVE) 10/27/20 22:00 Ur Barbiturates Screen NEGATIVE (NEGATIVE) 10/27/20 22:00 Ur Tricyclics Screen NEGATIVE (NEGATIVE) 10/27/20 22:00 Ur Phencyclidine Scrn NEGATIVE (NEGATIVE) 10/27/20 22:00 Ur Amphetamine Screen NEGATIVE (NEGATIVE) 10/27/20 22:00 U Methamphetamines Scrn NEGATIVE (NEGATIVE) 10/27/20 22:00 U Benzodiazepines Scrn POSITIVE (NEGATIVE) H 10/27/20 22:00 Urine Cocaine Screen NEGATIVE (NEGATIVE) 10/27/20 22:00 U Cannabinoids Screen NEGATIVE (NEGATIVE) 10/27/20 22:00 - Procedures Procedures: Procedures CENTRAL VENOUS CATHETER PLACEMENT WITH GUIDANCE (07/02/15) SPINAL TAP (07/02/15)
[2020-10-30 12:08] LABS: BILIRUBIN,URINE NEGATIVE (NEGATIVE); GLUCOSE, URINE (UA) NEGATIVE (NEGATIVE); KETONES,URINE (UA) NEGATIVE (NEGATIVE); LEUKOCYTE ESTERASE, URINE MODERATE (NEGATIVE); NITRITE,URINE NEGATIVE (NEGATIVE); OCCULT BLOOD,URINE SMALL (NEGATIVE); PH,URINE 7.5 PH (5.0-7.5); PROTEIN,URINE NEGATIVE (NEGATIVE); UROBILINOGEN,URINE 0.2 (NORMAL) E.U./dL (NORMAL)
[2020-10-30 12:09] LABS: CLARITY,URINE CLEAR (CLEAR)
[2020-10-30 12:20] LABS: BACTERIA,URINE Moderate /HPF (None Seen); RBC,URINE 0-5 /HPF (0-5); SQUAMOUS EPITHELIAL CELL,UR RARE Squamous (<= Few)
[2020-10-30] MEDS ORDERED: BISACODYL 10 MG SUPP PR ONE (12:24)
[2020-10-30] MEDS: MIN OIL/DIMETHICON/COCONUT OIL 92 GM TUBE TOP PRN ×2 (12:35→21:23)
[2020-10-30] MEDS: levoFLOXacin 500 MG/100 ML 500 MG/100 ML BAG IV SCH (13:27)
[2020-10-30] MEDS: ATORVASTATIN 10 MG TABLET PO SCH (21:23)
[2020-10-31] MEDS: D5NS W/20 MEQ KCL 1,000 ML IV SCH ×2 (02:35→20:48)
[2020-10-31 07:33] LABS: BASOPHILS % (AUTO) 0.3 %; EOSINOPHILS % (AUTO) 0.5 %; HGB - HEMOGLOBIN 12.4 g/dL (12.0-16.0); LYMPHOCYTES # (AUTO) 2.9 10^3/uL (1.5-3.5); LYMPHOCYTES % (AUTO) 33.2 %; MEAN CORPUSCULAR HEMOGLOBIN 27.6 pg (27.0-31.0); MEAN CORPUSCULAR HGB CONC 31.7 g/dL (32.0-36.0); MEAN CORPUSCULAR VOLUME 86.9 fL (81.0-99.0); MEAN PLATELET VOLUME 12.7 fL (7.9-10.8); MONOCYTES # (AUTO) 1.2 10^3/uL (0.0-1.0); NEUTROPHILS # (AUTO) 4.5 10^3/uL (1.5-6.6); PLT - PLATELET COUNT 423 10^3/uL (130-450); RED CELL DISTRIBUTION WIDTH 17.7 % (12.0-15.0); WHITE BLOOD COUNT 8.8 x10^3/uL (4.8-10.8)
[2020-10-31 07:45] LABS: BUN - BLOOD UREA NITROGEN < 5 mg/dL (6-20); CALCIUM 9.3 mg/dL (8.5-10.3); CARBON DIOXIDE - CO2 22 mmol/L (21-32); CHLORIDE 108 mmol/L (101-111); CREATININE 0.8 mg/dL (0.4-1.0); GLUCOSE 100 mg/dL (70-100); MAGNESIUM 1.6 mg/dL (1.7-2.8)
[2020-10-31 07:54] LABS: DIFFERENTIAL COMMENT MANUAL=AUTO DIFF; PLATELET MORPHOLOGY PLATELET CLUMPING (NORMAL); RBC MORPHOLOGY (MULTIPLE) NORMAL APPEARANCE (NORMAL)
[2020-10-31 07:55] LABS: PLATELET ESTIMATE, MANUAL INCREASED (>450,000) (NORMAL)
[2020-10-31] MEDS: ASPIRIN EC 81 MG TABLET PO SCH (09:25)
[2020-10-31] MEDS: FERROUS SULFATE 325 MG TABLET PO SCH (09:25)
[2020-10-31] MEDS: SENNA 8.6 MG TABLET PO SCH (09:26)
[2020-10-31] MEDS: DORZOLAMIDE/TIMOLOL OPHTH DROPS EACHEYE SCH ×2 (09:26→20:37)
[2020-10-31] MEDS: ENOXAPARIN 30 MG/0.3 ML SYRINGE SUBQ SCH (09:27)
[2020-10-31] MEDS: prednisoLONE 1% OPHTH DROPS 75 DROPS/5 ML BOTTLE RIGHTEYE SCH ×2 (09:30→20:37)
[2020-10-31] MEDS: polyethylene glycoL 3350 17 GM PACKET PO SCH (09:33)
[2020-10-31] MEDS: DOCUSATE SODIUM 250 MG CAPSULE PO SCH (09:36)
[2020-10-31] MEDS: SODIUM CHLORIDE FLUSH 0.9% 10 ML SYRINGE IVP SCH ×2 (09:36→17:33)
--- NOTE | 2020-10-31 10:35 | PROVIDER PROGRESS NOTE ---
Assessment/Plan - Problem List (1) Encephalopathy Assessment/Plan: I now suspect that a UTI caused her presentation of altered mental status. CT and MRI of the brain were negative for stroke. Ammonia and TSH were unremarkable. Doubt this was a medication reaction given she has been on baclofen and Lyrica for quite some time. This could have been a medication reaction, to unknown med however. She continues to have slow improvement back to her baseline. She is able to speak and participate slightly with physical therapy. Apparently, this similar presentation happened several months ago, and she improved with seeing her [id number]. Therefore, requested exception of the visitor policy during Covid restrictions and allow him to be at her bedside. The tells me today that she is still not back at her baseline mental status. Continue treating the UTI (see below) and gentle IV hydration and working with PT. (2) E. coli UTI (urinary tract infection) Assessment/Plan: Yesterday the WBC went up from normal to 12.9. Another U/A was done yesterday and showed a UTI and culture was "indicated". Her admission urinalysis did reveal many bacteria with nitrites and was a good sample. Her altered mental status may have been her symptom of a UT, therefore, I would not have called that asymptomatic bacteriuria. The last 2 time she had positive urine cultures here she grew E. coli which was pansensitive and a Pseudomonas which was nearly pansensitive. Yesterday, iv Levaquin was started, since shw could not take po reliably (was taking only 10% of her tray), therefore Fosfomycin was not chosen. Continue empiric Levaquin. Await E. coli sensitivity results tomorrow (3) Dementia Assessment/Plan: She does have dementia at baseline but she is relatively functional. She is normally oriented to self and people around her. She did recognize it was [place] but her stated she normally does not know the year or month. She is cooperating with PT. Our Physical Therapist will likely recommend Home Health PT for after discharge. It is unclear why she is on Divalproex but this was resumed today in case there is a history of seizures (4) Malnutrition Assessment/Plan: She is taking 10% of her tray while here. The told the nurse this is how much he usually eats at home as well. We will request a Dietary consult for malnutrition screening and to give recommendations in management and to have the Dietitian speak to the when he is here (usually in the afternoon, after he gets his chemo at [facility]). (5) History of below-knee amputation of both lower extremities Assessment/Plan: Stable. Her bilateral prosthetics were put on by [employer] and she could stand and pivot. (6) Glaucoma Assessment/Plan: The wanted to be assured that her eyedrops have been resumed, which they have (7) Hx of thrombocytosis Assessment/Plan: As per Hx and seen the past few days. I now suspect this was reactive, from an infection. Today plts are high-normal. (8) Hypokalemia Assessment/Plan: Corrected with replacement, IV K riders. Follow BMP daily. - Current Meds Current Meds: Current Medications Generic Name Dose Route Start Last Admin Trade Name Freq PRN Reason Stop Dose Admin Aspirin 81 mg 10/29/20 09:00 10/31/20 09:25 Aspirin Ec 81 Mg Tablet PO 81 mg DAILY CURTIS Administration Atorvastatin Calcium 20 mg 10/28/20 21:00 10/30/20 21:23 Atorvastatin 10 Mg Tablet PO 20 mg QPM CURTIS Administration Docusate Sodium 250 - 500 mg 10/30/20 09:00 10/31/20 09:36 Docusate Sodium 250 Mg Capsule PO Not Given DAILY CURTIS Dorzolamide/Timolol 1 drops 10/29/20 12:00 10/31/20 09:26 Dorzolamide/Timolol Ophth Drops EACHEYE 1 drops BID CURTIS Administration Enoxaparin Sodium 30 mg 10/29/20 09:00 10/31/20 09:27 Enoxaparin 30 Mg/0.3 Ml Syringe SUBQ 30 mg DAILY CURTIS Administration Ferrous Sulfate 325 mg 10/30/20 09:00 10/31/20 09:25 Ferrous Sulfate 325 Mg Tablet PO 325 mg DAILY CURTIS Administration Potassium Chloride/Dextrose/Sod Cl 1,000 mls @ 60 mls/hr 10/30/20 09:00 10/31/20 02:35 IV 60 mls/hr .[id number] CURTIS Administration Levofloxacin 500 mg in 100 mls @ 66.667 mls/hr 10/30/20 14:00 10/30/20 15:00 Levaquin 500 Mg/100 Ml IV 11/01/20 15:29 Infused Q24H CURTIS Infusion Mineral Oil 1 applic 10/29/20 07:22 10/30/20 21:23 Min Oil/Dimethicon/Coconut Oil 92 Gm Tube TOP 1 applic PRN PRN Administration Skin Care Polyethylene Glycol 17 gm 10/30/20 09:00 10/31/20 09:33 Polyethylene Glycol 3350 17 Gm Packet PO 17 gm DAILY CURTIS Administration Prednisolone 1 drops 10/29/20 12:00 10/31/20 09:30 Prednisolone 1% Ophth Drops 75 Drops/5 Ml Bottle RIGHTEYE 1 drops BID CURTIS Administration Senna 8.6 - 17.2 mg 10/30/20 09:00 10/31/20 09:26 Senna 8.6 Mg Tablet PO 8.6 mg DAILY CURTIS Administration Sodium Chloride 10 ml 10/27/20 17:00 10/31/20 09:36 Sodium Chloride Flush 0.9% 10 Ml Syringe IVP Not Given 0100,0900,1700 CURTIS - Lab Result Fish Bone Diagrams: 10/31/20 07:24 10/31/20 07:24 - Additional Planning My Orders: My Active Orders 10/30/20 11:20 CUL, URINE [RM] Stat 10/30/20 14:00 levoFLOXacin 500 MG/100 ML [Levaquin 500 mg/100 ml] 500 mg in 100 ml IV Q24H 10/31/20 10:00 Dietary [Nutrition Consult] [CONS] Routine Subjective - Subjective Patient Reports: No Complaints, Other (She is sitting upright in her recliner chair, turns her head and is able to follow conversation between myself and her in the room, and has 1 or 2 word answers.) Nursing Reports: Other (Only takes a spoonful of her chocolate pudding and then refuses anything more for each meal, per her RN.) Objective Vital Signs: Vital Signs - 24 hr 10/30/20 10/30/20 10/30/20 11:18 15:47 19:47 Temperature 37.1 C 36.5 C 37.4 C Heart Rate [ 80 74 75 Brachial] Respiratory 16 20 18 Rate Blood Pressure 143/94 H 129/96 H 150/86 H [Right Brachial artery] O2 Saturation 95 97 100 10/30/20 10/31/20 10/31/20 23:33 05:07 08:21 Temperature 37.3 C 36.7 C 36.4 C L Heart Rate [ 74 83 73 Brachial] Respiratory 20 20 17 Rate Blood Pressure 113/86 H 155/81 H [Right Brachial artery] O2 Saturation 96 98 98 10/31/20 09:00 Temperature Heart Rate [ 79 Brachial] Respiratory Rate Blood Pressure 141/101 H [Right Brachial artery] O2 Saturation Oxygen O2 Source [Without Activity] Room air O2 Source Room air I&O (Last 24 Hrs): Intake and Output Totals x24h 10/29/20 10/30/20 10/31/20 23:59 23:59 23:59 Intake Total 2996.935 1323.11 760 Output Total 1175 950 50 Balance 1821.935 373.11 710 General: Alert HEENT: EOMI, Mucous membr. moist/pink Neck: Supple, No JVD Neuro: Alert, Disoriented, Non Focal Cardiovascular: Regular rate, No murmurs Respiratory: No respiratory distress Abdomen: Soft Extremities: No edema Skin: No rashes ((+) skin tenting of arms) - Results Results: Laboratory Results WBC 8.8 x10^3/uL (4.8-10.8) 10/31/20 07:24 RBC 4.50 10^6/uL (4.20-5.40) 10/31/20 07:24 Hgb 12.4 g/dL (12.0-16.0) 10/31/20 07:24 Hct 39.1 % (37.0-47.0) 10/31/20 07:24 MCV 86.9 fL (81.0-99.0) 10/31/20 07:24 MCH 27.6 pg (27.0-31.0) 10/31/20 07:24 MCHC 31.7 g/dL (32.0-36.0) L 10/31/20 07:24 RDW 17.7 % (12.0-15.0) H 10/31/20 07:24 Plt Count 423 10^3/uL (130-450) 10/31/20 07:24 MPV 12.7 fL (7.9-10.8) H 10/31/20 07:24 Neut # (Auto) 4.5 10^3/uL (1.5-6.6) 10/31/20 07:24 Lymph # (Auto) 2.9 10^3/uL (1.5-3.5) 10/31/20 07:24 [place] # (Auto) 1.2 10^3/uL (0.0-1.0) H 10/31/20 07:24 Eos # (Auto) 0.0 10^3/uL (0.0-0.7) 10/31/20 07:24 Baso # (Auto) 0.0 10^3/uL (0.0-0.1) 10/31/20 07:24 Absolute Nucleated RBC 0.05 x10^3/uL 10/31/20 07:24 Total Counted 100 10/29/20 04:39 Band Neuts % (Manual) Not Reportable 10/31/20 07:24 Abnorm Lymph % (Manual) Not Reportable 10/31/20 07:24 Myelocytes % 1 % (-0) H 10/29/20 04:39 Nucleated RBC % 0.6 /100WBC 10/31/20 07:24 Neutrophils # (Manual) Not Reportable 10/31/20 07:24 Lymphocytes # (Manual) Not Reportable 10/31/20 07:24 Monocytes # (Manual) Not Reportable 10/31/20 07:24 Eosinophils # (Manual) Not Reportable 10/31/20 07:24 Basophils # (Manual) Not Reportable 10/31/20 07:24 Differential Comment MANUAL=AUTO DIFF 10/31/20 07:24 Manual Slide Review Indicated 10/30/20 09:21 WBC Morphology NORMAL APPEARANCE (NORMAL) 10/29/20 04:39 Platelet Estimate INCREASED (>450,000) (NORMAL) 10/31/20 07:24 Platelet Morphology PLATELET CLUMPING (NORMAL) 10/31/20 07:24 RBC Morph Micro Appear NORMAL APPEARANCE (NORMAL) 10/31/20 07:24 VBG pH 7.346 (7.31-7.41) 10/27/20 19:46 VBG pCO2 38.6 mmHg (41-51) L 10/27/20 19:46 VBG pO2 22.3 mmHg (25-47) L 10/27/20 19:46 VBG HCO3 20.6 mmol/L (23-28) L 10/27/20 19:46 VBG Total CO2 21.8 mmol/L (24-29) L 10/27/20 19:46 VBG O2 Saturation 33.8 % (60-80) L 10/27/20 19:46 VBG Base Excess -4.6 mmol/L (-2 - +2) L 10/27/20 19:46 Sodium 137 mmol/L (135-145) 10/31/20 07:24 Potassium 3.6 mmol/L (3.5-5.0) 10/31/20 07:24 Chloride 108 mmol/L (101-111) 10/31/20 07:24 Carbon Dioxide 22 mmol/L (21-32) 10/31/20 07:24 Anion Gap 7.0 (6-13) 10/31/20 07:24 BUN < 5 mg/dL (6-20) L 10/31/20 07:24 Creatinine 0.8 mg/dL (0.4-1.0) 10/31/20 07:24 Estimated GFR (MDRD) 83 (>89) L 10/31/20 07:24 Glucose 100 mg/dL (70-100) 10/31/20 07:24 Lactic Acid 1.8 mmol/L (0.5-2.2) 10/27/20 12:47 Calcium 9.3 mg/dL (8.5-10.3) 10/31/20 07:24 Magnesium 1.6 mg/dL (1.7-2.8) L 10/31/20 07:24 Total Bilirubin 0.6 mg/dL (0.2-1.0) 10/27/20 12:22 AST 22 IU/L (10-42) 10/27/20 12:22 ALT < 10 IU/L (10-60) L 10/27/20 12:22 Alkaline Phosphatase 101 IU/L (42-121) 10/27/20 12:22 Ammonia 18.7 umol/L (7-35) 10/31/20 07:24 Total Creatine Kinase 91 IU/L (22-269) 10/27/20 15:20 Total Protein 9.7 g/dL (6.7-8.2) H 10/27/20 12:22 Albumin 3.4 g/dL (3.2-5.5) 10/27/20 12:22 Globulin 6.3 g/dL (2.1-4.2) H 10/27/20 12:22 Albumin/Globulin Ratio 0.5 (1.0-2.2) L 10/27/20 12:22 Lipase 37 U/L (22-51) 10/27/20 12:22 Urine Color YELLOW 10/30/20 11:20 Urine Clarity CLEAR (CLEAR) 10/30/20 11:20 Urine pH 7.5 PH (5.0-7.5) 10/30/20 11:20 Ur Specific [place] 1.015 (1.002-1.030) 10/30/20 11:20 Urine Protein NEGATIVE mg/dL (NEGATIVE) 10/30/20 11:20 Urine Glucose (UA) NEGATIVE mg/dL (NEGATIVE) 10/30/20 11:20 Urine Ketones NEGATIVE mg/dL (NEGATIVE) 10/30/20 11:20 Urine Occult Blood SMALL (NEGATIVE) H 10/30/20 11:20 Urine Nitrite NEGATIVE (NEGATIVE) 10/30/20 11:20 Urine Bilirubin NEGATIVE (NEGATIVE) 10/30/20 11:20 Urine Urobilinogen 0.2 (NORMAL) E.U./dL (NORMAL) 10/30/20 11:20 Ur Leukocyte Esterase MODERATE (NEGATIVE) H 10/30/20 11:20 Urine RBC 0-5 /HPF (0-5) 10/30/20 11:20 Urine WBC 11-25 /HPF (0-5) H 10/30/20 11:20 Ur Squamous Epith Cells RARE Squamous (<= Few) 10/30/20 11:20 Urine Bacteria Moderate /HPF (None Seen) H 10/30/20 11:20 Ur Microscopic Review INDICATED 10/28/20 07:30 Urine Culture Comments INDICATED 10/30/20 11:20 Nasal Adenovirus (PCR) NOT DETECTED 10/27/20 13:42 Nasal B. parapertussis DNA (PCR) NOT DETECTED 10/27/20 13:42 Nasal Coronavir 229E PCR NOT DETECTED 10/27/20 13:42 Nasal Coronavir HKU1 PCR NOT DETECTED 10/27/20 13:42 Nasal Coronavir NL63 PCR NOT DETECTED 10/27/20 13:42 Nasal Coronavir OC43 PCR NOT DETECTED 10/27/20 13:42 Nasal Enterovir/Rhinovir PCR NOT DETECTED 10/27/20 13:42 Nasal Influenza B PCR NOT DETECTED 10/27/20 13:42 Nasal Influenza A PCR NOT DETECTED 10/27/20 13:42 Nasal Parainfluen 1 PCR NOT DETECTED 10/27/20 13:42 Nasal Parainfluen 2 PCR NOT DETECTED 10/27/20 13:42 Nasal Parainfluen 3 PCR NOT DETECTED 10/27/20 13:42 Nasal Parainfluen 4 PCR NOT DETECTED 10/27/20 13:42 Nasal RSV (PCR) NOT DETECTED 10/27/20 13:42 Nasal B.pertussis DNA PCR NOT DETECTED 10/27/20 13:42 Nasal C.pneumoniae (PCR) NOT DETECTED 10/27/20 13:42 [place] Human Metapneumo PCR NOT DETECTED 10/27/20 13:42 Nasal M.pneumoniae (PCR) NOT DETECTED 10/27/20 13:42 Nasal SARS-CoV-2 (PCR) NOT DETECTED 10/27/20 13:42 Urine Opiates Screen NEGATIVE (NEGATIVE) 10/27/20 22:00 Ur Oxycodone Screen NEGATIVE (NEGATIVE) 10/27/20 22:00 Urine Methadone Screen NEGATIVE (NEGATIVE) 10/27/20 22:00 Ur Propoxyphene Screen NEGATIVE (NEGATIVE) 10/27/20 22:00 Ur Barbiturates Screen NEGATIVE (NEGATIVE) 10/27/20 22:00 Ur Tricyclics Screen NEGATIVE (NEGATIVE) 10/27/20 22:00 Ur Phencyclidine Scrn NEGATIVE (NEGATIVE) 10/27/20 22:00 Ur Amphetamine Screen NEGATIVE (NEGATIVE) 10/27/20 22:00 U Methamphetamines Scrn NEGATIVE (NEGATIVE) 10/27/20 22:00 U Benzodiazepines Scrn POSITIVE (NEGATIVE) H 10/27/20 22:00 Urine Cocaine Screen NEGATIVE (NEGATIVE) 10/27/20 22:00 U Cannabinoids Screen NEGATIVE (NEGATIVE) 10/27/20 22:00 - Procedures Procedures: Procedures CENTRAL VENOUS CATHETER PLACEMENT WITH GUIDANCE (07/02/15) SPINAL TAP (07/02/15)
[2020-10-31] MEDS: levoFLOXacin 500 MG/100 ML 500 MG/100 ML BAG IV SCH (14:14)
[2020-10-31] MEDS: ATORVASTATIN 10 MG TABLET PO SCH (20:36)
[2020-10-31] MEDS: DIVALPROEX DR 125 MG TABLET PO SCH (20:36)
[2020-11-01 05:37] LABS: BASOPHILS % (AUTO) 0.3 %; EOSINOPHILS % (AUTO) 0.6 %; HGB - HEMOGLOBIN 11.2 g/dL (12.0-16.0); LYMPHOCYTES # (AUTO) 2.5 10^3/uL (1.5-3.5); LYMPHOCYTES % (AUTO) 35.9 %; MEAN CORPUSCULAR HEMOGLOBIN 27.2 pg (27.0-31.0); MEAN CORPUSCULAR HGB CONC 30.4 g/dL (32.0-36.0); MEAN CORPUSCULAR VOLUME 89.6 fL (81.0-99.0); MEAN PLATELET VOLUME 12.2 fL (7.9-10.8); MONOCYTES # (AUTO) 1.1 10^3/uL (0.0-1.0); MONOCYTES % (AUTO) 16.1 %; NEUTROPHILS # (AUTO) 3.3 10^3/uL (1.5-6.6); NEUTROPHILS % (AUTO) 46.7 %; PLT - PLATELET COUNT 545 10^3/uL (130-450); RED BLOOD COUNT 4.12 10^6/uL (4.20-5.40); RED CELL DISTRIBUTION WIDTH 17.8 % (12.0-15.0)
[2020-11-01 05:44] LABS: CALCIUM 9.2 mg/dL (8.5-10.3); CREATININE 0.7 mg/dL (0.4-1.0); MAGNESIUM 1.6 mg/dL (1.7-2.8)
[2020-11-01 05:56] LABS: PLATELET ESTIMATE, MANUAL INCREASED (>450,000) (NORMAL); PLATELET MORPHOLOGY 1+ GIANT PLATELETS (NORMAL); RBC MORPHOLOGY (MULTIPLE) NORMAL APPEARANCE (NORMAL)
[2020-11-01] MEDS ORDERED: D5NS W/20 MEQ KCL 1,000 ML IV SCH (07:31)
[2020-11-01] MEDS: SODIUM CHLORIDE FLUSH 0.9% 10 ML SYRINGE IVP SCH ×4 (08:24→23:58)
[2020-11-01] MEDS: LACTOBACILLUS RHAMNOSUS GG CAPSULE PO SCH (09:02)
[2020-11-01] MEDS: DOCUSATE SODIUM 250 MG CAPSULE PO SCH (09:02)
[2020-11-01] MEDS: ASPIRIN EC 81 MG TABLET PO SCH (09:02)
[2020-11-01] MEDS: CHOLECALCIFEROL 25 MCG TABLET PO SCH (09:02)
[2020-11-01] MEDS: DIVALPROEX DR 125 MG TABLET PO SCH (09:02)
[2020-11-01] MEDS: FERROUS SULFATE 325 MG TABLET PO SCH (09:02)
[2020-11-01] MEDS: polyethylene glycoL 3350 17 GM PACKET PO SCH (09:03)
[2020-11-01] MEDS: DORZOLAMIDE/TIMOLOL OPHTH DROPS EACHEYE SCH ×2 (09:03→20:44)
[2020-11-01] MEDS: SENNA 8.6 MG TABLET PO SCH (09:03)
[2020-11-01] MEDS: ENOXAPARIN 30 MG/0.3 ML SYRINGE SUBQ SCH (09:03)
[2020-11-01] MEDS: prednisoLONE 1% OPHTH DROPS 75 DROPS/5 ML BOTTLE RIGHTEYE SCH ×2 (09:03→20:45)
--- NOTE | 2020-11-01 11:02 | PROVIDER PROGRESS NOTE ---
Assessment/Plan - Problem List (1) FTT (failure to thrive) in adult Assessment/Plan: She took less than 1 bite of her breakfast tray this morning, which was ordered to be a soft diet ever since yesterday, ever since her reported she liked "chicken salad every day at 3 PM". I spoke to the patient that if she wants to go home she must be able to take in nutrition. She agreed. I then asked her to show me how she eats. The patient was offered food (the CONFIGURATION ANALYST brought a spoon with food to her mouth) and she refused everything, and would not even swallow 1 bite, repeating "No, no no" and pushing the spoon away with her hands. She also refused to swallow several of her meds yesterday and only got intermittent medications on her schedule. Will stop the unnecessary p.o. meds like her statin. I will discuss her FTT with the , as to whether he wants a PEG tube placed or to transition her into Hospice care, since she has been awake for >3 days enough to eat but is taking in inadequate nutrition or fluids. Continue gentle IV hydration. (2) Encephalopathy Assessment/Plan: I now suspect that a UTI caused her presentation of altered mental status. CT and MRI of the brain were negative for stroke. Ammonia and TSH were unremarkable. Doubt this was a medication reaction given she has been on baclofen and Lyrica for quite some time. She continues to have slow improvement back to her baseline. She is able to answer (but only says Yes and No today) and can participate slightly with physical therapy. Apparently, this similar presentation happened several months ago, and she improved with seeing her [id number]. Therefore, reques chance exception of the visitor policy during Covid restrictions and allow him to be at her bedside. The agrees that she is still not back at her baseline mental status. Today, I suspect she is also weak from FTT. Continue treating the UTI, gentle IV hydration and will discuss her FTT with . (3) E. coli UTI (urinary tract infection) Assessment/Plan: When the WBC went up from normal to 12.9, another U/A was done and showed a UTI and culture was "indicated". It is growing E coli. Today sens are back and it is desouza-sensitive. Her admission urinalysis did reveal many bacteria with nitrites and was a good sample. Her altered mental status may have been her symptom of a UTI, therefore, I would not have called that asymptomatic bacteriuria. IV Levaquin was started, since she could not take po reliably (was taking only 10% of her tray), therefore oral Fosfomycin 1 dose was not chosen. Continue Levaquin, the course will be finished tomorrow. (4) Dementia Assessment/Plan: She does have dementia at baseline but she was relatively functional. She was normally oriented to self and people around her. She did recognize it was Cj but her stated she normally does not know the year or month. She is cooperating with PT. Our Physical Therapist may recommend Home Health PT for after discharge. It is unclear why she is on Divalproex but this was resumed today in case there is a history of seizures (5) Malnutrition Assessment/Plan: She is taking less than 10% of her tray now. The told the nurse this is how much she usually eats at home as well, thereforte a Dietary consult for malnutrition screening and to give recommendations was requested and done yesterday. (6) History of below-knee amputation of both lower extremities Assessment/Plan: Stable. Before this hospitalization, she could put her prosthetics on by herself. Her bilateral prosthetics were put on by our staff and she could stand and pivot. (7) Glaucoma Assessment/Plan: The wanted to be assured that her eyedrops have been resumed, which they have (8) Hx of thrombocytosis Assessment/Plan: As per Hx and seen initially or was from an infection. (9) Hypomagnesemia Assessment/Plan: Leading to malnutrition and failure to thrive. We will replace (10) Hypokalemia Assessment/Plan: Resolved with K rider IV replacement. - Current Meds Current Meds: Current Medications Generic Name Dose Route Start Last Admin Trade Name Freq PRN Reason Stop Dose Admin Aspirin 81 mg 10/29/20 09:00 11/01/20 09:02 Aspirin Ec 81 Mg Tablet PO 81 mg DAILY CURTIS Administration Cholecalciferol 25 mcg 11/01/20 09:00 11/01/20 09:02 Cholecalciferol 25 Mcg Tablet PO 25 mcg DAILY CURTIS Administration Divalproex Sodium 125 mg 10/31/20 21:00 11/01/20 09:[address] 125 Mg Tablet PO 125 mg BID CURTIS Administration Docusate Sodium 250 - 500 mg 10/30/20 09:00 11/01/20 09:02 Docusate Sodium 250 Mg Capsule PO 250 mg DAILY CURTIS Administration Dorzolamide/Timolol 1 drops 10/29/20 12:00 11/01/20 09:03 Dorzolamide/Timolol Ophth Drops EACHEYE 1 drops BID CURTIS Administration Enoxaparin Sodium 30 mg 10/29/20 09:00 11/01/20 09:03 Enoxaparin 30 Mg/0.3 Ml Syringe SUBQ 30 mg DAILY CURTIS Administration Ferrous Sulfate 325 mg 10/30/20 09:00 11/01/20 09:02 Ferrous Sulfate 325 Mg Tablet PO 325 mg DAILY CURTIS Administration Levofloxacin 500 mg in 100 mls @ 66.667 mls/hr 10/30/20 14:00 10/31/20 15:44 Levaquin 500 Mg/100 Ml IV 11/01/20 15:29 Infused Q24H CURTIS Infusion Potassium Chloride/Dextrose/Sod Cl 1,000 mls @ 40 mls/hr 11/01/20 07:31 11/01/20 08:24 IV 40 mls/hr .Q25H CURTIS Administration Lactobacillus Rhamnosus 1 cap 11/01/20 09:00 11/01/20 09:02 Lactobacillus Rhamnosus Gg Capsule PO 1 cap DAILY CURTIS Administration Mineral Oil 1 applic 10/29/20 07:22 10/30/20 21:23 Min Oil/Dimethicon/Coconut Oil 92 Gm Tube TOP 1 applic PRN PRN Administration Skin Care Polyethylene Glycol 17 gm 10/30/20 09:00 11/01/20 09:03 Polyethylene Glycol 3350 17 Gm Packet PO Not Given DAILY CURTIS Prednisolone 1 drops 10/29/20 12:00 11/01/20 09:03 Prednisolone 1% Ophth Drops 75 Drops/5 Ml Bottle RIGHTEYE 1 drops BID CURTIS Administration Senna 8.6 - 17.2 mg 10/30/20 09:00 11/01/20 09:03 Senna 8.6 Mg Tablet PO Not Given DAILY CURTIS Sodium Chloride 10 ml 10/27/20 17:00 11/01/20 09:04 Sodium Chloride Flush 0.9% 10 Ml Syringe IVP Not Given 0100,0900,1700 CURTIS - Lab Result Fish Bone Diagrams: 11/01/20 05:32 11/01/20 05:32 - Additional Planning My Orders: My Active Orders 10/31/20 10:00 Dietary [Nutrition Consult] [CONS] Routine 10/31/20 Lunch DIET [Soft Mechanical Diet] [DIET] 10/31/20 21:[address] [Depakote Dr] 125 mg PO BID 11/01/20 07:31 D5ns W/20 Meq KCl 1,000 ml IV 40 mls/hr 11/01/20 09:00 Cholecalciferol [Vitamin D3] 25 mcg PO DAILY Lactobacillus Rhamnosus GG [Culturelle] 1 cap PO DAILY 11/02/20 05:00 BMP - BASIC METABOLIC PANEL [CHEM] DAILYLAB CBC W/O DIFF (HEMOGRAM) [HEME] DAILYLAB 11/03/20 05:00 BMP - BASIC METABOLIC PANEL [CHEM] DAILYLAB Subjective - Subjective Patient Reports: No Complaints, Other (Grunts and says yes and no only) Objective Vital Signs: Vital Signs - 24 hr 10/31/20 10/31/20 10/31/20 13:00 15:28 15:49 Temperature 37.1 C 36.9 C Heart Rate [ 68 78 Brachial] Respiratory 19 16 Rate Blood Pressure 114/89 H 133/97 H [Right Brachial artery] Blood Pressure [Right Radial artery] O2 Saturation 97 97 10/31/20 10/31/20 11/01/20 20:49 23:55 05:40 Temperature 36.8 C 36.9 C Heart Rate [ 77 77 Brachial] Respiratory 20 17 Rate Blood Pressure 149/77 H 163/83 H [Right Brachial artery] Blood Pressure [Right Radial artery] O2 Saturation 96 96 11/01/20 08:34 Temperature 36.4 C L Heart Rate [ 76 Brachial] Respiratory 20 Rate Blood Pressure [Right Brachial artery] Blood Pressure 145/88 H [Right Radial artery] O2 Saturation 96 Oxygen O2 Source [Without Activity] Room air O2 Source Room air I&O (Last 24 Hrs): Intake and Output Totals x24h 10/30/20 10/31/20 11/01/20 23:59 23:59 23:59 Intake Total 1323.11 2191 15 Output Total 950 750 200 Balance 373.11 1441 -185 General: Alert HEENT: Mucous membr. moist/pink, Other (R eye has a dense white cataract) Neck: Supple Neuro: Alert, Disoriented, Other (speech is only Yeah and No and grunts) Cardiovascular: Regular rate, No murmurs Respiratory: No respiratory distress, Breath sounds nml Abdomen: Soft, No tenderness Extremities: No edema - Results Results: Laboratory Results WBC 7.0 x10^3/uL (4.8-10.8) 11/01/20 05:32 RBC 4.12 10^6/uL (4.20-5.40) L 11/01/20 05:32 Hgb 11.2 g/dL (12.0-16.0) L 11/01/20 05:32 Hct 36.9 % (37.0-47.0) L 11/01/20 05:32 MCV 89.6 fL (81.0-99.0) 11/01/20 05:32 MCH 27.2 pg (27.0-31.0) 11/01/20 05:32 MCHC 30.4 g/dL (32.0-36.0) L 11/01/20 05:32 RDW 17.8 % (12.0-15.0) H 11/01/20 05:32 Plt Count 545 10^3/uL (130-450) H 11/01/20 05:32 MPV 12.2 fL (7.9-10.8) H 11/01/20 05:32 Neut # (Auto) 3.3 10^3/uL (1.5-6.6) 11/01/20 05:32 Lymph # (Auto) 2.5 10^3/uL (1.5-3.5) 11/01/20 05:32 [place] # (Auto) 1.1 10^3/uL (0.0-1.0) H 11/01/20 05:32 Eos # (Auto) 0.0 10^3/uL (0.0-0.7) 11/01/20 05:32 Baso # (Auto) 0.0 10^3/uL (0.0-0.1) 11/01/20 05:32 Absolute Nucleated RBC 0.04 x10^3/uL 11/01/20 05:32 Total Counted 100 10/29/20 04:39 Band Neuts % (Manual) Not Reportable 10/31/20 07:24 Abnorm Lymph % (Manual) Not Reportable 10/31/20 07:24 Myelocytes % 1 % (-0) H 10/29/20 04:39 Nucleated RBC % 0.6 /100WBC 11/01/20 05:32 Neutrophils # (Manual) Not Reportable 10/31/20 07:24 Lymphocytes # (Manual) Not Reportable 10/31/20 07:24 Monocytes # (Manual) Not Reportable 10/31/20 07:24 Eosinophils # (Manual) Not Reportable 10/31/20 07:24 Basophils # (Manual) Not Reportable 10/31/20 07:24 Differential Comment MANUAL=AUTO DIFF 10/31/20 07:24 Manual Slide Review Indicated 11/01/20 05:32 WBC Morphology NORMAL APPEARANCE (NORMAL) 10/29/20 04:39 Platelet Estimate INCREASED (>450,000) (NORMAL) 11/01/20 05:32 Platelet Morphology 1+ GIANT PLATELETS (NORMAL) 11/01/20 05:32 RBC Morph Micro Appear NORMAL APPEARANCE (NORMAL) 11/01/20 05:32 VBG pH 7.346 (7.31-7.41) 10/27/20 19:46 VBG pCO2 38.6 mmHg (41-51) L 10/27/20 19:46 VBG pO2 22.3 mmHg (25-47) L 10/27/20 19:46 VBG HCO3 20.6 mmol/L (23-28) L 10/27/20 19:46 VBG Total CO2 21.8 mmol/L (24-29) L 10/27/20 19:46 VBG O2 Saturation 33.8 % (60-80) L 10/27/20 19:46 VBG Base Excess -4.6 mmol/L (-2 - +2) L 10/27/20 19:46 Sodium 138 mmol/L (135-145) 11/01/20 05:32 Potassium 3.5 mmol/L (3.5-5.0) 11/01/20 05:32 Chloride 110 mmol/L (101-111) 11/01/20 05:32 Carbon Dioxide 21 mmol/L (21-32) 11/01/20 05:32 Anion Gap 7.0 (6-13) 11/01/20 05:32 BUN 5 mg/dL (6-20) L 11/01/20 05:32 Creatinine 0.7 mg/dL (0.4-1.0) 11/01/20 05:32 Estimated GFR (MDRD) 97 (>89) 11/01/20 05:32 Glucose 107 mg/dL (70-100) H 11/01/20 05:32 Lactic Acid 1.8 mmol/L (0.5-2.2) 10/27/20 12:47 Calcium 9.2 mg/dL (8.5-10.3) 11/01/20 05:32 Magnesium 1.6 mg/dL (1.7-2.8) L 11/01/20 05:32 Total Bilirubin 0.6 mg/dL (0.2-1.0) 10/27/20 12:22 AST 22 IU/L (10-42) 10/27/20 12:22 ALT < 10 IU/L (10-60) L 10/27/20 12:22 Alkaline Phosphatase 101 IU/L (42-121) 10/27/20 12:22 Ammonia 18.7 umol/L (7-35) 10/31/20 07:24 Total Creatine Kinase 91 IU/L (22-269) 10/27/20 15:20 Total Protein 9.7 g/dL (6.7-8.2) H 10/27/20 12:22 Albumin 3.4 g/dL (3.2-5.5) 10/27/20 12:22 Globulin 6.3 g/dL (2.1-4.2) H 10/27/20 12:22 Albumin/Globulin Ratio 0.5 (1.0-2.2) L 10/27/20 12:22 Lipase 37 U/L (22-51) 10/27/20 12:22 Urine Color YELLOW 10/30/20 11:20 Urine Clarity CLEAR (CLEAR) 10/30/20 11:20 Urine pH 7.5 PH (5.0-7.5) 10/30/20 11:20 Ur Specific [place] 1.015 (1.002-1.030) 10/30/20 11:20 Urine Protein NEGATIVE mg/dL (NEGATIVE) 10/30/20 11:20 Urine Glucose (UA) NEGATIVE mg/dL (NEGATIVE) 10/30/20 11:20 Urine Ketones NEGATIVE mg/dL (NEGATIVE) 10/30/20 11:20 Urine Occult Blood SMALL (NEGATIVE) H 10/30/20 11:20 Urine Nitrite NEGATIVE (NEGATIVE) 10/30/20 11:20 Urine Bilirubin NEGATIVE (NEGATIVE) 10/30/20 11:20 Urine Urobilinogen 0.2 (NORMAL) E.U./dL (NORMAL) 10/30/20 11:20 Ur Leukocyte Esterase MODERATE (NEGATIVE) H 10/30/20 11:20 Urine RBC 0-5 /HPF (0-5) 10/30/20 11:20 Urine WBC 11-25 /HPF (0-5) H 10/30/20 11:20 Ur Squamous Epith Cells RARE Squamous (<= Few) 10/30/20 11:20 Urine Bacteria Moderate /HPF (None Seen) H 10/30/20 11:20 Ur Microscopic Review INDICATED 10/28/20 07:30 Urine Culture Comments INDICATED 10/30/20 11:20 Nasal Adenovirus (PCR) NOT DETECTED 10/27/20 13:42 Nasal B. parapertussis DNA (PCR) NOT DETECTED 10/27/20 13:42 Nasal Coronavir 229E PCR NOT DETECTED 10/27/20 13:42 Nasal Coronavir HKU1 PCR NOT DETECTED 10/27/20 13:42 Nasal Coronavir NL63 PCR NOT DETECTED 10/27/20 13:42 Nasal Coronavir OC43 PCR NOT DETECTED 10/27/20 13:42 Nasal Enterovir/Rhinovir PCR NOT DETECTED 10/27/20 13:42 Nasal Influenza B PCR NOT DETECTED 10/27/20 13:42 Nasal Influenza A PCR NOT DETECTED 10/27/20 13:42 Nasal Parainfluen 1 PCR NOT DETECTED 10/27/20 13:42 Nasal Parainfluen 2 PCR NOT DETECTED 10/27/20 13:42 Nasal Parainfluen 3 PCR NOT DETECTED 10/27/20 13:42 Nasal Parainfluen 4 PCR NOT DETECTED 10/27/20 13:42 Nasal RSV (PCR) NOT DETECTED 10/27/20 13:42 Nasal B.pertussis DNA PCR NOT DETECTED 10/27/20 13:42 Nasal C.pneumoniae (PCR) NOT DETECTED 10/27/20 13:42 Keagan Human Metapneumo PCR NOT DETECTED 10/27/20 13:42 Nasal M.pneumoniae (PCR) NOT DETECTED 10/27/20 13:42 Nasal SARS-CoV-2 (PCR) NOT DETECTED 10/27/20 13:42 Urine Opiates Screen NEGATIVE (NEGATIVE) 10/27/20 22:00 Ur Oxycodone Screen NEGATIVE (NEGATIVE) 10/27/20 22:00 Urine Methadone Screen NEGATIVE (NEGATIVE) 10/27/20 22:00 Ur Propoxyphene Screen NEGATIVE (NEGATIVE) 10/27/20 22:00 Ur Barbiturates Screen NEGATIVE (NEGATIVE) 10/27/20 22:00 Ur Tricyclics Screen NEGATIVE (NEGATIVE) 10/27/20 22:00 Ur Phencyclidine Scrn NEGATIVE (NEGATIVE) 10/27/20 22:00 Ur Amphetamine Screen NEGATIVE (NEGATIVE) 10/27/20 22:00 U Methamphetamines Scrn NEGATIVE (NEGATIVE) 10/27/20 22:00 U Benzodiazepines Scrn POSITIVE (NEGATIVE) H 10/27/20 22:00 Urine Cocaine Screen NEGATIVE (NEGATIVE) 10/27/20 22:00 U Cannabinoids Screen NEGATIVE (NEGATIVE) 10/27/20 22:00 - Procedures Procedures: Procedures CENTRAL VENOUS CATHETER PLACEMENT WITH GUIDANCE (07/02/15) SPINAL TAP (07/02/15)
[2020-11-01] MEDS ORDERED: MAGNESIUM SULFATE 2 GRAM 2 GM/50 ML BAG IV ONE (11:30)
--- NOTE | 2020-11-01 11:57 | ADVANCE CARE PLANNING NOTE ---
Advance Care Planning - Planning Encounter Date: 11/01/20 Time: 11:30 Purpose: To discuss consent for a PEG feeding tube versus transition to Hospice in a patient with failure to thrive, in terms of nutrition and fluid intake. Parties in Attendance: I spoke to the at the patient's bedside. Patient is in the room sitting in her chair. She responds only with "Yeah" and "No" and grunting. Decisional Capacity of the Patient: She has severe dementia and does not have a decisional capacity. - Diagnosis for Encounter (1) FTT (failure to thrive) in adult Summary: Since being awake enough to take in a diet (about 3 days), the patient has taken only 25% of her tray, than 10% of her tray and today 0%, even with being fed one-to-one. The states that she was able to feed herself as recently as earlier this month. I then described to the that the patient agrees to eat, says "Yeah" when told that she needs to eat in order to go home, then she will push away the spoon or close her mouth and turn her head when being fed by our staff (which I witnessed today). At this point, the asked the patient if she would eat for him, and she told him "Yeah". He took a spoon, took some of his tunafish salad from a sandwich she had bought, and began to spoon feed her. She proceeded to say "No, no, no" and turned her head away and pushed the spoon away gently, however he persisted and brought the spoon into her mouth which opened her lips and she then mouthed the food and slowly swallowed it. He did this several times that I witnessed, despite her complaint of "No, no no". He then said to me that "her brain is saying no but it is the opposite of what her body wants", and "I've been feeding and taking care of her for a long time and I know what to do". I motioned to the PHARMACY INFORMATICS SPECIALIST (Izzy) to watch how he feeds her. The Charge Nurse (Sally), then reported to me that the wants our staff to feed her like this and that ASAF Richmond would go and try, but basically he is force feeding her, which we are not to do. (2) Dementia Summary: As per Hx. (3) History of below-knee amputation of both lower extremities Summary: The describes that earlier this month she could put on both leg prostheses on her own and can get up and ambulate on her own. Since Cj he has had to help her put on the prostheses. While here, she is not doing any of this and does not appear to even understand how to attach her prostheses. - Encounter Subjective/Patient's Story: Patient has dementia, bilateral BKA's, wears has bilateral leg prostheses. According to the , she could put these prostheses on by her own, is usually communicative with family and feeds herself. For bathing, caregivers put her in a special chair, she can unlatch her prostheses herself and then turn her body in that chair and raise her amputated limbs enough to be placed into the tub. The said that he and the caregivers then tell her to "take care of her private parts by herself". The wants to bring the patient home. He would consider a shelter if there are no other options for caregiving at home. I brought up the option of her getting a PEG tube with fluids and pured food being placed into the stomach by syringe, usually 3 times a day. He answered that he could not do this himself because he is ill with cancer, getting chemotherapy. I asked if caregivers can help with force feeding her or feeding into a PEG tube with syringe, and he claims they can only be bath aides and help with transfers. The is the meal banking and finance instructor, and he even has a degree and is a saute chef. He first stated that she can feed herself but then said that he has been taking care of her for a long time and knows how to feed her. Then I saw him force feed her now (as described above). Objective/Medical Story: She was admitted with altered mental status, had a normal head CT and brain MRI, normal labs with normal lactic acid and white blood count normal except an abnormal urinalysis. When the white blood count increased, after 2 days, the urinalysis was repeated and it is felt she did have a UTI and she is now being treated with iv antibiotics. Her mental status, however has not improved significantly since day 2, when she became more awake with just IV fluids and was not yet getting antibiotics. Goals of Care: The wishes that she would at least return back to her usual level of function. I indicated this might not be possible and he himself voiced that every time she is sick, she comes home weaker. Plan: He did not agree to a PEG tube. He thinks that she can still be force fed, in order to get stronger. I am concerned that she has to "take care of her private parts by herself" when she is in the bath tub, which is probably inadequate hygeine with her weakness and dementia and this leads to her recurrent UTIs. I spoke to the PHARMACY INFORMATICS SPECIALIST and to the Charge Nurse about the force-feeding. I spoke to the Cook Frozen Dessert Jesika and the nursery teacher Oralia regarding more caregiving and help at home. I will update her Palliative Care provider, Aysha Ballesteros, regarding this entire interaction. Additional Discussion: Patient qualifies for Home Health, which the will accept, and will therefore order for PT, OT, bath aide and RN to oversee what the pt does at h ome. Code Status: Do Not Attempt Resuscitation Time spent on advance care plannin min
--- NOTE | 2020-11-01 12:54 | Discharge Plan ---
Discharge Plan Problem Reviewed?: Yes Disposition: 06 Home Health Service Condition: Poor Diet: Soft Activity Restrictions: Activity as Tolerated Shower Restrictions: No Assistance Devices: Other (Prostheses) Health Concerns: Patient was admitted here with marked weakness, and altered mental status. We found it to be from a urinary tract infection. The urine culture grew E. coli and she has completed a course of IV antibiotics for this while here. Her alertness has improved slightly however, and she still needs to be fed, helped to stand and pivot and will need help with toileting. She needs a bath aide to give her proper perineal cleaning and hygiene. Home Health service has been ordered to come to the house, and she will have a visit from an RN (possibly just once), then after that home bath aide, PT and OT in the home. Plan of Treatment: As above. Care Goals: Improvement in symptoms and stabilization are the goals. Assessment: Instructions and reminders were sent home with the . Additional Instructions or Follow Up instructions: If the patient has new or worsening symptoms, call her PCP or her Palliative Care provider, Aysha Ballesteros NP, for advice, or come to the ER. No Smoking: If you smoke, Please STOP! Call for help. Follow-up with: Hanane Bauer ARNP, NP-C [Primary Care Provider] -
[2020-11-01] MEDS: levoFLOXacin 500 MG/100 ML 500 MG/100 ML BAG IV SCH (13:58)
[2020-11-01] MEDS: VALPROATE 250 MG/5 ML SOLUTION UDC PO SCH (20:46)
[2020-11-02 06:21] LABS: HGB - HEMOGLOBIN 11.8 g/dL (12.0-16.0); MEAN CORPUSCULAR HEMOGLOBIN 27.6 pg (27.0-31.0); MEAN CORPUSCULAR HGB CONC 31.6 g/dL (32.0-36.0); MEAN CORPUSCULAR VOLUME 87.1 fL (81.0-99.0); MEAN PLATELET VOLUME 12.1 fL (7.9-10.8); RED BLOOD COUNT 4.28 10^6/uL (4.20-5.40); RED CELL DISTRIBUTION WIDTH 17.6 % (12.0-15.0); WHITE BLOOD COUNT 7.8 x10^3/uL (4.8-10.8)
[2020-11-02 06:30] LABS: CREATININE 0.7 mg/dL (0.4-1.0)
[2020-11-02 08:38] VITALS: BP 176/98
[2020-11-02] MEDS ORDERED: hydrALAZINE 10 MG TABLET PO SCH (09:00)
[2020-11-02] MEDS: DOCUSATE SODIUM 250 MG CAPSULE PO SCH (09:16)
[2020-11-02] MEDS: ASPIRIN EC 81 MG TABLET PO SCH (09:17)
[2020-11-02] MEDS: CHOLECALCIFEROL 25 MCG TABLET PO SCH (09:17)
[2020-11-02] MEDS: VALPROATE 250 MG/5 ML SOLUTION UDC PO SCH (09:17)
[2020-11-02] MEDS: ENOXAPARIN 30 MG/0.3 ML SYRINGE SUBQ SCH (09:17)
[2020-11-02] MEDS: FERROUS SULFATE 325 MG TABLET PO SCH (09:17)
[2020-11-02] MEDS: LACTOBACILLUS RHAMNOSUS GG CAPSULE PO SCH (09:17)
[2020-11-02] MEDS: polyethylene glycoL 3350 17 GM PACKET PO SCH (09:17)
[2020-11-02] MEDS: SENNA 8.6 MG TABLET PO SCH (09:17)
[2020-11-02] MEDS: DORZOLAMIDE/TIMOLOL OPHTH DROPS EACHEYE SCH (09:18)
[2020-11-02] MEDS: SODIUM CHLORIDE FLUSH 0.9% 10 ML SYRINGE IVP SCH (09:18)
[2020-11-02] MEDS: prednisoLONE 1% OPHTH DROPS 75 DROPS/5 ML BOTTLE RIGHTEYE SCH (09:18)
--- NOTE | 2020-11-02 10:06 | DISCHARGE SUMMARY ---
Discharge Summary Admit Date: 10/27/20 Discharge Date: 11/02/20 Discharging Provider: Kendal Barron MD Primary Care Provider: Hanane Bauer NP Condition at Discharge: Fair Discharge Disposition: [facility] History of Present Illness: From the admission H&P of Dr. Efra Davissef: This is an 80-year-old black female with a past medical history significant for dementia, GERD, peripheral vascular disease, bilateral BKAs, neuropathy who presents today after being found altered this morning by her . The history is obtained from the patient's spouse as she is altered and unable to provide a history. He states that she was in her usual state of health y ester evening and went to sleep feeling fine. He states that at baseline she is oriented to self, location. She will occasionally know the year and month. She knew that yesterday was Cj. She recognizes all of her family members. He states that she is normally relatively independent and will use her prosthesis and a walker to get around. He administers all of her medications to her. He states that yesterday evening he gave her baclofen which she takes as needed for neuropathy given her history of bilateral below the knee amputations. He states that this morning he woke up and found her to be minimally responsive. He attempted to get her to the bedside commode but realized that would require more than 1 person and that she was not talking or verbalizing. He was concerned that she was having a stroke and so he called EMS. He states she has not been sick recently she is not been complaining of any fevers or chills or abdominal pain. He states she has vascular dementia. He reports no prior history of strokes. He states she never had seizures. She has not had a similar presentation in the past. In the emergency department, she was found to be minimally responsive but able to protect her airway. She was found to be simeon of her bilateral upper extremities. She underwent a CT of the head which did not show any acute abnormalities. Her labs were also unremarkable. Given her ongoing altered status, the Hospitalist team was consulted for admission. I did discuss goals of care with the patient spouse and he confirms that she is a DNR. - HOSPITAL COURSE Hospital Course: (1) E. coli UTI Her admission urinalysis did reveal bacteria and pos. nitrites. She had no fever or elevated WBC. The admitting Hospitalist did not believe a UTI was contributing to her encephalopathy as she was improving (very slightly) without antibiotics. When the WBC went up from normal to 12.9, another U/A was done and showed a UTI and culture was "indicated". She was started on empiric iv Levofloxacin. The urine culture quickly grew E coli which was desouza-sensitive. She completed a course of iv antibiotics while here. (2) Encephalopathy CT and MRI of the brain were negative for stroke. COVID test was neg. Ammonia and TSH were unremarkable. Doubted this was a medication reaction, since she has been on Baclofen and Lyrica for quite some time. She got iv hydration. We later suspected that the UTI did cause her presentation of altered mental status. She had slow improvement in alertness, but was only able to answer "Yeah" and "No" and grunt. She did participate slightly with physical therapy. Apparently, this similar presentation happened several months ago, and she i mproved with seeing her [id number]. Therefore, we requested exception of the visitor policy during Covid restrictions and allowed him to visit at her bedside. (3) Dementia She has significant dementia, only says "Yeah" and "No", but the description from her was that she was relatively functional; at home she was able to attach the leg prostheses by herself, could feed her self, was normally oriented to self and family, he said. A consult from her Palliative Care provider, Aysha Ballesteros NP was done. The reported that a caregiver and he would place her in a bath tub, but she was told to "wash her private parts". This was communicated to Aysha Ballesteros NP, since the patient may be too demented to accomplish her own perineal cleaning, and may be the reason for recurrent UTI's. A Home Health RN and bath aide were ordered at discharge. (4) FTT (failure to thrive) in adult By the 3rd day, she was alert enough to swallow pills but could not feed herself. She took only 10% of her tray and needed to be fed. The described needing to feed her at home, which was not what he first reported about her independent function. We discussed her FTT with the , as to whether he would want a PEG tube placed or to transition her into Hospice care. He wanted to proceed with oral feeding and her usual care at home. He said he would consider putting her in a fpc, when his was imminent (he has cancer, undergoing chemotherapy). (5) Malnutrition She was taking 10% of her tray. A Dietary consult for malnutrition screening and to give recommendations to the was requested and done. We stopped the unnecessary p.o. meds like her statin. (6) History of below-knee amputation of both lower extremities Stable. Before this hospitalization, she could apparently put her prosthetics on by herself. Her bilateral prosthetics were put on by our staff while here, and she could stand and pivot. Home Health PT and OT were ordered. (7) Glaucoma We continued her eyedrops while here. (8) Hx of thrombocytosis As per Hx and seen initially or was from this infection. (9) Hypomagnesemia Likely from malnutrition and failure to thrive. It was replaced iv. (10) Hypokalemia Resolved with K rider IV replacement. - ALLERGIES Allergies/Adverse Reactions: Allergies Allergy/AdvReac Type Severity Reaction Status Date / Time gentamicin [Gentamicin] Allergy Unknown Verified 10/27/20 09:07 lisinopril Allergy Unknown Verified 10/27/20 09:07 paroxetine [From Paxil] Allergy Unknown Verified 10/27/20 09:07 - MEDICATIONS Home Medications: Ambulatory Orders Medication Instructions Recorded Confirmed ALPRAZolam [Alprazolam] 0.25 mg PO Q4HR PRN MDD 4 DOSES OF 03/18/16 10/27/20 0.25MG Esomeprazole Magnesium 40 mg PO QDAC 08/13/19 10/27/20 Mirtazapine 7.5 mg PO QPM 08/13/19 10/27/20 Aspirin [Aspirin EC] 81 mg PO DAILY 08/14/19 10/27/20 Cholecalciferol (Vitamin D3) 1,000 unit PO DAILY 01/23/20 10/27/20 [Vitamin D3] Ferrous Sulfate 325 mg PO DAILY 01/23/20 10/27/20 Dorzolamide HCl/Timolol Maleat 1 drops EACHEYE BID 03/13/20 10/27/20 [Dorzolamide-Timolol Eye Drops] prednisoLONE 1% OPHTH DROPS [Pred 1 drops RIGHTEYE BID 09/11/20 10/27/20 Forte 1% Ophth Drops] Divalproex Dr [Depakote Dr] 125 mg PO BID 10/27/20 10/27/20 - PHYSICAL EXAM AT DISCHARGE General Appearance: positive: No acute distress, Alert Eyes Bilateral: positive: EOMI, Other (Right eye has a dense white cataract and 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) ENT: positive: ENT inspection nml, No signs of dehydration Neck: positive: Nml inspection, No JVD Respiratory: positive: No respiratory distress, Breath sounds nml Cardiovascular: positive: Regular rate & rhythm, No murmur Abdomen: positive: Non-tender, No distention Skin: positive: Warm, Dry Extremities: positive: No pedal edema, Other (She has mild arthritic deformity of the hands, the upper extremities are no longer contracted as they were at presentation.) Neurologic/Psychiatric: positive: Disoriented to person, Disoriented to place, Disoriented to time, Other (She only speaks pacing "Yeah" or "No") - LABS Result Diagrams: 11/02/20 06:16 11/02/20 06:16 - DIAGNOSTIC IMAGING Diagnostic Imaging Results: Final report reviewed - FOLLOW UP Follow Up: See PCP in 1-2 weeks for hospital follow-up. - TIME SPENT Time Spent in Discharge (Minutes): 60
== END 2020-11-02 11:26 | disposition home health service (06) | DRG 690 ==
LOC: EDUNIT# → ED 08:57 → MS2 13:32 → OBSVTOIN 10-28 10:02
PROVIDERS: ADMIT Internal Medicine; ATTEND Internal Medicine
DX: R41.82 Altered mental status, unspecified (principal); G93.40 Encephalopathy, unspecified; N39.0 Urinary tract infection, site not specified; E16.2 Hypoglycemia, unspecified; G93.49 Other encephalopathy; E46 Unspecified protein-calorie malnutrition; Z68.1 Body mass index [BMI] 19.9 or less, adult; B96.20 Unspecified Escherichia coli [E. coli] as the cause of diseases classified elsewhere; F03.90 Unspecified dementia, unspecified severity, without behavioral disturbance, psychotic disturbance, mood disturbance, and anxiety; R62.7 Adult failure to thrive; F17.210 Nicotine dependence, cigarettes, uncomplicated; Z89.512 Acquired absence of left leg below knee; Z89.511 Acquired absence of right leg below knee; H40.9 Unspecified glaucoma; E61.2 Magnesium deficiency; E87.6 Hypokalemia; H54.61 Unqualified visual loss, right eye, normal vision left eye; M19.042 Primary osteoarthritis, left hand; M19.041 Primary osteoarthritis, right hand; I25.10 Atherosclerotic heart disease of native coronary artery without angina pectoris; I73.9 Peripheral vascular disease, unspecified; Z66 Do not resuscitate; Z20.828 Contact with and (suspected) exposure to other viral communicable diseases; D47.3 Essential (hemorrhagic) thrombocythemia
CPT/HCPCS: 36415; 36600; 51701; 51798; 70450; 70551; 71045; 74018; 80048; 80053; 81001; 82140; 82550; 82803; 83605; 83690; 83735; 85025; 85027; 87086; 87181; 87631; 93005; 96361; 96365; 96366; 96375; 97161; 97530; 99285; A6250; A9270; G0378; J1650; J2060; J3490; J7120; 0202U; 80306; 81003

== ENCOUNTER 2020-11-08 14:35 | Outpatient (CLI) | payer MEDICARE, OTHER, MEDICAID ==
--- NOTE | 2020-11-08 19:44 | CONSULTATION NOTE ---
Palliative Care Follow Up - Referral Referring Provider: Dr. Fracisco Chavez Time of Visit: 1812-9104 Referral setting: Home Referral Reason: s/p Encephalopathy hospitalization/FTT/Dementia/Advanced Care Planning - Information Sources Records reviewed: Previous records reviewed History/Review of Systems obtained from: Family Exam limitations: Clinical condition (Advanced Dementia and does not wish to engage in conversation) - History of Present Illness Update Brief HPI Update: This is an 80-year-old -[place] Citizen female who was seen and evaluated within her home with her /Priyank SPENCE present for follow-up status post recent hospitalization had with [facility] for encephalopathy, continued decreased oral intake and vascular dementia. The patient was reportedly fine on engaging interactive with family phone calls and recognizing family as well as her . She had a wonderful dinner. Overnight, the patient was minimally responsive to her spouse and on 1225 he contacted EMS due to altered mental status. She was admitted to [facility] from 10/27-11/02. Initially was believed that she possibly could have had a drug interaction as the intermittently would administer baclofen for spasms typically once a month. However, this became less likely. She had a CT scan of the head as well as MRI that.not show any acute abnormalities such as a CVA. Her urine culture grew E. coli and she was treated with antibiotic therapy while inpatient. Despite treatment, the patient is not near her previous baseline and her ability to feed herself, bear weight, or engage. She is presently mainly saying "yes" and "no" not always in appropriate context. When asked what the name of her was she could not respond. She has had a history of phantom limb pain and previously was on pregabalin 50 mg twice daily and this was discontinued during her hospital stay and not resumed upon discharge. The patient denies pain at present and her spouse has not noticed any in pain evident upon return home. This year she has had prior evaluations at the hospital. Most recently June 29 when she came in for weakness with no acute findings and felt to be due to advancement of her underlying vascular dementia with encouragement of adequate oral hydration at home. The patient did return to her baseline status. Then, in March 2020 she did have altered mental status with no clear etiology to be identified such as CVA or UTI. She was refusing care and medication while in the hospital due to her advanced dementia was felt she would benefit from returning to her home setting and was discharged with home hospice services. However, upon admission to hospice the patient perked up and relayed to staff per the 's report "I am not ready to ." Thus, hospice was not initiated in March 2020. Unfortunately, the patient has not returned to her previous baseline status as she has done on subsequent occasions. She was not engaged with home health physical therapy yesterday when they were in the home. The patient's spouse sees "little by little she is improving." Today, the patient was able to hold and drink juice from her cup when previously she has been requiring a port assistance since returning home. She is only taking several mouthfuls of food during the day. She was also able with a 2 person assist to transfer to the bedside commode today and defecate. She is sleeping more throughout the day. The patient is seen resting in bed, arousable but does not wish to stay engaged. No evidence of acute distress. 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 Social History - Living Situation Living arrangement: At home Living Situation: With spouse/s.o. Support System: Patient and her have been for 59 years. Prior to relocating to [facility] she and her live in [place], [place]. She grew up in [place], [place]. The patient and her have 2 children, 1 daughter and 1 son. The patient's healthcare power of portable irrigation operator is her , Priyank at [phone]. The patient and her are estranged from their daughter. Their son, Stephen resides in [place]. The patient has 2 private caregivers through rest care that come 5 days/week. The patient's spouse has connected with her foster care case manager, Renetta Zelaya requesting for more caregiving hours. Priyank is also getting assistance in the evenings from his neighbor Eve for toileting and feeding. Also, the patient's grandson, Randy is settling into the area and is also available for assistance.. Medications/Allergies - Medications Home Medications: Ambulatory Orders Medication Instructions Recorded Confirmed ALPRAZolam [Alprazolam] 0.25 mg PO Q4HR PRN MDD 4 DOSES OF 03/18/16 11/08/20 0.25MG Esomeprazole Magnesium 40 mg PO QDAC 08/13/19 11/08/20 Mirtazapine 7.5 mg PO QPM 08/13/19 11/08/20 Aspirin [Aspirin EC] 81 mg PO DAILY 08/14/19 11/08/20 Cholecalciferol (Vitamin D3) 1,000 unit PO DAILY 01/23/20 11/08/20 [Vitamin D3] Ferrous Sulfate 325 mg PO DAILY 01/23/20 11/08/20 Dorzolamide HCl/Timolol Maleat 1 drops EACHEYE BID 03/13/20 11/08/20 [Dorzolamide-Timolol Eye Drops] prednisoLONE 1% OPHTH DROPS [Pred 1 drops RIGHTEYE BID 09/11/20 11/08/20 Forte 1% Ophth Drops] Divalproex Dr [Depakote Dr] 125 mg PO BID 10/27/20 11/08/20 Potassium Chloride 20 meq PO DAILY 11/08/20 11/08/20 - Allergies Allergies/Adverse Reactions: Allergies Allergy/AdvReac Type Severity Reaction Status Date / Time gentamicin [Gentamicin] Allergy Unknown Verified 10/27/20 09:07 lisinopril Allergy Unknown Verified 10/27/20 09:07 paroxetine [From Paxil] Allergy Unknown Verified 10/27/20 09:07 Review of Systems - Constitutional Constitutional: reports: Fatigue, Poor appetite (see HPI). denies: Fever - Eyes Eyes: reports: Irritation (right eye), Vision loss - Ears, Nose & Throat Ears, Nose & Throat: denies: Nasal congestion - Cardiovascular Cardiovascular: denies: Edema - Respiratory Respiratory: denies: Cough - Gastrointestinal Gastrointestinal: reports: Poor appetite. denies: Abdominal pain, Constipation, Vomiting - Genitourinary Genitourinary: reports: Incontinence. denies: Dysuria - Musculoskeletal Musculoskeletal: reports: Muscle weakness, Assistive devices, Transfer issues. denies: Joint pain - Integumentary Integumentary: denies: Rash - Neurological Neurological: reports: General weakness, Memory problems - Psychiatric Psychiatric: reports: Depression, Behavior disturbances (history of behaviorial disturbances) - Hematologic/Lymphatic Hematologic/Lymph: Other (history of frequent UTIs) - All Other Systems All Other Systems: reports: Reviewed and negative (Patient is a poor historian due to dementia and review of systems supplemented by the patient's /Priyank SPENCE.) Physical Exam - Vital Signs Temperature: 97.3 C Pulse Rate: 79 O2 Saturation: 97 (on RA at rest) Blood Pressure: 144/87 (left wrist cuff) - Physical Exam General Appearance: positive: No acute distress, Alert, Other (resting in bed in robe with haircap in place) Eyes Bilateral: negative: No lid inflammation ENT: positive: No signs of dehydration Neck: positive: Trachea midline Cardiovascular: positive: Regular rate & rhythm, No murmur Respiratory: positive: No respiratory distress, Breath sounds nml Abdomen: positive: Non-tender, Soft, Nml bowel sounds, Other (bladder nondistended to palpation). negative: Guarding Skin: positive: No symptoms Extremities: positive: No pedal edema, Other (bilateral below the knee amputations) Neurologic/Psychiatric: positive: Disoriented to person, Disoriented to place, Disoriented to time, Weakness, Other (Unable to call her by his name. Minimal words today--unlike her baseline. Stating "yes" and "no" not always appropriately to questions. Unable to follow simple commands such as squeezing provider's hand. Did not wish to be disturbed and called out "no" and pulled covers of the bed back up.) Palliative Care - POLST Patient has POLST: Yes POLST Status: DNR, Comfort Measures Pain: No pain (no evidence on examination by facial ques and denied by patient and spouse.) Drowsiness/Sedation: Moderate (4-6) (sleeping more during the day) Nausea: None Anorexia: Moderate (4-6) (drinking but only eating bites of food during the day) Dyspnea: None Sleep: Sleeps well Constipation: No Performance Status: Prior to hospitalization patient was able to self feed, Placed on her prostheses, stand and pivot to the bedside commode and was talkative and engaged. Now, she is unable to follow commands, with minimal oral intake and up until today required others to attempt to feed her. She is having intermittent episodes of incontinence. Remains continent of bowel. - Palliative Care Discussion: At least in the last year, the patient has had 3 episodes of altered mental status and alertness and most recently has not bounced back to her previous baseline. During her most recent hospitalization she was treated for a urinary tract infection with her urine microscopy growing E. coli. There have was no evidence of underlying acute abnormality noted on CT head imaging or MRI. However, as the patient has not returned to her former baseline status and due to her underlying peripheral vascular disease it is not out of the realm of possibility that she may have sustained a potential TIA as this would not have been evident on imaging. The patient though showing some small improvements that are evident to the spouse, given her lack of oral intake, inability to adequately follow commands are all indicative of her overall decline and leading to protein calorie malnutrition. The patient's spouse is devoted to caring for the patient. In this marriage he finds it as his duty to care for his . He finds it extremely difficult to be from her. He does recognize that the patient is not at her former baseline functionally or cognitively. The patient's spouse continues to have optimism that she may improve and relies on his luis as everything is "God's work." The patient also recognizes the pain increase in caregiving that the patient is requiring physically, and due to his underlying health problems and treatment Is open to additional help. He has assistance from [facility] caregivers and has requested additional help in hours, his neighbor, and now his grandson is local to also provide additional support. In discussing and exploring potential respite stay this is not a feasible option for if the patient were to continue to deteriorate and her spouse was not able to be present this would be a detrimental loss to both he and her. Ultimately, given this recent decline, the patient's spouse wishes to focus on comfort and quality of life within the home setting to avoid disruption and unfamiliarity of a hospital setting or facility. POLST updated to reflect DN AR with comfort measures, antibiotic therapy only for symptom management and no artificial nutrition by tube. Patient spouse now wishes to transfer to hospice services to be available within the home for added support to optimize his time with the patient and her comfort level. Results - Lab Results Lab results reviewed: Yes Lab and Imaging Results: 10/29/2020 Potassium 2.8; 11/02/2020 Potassium 3.3 Impression and Recommendations - Palliative Care Impression: This is an 80-year-old -[place] Citizen female Who has experienced acute functional and cognitive decline care, protein calorie malnutrition due to decreased oral intake and difficulty cooperating with care. She is at risk for further decline and subsequent sequelae with underlying vascular dementia and peripheral vascular disease. Lengthy goals of care discussion was had with the patient's spouse/DPOA today and he wishes to focus on the patient's quality of life and comfort within their home setting of a familiar environment and caregivers with assistance from hospice services within the home environment. Recommendations/Counseling Done: 1.Protein calorie malnutrition with decreased oral intake in the setting of advanced vascular dementia. Patient continues with fluid intake but minimal oral foods. Encourage the patient spouse to offer once, offer twice, and after the third time she continues to refuse then to let the offering rest and rehab address at a later time. Requiring assistance during mealtimes from caregivers, spouse and neighbor. The patient spouse/DPOA does not wish for PEG tube placement for nutritional assistance and wishes to focus on pleasure feeds that is desirable to the patient with transition to hospice services for added layer of support with a focus on comfort. 2. Altered mental status. Patient with recent hospitalization from 10/27 to 11/02/2020 without return to prior baseline function. CT scan of the head and MRI did not demonstrate evidence of CVA. She was treated for a E. coli urinary tract infection during her hospitalization. The patient has not made strong strides forward despite returning home to her familiar setting, spouse and familiar caregivers. Given her significant peripheral vascular disease history is unclear if she potentially could have sustained a TIA and this was speculated and reviewed with the patient's spouse today relying that this would not be evident on any brain imaging. Also likely, the patient is demonstrating further progression of her vascular dementia. Supportive listening provided. 3. Vascular dementia with a history of peripheral vascular disease. Chronic. Progressive. Fall precautions. No reports of dysphagia. Statin therapy was discontinued while inpatient. Continue aspirin therapy as prescribed. Continue Depakote as ordered due to previous history of agitation. Patient is not engaged in conversation desiring to sleep and is unable to follow commands indicative of further progression of her underlying dementia. She is on no disease modifying agents. Given the patient's advanced age and chronic comorbidities a gradual decline is expected. 4. Hypokalemia. Patient with noted hypokalemia during inpatient stay with discharge potassium level on 11/02/2020 as 3.3. Recommended to 's to continue potassium chloride supplementation 20 mEq daily as the patient allows. 5. Advanced care planning. POL updated his DN AR with comfort measures. The patient's spouse is at risk for caregiver burden and he recognizes this and the need for self-care due to his own underlying health concerns. Request has been made to the patient [place] P[employer] foster care case manager for additional caregivers that are most specifically needed on the weekends. At this time, the patient's spouse is having additional support from his grandson and his neighbor, Eve. The patient's spouse is recognizing the patient's gradual decline and wishes to optimize his time and being in her presence which would not be affordable in a facility setting to be together. Therefore, to optimize their time together, the patient's spouse has elected to proceed with hospice services to focus on comfort and quality of life. Time Spent: Total time spent 105 minutes with greater than 50% of this spent in counseling and coordination of care with patient's spouse/DPOA and grandson; review of hospice philosophy; exploration of goals of care and caregiver burden; discussion of decline due to dementia and progressive course; examination of patient; supportive listening and anticipatory guidance. Coordinated with hospice scheduling RNLory and patient scheduled for hospice admission 11/15/2020 and request for rolling bedside table for utilization of patient. Updated patient's PCP, Hanane Bauer and request for hospice referral based on above. Also notified patient's home health nurse and home health team that patient has pending hospice referral and admission 11/15/2020. Disclaimer: The chart note was formulated using voice recognition technology and unfortunately sound alike errors may occur.
--- OUTSIDE RECORDS SUMMARY | 2020-11-14 01:21 | EXTERNAL MEDICAL SUMMARY RPT | Continuity of Care Document ---
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 Unavailable Unavailable Lizette Unavailable Unavailable Lang Unavailable Unavailable Unavailable Unavailable Problems date description facility 2020-09-19 00:00:00 Health-related behavior [facility] 2020-09-19 00:00:00 Tobacco use and exposure [facility] 2020-09-19 00:00:00 Exercise [facility] 2020-09-19 00:00:00 Details of drug misuse behavior [facility] 2020-09-19 00:00:00 Alcohol use [facility] 2020-09-19 00:00:00 Tobacco smoking status [facility] 2020-09-19 00:00:00 Total score? [facility] 2020-09-19 00:00:00 Former smoker [facility] 2020-10-02 00:00:00 TSH WITH REFLEX TO FT4 [facility] 2020-10-02 00:00:00 LIPID SCREEN, FASTING [facility] 2020-10-02 00:00:00 CBC W/Diff/Plt [facility] 2020-10-02 00:00:00 COMPREHENSIVE METABOLIC PANEL [facility] 2020-10-28 10:02 UNSP ESCHERICHIA COLI THE [facility] CAUSE OF DISEASES CLA 2020-10-28 10:02 ESSENTIAL (HEMORRHAGIC) [facility] THROMBOCYTHEMIA 2020-10-28 10:02 HYPOGLYCEMIA, UNSPECIFIED [facility] 2020-10-28 10:02 UNSPECIFIED PROTEIN-CALORIE [facility] MALNUTRITION 2020-10-28 10:02 MAGNESIUM DEFICIENCY [facility] 2020-10-28 10:02 HYPOKALEMIA [facility] 2020-10-28 10:02 UNSPECIFIED DEMENTIA WITHOUT [facility] BEHAVIORAL DISTURBANC 2020-10-28 10:02 NICOTINE DEPENDENCE, CIGARETTES, [facility] UNCOMPLICATED 2020-10-28 10:02 ENCEPHALOPATHY, UNSPECIFIED [facility] 2020-10-28 10:02 OTHER ENCEPHALOPATHY [facility] 2020-10-28 10:02 UNSPECIFIED GLAUCOMA [facility] 2020-10-28 10:02 UNQUALIFIED VISUAL LOSS, RIGHT [facility] EYE, NORMAL VISION 2020-10-28 10:02 ATHSCL HEART DISEASE OF TEJON [facility] CORONARY ARTERY W/O 2020-10-28 10:02 PERIPHERAL VASCULAR DISEASE, [facility] UNSPECIFIED 2020-10-28 10:02 PRIMARY OSTEOARTHRITIS, RIGHT [facility] HAND 2020-10-28 10:02 PRIMARY OSTEOARTHRITIS, LEFT [facility] HAND 2020-10-28 10:02 URINARY TRACT INFECTION, SITE [facility] NOT SPECIFIED 2020-10-28 10:02 ALTERED MENTAL STATUS, [facility] UNSPECIFIED 2020-10-28 10:02 ADULT FAILURE TO THRIVE [facility] 2020-10-28 10:02 CONTACT W AND EXPOSURE TO OTH [facility] VIRAL COMMUNICABLE D 2020-10-28 10:02 DO NOT RESUSCITATE [facility] 2020-10-28 10:02 BODY MASS INDEX [BMI] 19.9 OR [facility] LESS, ADULT 2020-10-28 10:02 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 2020-10-28 10:02 ACQUIRED ABSENCE OF LEFT LEG [facility] BELOW KNEE Allergies date description facility NO KNOWN ENVIRONMENTAL ALLERGIES [facility] CEPHALOSPORINS [facility] NO KNOWN ALLERGIES [facility] SULFA (SULFONAMIDE ANTIBIOTICS) [facility] NO KNOWN ALL[facility]GIES [facility] SHELLFISH CONTAINING PRODUCTS [facility] LIDOCAINE [facility] SO[facility] ER[facility]OTAMINE [facility] MEPERIDINE [facility]OROQUINE [facility] M[facility]OXICAM [facility] ATORVASTATIN [facility] ERYTHROMYCIN [facility] INFLUENZA VACCINE TR-S 09 (PF) [facility] lisinopril [facility] paroxetine [facility] gentamicin [facility] PERTUSSIS VACCINE [facility] PHENYTOIN SODIUM EXTENDED [facility] CODEINE [facility] IBUPROFEN [facility] MELOXICAM [facility] TRAMADOL [facility] NO KNOWN ALLERGIES [facility] Medications date description facility null [facility] null [facility] FENTANYL [facility] FENTANYL [facility] Results Social History date description facility 2020-09-19 00:00:00 Former smoker [facility] Social History date description facility 2020-09-19 00:00:00 Former smoker [facility] date description facility [phone]
== END 2020-11-08 14:36 | disposition home or self-care (01) ==
LOC: PC 14:35
PROVIDERS: ATTEND Nurse Practitioner Family
DX: Z51.5 Encounter for palliative care (principal); E46 Unspecified protein-calorie malnutrition; R41.82 Altered mental status, unspecified; I73.9 Peripheral vascular disease, unspecified; F01.50 Vascular dementia, unspecified severity, without behavioral disturbance, psychotic disturbance, mood disturbance, and anxiety; E87.6 Hypokalemia; Z89.512 Acquired absence of left leg below knee; Z89.511 Acquired absence of right leg below knee; Z66 Do not resuscitate
CPT/HCPCS: 99350

== ENCOUNTER 2021-02-09 04:31 | Outpatient (CLI) | payer MEDICARE, OTHER, MEDICAID | END 2021-02-09 04:32 | disposition critical access hospital (66) | LOC: EMS 04:31 | DX: R10.11 Right upper quadrant pain (principal) | CPT/HCPCS: A0425; A0429 ==

== ENCOUNTER 2021-02-09 04:48 | Emergency (ER) | payer MEDICARE, OTHER, MEDICAID ==
[2021-02-09 06:25] LABS: BASOPHILS % (AUTO) 0.2 %; EOSINOPHILS % (AUTO) 0.3 %; HCT - HEMATOCRIT 35.4 % (37.0-47.0); HGB - HEMOGLOBIN 10.5 g/dL (12.0-16.0); LYMPHOCYTES % (AUTO) 58.4 %; MEAN CORPUSCULAR HEMOGLOBIN 26.4 pg (27.0-31.0); MEAN CORPUSCULAR HGB CONC 29.7 g/dL (32.0-36.0); MEAN CORPUSCULAR VOLUME 88.9 fL (81.0-99.0); MEAN PLATELET VOLUME 12.1 fL (7.9-10.8); MONOCYTES % (AUTO) 10.1 %; NEUTROPHILS % (AUTO) 30.7 %; PLT - PLATELET COUNT 511 10^3/uL (130-450); RED BLOOD COUNT 3.98 10^6/uL (4.20-5.40); RED CELL DISTRIBUTION WIDTH 21.7 % (12.0-15.0); WHITE BLOOD COUNT 6.1 x10^3/uL (4.8-10.8)
[2021-02-09 06:30] LABS: ABNORMAL LYMPHS % (MANUAL) 0 %; BAND NEUTROPHILS % (MANUAL) 0 %
[2021-02-09 06:31] LABS: ALBUMIN 3.2 g/dL (3.2-5.5); ALBUMIN/GLOBULIN RATIO 0.6 (1.0-2.2); ALKALINE PHOSPHATASE 74 IU/L (42-121); ALT ALANINE AMINOTRANSFERASE < 10 IU/L (10-60); AST ASPARTATE AMINOTRANSFERASE 22 IU/L (10-42); BILIRUBIN,TOTAL 0.7 mg/dL (0.2-1.0); BUN - BLOOD UREA NITROGEN 7 mg/dL (6-20); CALCIUM 9.3 mg/dL (8.5-10.3); CARBON DIOXIDE - CO2 22 mmol/L (21-32); CHLORIDE 108 mmol/L (101-111); CREATININE 0.7 mg/dL (0.4-1.0); GFR - MDRD 97 (>89); GLUCOSE 81 mg/dL (70-100); LIPASE 21 U/L (22-51); POTASSIUM 3.1 mmol/L (3.5-5.0); SODIUM 139 mmol/L (135-145); TOTAL PROTEIN 8.2 g/dL (6.7-8.2)
[2021-02-09 06:39] LABS: LYMPHOCYTES # (MANUAL) 3.7 10^3/uL (1.5-3.5); LYMPHOCYTES % (MANUAL) 61 %; MONOCYTES # (MANUAL) 0.4 10^3/uL (0.0-1.0)
[2021-02-09 06:40] LABS: DIFFERENTIAL COMMENT MANUAL DIFFERENTIAL; PLATELET ESTIMATE, MANUAL INCREASED (>450,000) (NORMAL); PLATELET MORPHOLOGY NORMAL APPEARANCE (NORMAL); RBC MORPHOLOGY (MULTIPLE) 2+ ANISOCYTOSIS (NORMAL); WBC MORPHOLOGY (MULTIPLE) NORMAL APPEARANCE (NORMAL)
--- NOTE | 2021-02-09 06:53 | ED Physician Documentation ---
PD HPI ABD PAIN - Stated complaint Stated Complaint: ABD PX - Chief complaint Chief Complaint: Abd Pain - History obtained from History obtained from: Patient, Family - History of Present Illness Timing - onset: Today Timing - duration: Minutes Timing - details: Abrupt onset, Now resolved Quality: Cramping, Sharp, Pain Location: All over / everywhere Worsened by: Moving, Position, Palpation Associated symptoms: Constipation. No: Fever, Nausea, Vomiting, Hematemesis, Diarrhea Similar symptoms before: Has not had sx before Recently seen: Other (recently discharged from hospice) Review of Systems Constitutional: denies: Fever Nose: denies: Congestion Throat: denies: Sore throat Cardiac: denies: Chest pain / pressure Respiratory: denies: Dyspnea, Cough GI: reports: Abdominal Pain, Constipation. denies: Nausea, Vomiting : reports: Frequency (not changed). denies: Dysuria Skin: denies: Rash, Lesions Musculoskeletal: denies: Neck pain, Back pain, Extremity pain, Extremity swelling Neurologic: reports: Confused (as usual). denies: Generalized weakness, Focal weakness, Numbness PD PAST MEDICAL HISTORY - Past Medical History Past Medical History: Yes Cardiovascular: High cholesterol, Coronary artery disease, Peripheral Vascular Disease Respiratory: Asthma Neuro: Dementia Endocrine/Autoimmune: None GI: GERD, Hiatal hernia [employer]: Fibroids : None HEENT: Chronic vision loss, Glaucoma Psych: Depression, Anxiety Musculoskeletal: Osteoporosis Derm: None - Past Surgical History Past Surgical History: Yes General: Appendectomy, Splenectomy Ortho: Amputation /[employer]: Hysterectomy Cardiovascular: Angioplasty, Other - Present Medications Home Medications: Ambulatory Orders Medication Instructions Recorded Confirmed ALPRAZolam [Alprazolam] 0.25 mg PO Q4HR PRN MDD 4 DOSES OF 03/18/16 02/09/21 0.25MG Esomeprazole Magnesium 40 mg PO QDAC 08/13/19 02/09/21 Mirtazapine 7.5 mg PO QPM 08/13/19 02/09/21 Aspirin [Aspirin EC] 81 mg PO DAILY 08/14/19 02/09/21 Dorzolamide HCl/Timolol Maleat 1 drops EACHEYE BID 03/13/20 02/09/21 [Dorzolamide-Timolol Eye Drops] prednisoLONE 1% OPHTH DROPS [Pred 1 drops RIGHTEYE BID 09/11/20 02/09/21 Forte 1% Ophth Drops] Divalproex Dr [Depakote Dr] 125 mg PO BID 10/27/20 02/09/21 - Allergies Allergies/Adverse Reactions: Allergies Allergy/AdvReac Type Severity Reaction Status Date / Time gentamicin [Gentamicin] Allergy Unknown Verified 02/09/21 05:08 lisinopril Allergy Unknown Verified 02/09/21 05:08 paroxetine [From Paxil] Allergy Unknown Verified 02/09/21 05:08 - Social History Does the pt smoke?: No Smoking Status: Never smoker Does the pt drink ETOH?: No Does the pt have substance abuse?: No - Immunizations Immunizations are current?: Yes - POLST Patient has POLST: Yes POLST Status: DNR PD ED PE NORMAL - Vitals Vital signs reviewed: Yes (hypertnesive ) - General General: No acute distress, Well developed/nourished - HEENT HEENT: Atraumatic, PERRL, EOMI - Neck Neck: Supple, no meningeal sign - Respiratory Respiratory: No respiratory distress - Abdomen Abdomen: Normal bowel sounds, Soft, Non tender, Non distended, No organomegaly - Back Back: No CVA TTP, No spinal TTP - Derm Derm: Normal color, Warm and dry, No rash - Extremities Extremities: No edema, Other (bilateral BKA) - Neuro Neuro: wire walker 2-12 intact, No motor deficit, No sensory deficit, Normal speech Eye Opening: Spontaneous Motor: Obeys Commands Verbal: Confused GCS Score: 14 - Psych Psych: Normal mood, Normal affect Results - Vitals Vitals: Vital Signs - 24 hr 02/09/21 02/09/21 02/09/21 04:55 05:00 05:15 Temperature 36.8 C 36.8 C Heart Rate 76 76 76 Respiratory 16 16 18 Rate Blood Pressure 143/79 H 143/79 H 139/86 H O2 Saturation 91 L 91 L 91 L 02/09/21 02/09/21 02/09/21 05:16 06:29 08:20 Temperature 36.1 C L 36 C L Heart Rate 73 77 69 Respiratory 16 16 18 Rate Blood Pressure 139/86 H 120/78 130/85 H O2 Saturation 98 97 100 02/09/21 02/09/21 08:40 10:15 Temperature 37.6 C Heart Rate 90 61 Respiratory 20 18 Rate Blood Pressure 119/52 L 147/86 H O2 Saturation 97 99 Oxygen O2 Source [] Room air O2 Source Room air Oxygen Flow Rate 2 - Labs Labs: Laboratory Tests 02/09/21 02/09/21 06:13 06:13 WBC 6.1 RBC 3.98 L Hgb 10.5 L Hct 35.4 L MCV 88.9 MCH 26.4 L MCHC 29.7 L RDW 21.7 H Plt Count 511 H MPV 12.1 H Neut # (Auto) Not Reportable Lymph # (Auto) Not Reportable Evangeline # (Auto) Not Reportable Eos # (Auto) Not Reportable Baso # (Auto) Not Reportable Absolute Nucleated RBC Not Reportable Total Counted 100 Band Neuts % (Manual) 0 Abnorm Lymph % (Manual) 0 Nucleated RBC % Not Reportable Neutrophils # (Manual) 2.0 Lymphocytes # (Manual) 3.7 H Monocytes # (Manual) 0.4 Eosinophils # (Manual) 0.0 Basophils # (Manual) 0.0 Differential Comment MANUAL DIFFERENTIAL WBC Morphology NORMAL APPEARANCE Platelet Estimate INCREASED (>450,000) Platelet Morphology NORMAL APPEARANCE RBC Morph Micro Appear 2+ ANISOCYTOSIS Sodium 139 Potassium 3.1 L Chloride 108 Carbon Dioxide 22 Anion Gap 9.0 BUN 7 Creatinine 0.7 Estimated GFR (MDRD) 97 Glucose 81 Calcium 9.3 Total Bilirubin 0.7 AST 22 ALT < 10 L Alkaline Phosphatase 74 Total Protein 8.2 Albumin 3.2 Globulin 5.0 H Albumin/Globulin Ratio 0.6 L Lipase 21 L - Rads (name of study) abd series Radiology: Prelim report reviewed (Impression: No acute process in the abdomen or chest.), EMP read indepedently, See rad report Procedures - IVC sono (time) 0650 Bedside IVC sono: IVC measures (cm) (0.92), IVC collapsed c insp (cm) (complete), Dehydration (est 1-2 liter deficit) PD MEDICAL DECISION MAKING - ED course Complexity details: reviewed old records, reviewed results, re-evaluated shilo jean, considered differential, d/w patient, d/w family ED course: 81-year-old female with advanced dementia who has had a recent improvement in her overall health status has been taken off of hospice. She has developed some abdominal pain this morning that is now resolved and she has not had a bowel movement in 2 days. She does not appear to be obstructed on a plain film and an enema is administered. She has some results of this, she does not develop recurrence of her abdominal pain. She is found to be dehydrated on interrogation of the IVC. After discussion with the patients regarding IV hydration he would like to proceed with this. I did discuss with him the rapid decline expected with excessive dehydration and recommended he encourage fluids. 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 She has had improvement and has been taken off of hospice. Hydration is done with one liter of saline. Departure - Departure Disposition: 01 Home, Self Care Clinical Impression: Dehydration Constipation Qualifiers: Constipation type: unspecified constipation type Qualified Code(s): K59.00 - Constipation, unspecified Condition: Stable Instructions: ED Constipation, ED Dehydration Follow-Up: Aysha Ballesteros ARNP, [facility] [Primary Care Provider] - Discharge Date/Time: 02/09/21 10:45
--- NOTE | 2021-02-09 07:48 | XRAY Report ---
PROCEDURE: Abdomen Acute INDICATIONS: Abdominal pain TECHNIQUE: One view chest and two views of the abdomen were acquired. COMPARISON: 10/29/2020 FINDINGS: Surgical changes and devices: Left upper quadrant surgical clips. Chest: Lungs are clear. Heart size is normal. No pleural effusions. No pneumoperitoneum. Abdomen: Bowel gas pattern is normal. Visualized solid organ contours appear normal. Unchanged medi al left upper quadrant calcification likely representing calcified splenic artery aneurysm. Bones: No acute osseous lesion identified. Degenerative changes and scoliosis in the thoracic and lum bar spine noted. IMPRESSION: No acute process. No significant change from pulmonary report. Reviewed by: Minh Huff MD on 02/09/2021 7:47 AM PDT Approved by: Minh Huff MD on 02/09/2021 7:47 AM PDT Station ID: [id number]
[2021-02-09] MEDS ORDERED: SODIUM CHLORIDE 0.9% 1,000 ML IV STA (09:06)
[2021-02-09 10:16] VITALS: BP 147/86
== END 2021-02-09 10:45 | disposition home or self-care (01) ==
LOC: EDUNIT# → ED 04:48
DX: E86.0 Dehydration (principal); K59.00 Constipation, unspecified; F03.90 Unspecified dementia, unspecified severity, without behavioral disturbance, psychotic disturbance, mood disturbance, and anxiety; Z89.512 Acquired absence of left leg below knee; Z89.511 Acquired absence of right leg below knee
CPT/HCPCS: 36415; 80053; 83690; 85025; 96360; 99284

== ENCOUNTER 2021-02-25 08:00 | Outpatient (CLI) | payer MEDICARE, OTHER, MEDICAID ==
[2021-02-25 18:12] LABS: BASOPHILS % (AUTO) 0.2 %; EOSINOPHILS % (AUTO) 0.2 %; HGB - HEMOGLOBIN 10.4 g/dL (12.0-16.0); LYMPHOCYTES # (AUTO) 3.5 10^3/uL (1.5-3.5); LYMPHOCYTES % (AUTO) 57.2 %; MEAN CORPUSCULAR HEMOGLOBIN 25.9 pg (27.0-31.0); MEAN CORPUSCULAR HGB CONC 28.9 g/dL (32.0-36.0); MEAN CORPUSCULAR VOLUME 89.6 fL (81.0-99.0); MEAN PLATELET VOLUME 12.3 fL (7.9-10.8); MONOCYTES # (AUTO) 0.6 10^3/uL (0.0-1.0); MONOCYTES % (AUTO) 9.9 %; NEUTROPHILS % (AUTO) 32.3 %; NRBC ABSOLUTE COUNT (AUTO) 0.05 x10^3/uL; NUCLEATED RED BLOOD CELLS AUTO 0.8 /100WBC; PLT - PLATELET COUNT 496 10^3/uL (130-450); RED BLOOD COUNT 4.02 10^6/uL (4.20-5.40); RED CELL DISTRIBUTION WIDTH 22.2 % (12.0-15.0); WHITE BLOOD COUNT 6.1 x10^3/uL (4.8-10.8)
[2021-02-25 18:27] LABS: SLIDE REVIEW? Indicated
[2021-02-25 18:32] LABS: CALCIUM 9.3 mg/dL (8.5-10.3); CREATININE 0.8 mg/dL (0.4-1.0); MAGNESIUM 2.2 mg/dL (1.7-2.8); POTASSIUM 3.2 mmol/L (3.5-5.0)
[2021-02-25 18:40] LABS: THYROID STIMULATING HORMONE 2.28 uIU/mL (0.34-5.60)
[2021-02-25 18:42] LABS: FREE T3 2.36 pg/mL (2.5-3.9); FREE T4 (FREE THYROXINE) 1.04 ng/dL (0.58-1.64)
[2021-02-25 19:01] LABS: PLATELET ESTIMATE, MANUAL INCREASED (>450,000) (NORMAL); PLATELET MORPHOLOGY 2+ GIANT PLATELETS (NORMAL)
== END 2021-02-25 23:59 | disposition home or self-care (01) ==
LOC: LAB.WCP 08:00
PROVIDERS: ATTEND Family Medicine
DX: E87.6 Hypokalemia (principal); E46 Unspecified protein-calorie malnutrition; R62.7 Adult failure to thrive
CPT/HCPCS: 36415; 80048; 83735; 84439; 84443; 84481; 85025

== ENCOUNTER 2021-03-04 15:45 | Outpatient (CLI) | payer MEDICARE, OTHER, MEDICAID ==
--- NOTE | 2021-03-04 16:25 | CONSULTATION NOTE ---
Palliative Care Follow Up - Referral Referring Provider: Dr. Theron Fajardo Time of Visit: [id number] Referral setting: Home Referral Reason: Vascular Dementia/FTT - Information Sources Records reviewed: Previous records reviewed History/Review of Systems obtained from: Patient, Family (spouse, Priyank) Exam limitations: Clinical condition (Advanced Dementia) - History of Present Illness Update Brief HPI Update: This is an 81-year-old -Czech female who was seen and evaluated within her home with her /DPOAPriyank present for reestablishment of care with palliative care services due to failure to thrive and vascular dementia. The patient is well-known to this provider having been on palliative care services prior to her transition to [facility] care in early November 2020. She has recently come off hospice as of early January 2021 and is reestablishing with palliative care services. The patient has a longstanding history of vascular dementia with intermittent behavioral disturbances that is well controlled with alprazolam and Depakote. The patient previously resided at [facility] for approximately 2-1/2 years before returning home with her spouse as her primary caregiver and there are 3 caregivers that come into the home to provide additional support for s everal hours a day Thursday through Thursday. Her coming off of hospice services the patient presented to the emergency department on 02/09 due to abdominal pain in the setting of constipation. The patient spouse has been administering MiraLAX and senna if needed to obtain a bowel movement. Last bowel movement was yesterday with no reported straining. The patient is drinking regularly throughout the day: Pepsi, juice, and water. She is eating however, smaller amounts than previously reported. She has lost approximately 13 pounds since October 2020. The patient's spouse and caregivers are attempting to make a routine and having the patient sitting up for breakfast and dinner and not consuming her routine meals in bed. She has not had any falls. The patient's spouse laments that the hospital bed that was provided by hospice set up in the living room was a great source of renetta for the caregivers, spouse and family and were saddened to have this go. However, the patient's spouse did not want to rent by and the bed and therefore the patient has transitioned back to the bed that she shares with her spouse. She has been battling gingivitis and when she was seen to establish care with her new PCP on 02/25 she was initiated on Augmentin until she got in to see you Dr. Garcia for her tooth this distraction. She subsequently had [address] Garcia placed her on a course of amoxicillin which she is still completing. No reports of diarrhea or nausea. The patient had recent lab work obtained on 02/25 and the patient spouse wish to have clarification regarding potassium chloride supplementation as the patient's potassium levels was 3.2 on lab draw and she was reinitiated on potassium chloride 10 mEq once daily. Discussed with the patient's spouse goal potassium level and would continue utilization of potassium chloride supplementation. The patient spouse notes that the patient is sleeping more during the day. He continues to note a general decline. Due to her recent dental extraction the spouse is providing soft foods for consumption and the patient is not reporting any gum or dental discomfort. The patient is seen resting in bed initially in gauged for answering simple questions and then drifting back off to sleep. Well-groomed in her nightgown with no evidence of acute distress. 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 Social History - Living Situation Living arrangement: At home Living Situation: With spouse/s.o. Support System: Patient and her have been for 59 years. Prior to relocating to [facility] she and her live in [place], [place]. She grew up in [place], [place]. The patient and her have 2 children, 1 daughter and 1 son. The patient's healthcare power of code machine operator is her , Priyank at [phone]. The patient and her are estranged from their daughter. Their son, Stephen resides in [place]. The patient has 3 private caregivers through [facility] that come 6 days/week. Her renal case manager is Renetta Zelaya. Medications/Allergies - Medications Home Medications: Ambulatory Orders Medication Instructions Recorded Confirmed ALPRAZolam [Alprazolam] 0.25 mg PO BID 03/18/16 02/09/21 Esomeprazole Magnesium 40 mg PO BID 08/13/19 03/05/21 Mirtazapine 7.5 mg PO QPM 08/13/19 03/05/21 Aspirin [Aspirin EC] 81 mg PO DAILY 08/14/19 03/05/21 Dorzolamide HCl/Timolol Maleat 1 drops EACHEYE BID 03/13/20 03/05/21 [Dorzolamide-Timolol Eye Drops] prednisoLONE 1% OPHTH DROPS [Pred 1 drops RIGHTEYE BID 09/11/20 03/05/21 Forte 1% Ophth Drops] Divalproex Dr [Depakote Dr] 125 mg PO BID 10/27/20 03/05/21 Liothyronine [Cytomel] 5 mcg PO DAILY 03/05/21 03/05/21 Potassium Chloride 10 meq PO DAILY 03/05/21 03/05/21 Senna [Senokot] 8.6 mg PO DAILY PRN 03/05/21 03/05/21 polyethylene glycoL 3350 [Miralax] 8.5 gm PO DAILY 03/05/21 03/05/21 - Allergies Allergies/Adverse Reactions: Allergies Allergy/AdvReac Type Severity Reaction Status Date / Time gentamicin [Gentamicin] Allergy Unknown Verified 02/09/21 05:08 lisinopril Allergy Unknown Verified 02/09/21 05:08 paroxetine [From Paxil] Allergy Unknown Verified 02/09/21 05:08 Review of Systems - Constitutional Constitutional: reports: Fatigue, Poor appetite (see HPI), Weight loss (see HPI). denies: Fever - Eyes Eyes: reports: Vision loss (right eye due to glaucoma) - Ears, Nose & Throat Ears, Nose & Throat: reports: Dental decay, Other (recently had 3 teeth extracted). denies: Dentures - Cardiovascular Cardiovascular: denies: Chest pain, Edema - Respiratory Respiratory: denies: Cough - Gastrointestinal Gastrointestinal: reports: Constipation (improved, see HPI), Poor appetite. denies: Abdominal pain, Vomiting - Genitourinary Genitourinary: reports: Incontinence. denies: Dysuria - Musculoskeletal Musculoskeletal: reports: Muscle weakness, Assistive devices, Transfer issues. denies: Joint pain - Integumentary Integumentary: denies: Rash - Neurological Neurological: reports: General weakness, Memory problems - Psychiatric Psychiatric: reports: Depression, Behavior disturbances (history of behaviorial disturbances) - Endocrine Endocrine: reports: Hypothyroidism - Hematologic/Lymphatic Hematologic/Lymph: reports: Other (history of frequent UTIs) - All Other Systems All Other Systems: reports: Reviewed and negative (Patient is a poor historian due to dementia and review of systems supplemented by the patient's /DPHUNTER Priyank.) Physical Exam - Vital Signs Temperature: 36.5 C Pulse Rate: 76 O2 Saturation: 96 (on RA) Blood Pressure: 100/63 (left wrist) - Physical Exam General Appearance: positive: No acute distress, Alert, Other (resting in bed nightgown with haircap in place) Eyes Bilateral: positive: Other (scarring to right cornea due to glaucoma) ENT: positive: No signs of dehydration, Other (poor dentition. Would not allow for adequate inspection of gums by following commands for opening her mouth.) Neck: positive: Trachea midline. negative: Lymphadenopathy (R), Lymphadenopathy (L) Cardiovascular: positive: Regular rate & rhythm, No murmur Respiratory: positive: No respiratory distress, Breath sounds nml Abdomen: positive: Non-tender, Soft, Nml bowel sounds Skin: positive: No symptoms Extremities: positive: No pedal edema, Other (bilateral below the knee amputations) Neurologic/Psychiatric: positive: Disoriented to person, Disoriented to place, Disoriented to time, Weakness, Other (responds when directly addressed with short responses) Palliative Care - POLST Patient has POLST: Yes POLST Status: DNR, Comfort Measures Pain: No pain Performance Status: Patient is able to self feed, placed on her prostheses with some assistance and stand and pivot to her bedside commode or chair next to the bedside. She is a decreased oral intake overall with weight loss. Some of this may be contributory due to her poor dentition and gingivitis with recent tooth extractions. Intermittent episodes of in continence with urine and remains continent of bowel. - Palliative Care Discussion: The patient has recently come off of hospice services as of early January 2021 and continues to have a decreased overall oral intake and an approximately 13 pound weight loss since October 2020. The patient spouse recognizes the patient has a continued gradual decline due to her underlying vascular dementia and provided supportive listening today and normalization of his feelings. The patient spouse continues to be her primary caregiver with an added layer of support of caregivers several hours a day 6 days/week. The patient's spouse is presently undergoing treatment for MDS and his primary focus is to remain healthy to be able to care for the patient and himself within their home setting. He ultimately, would prefer the patient not to have to return to another facility and if her care needs increased he would be open to having her transition to [facility] as he does not wish for her to leave the [place]. Results - Lab Results Lab results reviewed: Yes Lab and Imaging Results: 02/25/2021 Sodium 143, potassium 3.2, BUN 7, creatinine 0.8, GFR 83, glucose 79, magnesium 2.2 TSH 2.28, free T3 2.36, free T4 1.04 Impression and Recommendations - Palliative Care Impression: This is an 81-year-old -[place] female who continues to have a gradual, functional decline due to her underlying vascular dementia and peripheral vascular disease. She is recently graduated from [facility]. The patient's spouse continues to wish to focus on quality of life and comfort with in their home setting with the patient's spouse is her primary caregiver. Palliative care to continue to provide support for symptom management, care coordination, anticipatory guidance and a transition to hospice services again when appropriate. Recommendations/Counseling Done: 1.Protein calorie malnutrition in the setting of advanced vascular dementia. The patient has a decrease in overall oral intake but is consuming typically 2 meals daily snacking in between. Continue to encourage the spouse to provide any items that the patient is interested in that are presently soft in presentation due to her recent tooth extraction. Continue to encourage sitting up during mealtimes to E's potential for early satiety. Continue to monitor. Left MAC obtained today as 20.5 cm. 2. Severe gingivitis with recent tooth extraction. The patient was started on Augmentin by her PCP and this was subsequently stopped by the patient's spouse when she saw her dentist, Dr. Garcia who performed 3 tooth extractions and initiated her on amoxicillin that needed clarification for the patient's spouse. Advised, would complete amoxicillin as prescribed by the patient's dentist and would remain off of Augmentin at this point in time. Difficult to perform an adequate assessment of the patient's oral mouth today as she was resistant to opening due to her underlying dementia. Follow-up with dentist as previously advised. 3. Vascular dementia with a history of peripheral vascular disease. Chronic. Progressive. Fall precautions. No reports of dysphagia. Continue aspirin therapy as prescribed. Continue Depakote as ordered due to previous history of agitation as well as open alprazolam. She is on no disease modifying agents. Given the patient's advanced age and chronic comorbidities a gradual Casarez is expected. 4. Hypokalemia. Patient with potassium level of 3.2 performed on 02/25/2021 reviewed with the patient's spouse today and went over administration of potassium chloride supplementation 10 mEq daily and assured spouse may provide administration for low potassium and would continue this moving forward. 5. Advanced care planning. Patient recently graduated from hospice services. The patient's spouse relays some fears that the patient may not be able to go back on hospice services in the future as she is graduated and provided supportive listening by this BILLING SPEC with reassurance that if the patient met hospice criteria she may have an additional hospice benefit inthe future. This provided relief to the patient's spouse. Ultimately, the patient's spouse wishes for the patient to be present in their home setting with them staying together for as long as possible. If there came a time that they needed to transition the patient to a higher level of care and they would [place] the only offering being [facility] however, the patient's spouse wishes for the patient to be present at home for as long as possible. The patient and his spouse which to optimize their time together. Total time spent 45 minutes with greater than 50% of the spent in counseling and coordination of care with the patient's spouse/Priyank SPENCE; review of palliative care and hospice philosophy as well as hospice benefits; supportive listening; examination of the patient; review of medications; care coordination and anticipatory guidance. Disclaimer: The chart note was formulated using voice recognition technology and unfortunately sound alike errors may occur.
== END 2021-03-04 15:46 | disposition home or self-care (01) ==
LOC: PC 15:45
PROVIDERS: ATTEND Nurse Practitioner Family
DX: Z51.5 Encounter for palliative care (principal); E46 Unspecified protein-calorie malnutrition; K05.10 Chronic gingivitis, plaque induced; I73.9 Peripheral vascular disease, unspecified; F01.50 Vascular dementia, unspecified severity, without behavioral disturbance, psychotic disturbance, mood disturbance, and anxiety; E87.6 Hypokalemia
CPT/HCPCS: 99349

== ENCOUNTER 2021-03-22 14:10 | Outpatient (CLI) | payer MEDICARE, OTHER, MEDICAID ==
--- NOTE | 2021-03-22 16:09 | CONSULTATION NOTE ---
Palliative Care Follow Up - Referral Referring Provider: Dr. Theron Fajardo Time of Visit: Initiated 1410 Referral setting: Home Referral Reason: Vascular Dementia/FTT - Information Sources Records reviewed: Previous records reviewed History/Review of Systems obtained from: Patient, Family (spouse/JORDY, Priyank) Exam limitations: Clinical condition (Advanced Dementia) - History of Present Illness Update Brief HPI Update: This is an 81-year-old -[place]ian female who was seen and evaluated within her home with her /DPOA, Priyank present due to vascular dementia, chronic pain syndrome, and failure to thrive. The patient transitioned off of would be home hospice in early January 2021 and reestablished with palliative care services in March 2021. The patient after having 3 teeth extracted and completing her oral antibiotic course, she has returned close to her previous baseline, much to her spouse's pleasure. After having her procedure to have 3 teeth extracted she displayed increased fatigue and was requiring increased assistance with and meals. Per her Priyank, she has been more engaged recently with conversations and is not saying "no" to everything. He feels that she has been getting stronger with noting her ability to assist with transfers to the bedside commode and not relying solely on her or caregivers for transfer. Last week, she did have some reports of coughing which have abated with increased cueing by the patient's spouse and caregivers. The spouse reports that he is cueing the patient to masticate her food further and her appetite has greatly improved. She is now consuming approximately 3 meals per day. This last week, the patient spouse reports noting some skin breakdown to the patient's left buttocks and caregiver has placed a padded dressing over the site. It has not gotten any larger. The patient does have a history of pressure sores in the past that have resolved after being followed by home health nursing. The patient has a history of constipation and with utilization of senna and MiraLAX is typically defecating every 2 to 3 days. There has been no nausea or vomiting. The patient was reporting increased pain to her bilateral lower extremity amputation sites with sensitivity to touch and when having her prosthetics in place. She was reinitiated on pregabalin 50 mg at bedtime with improvement over the last few weeks. She is not complaining like she was prior to reinitiation of pregabalin but does periodically display signs and symptoms of discomfort with vocal asked formations as well as facial expressions. Reporting her prosthetics 1 this afternoon to transfer to the bedside commode she did display some evidence of discomfort to her bilateral lower extremity amputation sites with the left being more sensitive to the right. The patient is seen sitting up in bed in her. She is more engaged and answering in more complete sentences then last evaluation. 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 Social History - Living Situation Living arrangement: At home Living Situation: With spouse/s.o. Support System: Patient her and her have been for 59 years. Prior to relocating to [facility] she and her live in [place], [place]. The patient grew up in [place], [place]. The patient and her have 2 children, 1 daughter and 1 son. The patient's healthcare power of privacy attorney is her , Priyank with contact number [phone]. The patient and her are estranged from her daughter. Their son, Stephen resides in [place] and provide support. The patient has 3 private caregivers through [facility] that come 6 days/week. Her case sealer is Renetta Zelaya. As the patient's caregivers typically have to leave by 1 PM the patient's spouse attempts to have appointments and errands first thing in the morning so he will be ensured to be present before the caregivers leave. Medications/Allergies - Medications Home Medications: Ambulatory Orders Medication Instructions Recorded Confirmed ALPRAZolam [Alprazolam] 0.25 mg PO BID 03/18/16 02/09/21 Esomeprazole Magnesium 40 mg PO BID 08/13/19 03/05/21 Mirtazapine 7.5 mg PO QPM 08/13/19 03/05/21 Aspirin [Aspirin EC] 81 mg PO DAILY 08/14/19 03/05/21 Dorzolamide HCl/Timolol Maleat 1 drops EACHEYE BID 03/13/20 03/05/21 [Dorzolamide-Timolol Eye Drops] prednisoLONE 1% OPHTH DROPS [Pred 1 drops RIGHTEYE BID 09/11/20 03/05/21 Forte 1% Ophth Drops] Divalproex Dr [Depakote Dr] 125 mg PO BID 10/27/20 03/05/21 Liothyronine [Cytomel] 5 mcg PO DAILY 03/05/21 03/05/21 Potassium Chloride 10 meq PO DAILY 03/05/21 03/05/21 Senna [Senokot] 8.6 mg PO DAILY PRN 03/05/21 03/05/21 polyethylene glycoL 3350 [Miralax] 8.5 gm PO DAILY 03/05/21 03/05/21 Pregabalin [Lyrica] 50 mg PO BID 03/11/21 03/11/21 - Allergies Allergies/Adverse Reactions: Allergies Allergy/AdvReac Type Severity Reaction Status Date / Time gentamicin [Gentamicin] Allergy Unknown Verified 02/09/21 05:08 lisinopril Allergy Unknown Verified 02/09/21 05:08 paroxetine [From Paxil] Allergy Unknown Verified 02/09/21 05:08 Review of Systems - Constitutional Constitutional: reports: Other (left MAC 21cm today, increased from 20.5cm). denies: Fever - Eyes Eyes: reports: Vision loss (right eye due to glaucoma) - Ears, Nose & Throat Ears, Nose & Throat: reports: Dental decay. denies: Dentures, Bleeding gums, Dental pain - Cardiovascular Cardiovascular: denies: Chest pain, Edema - Respiratory Respiratory: reports: Cough (resolved, see HPI). denies: Wheezing - Gastrointestinal Gastrointestinal: reports: Other (Appetite has improved). denies: Constipation (controlled with present bowel regimen with bowel movement every 2-3 days.), Vomiting - Genitourinary Genitourinary: reports: Incontinence. denies: Dysuria - Musculoskeletal Musculoskeletal: reports: Muscle weakness, Assistive devices, Transfer issues. denies: Joint pain - Integumentary Integumentary: reports: Other (skin breakdown left buttock) - Neurological Neurological: reports: General weakness, Memory problems - Psychiatric Psychiatric: reports: Depression, Behavior disturbances (history of behaviorial disturbances) - Endocrine Endocrine: reports: Hypothyroidism - Hematologic/Lymphatic Hematologic/Lymph: reports: Other (history of frequent UTIs) - All Other Systems All Other Systems: reports: Reviewed and negative (Patient is a poor historian due to dementia and review of systems supplemented by the patient's /Priyank SPENCE.) Physical Exam - Vital Signs Temperature: 36.2 C Pulse Rate: 61 O2 Saturation: 95 (on RA) Blood Pressure: 108/63 (left wrist) - Physical Exam General Appearance: positive: No acute distress, Alert, Other (resting in bed nightgown) Eyes Bilateral: positive: Other (scarring to right cornea due to glaucoma) ENT: positive: No signs of dehydration, Other (poor dentition. right upper gums with area of recent teeth extraction without erythema or evidence of abcess. Denies tenderness to gums.) Neck: positive: Trachea midline. negative: Lymphadenopathy (R), Lymphadenopathy (L) Cardiovascular: positive: Regular rate & rhythm Respiratory: positive: No respiratory distress, Breath sounds nml, Rales (BLL, trace) Abdomen: positive: Non-tender, Soft, Nml bowel sounds. negative: Distended Skin: positive: Pressure wound (stage II pressure wound to left buttock near coccyx 1cm x 0.75cm that appears to be resolving, no discharge or erythema.) Extremities: positive: No pedal edema, Other (bilateral below the knee amputations) Neurologic/Psychiatric: positive: Disoriented to person, Disoriented to place, Disoriented to time, Weakness, Other (More engaged and communicating with sentences today than last evaluation) Palliative Care - POLST Patient has POLST: Yes POLST Status: DNR, Comfort Measures Pain: Pain improved (to b/l amputation sites) Anorexia: Mild (1-3) Sleep: Sleeps well Constipation: Managed Performance Status: Improvement in her overall functional ability in the last few weeks. She is able to self feed and assist with placing her prosthetics on. Increase ability to stand and pivot to her bedside commode or chair with out relying heavily on caregivers or her spouse. Improvement of overall oral intake. Intermittent episodes of incontinence with urine and remains continent with bowel. - Palliative Care Discussion: After the patient has recent procedure with dental tooth extraction and oral antibiotics it took her some time to rebound and had previously discussed with the patient's spouse as well as caregiver, Astrid that when underlying dementia is present and is unclear which path the patient may go up on with continued, gradual decline versus steady improvement but not quite getting back to the individuals for her baseline. The patient has improved and is close to her previous baseline much of the relief of the patient's spouse. She is able to participate in more activities of care for herself and is more engaged and articulate than she had been in recent weeks. Overall, she has displayed evidence of weight loss with recent stabilization due to her improvement over her oral intake. however, due to her inability to reposition in bed easily she has developed some skin breakdown to her left buttocks with encouragement to the patient and spouse to turn and reposition every 2 hours with local skin care. Impression and Recommendations - Palliative Care Impression: This is an 81-year-old -[place]anaian female with underlying vascular dementia, peripheral vascular disease, chronic pain syndrome and new area of skin breakdown. She has multiple comorbidities and is at risk for sequela I due to her peripheral vascular disease and vascular dementia. [facility] The patient's spouse wishes to focus on quality of life and comfort within her home setting with the patient's spouse as her primary caregiver. Palliative care will continue to provide support for symptom management, care coordination, anticipatory guidance and a transition to hospice services again when appropriate. Recommendations/Counseling Done: 1.Pressure ulcer, left buttocks. Area appears to be stable without signs and symptoms of infection. Encourage the patient to be turned and repositioned in bed every 2 hours and to offload of the affected site to allow for healing. Recommended use of Cavilon barrier cream at least once daily until the site is resolved keeping it open to air. Advised may reapply with the Cavilon barrier cream if removed with pericare. Spouse advised to contact palliative care if any new or worsening symptoms and then would make a referral to home health services for further management. 2. Chronic pain. Multifactorial in origin with a history of long-term opioid therapy that is no longer in use. History of phantom pain due to bilateral below the knee amputation secondary to peripheral vascular disease. Improvement of chronic pain and phantom pain with reinitiation of Lyrica 50 mg in the evening. As she continues to have demonstration of discomfort to her bilateral below the knee amputation sites will increase Lyrica to 50 mg twice daily and monitor her response. 3. Gingivitis. Patient is not always compliant with brushing. Would recommend use of mouthwash in the evenings to swish and spit for gum health. 4. Protein calorie malnutrition in the setting of advanced vascular dementia. Improvement with the patient's overall oral intake in recent weeks. However, may continue to wax and wane based on the patient's advancing dementia. MAC to left arm 21cm today which was up from last evaluation. 5. Vascular dementia with a history of peripheral vascular disease. Chronic. Progressive. Fall precautions. Recent reports of coughing with potential to progress to dysphagia that has resolved. Discussed continued cueing with this patient reviewed with the spouse. Discussed with the spouse today if dysphagia is not unexpected and advancement of dementia and normalized his fears. Continue aspirin therapy as prescribed. Continue Depakote as ordered due to previous history of agitation. She is on no disease modifying agents. Given the patient's advanced age and chronic comorbidities a gradual decline is expected. CPT 66912 Plan of care reviewed with the patient's spouse and patient at length with questions answered and addressed with understanding verbalized. Disclaimer: The chart note was formulated using voice recognition technology and unfortunately sound alike errors may occur.
== END 2021-03-22 14:11 | disposition home or self-care (01) ==
LOC: PC 14:10
PROVIDERS: ATTEND Nurse Practitioner Family
DX: Z51.5 Encounter for palliative care (principal); F01.51 Vascular dementia, unspecified severity, with behavioral disturbance; R62.7 Adult failure to thrive; G89.29 Other chronic pain; Z89.512 Acquired absence of left leg below knee; Z89.511 Acquired absence of right leg below knee; H40.9 Unspecified glaucoma; R32 Unspecified urinary incontinence; L89.322 Pressure ulcer of left buttock, stage 2; I73.9 Peripheral vascular disease, unspecified; G54.6 Phantom limb syndrome with pain; K05.10 Chronic gingivitis, plaque induced; E46 Unspecified protein-calorie malnutrition; Z79.82 Long term (current) use of aspirin; Z66 Do not resuscitate; Z79.899 Other long term (current) drug therapy
CPT/HCPCS: 99349

== ENCOUNTER 2021-04-24 12:00 | Outpatient (CLI) | payer MEDICARE, OTHER, MEDICAID ==
--- NOTE | 2021-04-24 14:33 | CONSULTATION NOTE ---
Palliative Care Follow Up - Referral Referring Provider: Dr. Theron Fajardo Time of Visit: 4879-4128 Referral setting: Home Referral Reason: Vascular Dementia/FTT/Pressure ulcer - Information Sources Records reviewed: Previous records reviewed History/Review of Systems obtained from: Patient, Family (spouse/DPOA, Priyank), Caregiver (Eliana) Exam limitations: Clinical condition (Advanced Dementia) - History of Present Illness Update Brief HPI Update: This is an 81-year-old -Danish female who was seen and evaluated within her home with her /DPOA Priyank present as well as her private caregiver, Eliana due to vascular dementia, chronic pain syndrome and failure to thrive. The patient transitioned off of home hospice in early January 2021 and reestablished with palliative care services in March 2021. The patient in early spring 2020 had weight loss down to 100.6 pounds of January 2021. She continues to be consuming her meals almost entirely 3 times a day as well as having an afternoon snack. No reports of cough or evidence of dysphagia during mealtimes. They are utilizing a soft diet after the patient had 3 teeth extracted in March 2021. The patient had previously reported been reporting increased pain to her bilateral lower extremity amputation sites with sensitivity is touch especially when her prosthetics were put in place. She has transitioned up to pregabalin 50 mg twice daily and this has greatly improved her comfort level. She is no longer crying out when the sleeves of her prosthetics are put in place. There is a possibility that the coolness of the sleeves may also be contributing factor to her discomfort. She is more at ease with transferring herself from the bed to the bedside commode once her prosthetics are put in place. Patient has a history of constipation and with utilization of senna and MiraLAX is typically defecating every other day. No reports of nausea or vomiting. At the end of March 2021 she developed some minor skin breakdown to her left buttocks and with application of barrier cream and frequent repositioning this is completely resolved per the patient's spouse and caregiver. The patient is seen sitting up in bed. She is engaged and interactive today answering more fluently and in recent visits. 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 Social History - Living Situation Living arrangement: At home Living Situation: With spouse/s.o. Support System: Patient her and her have been for 59 years. Prior to relocating to [facility] she and her lived in [place], [place]. The pa tient grew up in [place], [place]. The patient and her have 2 children, 1 daughter and 1 son. The patient's healthcare power of dye line operator is her , Priyank with contact number [phone]. The patient and her are estranged from her daughter. Their son, Stephen resides in [place] and provides support. The patient has 3 private caregivers through [facility] that come 6 days/week. Her telephonic nurse case manager is Renetta Zelaya. Medications/Allergies - Medications Home Medications: Ambulatory Orders Medication Instructions Recorded Confirmed ALPRAZolam [Alprazolam] 0.25 mg PO BID 03/18/16 02/09/21 Esomeprazole Magnesium 40 mg PO BID 08/13/19 03/05/21 Mirtazapine 7.5 mg PO QPM 08/13/19 03/05/21 Aspirin [Aspirin EC] 81 mg PO DAILY 08/14/19 03/05/21 Dorzolamide HCl/Timolol Maleat 1 drops EACHEYE BID 03/13/20 03/05/21 [Dorzolamide-Timolol Eye Drops] prednisoLONE 1% OPHTH DROPS [Pred 1 drops RIGHTEYE BID 09/11/20 03/05/21 Forte 1% Ophth Drops] Divalproex [Depakuate Dr] 125 mg PO BID 10/27/20 03/05/21 Liothyronine [Cytomel] 5 mcg PO DAILY 03/05/21 03/05/21 Potassium Chloride 10 meq PO DAILY 03/05/21 03/05/21 Senna [Senokot] 8.6 mg PO DAILY PRN 03/05/21 03/05/21 polyethylene glycoL 3350 [Miralax] 8.5 gm PO DAILY 03/05/21 03/05/21 Pregabalin [Lyrica] 50 mg PO BID 03/11/21 03/11/21 - Allergies Allergies/Adverse Reactions: Allergies Allergy/AdvReac Type Severity Reaction Status Date / Time gentamicin [Gentamicin] Allergy Unknown Verified 02/09/21 05:08 lisinopril Allergy Unknown Verified 02/09/21 05:08 paroxetine [From Paxil] Allergy Unknown Verified 02/09/21 05:08 Review of Systems - Constitutional Constitutional: reports: Other (left MAC 21cm , previous left MAC 21cm on 03/22/2021). denies: Fever - Eyes Eyes: reports: Vision loss (right eye due to glaucoma) - Ears, Nose & Throat Ears, Nose & Throat: reports: Other (fullness to ears). denies: Dentures, Bleeding gums, Dry mouth - Cardiovascular Cardiovascular: denies: Chest pain, Edema - Respiratory Respiratory: denies: Cough, Wheezing - Gastrointestinal Gastrointestinal: reports: Good appetite. denies: Constipation (controlled with present bowel regimen with bowel movement every other day), Vomiting, Other (Fecal incontinence) - Genitourinary Genitourinary: reports: Incontinence. denies: Dysuria - Musculoskeletal Musculoskeletal: reports: Muscle weakness, Assistive devices, Transfer issues. denies: Joint pain - Integumentary Integumentary: denies: Rash - Neurological Neurological: reports: General weakness, Memory problems - Psychiatric Psychiatric: reports: Depression, Behavior disturbances (history of behaviorial disturbances) - Endocrine Endocrine: reports: Hypothyroidism - Hematologic/Lymphatic Hematologic/Lymph: reports: Other (history of frequent UTIs) - All Other Systems All Other Systems: reports: Reviewed and negative (Patient is a poor historian due to dementia and review of systems supplemented by the patient's /Priyank SPENCE and caregiver Eliana..) Physical Exam - Vital Signs Temperature: 36.5 C Pulse Rate: 71 O2 Saturation: 95 Blood Pressure: 107/59 - Physical Exam General Appearance: positive: No acute distress, Alert, Other (resting in bed in nightgown) Eyes Bilateral: positive: Other (scarring to right cornea due to glaucoma) ENT: positive: No signs of dehydration, Other (poor dentition.Denies tenderness to gums. Dry, excess yellow cerumen to b/l ear canals removed with lighted curr ette and otoscope with b/l TMs intact and reduction in sensation of fullness by patient report) Neck: positive: Trachea midline, Lymphadenopathy (L) Cardiovascular: positive: Regular rate & rhythm Respiratory: positive: No respiratory distress, Breath sounds nml Abdomen: positive: Non-tender, Soft, Nml bowel sounds. negative: Distended Skin: negative: Pressure wound (hyperpigmentation to sacrum but not evidence of skin breakdown) Extremities: positive: No pedal edema, Other (bilateral below the knee amputations) Neurologic/Psychiatric: positive: Disoriented to place, Disoriented to time, Weakness, Other (More engaged and communicating with sentences today) Palliative Care - POLST Patient has POLST: Yes POLST Status: DNR, Comfort Measures Pain: Pain improved (discomfort to b/l amputation site improved with increase of pregabalin to 50mgBID.) - Palliative Care Discussion: Patient has overall demonstrated signs of stabilization in her functional decline that was noted previously. She is more engaged and her appetite has improved. Her left MAC remains stable at 21 cm. She also no longer has any skin breakdown to her sacrum or bilateral buttocks. Her spouse is currently undergoing cancer treatment and there is some underlying concern about her care and management in the future if something were to happen to her spouse. The patient spouse has previously stated that he would wish for the patient to remain on [facility] versus going south to [place] where their son resides. If things change with the patient's spouse is health will need to tease out plans moving forward but at the present time the patient and spouse are being supported by caregiving help within the home. Impression and Recommendations - Palliative Care Impression: This is an 81-year-old -Danish female with underlying vascular dementia, peripheral vascular disease, and chronic pain syndrome. She has multiple comorbidities and is at risk for sequela due to her peripheral vascular disease and vascular dementia. The patient graduated from [facility] hospice in January 2021. Palliative care will continue to provide support for symptom management, care coordination, anticipatory guidance and transition to hospice services again when appropriate. Recommendations/Counseling Done: 1. Chronic pain. Multifactorial in origin with a history of long-term opioid therapy that is no longer in use. History of phantom pain due to bilateral below the knee amputation secondary to peripheral vascular disease. Has done well with increase of pregabalin with control of her discomfort. Continue pregabalin 50 mg twice daily. Continue to monitor. 2. Protein calorie malnutrition in the setting of advanced vascular dementia. Patient continues to demonstrate improvement of her overall oral intake. Her left MAC remains stable at 21 cm. Encouraged the patient spouse and caregiver to look at ways to provide extra her protein calories in the diet such as milk, milkshake, cheese, peanut butter, etc. with understanding verbalized. Continue to monitor. 3. Pressure ulcer left buttocks. Resolved. Patient is at risk for skin breakdown due to limited mobility. Continue to encourage routine position changes while in bed every 2 hours. 4. Vascular dementia with history of peripheral vascular disease. Chronic. Progressive. Fall precautions. No evidence of dysphagia reported. Continue aspirin therapy as prescribed. Continue Depakote as ordered due to previous history of agitation. She is on no disease modifying agents. Given the patient's advanced age and chronic comorbidities a gradual decline is expected. Total time spent 30 minutes with greater than 50% of this spent in counseling and coordination of care with patient, spouse/DPOA and caregiver Eliana, review of pain and symptom management and anticipatory guidance. Disclaimer: The chart note was formulated using voice recognition technology and unfortunately sound alike errors may occur.
== END 2021-04-24 12:01 | disposition home or self-care (01) ==
LOC: PC 12:00
PROVIDERS: ATTEND Nurse Practitioner Family
DX: Z51.5 Encounter for palliative care (principal); G89.4 Chronic pain syndrome; E46 Unspecified protein-calorie malnutrition; F01.50 Vascular dementia, unspecified severity, without behavioral disturbance, psychotic disturbance, mood disturbance, and anxiety; I73.9 Peripheral vascular disease, unspecified; Z89.512 Acquired absence of left leg below knee; Z89.511 Acquired absence of right leg below knee; Z66 Do not resuscitate
CPT/HCPCS: 99348

== ENCOUNTER 2021-05-22 09:15 | Outpatient (CLI) | payer MEDICARE, OTHER, MEDICAID ==
--- NOTE | 2021-05-22 17:08 | CONSULTATION NOTE ---
Palliative Care Follow Up - Referral Referring Provider: Dr. Theron Fajardo Time of Visit: Initiated 914 Referral setting: Home Referral Reason: Change in condition/Dementia - Information Sources Records reviewed: Previous records reviewed History/Review of Systems obtained from: Patient, Family (spouse, Priyank), Caregiver (Eliana) Exam limitations: Clinical condition (Advanced Dementia) - History of Present Illness Update Brief HPI Update: This is an 81-year-old -[place] female who was seen and evaluated today within her home with her /DPOA Priyank as well as her private caregiver, Eliana due to concerns regarding change in condition and underlying vascular dementia. The patient transitioned off of home hospice in early January 2021 and reestablished with palliative care services in March 2021. The patient has been doing very well recently until beginning late Thursday evening early yesterday morning when she has been in less responsive and more sedated. However, today the patient's spouse reports that she has been more alert and verbal. She consumed all of her toast this morning and drank most of her coffee. She was interested in having pizza last evening and consumed all of it. She has not reported any dysuria and there is been no noted hematuria. The patient's spouse is very diligent about providing pericare and will provide localized pericare with soapy water at least once per day. She does have a history of urinary tract infections however, he will typically hit her "schaeffer ddenly" and she will not be interested in eating, drinking or engaging. The patient herself denies any discomfort overall. When questioned she typically is stating "yeah" as a response. Spouse reports bowel movements are regular with last bowel movement yesterday. There has been no nausea or vomiting. She has remained afebrile. The patient is seen resting in bed. She is easily arousable and will respond as noted above but is not engaged in the conversation. No signs of acute distress. 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 Social History - Living Situation Living arrangement: At home Living Situation: With spouse/s.o. Support System: Patient her and her have been for 59 years. Prior to relocating to [facility] she and her lived in [place], [place]. The patient grew up in [place], [place]. The patient and her have 2 children, 1 daughter and 1 son. The patient's healthcare power of oil expeller operator is her , Priyank with contact number [phone]. The patient and her are estranged from her daughter. Their son, Stephen resides in [place] and provides support. The patient has 3 private caregivers through [facility] that come 6 days/week (Abby, Eliana and Olinda). Her senior case manager is Renetta Zelaya. Medications/Allergies - Medications Home Medications: Ambulatory Orders Medication Instructions Recorded Confirmed ALPRAZolam [Alprazolam] 0.25 mg PO BID 03/18/16 02/09/21 Esomeprazole Magnesium 40 mg PO BID 08/13/19 03/05/21 Mirtazapine 7.5 mg PO QPM 08/13/19 03/05/21 Aspirin [Aspirin EC] 81 mg PO DAILY 08/14/19 03/05/21 Dorzolamide HCl/Timolol Maleat 1 drops EACHEYE BID 03/13/20 03/05/21 [Dorzolamide-Timolol Eye Drops] prednisoLONE 1% OPHTH DROPS [Pred 1 drops RIGHTEYE BID 09/11/20 03/05/21 Forte 1% Ophth Drops] Divalproex Dr [Depakote Dr] 125 mg PO BID 10/27/20 03/05/21 Liothyronine [Cytomel] 5 mcg PO DAILY 03/05/21 03/05/21 Potassium Chloride 10 meq PO DAILY 03/05/21 03/05/21 Senna [Senokot] 8.6 mg PO DAILY PRN 03/05/21 03/05/21 polyethylene glycoL 3350 [Miralax] 8.5 gm PO DAILY 03/05/21 03/05/21 Pregabalin [Lyrica] 50 mg PO BID 03/11/21 03/11/21 - Allergies Allergies/Adverse Reactions: Allergies Allergy/AdvReac Type Severity Reaction Status Date / Time gentamicin [Gentamicin] Allergy Unknown Verified 02/09/21 05:08 lisinopril Allergy Unknown Verified 02/09/21 05:08 paroxetine [From Paxil] Allergy Unknown Verified 02/09/21 05:08 Review of Systems - Constitutional Constitutional: reports: Fatigue, Other (left MAC 21cm on 04/24/2021 , previous left MAC 21cm on 03/22/2021). denies: Fever, Poor appetite - Eyes Eyes: reports: Vision loss (right eye due to glaucoma) - Ears, Nose & Throat Ears, Nose & Throat: denies: Dentures - Cardiovascular Cardiovascular: denies: Edema - Respiratory Respiratory: denies: Cough - Gastrointestinal Gastrointestinal: reports: Good appetite. denies: Constipation (controlled with present bowel regimen with bowel movement every other day), Nausea, Vomiting - Genitourinary Genitourinary: reports: Incontinence (intermittent). denies: Dysuria, Hematuria - Musculoskeletal Musculoskeletal: reports: Muscle weakness, Assistive devices, Transfer issues. denies: Joint pain - Integumentary Integumentary: denies: Rash - Neurological Neurological: reports: General weakness, Memory problems - Psychiatric Psychiatric: reports: Depression, Behavior disturbances (history of behaviorial disturbances) - Endocrine Endocrine: reports: Hypothyroidism - Hematologic/Lymphatic Hematologic/Lymph: reports: Recurrent infections (UTIs) - All Other Systems All Other Systems: reports: Reviewed and negative (Patient is a poor historian due to dementia and review of systems supplemented by the patient's h usband/Priyank SPENCE and caregiver Eliana..) Physical Exam - Vital Signs Temperature: 36.4 C Pulse Rate: 73 O2 Saturation: 94 (on RA) Blood Pressure: 111/63 (left wrist) - Physical Exam General Appearance: positive: No acute distress, Alert, Other (resting in bed in nightgown) Eyes Bilateral: positive: Other (scarring to right cornea due to glaucoma) ENT: positive: No signs of dehydration Neck: positive: Trachea midline Cardiovascular: positive: Regular rate & rhythm Respiratory: positive: No respiratory distress, Breath sounds nml. negative: Rales Abdomen: positive: Non-tender, Soft, Nml bowel sounds, Other (Bladder nondistended). negative: Distended Skin: negative: Pressure wound Extremities: positive: No pedal edema, Other (bilateral below the knee amputations) Neurologic/Psychiatric: positive: Disoriented to place, Disoriented to time, Weakness, Other (When asked to state her caregivers name today she kept stating "Leesa" when this morning she knew it was Eliana.) Palliative Care - POLST Patient has POLST: Yes POLST Status: DNR, Comfort Measures Pain: No pain - Palliative Care Discussion: Patient has had periods in the past where she will have a subtle decline in her overall cognition and alertness with no identifiable cause. She does have an extensive vascular history and unclear if she may have sustained a possible TIA however, there is no evidence of any neurological dysfunction with her underlying dementia. The patient also is afebrile and voiding well without evidence of a UTI. Discussed signs and symptoms of a urinary tract infection with both the patient's spouse and caregiver in terms of monitoring and would prompt obtainment of a urinary specimen. There is a specimen cup and nuns In the home for obtainment of a urine specimen if needed in the future. However, the patient's spouse/DPOA is in agreement to not treat with antibiotic therapy if it is not contributing to the patient's comfort and not necessary to avoid the risk of an adverse effect. The patient's symptoms have been present for approximately 24 hours and she is steadily improving and therefore the patient spouse wishes to opt for monitoring. Impression and Recommendations - Palliative Care Impression: This is an 81-year-old -[place]ank[place] female with underlying vascular dementia, peripheral vascular disease and chronic pain syndrome with recent cog nitive changes that appear to be improving. The patient is a high risk for potential sequelae due to her peripheral vascular disease. She graduated from [facility] in January 2021. The patient's spouse wishes to focus on comfort measures. Palliative care will continue to provide support for symptom management, care coordination, anticipatory guidance and a transition to hospice services again when appropriate. Recommendations/Counseling Done: 1. Cognitive changes, subtle. The patient appears to be improving since recent cognitive changes and increase sedation were reported by the patient's spouse approximately 24 hours ago. The patient has an underlying history of peripheral vascular disease and unclear if potential questionable TIA verse waxing and waning of her underlying dementia versus UTI. However, the patient is not alert episodes of symptoms of infection. Reviewed signs and symptoms that would warrant a call such as decreased oral intake, fever, reports of Dysuria with voiding or any other questions or concerns to palliative care provider. Would recommend encouragement of fluids and patient spouse wishes to monitor. If ther e are any continued concerns there is a urine specimen cup within the home to collect a urinary specimen if warranted in the future. Again, the patient has had similar instances in the past with a negative work-up. We will continue to provide support to the patient and spouse and continue to monitor. 2. Vascular dementia with history of peripheral vascular disease. Chronic. Progressive. Fall precautions. No evidence of dysphagia reported. Continue aspirin therapy as prescribed. Continue Depakote as ordered due to previous history of agitation. She is on no disease modifying agents. Given the patient's advanced age and chronic comorbidities a gradual decline is expected. 3. Advanced care planning. Patient has POLST in place as DN AR with comfort measures. Former hospice graduate. Addressed patient spouse's fears today regarding if the patient were to require hospice services in the future her having been on hospice in the past is not preclude her from being readmitted. If the patient demonstrates signs of decline that meets hospice criteria this is something that the patient spouse would wish to pursue to optimize the patient's comfort and to have support for not only her but himself as well. CPT 58705 Plan of care reviewed with spouse in private caregiver at length with questions answered and addressed. Discussed signs and symptoms that would warrant a phone call for follow-up. Patient spouse to follow-up with palliative care tomorrow regarding status update. Disclaimer: The chart note was formulated using voice recognition technology and unfortunately sound alike errors may occur.
== END 2021-05-22 09:16 | disposition home or self-care (01) ==
LOC: PC 09:15
PROVIDERS: ATTEND Nurse Practitioner Family
DX: Z51.5 Encounter for palliative care (principal); R41.9 Unspecified symptoms and signs involving cognitive functions and awareness; F01.50 Vascular dementia, unspecified severity, without behavioral disturbance, psychotic disturbance, mood disturbance, and anxiety; I73.9 Peripheral vascular disease, unspecified; Z66 Do not resuscitate
CPT/HCPCS: 99348

== ENCOUNTER 2021-06-26 12:45 | Outpatient (CLI) | payer MEDICARE, OTHER, MEDICAID ==
--- NOTE | 2021-06-26 14:27 | CONSULTATION NOTE ---
Palliative Care Follow Up - Referral Referring Provider: Dr. Theron Fajardo Time of Visit: [id number] Referral setting: Home Referral Reason: Vascular Dementia/FTT - Information Sources Records reviewed: Previous records reviewed History/Review of Systems obtained from: Patient, Family (spouse/JORDY Yost), Caregiver (Eliana) Exam limitations: Clinical condition (Advanced Dementia) - History of Present Illness Update Brief HPI Update: This is an 81-year-old -Samoan female who was seen and evaluated today within her home with her /DPHUNTER Yost present as well as her private caregiver, Eliana due to vascular dementia, chronic pain syndrome and failure to thrive. The patient transitioned off of home hospice in early January 2021 and reestablished with palliative care services in March 2021. The patient in early spring 2020 had weight loss down to 100.6 pounds in January 2021. She was seen and evaluated by her PCP and was placed on liothyronine 5 MCG to take half a tablet daily for a week and then increase daily. The patient spouse found it difficult to split the small pills and has been administering 1 tablet every other day for some time. He does express concerns if the patient needs this medication and would like to have reevaluation in the near future. The patient herself is doing well with consumption of her meals supported by both the caregiver and spouse. She is not having any episodes of dysphagia or cough during mealtimes. She continues on a soft diet after she had multiple teeth extracted in March 2021. The patient denies any gum discomfort or dental pain. However, she is not brushing her teeth or using mouthwash. Encouraged the patient and spouse to utilize this. She is having more at ease with transferring herself from the bed to the bedside commode with her prosthetics in place. She has had limited to no complaints regarding discomfort when her prosthetics are in place due to chronic pain syndrome to her bilateral lower extremities where her amputate pin sites are. The patient spouse reports that he will need to administer Tylenol 1-2 times per month for discomfort but otherwise, the patient is doing well on pregabalin 50 mg twice daily. Previously, the patient was crying out when the sleeves of her prosthetics were put in place. She does have a history of constipation due to her limited mobility. Her bowels are well regulated at the present time with utilization of senna every other day and MiraLAX if needed. She is typically having a bowel movement daily. The patient herself denies any discomfort or straining during defecation. The patient spouse is quite pleased that she has been doing very well overall and offers up no acute behavioral concerns or other medical concerns. The patient is seen sitting up in bed. She is quite bright, and alert and engaged today. 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 Social History - Living Situation Living arrangement: At home Living Situation: With spouse/s.o. Support System: Patient her and her have been for 59 years. Prior to relocating to [facility] she and her lived in [place], [place]. The patient grew up in [place], [place]. The patient and her have 2 children, 1 daughter and 1 son. 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 The patient and her are estranged from her daughter. Their son, Stephen resides in [place] and provides support. The patient has 3 private caregivers through [facility] that come 6 days/week (Eliana Mora and Olinda). Her case supervisor is Renetta Zelaya. Sarah STAPLETON visited last week for 2nights from [place]. Medications/Allergies - Medications Home Medications: Ambulatory Orders Medication Instructions Recorded Confirmed ALPRAZolam [Alprazolam] 0.25 mg PO BID 03/18/16 06/26/21 Esomeprazole Magnesium 40 mg PO BID 08/13/19 06/26/21 Mirtazapine 7.5 mg PO QPM 08/13/19 06/26/21 Aspirin [Aspirin EC] 81 mg PO DAILY 08/14/19 06/26/21 Dorzolamide HCl/Timolol Maleat 1 drops EACHEYE BID 03/13/20 06/26/21 [Dorzolamide-Timolol Eye Drops] prednisoLONE 1% OPHTH DROPS [Pred 1 drops RIGHTEYE BID 09/11/20 06/26/21 Forte 1% Ophth Drops] Divalproex Dr [Depakote Dr] 125 mg PO BID 10/27/20 06/26/21 Liothyronine [Cytomel] 5 mcg PO Q48H 03/05/21 06/26/21 Potassium Chloride 10 meq PO DAILY 03/05/21 06/26/21 Senna [Senokot] 8.6 mg PO Q48H 03/05/21 06/26/21 polyethylene glycoL 3350 [Miralax] 8.5 gm PO DAILY PRN 03/05/21 06/26/21 Pregabalin [Lyrica] 50 mg PO BID 03/11/21 06/26/21 - Allergies Allergies/Adverse Reactions: Allergies Allergy/AdvReac Type Severity Reaction Status Date / Time gentamicin [Gentamicin] Allergy Unknown Verified 02/09/21 05:08 lisinopril Allergy Unknown Verified 02/09/21 05:08 paroxetine [From Paxil] Allergy Unknown Verified 02/09/21 05:08 Review of Systems - Constitutional Constitutional: reports: Other (left MAC 21cm 06/26/2021; left MAC 21cm on 04/24/2021 , previous left MAC 21cm on 03/22/2021). denies: Fatigue, Fever, Poor appetite - Eyes Eyes: reports: Vision loss (right eye due to glaucoma) - Ears, Nose & Throat Ears, Nose & Throat: denies: Bleeding gums, Dental pain - Cardiovascular Cardiovascular: denies: Palpitations, Edema - Respiratory Respiratory: denies: Cough - Gastrointestinal Gastrointestinal: reports: Good appetite (per spouse and caregiver). denies: Constipation (controlled with present bowel regimen , see HPI), Vomiting - Genitourinary Genitourinary: reports: Incontinence (intermittent). denies: Dysuria, Hematuria - Musculoskeletal Musculoskeletal: reports: Muscle weakness, Assistive devices, Transfer issues. denies: Joint pain - Integumentary Integumentary: denies: Rash - Neurological Neurological: reports: General weakness, Memory problems - Psychiatric Psychiatric: reports: Depression, Behavior disturbances (history of behaviorial disturbances) - Endocrine Endocrine: reports: Hypothyroidism - Hematologic/Lymphatic Hematologic/Lymph: reports: Recurrent infections (UTIs, urine specimen cups in the home) - All Other Systems All Other Systems: reports: Reviewed and negative (Patient is a poor historian due to dementia and review of systems supplemented by the patient's /DPPriyank HARRISON and caregiver Eliana..) Physical Exam - Vital Signs Temperature: 36.7 C Pulse Rate: 63 O2 Saturation: 94 (on RA) Blood Pressure: 112/68 - Physical Exam General Appearance: positive: No acute distress, Alert, Other (resting in bed with nightgown in place) Eyes Bilateral: positive: Other (scarring to right cornea due to glaucoma) ENT: positive: No signs of dehydration, Other (+torus palatinus; gums without inflammation or bleeding) Neck: positive: Trachea midline Cardiovascular: positive: Regular rate & rhythm, Systolic murmur (+1/6 WM) Respiratory: positive: No respiratory distress, Breath sounds nml Abdomen: positive: Non-tender, Soft, Nml bowel sounds, Other (Bladder nondistended). negative: Distended Skin: negative: Pressure wound Extremities: positive: No pedal edema, Other (bilateral below the knee amputations) Neurologic/Psychiatric: positive: Disoriented to place, Disoriented to time, Weakness, Other (Alert and engaged today with lighthearted responses--in good spirits) Palliative Care - POLST Patient has POLST: Yes POLST Status: DNR, Comfort Measures Pain: No pain (controlled with pregabalin for discomfort to b/l amputation sites) Anorexia: None (MAC stable at 21cm to left arm) Sleep: Sleeps well Constipation: Managed - Palliative Care Discussion: The patient is presently stabilized with her overall functional decline that was noted previously. She is engaged and her appetite is good per caregiver and spouse report. Her left MAC remains stable at 21 cm. She does not have any skin breakdown. Given she has required tooth extraction made recommendations for utilization of mouthwash nightly as the patient is presently not performing any routine dental care. She is open to performing this as is her spouse. She is on thyroid replacement therapy presently being administered every other day by her spouse. Her TSH in January 2021 was 2.28 and has not been reevaluated since that time and would benefit from reevaluation at next visit and spouse in agreement. Results - Lab Results Lab results reviewed: Yes Lab and Imaging Results: 02/25/2021 TSH 2.28, free T4 1.04, free T3 2.36 Impression and Recommendations - Palliative Care Impression: This is an 81-year-old -Samoan female with underlying vascular dementia, peripheral vascular disease, low T3 and chronic pain syndrome. She has multiple comorbidities and is at risk for sequela due to her peripheral vascular disease and vascular dementia. The patient graduated from [facility] be home hospice in January 2021. She presently is on when thyroid replacement therapy would benefit from reevaluation of thyroid panel at next visit. Presently the patient's weight has been stable. Palliative care will continue to provide support for symptom management, care coordination, anticipatory guidance with transition to hospice services again when medically appropriate. Recommendations/Counseling Done: 1. Low Free T3. Diagnosed by patient's PCP and initiated on liothyronine presently taking 5mcg every other day. TSH 2.28 02/25/2021. Will be evaluated with a thyroid panel at next visit And follow with results. 2.Protein calorie malnutrition in the setting of advanced vascular dementia. Patient has demonstrated stability in her oral intake. Her left MAC remains stable at 21 cm. No further evidence of weight loss or decline at the present time but given the patient's advanced dementia at risk for decline in the future. Continue to monitor. 3. Chronic pain. Multifactorial in origin with a history of long-term opioid therapy that is no longer in use. History of phantom pain due to bilateral below the knee amputation secondary to peripheral vascular disease. Controlled with pregabalin 50 mg twice daily. Requires as needed acetaminophen intermittently. Spouse aware to contact palliative care [employer] if increased utilization of acetaminophen takes place for dose adjustment of pregabalin. Continue to monitor. 4. Constipation. Sedentary lifestyle contributing. Presently controlled. Continue senna administration every other day and MiraLAX daily as needed with goal bowel movement daily to every other day that is soft. 5. Vascular dementia with history of peripheral vascular disease. Chronic. Progressive. Fall precautions. No evidence of dysphagia reported. Continue aspirin therapy as prescribed. Continue Depakote as ordered due to previous history of agitation. She is no longer on disease modifying agents. Given the patient's advanced age and chronic comorbidities a gradual Casarez is expected. Total time spent 30 minutes with greater than 50% of this spent in counseling and coordination of care with patient, spouse/DPOA and caregiver, Eliana; review of low T3 and hypothyroidism; review of pain and symptom management and anticipatory guidance. Disclaimer: The chart note was formulated using voice recognition technology and unfortunately sound alike errors may occur.
== END 2021-06-26 12:46 | disposition home or self-care (01) ==
LOC: PC 12:45
PROVIDERS: ATTEND Nurse Practitioner Family
DX: Z51.5 Encounter for palliative care (principal); R94.6 Abnormal results of thyroid function studies; E46 Unspecified protein-calorie malnutrition; G54.6 Phantom limb syndrome with pain; Z89.512 Acquired absence of left leg below knee; Z89.511 Acquired absence of right leg below knee; K59.00 Constipation, unspecified; I73.9 Peripheral vascular disease, unspecified; F01.50 Vascular dementia, unspecified severity, without behavioral disturbance, psychotic disturbance, mood disturbance, and anxiety; Z66 Do not resuscitate
CPT/HCPCS: 99348

== ENCOUNTER 2021-07-30 15:50 | Outpatient (CLI) | payer MEDICARE, OTHER, MEDICAID ==
--- NOTE | 2021-07-30 19:33 | CONSULTATION NOTE ---
Palliative Care Follow Up - Referral Referring Provider: Dr. Theron Fajardo Time of Visit: Intiated 1550 Referral setting: Home Referral Reason: Vascular Dementia/Low Free T3/FTT - Information Sources Records reviewed: Previous records reviewed History/Review of Systems obtained from: Patient, Family (spouse, Priyank) Exam limitations: Clinical condition (Advanced Dementia) - History of Present Illness Update Brief HPI Update: This is an 81-year-old -Vincentian female who was seen and evaluated today within her home with her /DPHUNTER Yost present for follow-up regarding Vascular dementia, low free T3, and protein calorie malnutirion. The patient transitioned off of home hospice in early January 2021 and reestablished with palliative care services in March 2021. The patient in early spring 2020 had weight loss down to 100.6 pounds in January 2021. She was seen and evaluated by her PCP and was placed on liothyronine 5 MCG to take half a tablet daily for a week and then increase daily. The patient spouse found it difficult to split the small pills and has been administering 1 tablet every other day. Will attempt to draw labwork to access continuation of medication. Since initiation in January 2021 the patient's spouse has not seen any evidence of increased alertness or appetite. In general he has noted no change in the patient's mood or demeanor with the medication. The spouse is concerned as the patient has been on Alprazolam 0.25mg BID for some time and he requested a refill of the medication but it was "denied" per the PCP's office and the patient has not heard back from the PCP office and expresses concerns regarding this. The patient has been out of her alprazolam for 7 days per the spouse report. He reached out for a refill on 07/25/2021. Since being off o alprazolam the spouse has not noted tremors, increased anxiety, nausea, vomiting, or insomnia. She has a history of chronic pain syndrome to her bilateral lower extremities where her amputation sites are. Presently her pain is well controlled with pregabalin 50mg BID. Intermittently the spouse will provide tylenol two tablets of 325mg if needed for pain. He has not noted an increased trend with administration. Her appetite is stable without complaints per patient or spouse. The patient is seen sitting up in bed. She is quite bright, and alert and engaged today during evaluation. 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 Social History - Living Situation Living arrangement: At home Living Situation: With spouse/s.o. Support System: Patient her and her have been for 59 years. Prior to relocating to [facility] she and her lived in [place], [place]. The patient grew up in [place], [place]. The patient and her have 2 children, 1 daughter and 1 son. The patient's healthcare power of compliance attorney is her , Priyank with contact number [phone]. The patient and her are estranged from her daughter. Their son, Stephen resides in [place] and provides support. The patient has 3 private caregivers through [facility] that come 6 days/week (Eliana Mora and Olinda). Her wrapper caser is Renetta Zelaya. Unfortunately one of their caregivers was indisposed for a time for health reasons and they were worried about coverage but the [employer] company was able to find a replacement for coverage and their regular caregiver is to return to work tomorrow. Medications/Allergies - Medications Home Medications: Ambulatory Orders Medication Instructions Recorded Confirmed ALPRAZolam [Alprazolam] 0.25 mg PO QPM 03/18/16 06/26/21 Esomeprazole Magnesium 40 mg PO BID 08/13/19 06/26/21 Mirtazapine 7.5 mg PO QPM 08/13/19 06/26/21 Aspirin [Aspirin EC] 81 mg PO DAILY 08/14/19 06/26/21 Dorzolamide HCl/Timolol Maleat 1 drops EACHEYE BID 03/13/20 06/26/21 [Dorzolamide-Timolol Eye Drops] prednisoLONE 1% OPHTH DROPS [Pred 1 drops RIGHTEYE BID 09/11/20 06/26/21 Forte 1% Ophth Drops] Divalproex [Ajay Yang] 125 mg PO BID 10/27/20 06/26/21 Liothyronine [Cytomel] 5 mcg PO Q48H 03/05/21 06/26/21 Potassium Chloride 10 meq PO DAILY 03/05/21 06/26/21 Senna [Senokot] 8.6 mg PO Q48H 03/05/21 06/26/21 polyethylene glycoL 3350 [Miralax] 8.5 gm PO DAILY PRN 03/05/21 06/26/21 Pregabalin [Lyrica] 50 mg PO BID 03/11/21 06/26/21 Acetaminophen [Tylenol] 650 mg PO Q6H PRN 07/30/21 07/30/21 - Allergies Allergies/Adverse Reactions: Allergies Allergy/AdvReac Type Severity Reaction Status Date / Time gentamicin [Gentamicin] Allergy Unknown Verified 02/09/21 05:08 lisinopril Allergy Unknown Verified 02/09/21 05:08 paroxetine [From Paxil] Allergy Unknown Verified 02/09/21 05:08 Review of Systems - Constitutional Constitutional: reports: Other (left MAC 21cm 06/26/2021; left MAC 21cm on 04/24/2021 , previous left MAC 21cm on 03/22/2021). denies: Fever, Poor appetite - Eyes Eyes: reports: Vision loss (right eye due to glaucoma) - Ears, Nose & Throat Ears, Nose & Throat: denies: Dentures, Dental pain - Cardiovascular Cardiovascular: denies: Edema - Respiratory Respiratory: denies: Cough - Gastrointestinal Gastrointestinal: reports: Good appetite. denies: Abdominal pain, Constipation (controlled with present bowel regimen), Vomiting - Genitourinary Genitourinary: reports: Incontinence (intermittent). denies: Dysuria - Musculoskeletal Musculoskeletal: reports: Muscle weakness, Assistive devices, Transfer issues, Other (Prostetics for b/l lower extremities). denies: Joint pain - Integumentary Integumentary: denies: Rash - Neurological Neurological: reports: General weakness, Memory problems - Psychiatric Psychiatric: reports: Depression, Behavior disturbances (history of behaviorial disturbances) - Endocrine Endocrine: reports: Hypothyroidism - Hematologic/Lymphatic Hematologic/Lymph: reports: Recurrent infections (UTIs, urine specimen cups in the home) - All Other Systems All Other Systems: reports: Reviewed and negative (Patient is a poor historian due to dementia and review of systems supplemented by the patient's /Priyank SPENCE.) Physical Exam - Vital Signs Temperature: 36.7 C Pulse Rate: 74 O2 Saturation: 95 Blood Pressure: 128/58 (left wrist) - Physical Exam General Appearance: positive: No acute distress, Alert, Other (resting in bed wi th nightgown in place) Eyes Bilateral: positive: Other (scarring to right cornea due to glaucoma) ENT: positive: No signs of dehydration Neck: positive: Trachea midline Cardiovascular: positive: Regular rate & rhythm, Systolic murmur (+1/6 WM) Respiratory: positive: No respiratory distress, Breath sounds nml. negative: Rales Abdomen: positive: Non-tender, Soft, Nml bowel sounds Skin: positive: Other (visible skin C/D/I) Extremities: positive: No pedal edema, Other (bilateral below the knee amputations) Neurologic/Psychiatric: positive: Disoriented to place, Disoriented to time, Weakness, Other (Alert and engaged today, even tolerated x2 attempt of blood draw) Palliative Care - POLST Patient has POLST: Yes POLST Status: DNR, Selective Treatment Pain: Comment (Controlled with pregabalin with intermittent use of acetaminophen) Feelings of wellbeing/Perceived Quality of Life: Good Sleep: Sleeps well Constipation: Managed - Palliative Care Discussion: The patient has unfortunately been without her alprazolam for 7 days with no untoward symptoms or events that have occurred through lack of this medication being available. Discussed with the patient spouse is no evidence of withdrawal symptoms and the patient's behaviors have been stable recommendation made to trial without medication however, patient spouse is hesitant to be completely without this medication and in agreement will resume alprazolam 0.25 mg in the evening with the goal to eventually taper and discontinue based on the patient's behavioral response and spouse in agreement and verbalized understanding. Reviewed today the importance of not abruptly discontinuing benzodiazepine for risk of withdrawal symptoms with understanding verbalized. Moving forward, palliative care will provide prescription for ease of administration and contact with spouse in agreement. Impression and Recommendations - Palliative Care Impression: This is an 81-year-old -Vincentian female with underlying vascular dementia, peripheral vascular disease chronic pain syndrome, and low T3. She has multiple comorbidities and is at risk for sequelae due to her peripheral vascular disease and vascular dementia. She graduated from home hospice in January 2021. Attempted to draw lab work today to evaluate thyroid panel as she is on thyroid replacement therapy however, was unable to obtain blood work will reevaluate at next visit. Will resume alprazolam at lower dose at 0.25 mg in the evening with goal to taper and discontinue. Palliative care will continue to provide support for symptom management, care coordination, anticipatory guidance with transition to hospice services again when medically appropriate. Recommendations/Counseling Done: 1. Low free T3. Diagnosed by patient's PCP and initiated on liothyronine presently taking 5 MCG every other day. TSH 2.28 on 02/25/2021. Attempted to draw lab work today however, unsuccessful due to patient's venous access. Will reattempt thyroid panel at next visit and follow with results. 2.Vascular dementia with history of peripheral vascular disease with behavioral disturbances. Chronic. Progressive. Fall precautions. No evidence of dysphagia reported. Continue aspirin therapy as prescribed.Continue Depakote as ordered due to previous history of agitation. She is no longer on disease modifying agents. Lengthy discussion had with spouse regarding continuation versus discontinuation of alprazolam given the patient has been without this medication for 7 days and no increased behavioral disturbances noted. Spouse wishes to resume at lower dose of alprazolam at 0.25 mg nightly with the goal to eventually taper and discontinue. Moving forward, palliative care will provide prescription for alprazolam and Rx for 30 tablets/4 refills sent to [facility] in [place] at spouse's request. Advised moving forward to call 7 days before running out of her prescription as do not wish to abruptly stop alprazolam with understanding verbalized by spouse. Given the patient's advanced age and chronic comorbidities a gradual decline is expected. 3. Chronic pain. Multifactorial in origin with a history of long-term opioid therapy that is no longer in use. History of phantom pain due to bilateral b elow the knee amputation secondary to peripheral vascular disease. Controlled with pregabalin 50 mg twice daily. Will require as needed acetaminophen for pain. Advised not to exceed 3 g of acetaminophen daily from all sources. Recommended to the spouse to document date and time of administration of acetaminophen for notation moving forward if dose adjustment is needed for pregabalin to optimize the patient's comfort. Continue to monitor. CPT 32198 Plan of care reviewed with patient spouse with questions answered and addressed. Will reattempt lab draw for thyroid panel at next evaluation. Assisted spouse with alprazolam medication filled. Disclaimer: The chart note was formulated using voice recognition technology and unfortunately sound alike errors may occur.
== END 2021-07-30 15:51 | disposition home or self-care (01) ==
LOC: PC 15:50
PROVIDERS: ATTEND Nurse Practitioner Family
DX: Z51.5 Encounter for palliative care (principal); R94.6 Abnormal results of thyroid function studies; I73.9 Peripheral vascular disease, unspecified; F01.51 Vascular dementia, unspecified severity, with behavioral disturbance; G89.29 Other chronic pain; G54.6 Phantom limb syndrome with pain; Z66 Do not resuscitate
CPT/HCPCS: 99348

== ENCOUNTER 2021-09-03 15:00 | Outpatient (CLI) | payer MEDICARE, OTHER, MEDICAID ==
--- NOTE | 2021-09-03 18:00 | CONSULTATION NOTE ---
Palliative Care Follow Up - Referral Referring Provider: Dr. Theron Fajardo Time of Visit: 6587-1172 Referral setting: Home Referral Reason: Anxiety/Vascular Dementia/Low T3 - Information Sources Records reviewed: Previous records reviewed History/Review of Systems obtained from: Patient, Family (spouse/JORDY Yost) Exam limitations: Clinical condition - History of Present Illness Update Brief HPI Update: This is an 81-year-old -Greenlandic female seen in value today within her home with her /DPHUNTER Boudreauxon present for routine follow-up regarding vascular dementia, low free T3, protein calorie malnutrition and anxiety. Provider wore N95 mask. The patient transitioned off of home hospice in early January 2021 and reestablished with palliative care services in March 2021. Patient was seen and evaluated by her PCP in January 2021 and was placed on Cytomel 5 MCG's and spouse is administering this every other day since January 2021 due to low T3. Spouse has not noted any increase in alertness or appetite since initiation of this medication. The patient has appeared stable since January 2021 with her overall mood and demeanor. Unfortunately, the patient had run out of her alprazolam 0.25 mg twice daily and when last seen by this provider in late July 2021 reinitiated alprazolam 0.25 mg in the evening. Spouse reports that patient has been stable overnight without waking up with evidence of anxiety or disorientation. Presently, we will continue alprazolam in the evening with goal to taper off in the future and have as needed if evidence of acute anxiety or agitation. She has a history of chronic pain syndrome due to bilateral lower extremities where her amputation sites are. Pain is presently well controlled with pregabalin 50 mg twice daily. Intermittently the spouse will administer acetaminophen if needed for pain. She also will utilize a heating pack which provides comfort. No noted increased trend in acetaminophen administration. Patient is doing well with her present appetite. Spouse has foods on the softer side due to her history of gingivitis and tooth extraction. The patient recently was seen by her med spec x2 times and is next seen to follow-up 09/24 due to noted blood on her retina to the left eye. She had an ocular injection during her last evaluation. She denies double vision. She does not have any vision to her right eye. The patient is seen sitting up in bed. She is bright and alert and engaged today during evaluation. She continue to track when she was addressed. 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 Social History - Living Situation Living arrangement: At home Living Situation: With spouse/s.o. Support System: Patient her and her have been for 59 years. Prior to relocating to [facility] she and her lived in [place], [place]. The patient grew up in [place], [place]. The patient and her have 2 children, 1 daughter and 1 son. The patient's healthcare power of deputy county attorney is her , Priyank with contact number [phone]. The patient and her are estranged from her daughter. Their son, Stephen resides in [place] and provides support. The patient has 3 private caregivers through [facility] that come 6 days/week (Abby, Eliana and Olinda). Her mental health case manager is Renetta Zelaya. Medications/Allergies - Medications Home Medications: Ambulatory Orders Medication Instructions Recorded Confirmed ALPRAZolam [Alprazolam] 0.25 mg PO QPM 03/18/16 06/26/21 Esomeprazole Magnesium 40 mg PO BID 08/13/19 06/26/21 Mirtazapine 7.5 mg PO QPM 08/13/19 06/26/21 Aspirin [Aspirin EC] 81 mg PO DAILY 08/14/19 06/26/21 Dorzolamide HCl/Timolol Maleat 1 drops EACHEYE BID 03/13/20 06/26/21 [Dorzolamide-Timolol Eye Drops] prednisoLONE 1% OPHTH DROPS [Pred 1 drops RIGHTEYE BID 09/11/20 06/26/21 Forte 1% Ophth Drops] Divalproex [Depakomabel Yang] 125 mg PO BID 10/27/20 06/26/21 Liothyronine [Cytomel] 5 mcg PO Q48H 03/05/21 06/26/21 Potassium Chloride 10 meq PO DAILY 03/05/21 06/26/21 Senna [Senokot] 8.6 mg PO Q48H 03/05/21 06/26/21 polyethylene glycoL 3350 [Miralax] 8.5 gm PO DAILY PRN 03/05/21 06/26/21 Pregabalin [Lyrica] 50 mg PO BID 03/11/21 06/26/21 Acetaminophen [Tylenol] 650 mg PO Q6H PRN 07/30/21 07/30/21 - Allergies Allergies/Adverse Reactions: Allergies Allergy/AdvReac Type Severity Reaction Status Date / Time gentamicin [Gentamicin] Allergy Unknown Verified 02/09/21 05:08 lisinopril Allergy Unknown Verified 02/09/21 05:08 paroxetine [From Paxil] Allergy Unknown Verified 02/09/21 05:08 Review of Systems - Constitutional Constitutional: reports: Other (left MAC 21cm 06/26/2021; left MAC 21cm on 04/24/2021 , previous left MAC 21cm on 03/22/2021). denies: Fever, Poor appetite - Eyes Eyes: reports: Vision loss (right eye due to glaucoma) - Ears, Nose & Throat Ears, Nose & Throat: denies: Dentures, Mouth lesions, Dental pain - Cardiovascular Cardiovascular: denies: Edema - Respiratory Respiratory: denies: Cough, Other (No cough during meals) - Gastrointestinal Gastrointestinal: reports: Good appetite ( cuts up her food so meats are minced and uses soft foods). denies: Constipation (controlled with present bowel regimen), Vomiting - Genitourinary Genitourinary: reports: Incontinence (intermittent). denies: Dysuria, Hematuria - Musculoskeletal Musculoskeletal: reports: Muscle weakness, Assistive devices, Transfer issues, Other (Prostetics for b/l lower extremities). denies: Joint pain - Integumentary Integumentary: denies: Rash - Neurological Neurological: reports: General weakness, Memory problems - Psychiatric Psychiatric: reports: Depression, Anxiety, Behavior disturbances (history of behaviorial disturbances) - Endocrine Endocrine: reports: Hypothyroidism - Hematologic/Lymphatic Hematologic/Lymph: reports: Recurrent infections (UTIs, urine specimen cups in the home) - All Other Systems All Other Systems: reports: Reviewed and negative (Patient is a poor historian due to dementia and review of systems supplemented by the patient's /Priyank SPENCE.) Physical Exam - Vital Signs Temperature: 36.9 C Pulse Rate: 77 O2 Saturation: 97 (on RA) Blood Pressure: 112/62 - Physical Exam General Appearance: positive: No acute distress, Alert, Other (resting in bed with nightgown in place) Eyes Bilateral: positive: Other (scarring to right cornea due to glaucoma) ENT: positive: Pharynx nml, No signs of dehydration. negative: Oral lesions Neck: positive: Trachea midline Cardiovascular: positive: Regular rate & rhythm, Systolic murmur (+2/6 WM) Respiratory: positive: No respiratory distress, Breath sounds nml Abdomen: positive: Non-tender, Soft, Nml bowel sounds. negative: Distended Skin: negative: Pressure wound (sacrum) Extremities: positive: No pedal edema, Other (bilateral below the knee amputations) Neurologic/Psychiatric: positive: Disoriented to place, Disoriented to time, Weakness, Other (Alert and engaged today, tolerated x2 attempt of blood draw) Palliative Care - POLST Patient has POLST: Yes POLST Status: DNR, Selective Treatment Pain: No pain (controlled with lyrica and PRN acetaminophen) Constipation: Managed - Palliative Care Discussion: Patient has tolerated initiate reinitiation of alprazolam 0.25 mg in the evening. There has been no outbursts or evidence of agitation or anxiety. Goal will be to eventually taper and discontinue based on the patient's behavioral response and spouse in agreement. Presently will keep on board and reassess in the near future for slow taper. Patient has been on Cytomel since January 2021 with out repeat evaluation of her low T3. Attempted to blood draws today but given the patient's vasculature was unable to obtain. This is been the second attempt and discussed with patient spouse would continue Cytomel 5 mcg every other day presently and patient is scheduled to be seen by her PCP in October 2021 and there is an in-house laboratory and will request lab work obtained at that time and reevaluation for continuation of medication and request for yearly visits given the taxing effort it takes for the patient to leave her home environment. Impression and Recommendations - Palliative Care Impression: This is an 81-year-old -Greenlandic female with underlying vascular dementia, peripheral vascular disease, chronic pain syndrome and low T3. She has multiple comorbidities and at risk for sequelae due to her peripheral vascular disease and vascular dementia. She graduated from home hospice in January 2021. Attempted to draw lab work again today to evaluate thyroid panel as she is on thyroid replacement therapy due to low T3 however, unable to obtain blood work and requesting that PCP evaluate during evaluation in October 2021. She has tolerated resumption of alprazolam at 0.25 mg in the evening with goal to slowly taper and discontinue in the near future. Palliative care will continue provide support for symptom management, care coordination, anticipatory guidance with transition to hospice services again when medically appropriate. Recommendations/Counseling Done: 1. Low T3. Diagnosed with patient's PCP and initiated on Cytomel 5 mcg spouse administering every other day. TSH 2.28 on 02/25/2021. Attempted lab drawl today however unsuccessful due to patient's venous access. This has been the second attempt. Will request that patient's PCP evaluate during office visit in October 2021 and address continuation based on laboratory work and spouse in agreement. 2. Vascular dementia with history of peripheral vascular disease with behavioral disturbances. Chronic. Progressive. Fall precautions. No evidence of dysphagia reported. Continue Depakote as ordered due to previous history of agitation. She is no longer on disease modifying agents. Presently on alprazolam 0.25 mg nightly tolerating well with no evidence of increased behavioral disturbances or anxiety with goal to eventually slowly taper and discontinue. Given the patient's advanced age and chronic comorbidities a gradual decline is expected. 3. Chronic pain syndrome. Multifactorial in origin with a history of long-term opioid therapy that is no longer in use. History of phantom pain due to bilateral below the knee amputation secondary to peripheral vascular disease. Controlled with pregabalin 50 mg twice daily. Requires as needed acetaminophen for pain. Spouse is aware to make palliative care aware if increased acetaminophen use to reevaluate dose adjustment of pregabalin. Continue to monitor. 4. Advanced care planning. Patient has POLST in place as DN R. Goal is to optimize the patient's comfort and transition to hospice services again when medically appropriate. Total time spent 40 minutes with greater than 50% of the spent in counseling and coordination of care with the patient and spouse/DPOA; attempt of lab draw; evaluation of transfers to the bedside commode; examination the patient; review of medication management; and anticipatory guidance. Disclaimer: The chart note was formulated using voice recognition technology and unfortunately sound alike errors may occur.
== END 2021-09-03 15:01 | disposition home or self-care (01) ==
LOC: PC 15:00
PROVIDERS: ATTEND Nurse Practitioner Family
DX: Z51.5 Encounter for palliative care (principal); Z66 Do not resuscitate; F01.51 Vascular dementia, unspecified severity, with behavioral disturbance; E03.9 Hypothyroidism, unspecified; I73.9 Peripheral vascular disease, unspecified; F41.9 Anxiety disorder, unspecified; G54.6 Phantom limb syndrome with pain; Z89.512 Acquired absence of left leg below knee; Z89.511 Acquired absence of right leg below knee; E78.5 Hyperlipidemia, unspecified; I25.10 Atherosclerotic heart disease of native coronary artery without angina pectoris; K21.9 Gastro-esophageal reflux disease without esophagitis; K44.9 Diaphragmatic hernia without obstruction or gangrene; H40.9 Unspecified glaucoma; F32.9 Major depressive disorder, single episode, unspecified; M81.0 Age-related osteoporosis without current pathological fracture; D69.6 Thrombocytopenia, unspecified; Z86.19 Personal history of other infectious and parasitic diseases; R32 Unspecified urinary incontinence; K08.89 Other specified disorders of teeth and supporting structures
CPT/HCPCS: 99349

== ENCOUNTER 2021-10-17 08:22 | Outpatient (CLI) | payer MEDICARE, OTHER, MEDICAID | END 2021-10-17 08:23 | disposition EMS.NT | LOC: EMS 08:22 | DX: Z03.89 Encounter for observation for other suspected diseases and conditions ruled out (principal) ==

== ENCOUNTER 2021-10-18 15:00 | Outpatient (CLI) | payer MEDICARE, OTHER, MEDICAID ==
--- NOTE | 2021-10-18 19:32 | CONSULTATION NOTE ---
Palliative Care Follow Up - Referral Referring Provider: Dr. Theron Fajardo Time of Visit: [id number] Referral setting: Home Referral Reason: FTT/Change in condition/Vascular Dementia/Low T3 - Information Sources Records reviewed: Previous records reviewed History/Review of Systems obtained from: Patient, Family (spouse/JORDY Yost) Exam limitations: Clinical condition (Advanced Dementia) - History of Present Illness Update Brief HPI Update: This is an 81-year-old -Ind[place]ian female seen in evaluation today within her home with her /DPHUNTER Yost present due to change in condition, protein calorie malnutrition and failure to thrive, low free T3 and vascular dementia. Provider wore N95 mask. The patient transitioned off of home hospice in early January 2021 and was reestablished with palliative care services in March 2021. Patient received her Covid19 booster over 1 week ago. Since that time, she has been sleeping more during the day, has had a decreased oral intake, and is no longer able to assist with transfers to her bedside commode. She was unable to support her weight with her transferring her on 10/17 hand the patient had to be assisted to the floor by her spouse. This resulted in EMS services being called vital signs being taken and was noted to have a blood glucose level of 74. This was in the setting of the patient having a decreased oral intake over the last several days and both food as well as liquid. In this weakened state, it is increasingly difficult for the patient spouse to provide the bulk of caregiving services when the [employer] caregivers are not within the home which is in the afternoon and evening hours and not at all on Sundays. He has his own health problems and can not afford to have an injury or be incapacitated to not be able to provide care to the patient. The patient herself denies any dysuria, there has been no cough reported. She did have an episode of fecal incontinence yesterday however, this is not the norm for the patient. Overall, the patient's spouse sees generalized decline and lack of strength and is hoping to transition back to hospice services. The patient is scheduled to see her PCP next week and she request to have lab work obtained as this was unable to be obtained on multiple occasions within the home with the patient being a difficult blood draw. She was placed on Cytomel 5 MCG's and the patient has been administered this every other day since January 2021 for low T3. The patient spouse has not noted any increase in her alertness or appetite since initiation of this medication. Given her overall presentation today we will discontinue Cytomel as it is not added to the patient's comfort as well as advised to cancel upcoming PCP appointment. Patient is seen resting in bed dozing. Awakens to her name. She is not attentive for long periods of time and then will drift back off to sleep. She is not engaged that she has been on previous evaluations. 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 Social History - Living Situation Living arrangement: At home Living Situation: With spouse/s.o. Support System: Patient her and her have been for 59 years. Prior to relocating to [facility] she and her lived in [place], [place]. The patient grew up in [place], [place]. The patient and her have 2 children, 1 daughter and 1 son. The patient's healthcare power of roll contour grinder is her , Priyank with contact number [phone]. The patient and her are estranged from her daughter. Their son, Stephen resides in [place] and provides support. The patient has 3 private caregivers [facility] that come 6 days/week (Abby, Eliana and Olinda). Her correctional case records supervisor is Renetta Zelaya [phone]. Given the recent decline in the patient's functional status will reach out to the patient's COPD ask correctional case records supervisor to request for reevaluation in her [employer] hours and obtainment of additional caregiving support more specifically in the evenings. Medications/Allergies - Medications Home Medications: Ambulatory Orders Medication Instructions Recorded Confirmed ALPRAZolam [Alprazolam] 0.25 mg PO QPM 03/18/16 06/26/21 Esomeprazole Magnesium 40 mg PO BID 08/13/19 06/26/21 Mirtazapine 7.5 mg PO QPM 08/13/19 06/26/21 Aspirin [Aspirin EC] 81 mg PO DAILY 08/14/19 06/26/21 Dorzolamide HCl/Timolol Maleat 1 drops EACHEYE BID 03/13/20 06/26/21 [Dorzolamide-Timolol Eye Drops] prednisoLONE 1% OPHTH DROPS [Pred 1 drops RIGHTEYE BID 09/11/20 06/26/21 Forte 1% Ophth Drops] Divalproex Dr [Depakote Dr] 125 mg PO BID 10/27/20 06/26/21 Potassium Chloride 10 meq PO DAILY 03/05/21 06/26/21 Senna [Senokot] 8.6 mg PO Q48H 03/05/21 06/26/21 polyethylene glycoL 3350 [Miralax] 8.5 gm PO DAILY PRN 03/05/21 06/26/21 Pregabalin [Lyrica] 50 mg PO BID 03/11/21 06/26/21 Acetaminophen [Tylenol] 650 mg PO Q6H PRN 07/30/21 07/30/21 - Allergies Allergies/Adverse Reactions: Allergies Allergy/AdvReac Type Severity Reaction Status Date / Time gentamicin [Gentamicin] Allergy Unknown Verified 02/09/21 05:08 lisinopril Allergy Unknown Verified 02/09/21 05:08 paroxetine [From Paxil] Allergy Unknown Verified 02/09/21 05:08 Review of Systems - Constitutional Constitutional: reports: Fatigue, Weakness, Poor appetite, Other (left MAC 19cm 10/19/2021; left MAC 21cm 06/26/2021; left MAC 21cm on 04/24/2021 , previous left MAC 21cm on 03/22/2021). denies: Fever - Eyes Eyes: reports: Vision loss (right eye due to glaucoma) - Ears, Nose & Throat Ears, Nose & Throat: denies: Dentures, Dental pain - Cardiovascular Cardiovascular: denies: Edema - Respiratory Respiratory: denies: Cough, Other (No cough during meals) - Gastrointestinal Gastrointestinal: reports: Diarrhea (yesterday), Poor appetite (see HPI). denies: Abdominal pain, Constipation, Nausea, Vomiting - Genitourinary Genitourinary: reports: Incontinence (intermittent). denies: Dysuria, Hematuria - Musculoskeletal Musculoskeletal: reports: Muscle weakness, Assistive devices, Transfer issues, Other (Prostetics for b/l lower extremities). denies: Joint pain - Integumentary Integumentary: reports: Other (Redness to coccyx covered with bandaid with no open area) - Neurological Neurological: reports: General weakness, Memory problems - Psychiatric Psychiatric: reports: Depression, Anxiety, Behavior disturbances (history of behaviorial disturbances) - Endocrine Endocrine: reports: Other (Low T3) - Hematologic/Lymphatic Hematologic/Lymph: reports: Recurrent infections (UTIs, urine specimen cups in the home) - All Other Systems All Other Systems: reports: Reviewed and negative (Patient is a poor historian due to dementia and review of systems supplemented by the patient's /DPPriyank HARRISON.) Physical Exam - Vital Signs Temperature: 36.7 C Pulse Rate: 74 O2 Saturation: 95 (on RA) Blood Pressure: 102/64 (left wrist) - Physical Exam General Appearance: positive: No acute distress, Other (resting in bed with nightgown in place, +drowsy) Eyes Bilateral: positive: Other (+scarring to right cornea due to glaucoma) ENT: positive: No signs of dehydration. negative: Oral lesions Neck: positive: Trachea midline Cardiovascular: positive: Regular rate & rhythm, Systolic murmur (+2/6 WM) Respiratory: positive: No respiratory distress, Breath sounds nml, Diminished in bases Abdomen: positive: Non-tender, Soft, Nml bowel sounds. negative: Guarding, Distended Skin: positive: Other (Redness to cocyxx per spouse with skin intact--bandiad in place) Extremities: positive: No pedal edema, Other (bilateral below the knee amputations) Neurologic/Psychiatric: positive: Disoriented to place, Disoriented to time, Weakness, Other (Not engaged as she has been on recent evaluations) Palliative Care - POLST Patient has POLST: Yes POLST Status: DNR, Comfort Measures Pain: No pain (controlled with lyrica) Tiredness/Fatigue: Moderate (4-6) Drowsiness/Sedation: Moderate (4-6) Nausea: None Anorexia: Moderate (4-6) Dyspnea: None Sleep: Sleeps well Performance Status: Prior to this recent change in mental status and alertness in the last week the patient was able to self feed and assist with transfers to her bedside commode. Now, she is being assisted with meals and is consuming minimal during these times. More sedated. Intermittent episodes of incontinence. Recent episodes of bowel incontinence. - Palliative Care Discussion: Patient has had acute changes in her mental status and alertness status post Covid19 vaccine. The patient is very sensitive to alterations in her environment as well as medications. She has had episodes of altered mental status and alertness in the past with possible UTI or encephalopathy contributing however, the patient has not demonstrated any signs or symptoms of acute infection prior to this recent change and mental status. She has not bounced back to her previous baseline. The patient's spouse wishes to focus on quality of life and comfort measures within the home environment and transition back to hospice services. He recognizes if the patient were to be transferred to the hospital setting this would result in increased confusion and discomfort at home as he would be unable to be present with her and expresses concerns regarding his own health if the patient were to be hospitalized due to his increased risk of infection. The patient has had a decrease in her oral intake and has gone from an MAC of 21 cm to 19 cm when measured today. She is now requiring assistance with meals when previously she was able to self feed. Discussed with the patient's spouse that she is demonstrating signs and symptoms of continued advancement of her dementia and vascular dementia does not follow a typical course as Alzheimer's disease with understanding verbalized. The patient's spouse is fearful of being alone without caregiving support in the evenings and on Sundays given her weakened state. Discussed measures to toilet in bed to reduce risk of fall or injury to the spouse. Spouse is aware that he can contact for a lift assist at any point in time. Given the patient being placed on Cytomel in January 2021 for low T3 has not added to her comfort will discontinue and spouse in agreement. Impression and Recommendations - Palliative Care Impression: This is an 81-year-old -Ind[place]ian female who has experienced acute functional and cognitive decline, protein calorie malnutrition due to decreased oral intake in the setting of advanced vascular dementia and peripheral vascular disease. She has a history of low T3 and given his lack of contribution to comfort will discontinue Cytomel. She has not had improvement since onset of symptoms and therefore, will transition to hospice services. Palliative care provided supportive and empathetic listening today, examination of patient, care coordination and will hold in place until hospice services admits patient. Recommendations/Counseling Done: 1. Protein calorie malnutrition with decreased oral intake in the setting of advanced vascular dementia. Patient continues with minimal oral intake of both liquids and food. Encourage the patient spouse to offer once, offer trace and after the third time she continues to refuse them like the offering breast and readdress at a later time. Requiring assistance during mealtimes from caregivers and spouse. Sit up at least 30 degrees to decrease risk of aspiration. Patient spouse does not wish for PEG tube placement for nutritional assistance and wishes to focus on pleasure foods that are desirable to the patient and a transition to hospice services for an added layer of support with a focus on comfort. Decrease in MAs see on the left arm from 21 cm to 19 cm obtained today. 2. Low T3. Diagnosed by patient's PCP and initiated on Cytomel 5 mcg with a spouse administering every other day. TSH 2.28 on 02/25/2021. Multiple attempts of lab draws in recent months that have been unsuccessful due to the patient's venous access. Since initiation of Cytomel patient spouse has not noted any change in the patient's oral intake or demeanor and as it is not contributing to comfort will discontinue Cytomel. Recommendations made to discontinue pending office visit to PCP next week given patient's clinical status and spouse to discontinue. 3. Chronic pain syndrome. Multifactorial in origin with a history of long-term opioid therapy that is no longer in use. History of phantom pain due to bilateral below the knee amputation secondary to peripheral vascular disease. Controlled with pregabalin 50 mg twice daily. Requires as needed acetaminophen for pain. Continue to monitor. 4. Vascular dementia with history of peripheral vascular disease with behavioral disturbances. Chronic. Progressive. Fall precautions. No evidence of dysphagia reported. Continue Depakote as ordered due to previous history of agitation. She is no longer on disease modifying agents. Presently on alprazolam 0.25 mg nightly tolerating well no evidence of increased behavioral disturbances or anxiety with the goal to slowly taper off and discontinue. Patient with increased weakness and debility and will request hospital bed for ease of care for patient and spouse. Given the patient's advanced age and chronic comorbidities a gradual decline is expected. 5. Caregiver burden. Patient spouse has support through [place] [employer] hours and caregivers. Would benefit from reevaluation for additional caregiving support within the home. We will reach out to patient's correctional case records supervisor at [facility] on Thursday to determine if patient is eligible for additional hours and caregiving support within the home. Patient to transition to hospice services however, at admission will not happen prior to Cj due to staffing. Spouse is aware. Will request hospital bed and bedside table for additional support for patient and spouse. Supportive and empathetic listening provided to the patient spouse. 6. Patient has POLST in place as DN AR. Goal is to optimize the patient's comfort and to make a transition to hospice services given further decline in support to the patient and spouse within the home setting. Total time spent 55 minutes with greater than 50% of the spent in counseling and coordination of care with the patient and spouse/DPOA; supportive and empathetic listening; care coordination; examination of patient; review of goals of care; and anticipatory guidance. Contacted home hospice rn coordinatorLory regarding request for hospice services. Disclaimer: The chart note was formulated using voice recognition technology and unfortunately sound alike errors may occur.
== END 2021-10-18 15:01 | disposition home or self-care (01) ==
LOC: PC 15:00
PROVIDERS: ATTEND Nurse Practitioner Family
DX: Z51.5 Encounter for palliative care (principal); E46 Unspecified protein-calorie malnutrition; R94.6 Abnormal results of thyroid function studies; G89.4 Chronic pain syndrome; F01.51 Vascular dementia, unspecified severity, with behavioral disturbance; I73.9 Peripheral vascular disease, unspecified; Z89.512 Acquired absence of left leg below knee; Z89.511 Acquired absence of right leg below knee; Z66 Do not resuscitate
CPT/HCPCS: 99349

== ENCOUNTER → 2022-04-29 | Outpatient (CLI) | payer MEDICARE, OTHER, MEDICAID | END | disposition hospice, inpatient (51) | LOC: EMS 13:52 | PROVIDERS: ATTEND Family Medicine | DX: G31.1 Senile degeneration of brain, not elsewhere classified (principal); I73.9 Peripheral vascular disease, unspecified; Z89.612 Acquired absence of left leg above knee; Z89.611 Acquired absence of right leg above knee | CPT/HCPCS: A0425; A0428 ==